=== PATIENT | female | born 1965 | race Two or more races ===

== ENCOUNTER 2020-01-21 16:22 | Inpatient (IN) | payer MEDICAID ==
[~2020-01-21] VITALS: Ht 165.1 cm; Wt 106.6 kg
[2020-01-21 16:30] VITALS: BP 128/79
--- NOTE | 2020-01-21 16:30 | NUR ---
ED Nurse Note: Pt MARIZA COLINDRES from home c/o epigastric pain, nausea and vomiting onset today. Denies diarrhea. Afebrile. Per pt, she has been exposed last week with someone who tested positive today. AAox4, verbally responsive. No SOB, on room air. ERMD at bedside.
[2020-01-21] MEDS ORDERED: DiphenhydrAMINE 50mg/ml Inj IVP ONE (16:45)
[2020-01-21] MEDS ORDERED: Morphine Sulfate 4mg/ml Inj (IV USE ONLY) IVP ONE (16:45)
[2020-01-21] MEDS ORDERED: Metoclopramide 10mg/2ml Inj IVP ONE (16:45)
--- NOTE | 2020-01-21 16:53 | Emergency Room Report ---
History of Present Illness General Chief Complaint: Abdominal Pain Source: Patient Present Illness HPI Patient presents with 1 hour of epigastric pain radiating to her back. She is never had this before. It severe at this time. She denies nausea, vomiting or diarrhea. Patient denies fevers or chills. Patient denies chest pain or dyspnea. The patient rates the pain 10/10 and states it is epigastric. It does not radiate to her back. She is taking no medication. Patient may have had contact with someone with COVID-19 a week ago for 1 hour just tested positive yesterday. No sore throat, palpitations, dysuria, joint pain, rashes, depression, anxiety, visual changes, dizziness, headache. Patient denies major medical problems. Allergies: Coded Allergies: No Known Allergies (Unverified , 01/21/20) COVID-19 Screening Contact w/high risk pt: No Experienced COVID-19 symptoms?: No COVID-19 Testing performed HYPO SPLASHER: No Patient History Social History: Denies: smoking, alcohol use, drug use Social History Narrative From home Reviewed Nursing Documentation: PMH: Agreed; PSxH: Agreed Nursing Documentation-PMH Past Medical History: No Stated History Review of Systems All Other Systems: negative except mentioned in HPI Physical Exam Vital Signs Date Time Temp Pulse Resp B/P (MAP) Pulse Ox O2 Delivery O2 Flow Rate FiO2 01/21/20 16:24 99.0 66 17 128/79 (95) 97 Room Air Sp02 EP Interpretation: reviewed, normal General Appearance: well appearing, no apparent distress, GCS 15 Head: normocephalic Eyes: bilateral eye normal inspection, bilateral eye PERRL, bilateral eye EOMI ENT: moist mucus membranes Neck: supple Respiratory: lungs clear, normal breath sounds Cardiovascular #1: regular rate, rhythm Cardiovascular #2: 2+ radial (R) Gastrointestinal: normal inspection, normal bowel sounds, no mass, non-distende d, no guarding, no rebound, tenderness - Reported epigastric, overweight Genitourinary: no CVA tenderness Musculoskeletal: back normal, normal range of motion, gait/station normal Neurologic: alert, oriented x3, grossly normal Psychiatric: mood/affect normal Skin: no rash, warm/dry Medical Decision Making Diagnostic Impression: Primary Impression: Acute pancreatitis Qualified Codes: K85.10 - Biliary acute pancreatitis without necrosis or infection Additional Impressions: Lab test positive for detection of COVID-19 virus Gall stone Qualified Codes: K80.20 - Calculus of gallbladder without cholecystitis without obstruction ER Course Patient presents with epigastric pain for 1 hour. Differential includes gastritis, peptic ulcer disease, pancreatitis, diverticulitis and UTI amongst others. Evaluated with EKG, ultrasound and labs. Patient treated with IV hydration, Pepcid, Reglan, Benadryl and morphine. EKG normal. Chest x-ray no infiltrates. White count normal however left shift. CMP remarkable for elevated liver function test. Lipase greater than 2000. Ultrasound reveals gallstones with mildly thickened gallbladder wall without any. Cholecystic fluid or Leon's sign. Patient improved with analgesia and hydration. However due to new onset panc reatitis with extremely elevated lipase patient admitted to the hospital. Covid test performed which returns positive. Patient admitted to the hospital for further evaluation and treatment. Laboratory Tests Test 01/21/20 16:55 01/21/20 18:23 White Blood Count 6.3 K/UL (4.8-10.8) Red Blood Count 4.81 M/UL (4.20-5.40) Hemoglobin 14.2 G/DL (12.0-16.0) Hematocrit 41.9 % (37.0-47.0) Mean Corpuscular Volume 87 FL (80-99) Mean Corpuscular Hemoglobin 29.5 PG (27.0-31.0) Mean Corpuscular Hemoglobin Concent 34.0 G/DL (32.0-36.0) Red Cell Distribution Width 13.0 % (11.6-14.8) Platelet Count 193 K/UL (150-450) Mean Platelet Volume 6.5 FL (6.5-10.1) Neutrophils (%) (Auto) % (45.0-75.0) Lymphocytes (%) (Auto) % (20.0-45.0) Monocytes (%) (Auto) % (1.0-10.0) Eosinophils (%) (Auto) % (0.0-3.0) Basophils (%) (Auto) % (0.0-2.0) Differential Total Cells Counted 100 Neutrophils % (Manual) 84 % (45-75) H Lymphocytes % (Manual) 8 % (20-45) L Monocytes % (Manual) 8 % (1-10) Eosinophils % (Manual) 0 % (0-3) Basophils % (Manual) 0 % (0-2) Band Neutrophils 0 % (0-8) Platelet Estimate Adequate Platelet Morphology Normal Red Blood Cell Morphology Normal Prothrombin Time 11.1 SEC (9.30-11.50) Prothrombin Time INR 1.0 (0.9-1.1) Activated Partial Thromboplast Time 29 SEC (23-33) Sodium Level 141 MMOL/L (136-145) Potassium Level 3.6 MMOL/L (3.5-5.1) Chloride Level 106 MMOL/L (98-107) Carbon Dioxide Level 26 MMOL/L (21-32) Anion Gap 9 mmol/L (5-15) Blood Urea Nitrogen 10 mg/dL (7-18) Creatinine 1.0 MG/DL (0.55-1.30) Estimated Glomerular Filtration Rate 58.0 mL/min (>60) Glucose Level 206 MG/DL (74-106) H Calcium Level 8.8 MG/DL (8.5-10.1) Total Bilirubin 1.4 MG/DL (0.2-1.0) H Direct Bilirubin 1.0 MG/DL (0.0-0.3) H Aspartate Amino Transferase (AST) 170 U/L (15-37) H Alanine Aminotransferase (ALT) 213 U/L (12-78) H Alkaline Phosphatase 163 U/L (46-116) H Troponin I 0.000 ng/mL (0.000-0.056) Total Protein 8.8 G/DL (6.4-8.2) H Albumin 3.6 G/DL (3.4-5.0) Globulin 5.2 g/dL Albumin/Globulin Ratio 0.7 (1.0-2.7) L Lipase > 2000 U/L (73-393) H Urine Color Yellow Urine Appearance Clear Urine pH 5 (4.5-8.0) Urine Specific [place] 1.015 (1.005-1.035) Urine Protein 1+ (NEGATIVE) H Urine Glucose (UA) Negative (NEGATIVE) Urine Ketones 1+ (NEGATIVE) H Urine Blood 1+ (NEGATIVE) H Urine Nitrite Negative (NEGATIVE) Urine Bilirubin Negative (NEGATIVE) Urine Urobilinogen Normal MG/DL (0.0-1.0) Urine Leukocyte Esterase 1+ (NEGATIVE) H Urine RBC 2-4 /HPF (0 - 2) H Urine WBC 2-4 /HPF (0 - 2) Urine Squamous Epithelial Cells Few /LPF (NONE/OCC) Urine Bacteria Few /HPF (NONE) Urine Mucus Moderate /LPF (NONE/OCC) H Microbiology Date/Time Source Procedure Growth Status 01/21/20 17:30 Nasopharynx SARS-CoV-2 RdRp Gene Assay - Final Complete EKG Diagnostic Results Rate: normal Rhythm: NSR ST Segments: no acute changes Rhythm Strip Diag. Results Rhythm: NSR, no PVC's, no ectopy Chest X-Ray Diagnostic Results Chest X-Ray Diagnostic Results : Chest X-Ray Ordered: Yes # of Views/Limited/Complete: 1 View Indication: Chest Pain EP Interpretation: Yes Interpretation: no consolidation, no effusion, no pneumothorax Impression: No acute disease Electronically Signed by: Electronically signed by Talon Alexander MD CT/MRI/US Diagnostic Results CT/MRI/US Diagnostic Results : Imaging Test Ordered: US Impression 1. Limited evaluation due to bowel gas. 2. Cholelithiasis. 3. Gallbladder wall measures 0.45 cm and is diffusely thickened. Clinical correlation is necessary. 4. No pericholecystic fluid noted however. Markedly limited evaluation of the common bile duct due to bowel gas. 5. Clinical correlation is necessary. Last Vital Signs Date Time Temp Pulse Resp B/P (MAP) Pulse Ox O2 Delivery O2 Flow Rate FiO2 01/22/20 00:00 99.6 61 18 138/75 (96) 99 01/21/20 21:22 Room Air Status: improved Disposition: ADMITTED INPATIENT Condition: Serious Scripts No Active Prescriptions or Reported Meds Talon Alexander MD Jan 21, 2020 16:53
--- NOTE | 2020-01-21 16:55 | NUR ---
ED Nurse Note: IV line established. Blood sent to lab.
--- NOTE | 2020-01-21 17:34 | NUR ---
ED Nurse Note: US at bedside.
--- NOTE | 2020-01-21 17:37 | Diagnostic Imaging Report ---
EXAM: XR Chest, 1 View CLINICAL HISTORY: ABD PAIN TECHNIQUE: Frontal view of the chest. COMPARISON: No previous studies. FINDINGS: Lungs: Unremarkable. No consolidation. Pleural space: No pleural effusions. No pneumothorax. Heart: Cardiomediastinal silhouette unremarkable. Mediastinum: See above. Bones/joints: Osteopenia. Upper abdomen: Elevation of the right hemidiaphragm. IMPRESSION: No active disease.
[2020-01-21 17:40] LABS: ANION GAP 9 mmol/L (5-15); BLOOD UREA NITROGEN 10 mg/dL (7-18); CALCIUM 8.8 MG/DL (8.5-10.1); CARBON DIOXIDE 26 MMOL/L (21-32); CHLORIDE 106 MMOL/L (98-107); POTASSIUM 3.6 MMOL/L (3.5-5.1); SODIUM 141 MMOL/L (136-145)
[2020-01-21 17:41] LABS: HEMATOCRIT 41.9 % (37.0-47.0); HEMOGLOBIN 14.2 G/DL (12.0-16.0); MEAN CORPUSCULAR VOLUME 87 FL (80-99); RED BLOOD COUNT 4.81 M/UL (4.20-5.40); WHITE BLOOD COUNT 6.3 K/UL (4.8-10.8)
[2020-01-21 17:42] LABS: PLATELET COUNT 193 K/UL (150-450)
[2020-01-21 17:50] LABS: ALANINE AMINOTRANSFERASE 213 U/L (12-78); ALBUMIN 3.6 G/DL (3.4-5.0); ALBUMIN/GLOBULIN RATIO 0.7 (1.0-2.7); ALKALINE PHOSPHATASE 163 U/L (46-116); ASPARTATE AMINO TRANSFERASE 170 U/L (15-37); BILIRUBIN,TOTAL 1.4 MG/DL (0.2-1.0)
--- NOTE | 2020-01-21 18:16 | Diagnostic Imaging Report ---
EXAM: US Abdomen Complete CLINICAL HISTORY: ABD PAIN TECHNIQUE: Real-time ultrasound of the abdomen with image documentation. COMPARISON: No previous studies. FINDINGS: Liver: See below. Gallbladder: There is cholelithiasis. A 2.6 cm gallstone is noted. Gallbladder wall measures 0.45 cm and is thickened. Common bile duct: Suboptimal evaluation of the common bile duct due to bowel gas. No stones. No dilation. Pancreas: Unremarkable as visualized. Kidneys: Right kidney measures 9.8 x 5 x 5 cm. Left kidney measures 9. 3 x 4.9 x 4.7 cm. No hydronephrosis. No stones. Spleen: Spleen measures 9.3 cm and is unremarkable. Aorta: Abdominal aorta is normal in caliber. Liver measures 15.9 cm. Partial evaluation of the abdominal aorta which is grossly unremarkable. No aneurysm. Inferior vena cava: Unremarkable. IMPRESSION: 1. Limited evaluation due to bowel gas. 2. Cholelithiasis. 3. Gallbladder wall measures 0.45 cm and is diffusely thickened. Clinical correlation is necessary. 4. No pericholecystic fluid noted however. Markedly limited evaluation of the common bile duct due to bowel gas. 5. Clinical correlation is necessary.
--- NOTE | 2020-01-21 18:23 | NUR ---
ED Nurse Note: Urine sent to lab.
[2020-01-21 18:49] VITALS: BP 129/68
--- NOTE | 2020-01-21 19:11 | NUR ---
HAND-OFF: Report given to Sherry MATA.
[2020-01-21] MEDS ORDERED: D5 1/2NS w/KCl 20mEq 1,000 ML IV SCH (19:30)
--- NOTE | 2020-01-21 20:00 | NUR ---
Nurse Note: Pt resting in bed, no signs of distress,VSS, atttached to bus driver/monitor. Pt denies pain, n/v. Provided pt with blanket and pillow.
[2020-01-21 20:08] LABS: APPEARANCE,URINE CLEAR; BILIRUBIN, URINE NEGATIVE (NEGATIVE); GLUCOSE, URINE (UA) NEGATIVE (NEGATIVE); KETONES,URINE 1+ (NEGATIVE); LEUKOCYTE ESTERASE ,URINE 1+ (NEGATIVE); NITRITE,URINE NEGATIVE (NEGATIVE); PH,URINE 5 (4.5-8.0); PROTEIN,URINE 1+ (NEGATIVE); UROBILINOGEN,URINE NORMAL MG/DL (0.0-1.0)
[2020-01-21 20:15] LABS: COLOR,URINE YELLOW
[2020-01-21 20:21] VITALS: BP 131/72
--- NOTE | 2020-01-21 21:29 | NUR ---
Nurse Note: Report given to ADOLFO Wood for continutiy of care. Pt stable, VSS, belongings with pt.
--- NOTE | 2020-01-21 21:45 | NUR ---
NURSE NOTES: ADMITTED 54 YEAR OLD FEMALE TO ROOM 414 BED 2 [facility] DIAGNOSIS ACUTE PANCREATITIS/COVID POSITIVE, PATIENT UNDER THE CARE OF DR. RIVERA. PATIENT ALERT/ORIENTED X4, VERBALLY RESPONSIVE. NO SIGNS AND SYMPTOMS OF ACUTE CARDIO RESPIRATORY DISTRESS/SHORTNESS OF BREATH, NOTED WITH EDEMA TO BILATERAL LOWER EXTREMITIES/NON PITTED. IV INTACT TO RIGHT AC/GAUGE 20, NO REDNESS/SWELLING NOTED. ABDOMEN OBESE/SOFT/NON TENDER, DENIES ABDOMINAL PAIN. PATIENT AWARE OF NPO STATUS, IV FLUIDS ONGOING. ORIENTATED PATIENT TO ROOM/ENVIRONMENT. SIDE RAILS UP X2 FOR MOBILITY, BED IN LOWEST POSITION FOR SAFETY, ENCOURAGED PATIENT TO UTILIZE CALL LIGHT FOR ASSISTANCE, VERBALIZED UNDERSTANDING. CONTINUE WITH CURRENT PLAN OF CARE. NAD.
[2020-01-21 22:00] VITALS: BP 131/69
[2020-01-22] VITALS: BP 138/75
--- NOTE | 2020-01-22 01:21 | NUR ---
NURSE NOTES: RESTING WELL ON ROUNDS, NO SIGNS OF DISTRESS.
[2020-01-22 04:00] VITALS: BP 136/75
--- NOTE | 2020-01-22 04:23 | NUR ---
NURSE NOTES: AM LABS DRAWN AND SENT TO LAB-
[2020-01-22 04:39] LABS: BASOPHILS % (AUTO) 0.3 % (0.0-2.0); HEMATOCRIT 40.1 % (37.0-47.0); HEMOGLOBIN 14.1 G/DL (12.0-16.0); LYMPHOCYTES % (AUTO) 22.4 % (20.0-45.0); MEAN CORPUSCULAR VOLUME 85 FL (80-99); MONOCYTES % (AUTO) 6.8 % (1.0-10.0); NEUTROPHILS % (AUTO) 70.4 % (45.0-75.0); PLATELET COUNT 186 K/UL (150-450); RED BLOOD COUNT 4.72 M/UL (4.20-5.40); RED CELL DISTRIBUTION WIDTH 13.8 % (11.6-14.8)
[2020-01-22 05:01] LABS: ALANINE AMINOTRANSFERASE 209 U/L (12-78); ALBUMIN 3.3 G/DL (3.4-5.0); ALBUMIN/GLOBULIN RATIO 0.6 (1.0-2.7); ALKALINE PHOSPHATASE 156 U/L (46-116); ANION GAP 7 mmol/L (5-15); ASPARTATE AMINO TRANSFERASE 139 U/L (15-37); BILIRUBIN,TOTAL 0.9 MG/DL (0.2-1.0); BLOOD UREA NITROGEN 11 mg/dL (7-18); CALCIUM 8.3 MG/DL (8.5-10.1); CARBON DIOXIDE 24 MMOL/L (21-32); CHLORIDE 109 MMOL/L (98-107); CREATININE 0.8 MG/DL (0.55-1.30); POTASSIUM 4.5 MMOL/L (3.5-5.1); SODIUM 140 MMOL/L (136-145)
--- NOTE | 2020-01-22 06:45 | Consultation ---
DATE OF CONSULTATION: 01/22/2020 PULMONARY CONSULTATION HISTORY OF PRESENT ILLNESS: This is a 54-year-old female who came to the hospital with abdominal pain. She states that she has been having severe pain for approximately 1 day. There was no fever, chills, shortness of breath, chest pain, or dyspnea. She apparently has been tested positive for COVID-19 contact as well at [facility]. Her rapid gene essay was positive for COVID. The patient underwent x-ray of the chest, which shows clear lung zuniga bilaterally. She also underwent ultrasound of the abdomen which showed cholelithiasis and thickening of the gallbladder wall suspicious for cholecystitis. The patient was found to be saturating well on room air. PAST MEDICAL HISTORY: Otherwise noncontributory. ALLERGIES: None. HOME MEDICATIONS: None. REVIEW OF SYSTEMS: Denies any headaches, hematemesis, melena, hematochezia. PHYSICAL EXAMINATION: GENERAL: Reveals a 54-year-old female. VITAL SIGNS: Blood pressure is 130/70, heart rate , respiratory rate 18, O2 saturation 99% on room air. HEENT: Unremarkable. CHEST: Clear breath sounds bilaterally. ABDOMEN: Soft. There is mild right upper quadrant discomfort. EXTREMITIES: There is no edema. LABORATORY AND DIAGNOSTIC DATA: Lab testing as discussed above is unremarkable except for markedly elevation of bilirubin 1.4. AST and ALT elevated, alkaline phosphatase elevated to 163. Troponin negative. IMPRESSION: 1. Transaminitis. 2. Pancreatitis. 3. Positive COVID-19. DISCUSSION: Currently, her COVID symptoms are minimal. I suspect she has cholelithiasis/cholecystitis as well as pancreatitis. She may have passed a stone. 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 Recommend consultation by GI and Surgery. We will follow. Bubba Penny M.D. DR: Misti JOB#: [id number] CC:
--- NOTE | 2020-01-22 07:34 | NUR ---
NURSE HAND-OFF: Important Events on Shift:[UNEVENTFUL NIGHT, DENIED ABDOMINAL PAIN, NO N/V] Patient Status: [STABLE] Diet: [NPO] Pending Orders: [AM LABS] Pending Results/Labs:[N/A] Pending MD notification:[] Latest Vital Signs: Temperature 98.3 , Pulse 66 , B/P 136 /75 , Respiratory Rate 18 , O2 SAT 95 , Room Air, O2 Flow Rate . Vital Sign Comment: [STABLE,AFEBRILE] Latest Xiong Fall Score: 35 Fall Risk: Medium Risk Safety Measures: Call light Within Reach, Bed Alarm Zone 1, Side Rails Side Rails x2, Bed position Low and Locked. Fall Precautions: Patient Fall Education Report given to [ADOLFO JENSEN].
--- NOTE | 2020-01-22 07:44 | NUR ---
NURSE NOTES: Report received from CHARMAINE Real. Patient is awake, alert and oriented x 4, no SOB, bed in lowest position with breaks engaged and alarm on, denies any pain or discomfort at this time, IV line present on right wrist, on room air, on contact and droplet precaution for COVID, will continue to monitor and proceed with plan of care, call light within reach.
[2020-01-22 08:00] VITALS: BP 130/69
--- NOTE | 2020-01-22 08:54 | General Progress Note ---
Subjective ROS Limited/Unobtainable: Yes Allergies: Coded Allergies: No Known Allergies (Unverified , 01/21/20) Objective Last 24 Hour Vital Signs Date Time Temp Pulse Resp B/P (MAP) Pulse Ox O2 Delivery O2 Flow Rate FiO2 01/22/20 08:00 98.1 74 18 130/69 (89) 98 01/22/20 04:00 98.3 66 18 136/75 (95) 95 01/22/20 00:00 99.6 61 18 138/75 (96) 99 01/21/20 23:12 Room Air 01/21/20 22:00 99.1 64 18 131/69 (89) 99 01/21/20 21:22 98.8 62 16 131/72 98 Room Air 01/21/20 20:21 98.8 62 16 131/72 98 Room Air 01/21/20 18:49 99.0 90 16 129/68 99 Room Air 01/21/20 17:33 99.0 01/21/20 16:30 66 17 Room Air 01/21/20 16:30 99.0 60 17 128/79 97 Room Air 01/21/20 16:24 99.0 66 17 128/79 (95) 97 Room Air Intake and Output 01/21/20 01/22/20 19:00 07:00 Intake Total 1000 ml 120 ml Balance 1000 ml 120 ml Intake Oral 120 ml IV Total 1000 ml # Voids 2 Laboratory Tests 01/21/20 16:55: White Blood Count 6.3, Red Blood Count 4.81, Hemoglobin 14.2, Hematocrit 41.9, Mean Corpuscular Volume 87, Mean Corpuscular Hemoglobin 29.5, Mean Corpuscular Hemoglobin Concent 34.0, Red Cell Distribution Width 13.0, Platelet Count 193, Mean Platelet Volume 6.5, Neutrophils (%) (Auto) , Lymphocytes (%) (Auto) , Monocytes (%) (Auto) , Eosinophils (%) (Auto) , Basophils (%) (Auto) , Differential Total Cells Counted 100, Neutrophils % (Manual) 84H, Lymphocytes % (Manual) 8L, Monocytes % (Manual) 8, Eosinophils % (Manual) 0, Basophils % (Manual) 0, Band Neutrophils 0, Platelet Estimate Adequate, Platelet Morphology Normal, Red Blood Cell Morphology Normal, Prothrombin Time 11.1, Prothromb Time International Ratio 1.0, Activated Partial Thromboplast Time 29, Sodium Level 141, Potassium Level 3.6, Chloride Level 106, Carbon Dioxide Level 26, Anion Gap 9, Blood Urea Nitrogen 10, Creatinine 1.0, Estimat Glomerular Filtration Rate 58.0, Glucose Level 206H, Calcium Level 8.8, Total Bilirubin 1.4H, Direct Bilirubin 1.0H, Aspartate Amino Transf (AST/SGOT) 170H, Alanine Aminotransferase (ALT/SGPT) 213H, Alkaline Phosphatase 163H, Troponin I 0.000, Total Protein 8.8H , Albumin 3.6, Globulin 5.2, Albumin/Globulin Ratio 0.7L, Lipase > 2000H 01/21/20 18:23: Urine Color Yellow, Urine Appearance Clear, Urine pH 5, Urine Specific [place] 1.015, Urine Protein 1+H, Urine Glucose (UA) Negative, Urine Ketones 1+H, Urine Blood 1+H, Urine Nitrite Negative, Urine Bilirubin Negative, Urine Urobilinogen Normal, Urine Leukocyte Esterase 1+H, Urine RBC 2-4H, Urine WBC 2-4, Urine Squamous Epithelial Cells Few, Urine Bacteria Few, Urine Mucus ModerateH 01/22/20 04:00: White Blood Count 6.0, Red Blood Count 4.72, Hemoglobin 14.1, Hematocrit 40.1, Mean Corpuscular Volume 85, Mean Corpuscular Hemoglobin 29.8, Mean Corpuscular Hemoglobin Concent 35.1, Red Cell Distribution Width 13.8, Platelet Count 186, Mean Platelet Volume 6.7, Neutrophils (%) (Auto) 70.4, Lymphocytes (%) (Auto) 22.4, Monocytes (%) (Auto) 6.8, Eosinophils (%) (Auto) 0.0, Basophils (%) (Auto) 0.3, Sodium Level 140, Potassium Level 4.5, Chloride Level 109H, Carbon Dioxide Level 24, Anion Gap 7, Blood Urea Nitrogen 11, Creatinine 0.8, Estimat Glomerular Filtration Rate > 60, Glucose Level 132H, Calcium Level 8.3L, Total B ilirubin 0.9, Aspartate Amino Transf (AST/SGOT) 139H, Alanine Aminotransferase (ALT/SGPT) 209H, Alkaline Phosphatase 156H, Total Protein 8.4H, Albumin 3.3L, Globulin 5.1, Albumin/Globulin Ratio 0.6L, Lipase > 2000H Height (Feet): 5 Height (Inches): 2.00 Weight (Pounds): 235 General Appearance: alert EENT: normal ENT inspection Neck: supple Cardiovascular: normal rate Respiratory/Chest: lungs clear Abdomen: normal bowel sounds, non tender, soft Extremities: non-tender Assessment/Plan Assessment/Plan: gallstone pancreatitis? Covid positive npo ivf pain control needs MRCP but covid + will fu David Kingsley MD Jan 22, 2020 08:54
[2020-01-22] MEDS ORDERED: Morphine Sulfate 2mg/ml Inj(IV/IM USE ONLY) IVP PRN (09:00)
[2020-01-22] MEDS: D5 1/2NS w/KCL 10meq 1,000 ML IV SCH ×2 (10:15→19:30)
--- NOTE | 2020-01-22 10:26 | NUR ---
CASE MANAGEMENT:REVIEW BIBA FROM HOME CC; ABDOMINAL PAIN. N/V SI: ACUTE PANCREATITIS. COVID INFECTION 99.0 66 17 128/79 97% ON RA LIPASE>2000 IS: IV REGLAN IV PEPCID IV MORPHINE 1L NS BOLUS IV BENADRYL ABD US CXR : TO MED/[facility]URG [facility]
[2020-01-22 12:00] VITALS: BP 132/66
--- NOTE | 2020-01-22 12:13 | Pulmonology Progress Note ---
Subjective ROS Limited/Unobtainable: Yes Interval Events: none new Constitutional: Reports: no symptoms HEENT: Repors: no symptoms Respiratory: Reports: no symptoms Cardiovascular: Reports: no symptoms Gastrointestinal/Abdominal: Reports: no symptoms Genitourinary: Reports: no symptoms Allergies: Coded Allergies: No Known Allergies (Unverified , 01/21/20) Objective Last 24 Hour Vital Signs Date Time Temp Pulse Resp B/P (MAP) Pulse Ox O2 Delivery O2 Flow Rate FiO2 01/22/20 12:00 98.4 77 18 132/66 (88) 98 01/22/20 09:00 Room Air 01/22/20 08:00 98.1 74 18 130/69 (89) 98 01/22/20 04:00 98.3 66 18 136/75 (95) 95 01/22/20 00:00 99.6 61 18 138/75 (96) 99 01/21/20 23:12 Room Air 01/21/20 22:00 99.1 64 18 131/69 (89) 99 01/21/20 21:22 98.8 62 16 131/72 98 Room Air 01/21/20 20:21 98.8 62 16 131/72 98 Room Air 01/21/20 18:49 99.0 90 16 129/68 99 Room Air 01/21/20 17:33 99.0 01/21/20 16:30 66 17 Room Air 01/21/20 16:30 99.0 60 17 128/79 97 Room Air 01/21/20 16:24 99.0 66 17 128/79 (95) 97 Room Air Intake and Output 01/21/20 01/22/20 19:00 07:00 Intake Total 1000 ml 120 ml Balance 1000 ml 120 ml Intake Oral 120 ml IV Total 1000 ml # Voids 2 Objective 01/22/2020 saturating well on room air; NAD General Appearance: WD/WN, no acute distress HEENT: normocephalic Respiratory: lungs clear Cardiovascular: normal rate, regular rhythm, no gallop/murmur Abdomen: soft, non tender Neurologic: alert, oriented x 3, responsive Microbiology Date/Time Source Procedure Growth Status 01/21/20 17:30 Nasopharynx SARS-CoV-2 RdRp Gene Assay - Final Complete Laboratory Tests 01/21/20 16:55: White Blood Count 6.3, Red Blood Count 4.81, Hemoglobin 14.2, Hematocrit 41.9, Mean Corpuscular Volume 87, Mean Corpuscular Hemoglobin 29.5, Mean Corpuscular Hemoglobin Concent 34.0, Red Cell Distribution Width 13.0, Platelet Count 193, Mean Platelet Volume 6.5, Neutrophils (%) (Auto) , Lymphocytes (%) (Auto) , Monocytes (%) (Auto) , Eosinophils (%) (Auto) , Basophils (%) (Auto) , Differential Total Cells Counted 100, Neutrophils % (Manual) 84H, Lymphocytes % (Manual) 8L, Monocytes % (Manual) 8, Eosinophils % (Manual) 0, Basophils % (Manual) 0, Band Neutrophils 0, Platelet Estimate Adequate, Platelet Morphology Normal, Red Blood Cell Morphology Normal, Prothrombin Time 11.1, Prothromb Time International Ratio 1.0, Activated Partial Thromboplast Time 29, Sodium Level 141, Potassium Level 3.6, Chloride Level 106, Carbon Dioxide Level 26, Anion Gap 9, Blood Urea Nitrogen 10, Creatinine 1.0, Estimat Glomerular Filtration Rate 58.0, Glucose Level 206H, Calcium Level 8.8, Total Bilirubin 1.4H, Direct Bilirubin 1.0H, Aspartate Amino Transf (AST/SGOT) 170H, Alanine Aminotransferase (ALT/SGPT) 213H, Alkaline Phosphatase 163H, Troponin I 0.000, Total Protein 8.8H , Albumin 3.6, Globulin 5.2, Albumin/Globulin Ratio 0.7L, Lipase > 2000H 01/21/20 18:23: Urine Color Yellow, Urine Appearance Clear, Urine pH 5, Urine Specific [place] 1.015, Urine Protein 1+H, Urine Glucose (UA) Negative, Urine Ketones 1+H, Urine Blood 1+H, Urine Nitrite Negative, Urine Bilirubin Negative, Urine Urobilinogen Normal, Urine Leukocyte Esterase 1+H, Urine RBC 2-4H, Urine WBC 2-4, Urine Squamous Epithelial Cells Few, Urine Bacteria Few, Urine Mucus ModerateH 01/22/20 04:00: White Blood Count 6.0, Red Blood Count 4.72, Hemoglobin 14.1, Hematocrit 40.1, Mean Corpuscular Volume 85, Mean Corpuscular Hemoglobin 29.8, Mean Corpuscular Hemoglobin Concent 35.1, Red Cell Distribution Width 13.8, Platelet Count 186, Mean Platelet Volume 6.7, Neutrophils (%) (Auto) 70.4, Lymphocytes (%) (Auto) 22.4, Monocytes (%) (Auto) 6.8, Eosinophils (%) (Auto) 0.0, Basophils (%) (Auto) 0.3, Sodium Level 140, Potassium Level 4.5, Chloride Level 109H, Carbon Dioxide Level 24, Anion Gap 7, Blood Urea Nitrogen 11, Creatinine 0.8, Estimat Glomerular Filtration Rate > 60, Glucose Level 132H, Calcium Level 8.3L, Total Bilirubin 0.9, Aspartate Amino Transf (AST/SGOT) 139H, Alanine Aminotransferase (ALT/SGPT) 209H, Alkaline Phosphatase 156H, Total Protein 8.4H, Albumin 3.3L, Globulin 5.1, Albumin/Globulin Ratio 0.6L, Lipase > 2000H Current Medications Medications (Trade) Dose Ordered Sig/Dipti Route PRN Reason Start Time Stop Time Status Last Admin Dose Admin Dextrose/ Electrolytes 1,000 ml @ 100 mls/hr Q10H IV 01/22/20 09:30 02/21/20 09:29 01/22/20 10:15 Morphine Sulfate (Morphine Sulfate) 2 mg Q4H PRN IVP For Pain 01/22/20 09:00 01/29/20 08:59 Ondansetron HCl (Zofran) 4 mg Q6H PRN IVP Nausea & Vomiting 01/22/20 07:30 02/21/20 07:29 Assessment/Plan Assessment/Plan 1. Transaminitis; improving - AST 170 -> 139 - ALT 213 -> 209 2. Pancreatitis. - NPO, IVF - pain control - MRCP pending per COVID-19 positive status - per Dr. Kingsley 3. Positive COVID-19. -Currently no intervention required for Covid19 due to her normoxemic status on RA The care of this patient was discussed with my supervising physician Time spent for this encounter was approximately 31 minutes The patient was seen and examined at bedside and all new and available data was reviewed in the patients chart. I agree with the above findings, impression, and plan. (Patient was seen earlier today. Signature timestamp does not reflect patient encounter time) Steven Redmond MD Jan 22, 2020 12:13 Bubba Penny MD Jan 22, 2020 18:17
[2020-01-22 16:00] VITALS: BP 124/74
--- NOTE | 2020-01-22 17:13 | NUR ---
NURSE NOTES: Pt noted to have temp of 100.9, Dr. Win notified and per MD, call ID doctor Estuardo Blandon, unable to be reached at this time. Relayed to Dr. Win, ordered Ibuprofen 40 mg PO q6 prn for fever.
--- NOTE | 2020-01-22 17:58 | Consultation ---
History of Present Illness General Date patient seen: Jan 22, 2020 Reason for Hospitalization: Abdominal Pain Present Illness HPI This is a very pleasant 54-year-old female who presents with 1 hour of epigastric pain radiating to her back. She is never had this before. It severe at this time. She denies nausea, vomiting or diarrhea. Patient denies fevers or chills. Patient denies chest pain or dyspnea. The patient rates the pain 10/10 and states it is epigastric. It does not radiate to her back. She is taking no medication.Patient may have had contact with someone with COVID-19 a week ago for 1 hour just tested positive yesterday.No sore throat, palpitations, dysuria, joint pain, rashes, depression, anxiety, visual changes, dizziness, headache. Patient denies major medical problems. Surgery called to evaluate assist with care patient seen, patient [place], chart reviewed Allergies: Coded Allergies: No Known Allergies (Unverified , 01/21/20) COVID-19 Screening Contact w/high risk pt: No Experienced COVID-19 symptoms?: No Medication History No Active Prescriptions or Reported Meds Patient History History Provided By: Patient Healthcare decision maker Resuscitation status Advanced Directive on File Past Medical/Surgical History Past Medical/Surgical History: (1) Acute pancreatitis (2) Gall stone (3) Lab test positive for detection of COVID-19 virus Review of Systems Review of Symptoms General ROS: no weight loss or fever Psychological ROS: no depression or mood changes, no memory loss Ophthalmic ROS: no visual changes or eye irritation ENT ROS: no nasal congestion, hearing loss, dizziness Allergy and Immunology ROS: no allergic symptoms or urticaria Hematological and Lymphatic ROS: no swollen glands, unusual bleeding or bruising Endocrine ROS: no polyuria, polydipsia, weight changes, temperature intolerance Respiratory ROS: no cough, shortness of breath, or wheezing Cardiovascular ROS: no chest pain or dyspnea on exertion Gastrointestinal ROS: denies abdominal pain, bright red blood in stool. Musculoskeletal ROS: no myalgias or arthralgias Neurological ROS: no TIA or stroke symptoms Dermatological ROS: no new or changing skin lesions, rashes or pruritis Physical Exam Physical Exam General appearance: alert, cooperative, no distress, appears stated age Head: Normocephalic, without obvious abnormality, atraumatic Eyes: conjunctivae/corneas clear. PERRL, EOM's intact. Fundi benign Throat: Lips, mucosa, and tongue normal. Teeth and gums normal Neck: supple, symmetrical, trachea midline, no adenopathy, thyroid: not enlarged, symmetric, no tenderness/mass/nodules, no carotid bruit and no JVD Lungs: clear to auscultation bilaterally Heart: regular rate and rhythm, S1, S2 normal, no murmur, click, rub or gallop Abdomen: soft, non-tender. Bowel sounds normal. No masses, no organomegaly Extremities: extremities normal, atraumatic, no cyanosis or edema Pulses: 2+ and symmetric Skin: Skin color, texture, turgor normal. No rashes or lesions Neurologic: Grossly normal Last 24 Hour Vital Signs Date Time Temp Pulse Resp B/P (MAP) Pulse Ox O2 Delivery O2 Flow Rate FiO2 01/22/20 16:00 100.9 73 19 124/74 (91) 99 01/22/20 12:00 98.4 77 18 132/66 (88) 98 01/22/20 09:00 Room Air 01/22/20 08:00 98.1 74 18 130/69 (89) 98 01/22/20 04:00 98.3 66 18 136/75 (95) 95 01/22/20 00:00 99.6 61 18 138/75 (96) 99 01/21/20 23:12 Room Air 01/21/20 22:00 99.1 64 18 131/69 (89) 99 01/21/20 21:22 98.8 62 16 131/72 98 Room Air 01/21/20 20:21 98.8 62 16 131/72 98 Room Air 01/21/20 18:49 99.0 90 16 129/68 99 Room Air Intake and Output 01/21/20 01/22/20 19:00 07:00 Intake Total 1000 ml 120 ml Balance 1000 ml 120 ml Intake Oral 120 ml IV Total 1000 ml # Voids 2 Laboratory Tests Test 01/21/20 18:23 01/22/20 04:00 Urine Color Yellow Urine Appearance Clear Urine pH 5 (4.5-8.0) Urine Specific [place] 1.015 (1.005-1.035) Urine Protein 1+ (NEGATIVE) H Urine Glucose (UA) Negative (NEGATIVE) Urine Ketones 1+ (NEGATIVE) H Urine Blood 1+ (NEGATIVE) H Urine Nitrite Negative (NEGATIVE) Urine Bilirubin Negative (NEGATIVE) Urine Urobilinogen Normal MG/DL (0.0-1.0) Urine Leukocyte Esterase 1+ (NEGATIVE) H Urine RBC 2-4 /HPF (0 - 2) H Urine WBC 2-4 /HPF (0 - 2) Urine Squamous Epithelial Cells Few /LPF (NONE/OCC) Urine Bacteria Few /HPF (NONE) Urine Mucus Moderate /LPF (NONE/OCC) H White Blood Count 6.0 K/UL (4.8-10.8) Red Blood Count 4.72 M/UL (4.20-5.40) Hemoglobin 14.1 G/DL (12.0-16.0) Hematocrit 40.1 % (37.0-47.0) Mean Corpuscular Volume 85 FL (80-99) Mean Corpuscular Hemoglobin 29.8 PG (27.0-31.0) Mean Corpuscular Hemoglobin Concent 35.1 G/DL (32.0-36.0) Red Cell Distribution Width 13.8 % (11.6-14.8) Platelet Count 186 K/UL (150-450) Mean Platelet Volume 6.7 FL (6.5-10.1) Neutrophils (%) (Auto) 70.4 % (45.0-75.0) Lymphocytes (%) (Auto) 22.4 % (20.0-45.0) Monocytes (%) (Auto) 6.8 % (1.0-10.0) Eosinophils (%) (Auto) 0.0 % (0.0-3.0) Basophils (%) (Auto) 0.3 % (0.0-2.0) Sodium Level 140 MMOL/L (136-145) Potassium Level 4.5 MMOL/L (3.5-5.1) Chloride Level 109 MMOL/L (98-107) H Carbon Dioxide Level 24 MMOL/L (21-32) Anion Gap 7 mmol/L (5-15) Blood Urea Nitrogen 11 mg/dL (7-18) Creatinine 0.8 MG/DL (0.55-1.30) Estimat Glomerular Filtration Rate > 60 mL/min (>60) Glucose Level 132 MG/DL (74-106) H Calcium Level 8.3 MG/DL (8.5-10.1) L Total Bilirubin 0.9 MG/DL (0.2-1.0) Aspartate Amino Transf (AST/SGOT) 139 U/L (15-37) H Alanine Aminotransferase (ALT/SGPT) 209 U/L (12-78) H Alkaline Phosphatase 156 U/L (46-116) H Total Protein 8.4 G/DL (6.4-8.2) H Albumin 3.3 G/DL (3.4-5.0) L Globulin 5.1 g/dL Albumin/Globulin Ratio 0.6 (1.0-2.7) L Lipase > 2000 U/L (73-393) H Height (Feet): 5 Height (Inches): 2.00 Weight (Pounds): 235 Medications Current Medications Medications (Trade) Dose Ordered Sig/Dipti Route PRN Reason Start Time Stop Time Status Last Admin Dose Admin Dextrose/ Electrolytes 1,000 ml @ 100 mls/hr Q10H IV 01/22/20 09:30 02/21/20 09:29 01/22/20 10:15 Morphine Sulfate (Morphine Sulfate) 2 mg Q4H PRN IVP For Pain 01/22/20 09:00 01/29/20 08:59 Ondansetron HCl (Zofran) 4 mg Q6H PRN IVP Nausea & Vomiting 01/22/20 07:30 02/21/20 07:29 Assessment/Plan Problem List: (1) Acute pancreatitis Assessment & Plan: 51-year-old female acute pancreatitis potentially gallstone related. Afebrile hemodynamic stable labs improved. No nausea vomiting fever chills. Pain is resolved. Tolerating diet. Amatory. No acute surgical intervention planned. Continue with work-up. Trend labs. GI input appreciated. Will follow with recommendations. Thank you ICD Codes: K85.90 - Acute pancreatitis without necrosis or infection, unspecified SNOMED: 161164031 Qualifiers: Qualified Codes: K85.10 - Biliary acute pancreatitis without necrosis or infection (2) Gall stone ICD Codes: K80.20 - Calculus of gallbladder without cholecystitis without obstruction SNOMED: 945230292 Qualifiers: Qualified Codes: K80.20 - Calculus of gallbladder without cholecystitis without obstruction (3) Lab test positive for detection of COVID-19 virus ICD Codes: U07.1 - COVID-19 SNOMED: [id number] Jalil Santiago Jan 22, 2020 17:58
--- NOTE | 2020-01-22 19:18 | NUR ---
NURSE HAND-OFF: Important Events on Shift:[monitoring for pain, VS and labs, IV fluids, new diet order] Patient Status: [needs monitoring] Diet: [mech soft thin liquids] Pending Orders: [] Pending Results/Labs:[] Pending MD notification:[] Latest Vital Signs: Temperature 99.0 , Pulse 73 , B/P 124 /74 , Respiratory Rate 19 , O2 SAT 99 , Room Air, O2 Flow Rate . Vital Sign Comment: [] Latest Xiong Fall Score: 35 Fall Risk: Medium Risk Safety Measures: Call light Within Reach, Bed Alarm Zone 1, Side Rails Side Rails x2, Bed position Low and Locked. Fall Precautions: Patient Fall Education Report given to [ADOLFO Ko].
[2020-01-22 20:00] VITALS: BP 137/83
--- NOTE | 2020-01-22 20:02 | NUR ---
nurse's notes: received patient awake, alert and oriented; on her cellphone; denies any pain, SOBs or chest pain; on room air saturating at 97%; VSS; afebrile; in no apparent distress; plan of care discussed with patient who verbalized understanding; will continue to monitor.
--- NOTE | 2020-01-22 21:00 | Consultation ---
DATE OF CONSULTATION: 01/22/2020 INFECTIOUS DISEASE CONSULT PRIMARY ATTENDING PHYSICIAN: Ronny Win M.D. REASON FOR CONSULT: COVID-19 disease and acute pancreatitis. HISTORY OF PRESENT ILLNESS: The patient is a 54-year-old female admitted yesterday from home complaining of epigastric pain for 1 hour. The pain was radiating to the back. She had a positive test for COVID-19 disease. She had a contact with a positive person about 1 week ago. Currently has no pain and feels better. MEDICATIONS: Getting morphine and Zofran. ALLERGIES: No known drug allergy. REVIEW OF SYSTEMS: Denies any fever, chills, coughing, nausea, vomiting. No pain. No dysuria. No frequency. No chest pain. PHYSICAL EXAMINATION: GENERAL: No acute distress. Seems to be obese. HEAD AND NECK: [place] conjunctivae. HEART: Normal rate. LUNGS: Clear. ABDOMEN: Soft, obese. EXTREMITIES: No edema. NEUROLOGIC: Awake, alert, oriented x3. LABORATORY DATA: Sodium 140, potassium 4.5, chloride 109, bicarbonate 24, BUN 9, creatinine 0.8, total bilirubin 1.4. AST is 139, ALT 209, lipase more than 2000. Albumin 3.3. UA was negative. WBC 6000, hemoglobin 14.1, hematocrit 40.1, and platelets 186. COVID-19 test well positive. Chest x-ray showed no acute disease. Abdominal ultrasound showed diffuse gallbladder wall thickening, cholelithiasis. IMPRESSION: 1. COVID-19 disease, seems to be mild or recent infection. 2. Acute pancreatitis, has elevated transaminase. 3. Cholelithiasis. 4. Morbid obesity. PLAN: Observe off antibiotic. We will follow up the cultures and clinical course. At the end of my exam, I thank Dr. Win for involving me in the care of this patient. Wesley Blandon M.D. DR: RAY JOB#: [id number] CC: MARICRUZ
[2020-01-23] VITALS: BP 131/91
--- NOTE | 2020-01-23 00:15 | History and Physical Report ---
DATE OF ADMISSION: 01/21/2020 HISTORY OF PRESENT ILLNESS: The patient is basically admitted for COVID-positive pneumonia as well as pancreatitis and elevated LFTs. The patient does have some abdominal pain. She does have shortness of breath and cough. The patient has had 1 day of abdominal pain radiating to the back. Denied nausea, vomiting, or diarrhea. Denies chest pain. Denies fever or chills. The patient's pain was epigastric. The patient admitted for COVID-positive pneumonia, pancreatitis, and elevated LFTs. PAST MEDICAL HISTORY: None. FAMILY HISTORY: Noncontributory. SOCIAL HISTORY: Denies history of smoking. Denies history of alcohol or illicit drugs. PAST SURGICAL HISTORY: None. ALLERGIES: No known allergies. MEDICATIONS: None. FAMILY HISTORY: Noncontributory. REVIEW OF SYSTEMS: HEENT: Denies headache. RESPIRATORY: Reports mild shortness of breath and cough. CARDIOVASCULAR: Denies chest pain or orthopnea. GASTROINTESTINAL: Reports abdominal pain x1 day. Denies nausea, vomiting, or diarrhea. Denies constipation. EXTREMITIES: Denies pain in the lower extremities. CENTRAL NERVOUS SYSTEM: Denies change in speech pattern. PHYSICAL EXAMINATION: VITAL SIGNS: Temperature is 98.3, pulse is 66, and blood pressure 136/75. HEENT: PERRLA. NECK: Supple. No lymphadenopathy. CHEST: Clear to auscultation. CARDIOVASCULAR: Regular rate and rhythm. No murmurs or extra sounds. GASTROINTESTINAL: Epigastric tenderness. No rebound. Abdomen is soft. No organomegaly. EXTREMITIES: No edema. Moves all four extremities. NEUROLOGIC: Sensory exam, moves all extremities. She has generalized weakness. Reflexes on both sides. LABORATORY DATA: WBC of 6.3, hemoglobin 14.2, platelet 193,000. Sodium 141, potassium 3.6, glucose of 206, BUN of 10, creatinine 1. AST of 107, ALT of 213, alkaline phosphatase of 163, total bilirubin 1.4, and lipase greater than 2000. ASSESSMENT AND PLAN: Elevated LFTs, acute pancreatitis, COVID-positive pneumonia. I have consulted basically Dr. Kingsley, Dr. Wesley Blandon, Dr. Bubba Penny, and Dr. Jalil Santiago to make sure there is nothing surgical. We will keep the patient NPO and give IV fluids and antibiotics per Dr. Wesley Blandon and also as mantioned above, the patient has elevated LFTs. Ronny Win M.D. DR: Jennie JOB#: [id number] CC:
[2020-01-23 04:00] VITALS: BP 134/89
[2020-01-23] MEDS: D5 1/2NS w/KCL 10meq 1,000 ML IV SCH ×2 (04:11→15:53)
--- NOTE | 2020-01-23 07:04 | NUR ---
NURSE HAND-OFF: Important Events on Shift: no significant changes noted this shift. Patient Status: stable at this time with no complaints of SOBs or any distress Diet: see chart Pending Orders: AM labs Pending Results/Labs:AM labs Pending MD notification:AM labs Latest Vital Signs: Temperature 98.7 , Pulse 75 , B/P 134 /89 , Respiratory Rate 18 , O2 SAT 97 , Room Air, O2 Flow Rate . Vital Sign Comment: VSS; afebrile Latest Xiong Fall Score: 35 Fall Risk: Medium Risk Safety Measures: Call light Within Reach, Bed Alarm Zone 1, Side Rails Side Rails x2, Bed position Low and Locked. Fall Precautions: Patient Fall Education Report will be given to Nadine Smith RN].
[2020-01-23 08:00] VITALS: BP 140/80
--- NOTE | 2020-01-23 08:00 | NUR ---
NURSE NOTES: Received report from ADOLFO Ko. Rounding done. Pt a/o x 4, having breakfast. No SOB noted. Denies any pain at this time. Rt AC IV is in placed. D51/2NS + KCl 10meq running @100ml/wilder. Bed in lowest position, call light within reach. Will continue to monitor.
[2020-01-23 09:52] LABS: BASOPHILS % (AUTO) 0.5 % (0.0-2.0); EOSINOPHILS % (AUTO) 0.1 % (0.0-3.0); HEMATOCRIT 38.2 % (37.0-47.0); HEMOGLOBIN 13.1 G/DL (12.0-16.0); LYMPHOCYTES % (AUTO) 15.5 % (20.0-45.0); MEAN CORPUSCULAR VOLUME 86 FL (80-99); MONOCYTES % (AUTO) 4.3 % (1.0-10.0); NEUTROPHILS % (AUTO) 79.6 % (45.0-75.0); PLATELET COUNT 178 K/UL (150-450); RED BLOOD COUNT 4.47 M/UL (4.20-5.40); RED CELL DISTRIBUTION WIDTH 13.4 % (11.6-14.8); WHITE BLOOD COUNT 6.2 K/UL (4.8-10.8)
[2020-01-23 10:26] LABS: ALANINE AMINOTRANSFERASE 133 U/L (12-78); ALBUMIN 3.2 G/DL (3.4-5.0); ALBUMIN/GLOBULIN RATIO 0.7 (1.0-2.7); ALKALINE PHOSPHATASE 124 U/L (46-116); ANION GAP 8 mmol/L (5-15); ASPARTATE AMINO TRANSFERASE 51 U/L (15-37); BILIRUBIN,TOTAL 0.8 MG/DL (0.2-1.0); BLOOD UREA NITROGEN 10 mg/dL (7-18); CALCIUM 7.9 MG/DL (8.5-10.1); CARBON DIOXIDE 23 MMOL/L (21-32); CHLORIDE 104 MMOL/L (98-107); CHOLESTEROL 153 MG/DL (< 200); CREATININE 0.7 MG/DL (0.55-1.30); HDL CHOLESTEROL 65 MG/DL (40-60); POTASSIUM 3.6 MMOL/L (3.5-5.1); SODIUM 135 MMOL/L (136-145); TRIGLYCERIDES 75 MG/DL (30-150)
[2020-01-23 10:28] LABS: AMYLASE 675 U/L (25-115)
--- NOTE | 2020-01-23 11:00 | General Progress Note ---
Subjective ROS Limited/Unobtainable: Yes Allergies: Coded Allergies: No Known Allergies (Unverified , 01/21/20) Objective Last 24 Hour Vital Signs Date Time Temp Pulse Resp B/P (MAP) Pulse Ox O2 Delivery O2 Flow Rate FiO2 01/23/20 10:00 100.9 01/23/20 10:00 100.9 01/23/20 09:00 Room Air 01/23/20 08:00 100.8 100 20 140/80 (100) 97 01/23/20 04:00 98.7 75 18 134/89 (104) 97 01/23/20 00:00 99.0 71 16 131/91 (104) 98 01/22/20 21:00 Room Air 01/22/20 20:00 97.8 89 17 137/83 (101) 97 01/22/20 18:55 99.0 01/22/20 16:00 100.9 73 19 124/74 (91) 99 01/22/20 12:00 98.4 77 18 132/66 (88) 98 Intake and Output 01/22/20 01/23/20 19:00 07:00 Intake Total 300 ml Balance 300 ml Intake Oral 300 ml # Voids 3 3 Laboratory Tests 01/23/20 09:30: White Blood Count 6.2, Red Blood Count 4.47, Hemoglobin 13.1, Hematocrit 38.2, Mean Corpuscular Volume 86, Mean Corpuscular Hemoglobin 29.3, Mean Corpuscular Hemoglobin Concent 34.2, Red Cell Distribution Width 13.4, Platelet Count 178, Mean Platelet Volume 6.6, Neutrophils (%) (Auto) 79.6H, Lymphocytes (%) (Auto) 15.5L, Monocytes (%) (Auto) 4.3, Eosinophils (%) (Auto) 0.1, Basophils (%) (Auto) 0.5, Sodium Level 135L, Potassium Level 3.6, Chloride Level 104, Carbon Dioxide Level 23, Anion Gap 8, Blood Urea Nitrogen 10, Creatinine 0.7, Estimat Glomerular Filtration Rate > 60, Glucose Level 211H, Calcium Level 7.9L, Total Bilirubin 0.8, Aspartate Amino Transf (AST/SGOT) 51H, Alanine Aminotransferase (ALT/SGPT) 133H, Alkaline Phosphatase 124H, Total Protein 8.1, Albumin 3.2L, Globulin 4.9, Albumin/Globulin Ratio 0.7L, Triglycerides Level 75, Cholesterol Level 153, LDL Cholesterol 79, HDL Cholesterol 65H, Cholesterol/HDL Ratio 2.4L, Amylase Level 675*H, Lipase > 2000H Height (Feet): 5 Height (Inches): 2.00 Weight (Pounds): 235 General Appearance: no apparent distress EENT: normal ENT inspection Neck: supple Cardiovascular: normal rate Respiratory/Chest: lungs clear Abdomen: soft, hypoactive bowel sounds, tender Extremities: non-tender Assessment/Plan Assessment/Plan: gallstone pancreatitis? Covid positive npo ivf pain control needs MRCP but covid + surg in put appreciated improving LFTS>> passed stone will David De Paz MD Jan 23, 2020 11:00
--- NOTE | 2020-01-23 11:37 | Surgery Progress Note ---
Surgery Progress Note Subjective Additional Comments Labs improving. States she feels well. No pain. No nausea vomiting fever chills. Lipase still significantly elevated. LFTs elevated but trending down. T bili resolved. Likely passed stone. Unfortunately given Covid positive unable to obtain imaging MRCP Objective Last 24 Hour Vital Signs Date Time Temp Pulse Resp B/P (MAP) Pulse Ox O2 Delivery O2 Flow Rate FiO2 01/23/20 10:00 100.9 01/23/20 10:00 100.9 01/23/20 09:00 Room Air 01/23/20 08:00 100.8 100 20 140/80 (100) 97 01/23/20 04:00 98.7 75 18 134/89 (104) 97 01/23/20 00:00 99.0 71 16 131/91 (104) 98 01/22/20 21:00 Room Air 01/22/20 20:00 97.8 89 17 137/83 (101) 97 01/22/20 18:55 99.0 01/22/20 16:00 100.9 73 19 124/74 (91) 99 01/22/20 12:00 98.4 77 18 132/66 (88) 98 I&O Intake and Output 01/22/20 01/23/20 19:00 07:00 Intake Total 300 ml Balance 300 ml Intake Oral 300 ml # Voids 3 3 Cardiovascular: RSR Respiratory: clear Abdomen: soft, non-tender, present bowel sounds Extremities: no edema, no tenderness, no cyanosis Laboratory Tests Test 01/23/20 09:30 White Blood Count 6.2 K/UL (4.8-10.8) Red Blood Count 4.47 M/UL (4.20-5.40) Hemoglobin 13.1 G/DL (12.0-16.0) Hematocrit 38.2 % (37.0-47.0) Mean Corpuscular Volume 86 FL (80-99) Mean Corpuscular Hemoglobin 29.3 PG (27.0-31.0) Mean Corpuscular Hemoglobin Concent 34.2 G/DL (32.0-36.0) Red Cell Distribution Width 13.4 % (11.6-14.8) Platelet Count 178 K/UL (150-450) Mean Platelet Volume 6.6 FL (6.5-10.1) Neutrophils (%) (Auto) 79.6 % (45.0-75.0) H Lymphocytes (%) (Auto) 15.5 % (20.0-45.0) L Monocytes (%) (Auto) 4.3 % (1.0-10.0) Eosinophils (%) (Auto) 0.1 % (0.0-3.0) Basophils (%) (Auto) 0.5 % (0.0-2.0) Sodium Level 135 MMOL/L (136-145) L Potassium Level 3.6 MMOL/L (3.5-5.1) Chloride Level 104 MMOL/L (98-107) Carbon Dioxide Level 23 MMOL/L (21-32) Anion Gap 8 mmol/L (5-15) Blood Urea Nitrogen 10 mg/dL (7-18) Creatinine 0.7 MG/DL (0.55-1.30) Estimat Glomerular Filtration Rate > 60 mL/min (>60) Glucose Level 211 MG/DL (74-106) H Calcium Level 7.9 MG/DL (8.5-10.1) L Total Bilirubin 0.8 MG/DL (0.2-1.0) Aspartate Amino Transf (AST/SGOT) 51 U/L (15-37) H Alanine Aminotransferase (ALT/SGPT) 133 U/L (12-78) H Alkaline Phosphatase 124 U/L (46-116) H Total Protein 8.1 G/DL (6.4-8.2) Albumin 3.2 G/DL (3.4-5.0) L Globulin 4.9 g/dL Albumin/Globulin Ratio 0.7 (1.0-2.7) L Triglycerides Level 75 MG/DL (30-150) Cholesterol Level 153 MG/DL (< 200) LDL Cholesterol 79 mg/dL (<100) HDL Cholesterol 65 MG/DL (40-60) H Cholesterol/HDL Ratio 2.4 (3.3-4.4) L Amylase Level 675 U/L (25-115) *H Lipase > 2000 U/L (73-393) H Plan Problems: (1) Acute pancreatitis Assessment & Plan: 51-year-old female acute pancreatitis potentially gallstone related. Afebrile hemodynamic stable labs improved. No nausea vomiting fever chills. Pain is resolved. No acute surgical intervention planned. Continue with work-up. Trend labs. GI input appreciated. Will follow with recommendations. Thank you npo iv fluids iv abx trend labs bowel rest will follow with recs thank you Liver: See below. Gallbladder: There is cholelithiasis. A 2.6 cm gallstone is noted. Gallbladder wall measures 0.45 cm and is thickened. Common bile duct: Suboptimal evaluation of the common bile duct due to bowel gas. No stones. No dilation. Pancreas: Unremarkable as visualized. Kidneys: Right kidney measures 9.8 x 5 x 5 cm. Left kidney measures 9. 3 x 4.9 x 4.7 cm. No hydronephrosis. No stones. Spleen: Spleen measures 9.3 cm and is unremarkable. Aorta: Abdominal aorta is normal in caliber. Liver measures 15.9 cm. Partial evaluation of the abdominal aorta which is grossly unremarkable. No aneurysm. Inferior vena cava: Unremarkable. IMPRESSION: 1. Limited evaluation due to bowel gas. 2. Cholelithiasis. 3. Gallbladder wall measures 0.45 cm and is diffusely thickened. Clinical correlation is necessary. 4. No pericholecystic fluid noted however. Markedly limited evaluation of the common bile duct due to bowel gas. 5. Clinical correlation is necessary. (2) Gall stone (3) Lab test positive for detection of COVID-19 virus Jalil Santiago Jan 23, 2020 11:37
[2020-01-23 12:00] VITALS: BP 128/77
--- NOTE | 2020-01-23 12:42 | Pulmonology Progress Note ---
Subjective ROS Limited/Unobtainable: Yes Interval Events: fever overnight; resolved with tylenol Constitutional: Reports: no symptoms HEENT: Repors: no symptoms Respiratory: Reports: no symptoms Cardiovascular: Reports: no symptoms Gastrointestinal/Abdominal: Reports: no symptoms Genitourinary: Reports: no symptoms Allergies: Coded Allergies: No Known Allergies (Unverified , 01/21/20) Objective Last 24 Hour Vital Signs Date Time Temp Pulse Resp B/P (MAP) Pulse Ox O2 Delivery O2 Flow Rate FiO2 01/23/20 12:00 99.0 88 19 128/77 (94) 98 01/23/20 10:00 100.9 01/23/20 10:00 100.9 01/23/20 09:00 Room Air 01/23/20 08:00 100.8 100 20 140/80 (100) 97 01/23/20 04:00 98.7 75 18 134/89 (104) 97 01/23/20 00:00 99.0 71 16 131/91 (104) 98 01/22/20 21:00 Room Air 01/22/20 20:00 97.8 89 17 137/83 (101) 97 01/22/20 18:55 99.0 01/22/20 16:00 100.9 73 19 124/74 (91) 99 Intake and Output 01/22/20 01/23/20 19:00 07:00 Intake Total 300 ml Balance 300 ml Intake Oral 300 ml # Voids 3 3 Objective 01/23/2020 NAD; on room air 01/22/2020 saturating well on room air; NAD General Appearance: WD/WN, no acute distress HEENT: normocephalic Respiratory: lungs clear Cardiovascular: normal rate, regular rhythm, no gallop/murmur Abdomen: soft, non tender Neurologic: alert, oriented x 3, responsive Microbiology Date/Time Source Procedure Growth Status 01/21/20 17:30 Nasopharynx SARS-CoV-2 RdRp Gene Assay - Final Complete Laboratory Tests 01/23/20 09:30: White Blood Count 6.2, Red Blood Count 4.47, Hemoglobin 13.1, Hematocrit 38.2, Mean Corpuscular Volume 86, Mean Corpuscular Hemoglobin 29.3, Mean Corpuscular Hemoglobin Concent 34.2, Red Cell Distribution Width 13.4, Platelet Count 178, Mean Platelet Volume 6.6, Neutrophils (%) (Auto) 79.6H, Lymphocytes (%) (Auto) 15.5L, Monocytes (%) (Auto) 4.3, Eosinophils (%) (Auto) 0.1, Basophils (%) (Auto) 0.5, Sodium Level 135L, Potassium Level 3.6, Chloride Level 104, Carbon Dioxide Level 23, Anion Gap 8, Blood Urea Nitrogen 10, Creatinine 0.7, Estimat Glomerular Filtration Rate > 60, Glucose Level 211H, Calcium Level 7.9L, Total Bilirubin 0.8, Aspartate Amino Transf (AST/SGOT) 51H, Alanine Aminotransferase (ALT/SGPT) 133H, Alkaline Phosphatase 124H, Total Protein 8.1, Albumin 3.2L, Globulin 4.9, Albumin/Globulin Ratio 0.7L, Triglycerides Level 75, Cholesterol Level 153, LDL Cholesterol 79, HDL Cholesterol 65H, Cholesterol/HDL Ratio 2.4L, Amylase Level 675*H, Lipase > 2000H Current Medications Medications (Trade) Dose Ordered Sig/Dipti Route PRN Reason Start Time Stop Time Status Last Admin Dose Admin Dextrose/ Electrolytes 1,000 ml @ 100 mls/hr Q10H IV 01/22/20 09:30 02/21/20 09:29 01/23/20 04:11 Ibuprofen (Advil) 400 mg Q6H PRN ORAL Temp >100.5 01/22/20 18:00 02/21/20 17:59 01/23/20 08:59 Morphine Sulfate (Morphine Sulfate) 2 mg Q4H PRN IVP For Pain 01/22/20 09:00 01/29/20 08:59 Ondansetron HCl (Zofran) 4 mg Q6H PRN IVP Nausea & Vomiting 01/22/20 07:30 02/21/20 07:29 Piperacillin Sod/ Tazobactam Sod 3.375 gm/Sodium Chloride 110 ml @ 27.5 mls/hr EVERY 8 HOURS IVPB 01/23/20 14:00 01/28/20 13:59 Assessment/Plan Assessment/Plan 1. Transaminitis; improving 2. Pancreatitis. - NPO, IVF - pain control - MRCP pending per COVID-19 positive status - per Dr. Kingsley 3. Positive COVID-19. -Currently no intervention required for Covid19 due to her normoxemic status on RA The care of this patient was discussed with my supervising physician Time spent for this encounter was approximately 31 minutes The patient was seen and examined at bedside and all new and available data was reviewed in the patients chart. I agree with the above findings, impression, and plan. (Patient was seen earlier today. Signature timestamp does not reflect patient encounter time) Steven Redmond MD Jan 23, 2020 12:42 Bubba Penny MD Jan 23, 2020 17:00
[2020-01-23] MEDS: Piperacillin/Tazobactam 3.375 GM in NS 110 ML IVPB SCH ×2 (13:31→23:28)
--- NOTE | 2020-01-23 13:47 | NUR ---
CASE MANAGEMENT:REVIEW 01/23/20 SI: PANCREATITIS. COVID POSITIVE 100.8 100 20 140/80 97% ON RA AMYLASE+675 LIPASE > 1999 IS: IV ZOSYN Q8HRS IVF@100/HR : MED/SURG STATUS 4 EAST PLAN: NPO PAIN MGMT
--- NOTE | 2020-01-23 13:51 | NUR ---
NURSE NOTES: amylase [address] Kingsley and waiting for call back[address]
[2020-01-23 16:00] VITALS: BP 154/80
--- NOTE | 2020-01-23 16:10 | NUR ---
NURSE NOTES: amylase [address] Kingsley and waiting for call back[address] Addendum: 01/23/20 at 1936 by Nadine Anderson RN ADDENDUM Called and left the message regarding that amylase 675.
--- NOTE | 2020-01-23 19:32 | NUR ---
NURSE HAND-OFF: Important Events on Shift: Fever 100.8 Patient Status: stable Diet: Regular mechanical soft Pending Orders: n/a Pending Results/Labs:n/a Pending MD notification:amylase 675 Latest Vital Signs: Temperature 100.0 , Pulse 84 , B/P 154 /80 , Respiratory Rate 19 , O2 SAT 97 , Room Air, O2 Flow Rate . Vital Sign Comment: stable Latest Xiong Fall Score: 35 Fall Risk: Medium Risk Safety Measures: Call light Within Reach, Bed Alarm Zone 1, Side Rails Side Rails x2, Bed position Low and Locked. Fall Precautions: Patient Fall Education Report given to ADOLFO Del Real.
[2020-01-23 20:00] VITALS: BP 152/82
--- NOTE | 2020-01-23 22:28 | General Progress Note ---
Subjective ROS Limited/Unobtainable: Yes Allergies: Coded Allergies: No Known Allergies (Unverified , 01/21/20) Objective Last 24 Hour Vital Signs Date Time Temp Pulse Resp B/P (MAP) Pulse Ox O2 Delivery O2 Flow Rate FiO2 01/23/20 16:00 100.0 84 19 154/80 (104) 97 01/23/20 12:00 99.0 88 19 128/77 (94) 98 01/23/20 10:00 100.9 01/23/20 10:00 100.9 01/23/20 09:00 Room Air 01/23/20 08:00 100.8 100 20 140/80 (100) 97 01/23/20 04:00 98.7 75 18 134/89 (104) 97 01/23/20 00:00 99.0 71 16 131/91 (104) 98 Intake and Output 01/22/20 01/23/20 19:00 07:00 Intake Total 300 ml Balance 300 ml Intake Oral 300 ml # Voids 3 3 Laboratory Tests 01/23/20 09:30: White Blood Count 6.2, Red Blood Count 4.47, Hemoglobin 13.1, Hematocrit 38.2, Mean Corpuscular Volume 86, Mean Corpuscular Hemoglobin 29.3, Mean Corpuscular Hemoglobin Concent 34.2, Red Cell Distribution Width 13.4, Platelet Count 178, Mean Platelet Volume 6.6, Neutrophils (%) (Auto) 79.6H, Lymphocytes (%) (Auto) 15.5L, Monocytes (%) (Auto) 4.3, Eosinophils (%) (Auto) 0.1, Basophils (%) (Auto) 0.5, Sodium Level 135L, Potassium Level 3.6, Chloride Level 104, Carbon Dioxide Level 23, Anion Gap 8, Blood Urea Nitrogen 10, Creatinine 0.7, Estimat Glomerular Filtration Rate > 60, Glucose Level 211H, Calcium Level 7.9L, Total Bilirubin 0.8, Aspartate Amino Transf (AST/SGOT) 51H, Alanine Aminotransferase (ALT/SGPT) 133H, Alkaline Phosphatase 124H, Total Protein 8.1, Albumin 3.2L, Globulin 4.9, Albumin/Globulin Ratio 0.7L, Triglycerides Level 75, Cholesterol Level 153, LDL Cholesterol 79, HDL Cholesterol 65H, Cholesterol/HDL Ratio 2.4L, Amylase Level 675*H, Lipase > 2000H Height (Feet): 5 Height (Inches): 2.00 Weight (Pounds): 235 Assessment/Plan Problem List: (1) Acute pancreatitis ICD Codes: K85.90 - Acute pancreatitis without necrosis or infection, unspecified SNOMED: 167728228 Qualifiers: Qualified Codes: K85.10 - Biliary acute pancreatitis without necrosis or infection (2) Gall stone ICD Codes: K80.20 - Calculus of gallbladder without cholecystitis without obstruction SNOMED: 340967125 Qualifiers: Qualified Codes: K80.20 - Calculus of gallbladder without cholecystitis without obstruction (3) Lab test positive for detection of COVID-19 virus ICD Codes: U07.1 - COVID-19 SNOMED: [id number] Status: progressing Assessment/Plan: afebrile nac pancreatitis continue fluids covid positive pna resp insuff Ronny Win MD Jan 23, 2020 22:28
[2020-01-24] VITALS: BP 121/64
--- NOTE | 2020-01-24 00:24 | NUR ---
NURSE NOTES: Received patient awake in bed. Pt a/o x 4, on her phone. No SOB noted. Denies any pain at this time. Rt AC IV is in placed. D51/2NS + KCl 10meq running @100ml/hr. Bed in lowest position, call light within reach. Will continue to monitor.
--- NOTE | 2020-01-24 00:25 | NUR ---
NURSE HAND-OFF: Important Events on Shift: Patient Status: No acute distress Diet: Regular with the modification of mechanical finely chopped. Pending Orders: Pending Results/Labs: Pending MD notification: Latest Vital Signs: Temperature 102.4 , Pulse 97 , B/P 152 /82 , Respiratory Rate 18 , O2 SAT 97 , Room Air, O2 Flow Rate . Vital Sign Comment: Latest Xiong Fall Score: 35 Fall Risk: Medium Risk Safety Measures: Call light Within Reach, Bed Alarm Zone 1, Side Rails Side Rails x2, Bed position Low and Locked. Fall Precautions: Patient Fall Education Report given to Ambreen MATA .
--- NOTE | 2020-01-24 01:00 | NUR ---
NURSE NOTES: Patient awake, ANOx4. On room air, no SOB or distress. Denies any pain at this time. IV intact and patent. Bed in lowest position, call light within reach. Will continue to monitor.
[2020-01-24] MEDS: D5 1/2NS w/KCL 10meq 1,000 ML IV SCH ×3 (01:01→21:07)
[2020-01-24 03:58] VITALS: BP 126/75
[2020-01-24] MEDS: Piperacillin/Tazobactam 3.375 GM in NS 110 ML IVPB SCH ×3 (05:09→21:07)
[2020-01-24 07:01] LABS: BASOPHILS % (AUTO) 0.3 % (0.0-2.0); EOSINOPHILS % (AUTO) 0.3 % (0.0-3.0); HEMOGLOBIN 12.8 G/DL (12.0-16.0); LYMPHOCYTES % (AUTO) 20.1 % (20.0-45.0); MEAN CORPUSCULAR VOLUME 87 FL (80-99); MONOCYTES % (AUTO) 6.7 % (1.0-10.0); NEUTROPHILS % (AUTO) 72.6 % (45.0-75.0); PLATELET COUNT 151 K/UL (150-450); RED BLOOD COUNT 4.28 M/UL (4.20-5.40); RED CELL DISTRIBUTION WIDTH 12.9 % (11.6-14.8)
--- NOTE | 2020-01-24 07:10 | NUR ---
NURSE NOTES: Received patient resting comfortably in bed, patient awake alert, oriented x4, no sign of distress, denies SOB any pain at this time. on going IVF patent and infusing well, on fall and covid precaution maintained. both siderails up for safety, Bed in lowest position, call light within reach. Will continue to monitor to monitor patient condition ADOLFO cox
--- NOTE | 2020-01-24 07:52 | NUR ---
HAND-OFF: Report given to ADOLFO Pendleton.
[2020-01-24 08:23] VITALS: BP 130/87
[2020-01-24 08:23] LABS: ALANINE AMINOTRANSFERASE 107 U/L (12-78); ALBUMIN/GLOBULIN RATIO 0.6 (1.0-2.7); ALKALINE PHOSPHATASE 103 U/L (46-116); AMYLASE 301 U/L (25-115); ANION GAP 9 mmol/L (5-15); ASPARTATE AMINO TRANSFERASE 42 U/L (15-37); BLOOD UREA NITROGEN 8 mg/dL (7-18); CALCIUM 8.3 MG/DL (8.5-10.1); CARBON DIOXIDE 25 MMOL/L (21-32); CHLORIDE 105 MMOL/L (98-107); CREATININE 0.8 MG/DL (0.55-1.30); POTASSIUM 3.5 MMOL/L (3.5-5.1); SODIUM 139 MMOL/L (136-145)
--- NOTE | 2020-01-24 09:12 | Pulmonology Progress Note ---
Subjective ROS Limited/Unobtainable: Yes Interval Events: fever again overnight; resolved with tylenol Constitutional: Reports: no symptoms HEENT: Repors: no symptoms Respiratory: Reports: no symptoms Cardiovascular: Reports: no symptoms Gastrointestinal/Abdominal: Reports: no symptoms Genitourinary: Reports: no symptoms Allergies: Coded Allergies: No Known Allergies (Unverified , 01/21/20) Objective Last 24 Hour Vital Signs Date Time Temp Pulse Resp B/P (MAP) Pulse Ox O2 Delivery O2 Flow Rate FiO2 01/24/20 08:23 99.4 89 18 130/87 (101) 98 01/24/20 03:58 98.4 79 18 126/75 (92) 99 01/24/20 00:00 98.0 87 21 121/64 (83) 97 01/23/20 21:00 Room Air 01/23/20 20:44 102.4 01/23/20 20:00 100.9 97 18 152/82 (105) 97 01/23/20 16:00 100.0 84 19 154/80 (104) 97 01/23/20 12:00 99.0 88 19 128/77 (94) 98 01/23/20 10:00 100.9 01/23/20 10:00 100.9 Intake and Output 01/23/20 01/24/20 19:02 07:02 Intake Total 927.5 ml 360 ml Balance 927.5 ml 360 ml Intake Oral 600 ml IV Total 327.5 ml Other 360 ml # Voids 4 2 Objective 01/24/2020 pt eating in bed; saturating well on room air 01/23/2020 NAD; on room air 01/22/2020 saturating well on room air; NAD General Appearance: WD/WN, no acute distress HEENT: normocephalic Respiratory: lungs clear Cardiovascular: normal rate, regular rhythm, no gallop/murmur Abdomen: soft, non tender Neurologic: alert, oriented x 3, responsive Microbiology Date/Time Source Procedure Growth Status 01/21/20 17:30 Nasopharynx SARS-CoV-2 RdRp Gene Assay - Final Complete Laboratory Tests 01/23/20 09:30: White Blood Count 6.2, Red Blood Count 4.47, Hemoglobin 13.1, Hematocrit 38.2, Mean Corpuscular Volume 86, Mean Corpuscular Hemoglobin 29.3, Mean Corpuscular Hemoglobin Concent 34.2, Red Cell Distribution Width 13.4, Platelet Count 178, Mean Platelet Volume 6.6, Neutrophils (%) (Auto) 79.6H, Lymphocytes (%) (Auto) 15.5L, Monocytes (%) (Auto) 4.3, Eosinophils (%) (Auto) 0.1, Basophils (%) (Auto) 0.5, Sodium Level 135L, Potassium Level 3.6, Chloride Level 104, Carbon Dioxide Level 23, Anion Gap 8, Blood Urea Nitrogen 10, Creatinine 0.7, Estimat Glomerular Filtration Rate > 60, Glucose Level 211H, Calcium Level 7.9L, Total Bilirubin 0.8, Aspartate Amino Transf (AST/SGOT) 51H, Alanine Aminotransferase (ALT/SGPT) 133H, Alkaline Phosphatase 124H, Total Protein 8.1, Albumin 3.2L, Globulin 4.9, Albumin/Globulin Ratio 0.7L, Triglycerides Level 75, Cholesterol Level 153, LDL Cholesterol 79, HDL Cholesterol 65H, Cholesterol/HDL Ratio 2.4L, Amylase Level 675*H, Lipase > 2000H 01/24/20 05:40: White Blood Count 6.0, Red Blood Count 4.28, Hemoglobin 12.8, Hematocrit 37.0, Mean Corpuscular Volume 87, Mean Corpuscular Hemoglobin 29.9, Mean Corpuscular Hemoglobin Concent 34.5, Red Cell Distribution Width 12.9, Platelet Count 151, Mean Platelet Volume 6.8, Neutrophils (%) (Auto) 72.6, Lymphocytes (%) (Auto) 20.1, Monocytes (%) (Auto) 6.7, Eosinophils (%) (Auto) 0.3, Basophils (%) (Auto) 0.3, Sodium Level 139, Potassium Level 3.5, Chloride Level 105, Carbon Dioxide Level 25, Anion Gap 9, Blood Urea Nitrogen 8, Creatinine 0.8, Estimat Glomerular Filtration Rate > 60, Glucose Level 100#, Calcium Level 8.3L, Total Bilirubin 1.0, Aspartate Amino Transf (AST/SGOT) 42H, Alanine Aminotransferase (ALT/SGPT) 107H, Alkaline Phosphatase 103, Total Protein 7.9, Albumin 3.0L, Globulin 4.9, Albumin/Globulin Ratio 0.6L, Amylase Level 301H, Lipase 1825H Current Medications Medications (Trade) Dose Ordered Sig/Dipti Route PRN Reason Start Time Stop Time Status Last Admin Dose Admin Dextrose/ Electrolytes 1,000 ml @ 100 mls/hr Q10H IV 01/22/20 09:30 02/21/20 09:29 01/23/20 15:53 Ibuprofen (Advil) 400 mg Q6H PRN ORAL Temp >100.5 01/22/20 18:00 02/21/20 17:59 01/23/20 20:14 Morphine Sulfate (Morphine Sulfate) 2 mg Q4H PRN IVP For Pain 01/22/20 09:00 01/29/20 08:59 Ondansetron HCl (Zofran) 4 mg Q6H PRN IVP Nausea & Vomiting 01/22/20 07:30 02/21/20 07:29 Piperacillin Sod/ Tazobactam Sod 3.375 gm/Sodium Chloride 110 ml @ 27.5 mls/hr EVERY 8 HOURS IVPB 01/23/20 14:00 01/28/20 13:59 01/24/20 05:09 Assessment/Plan Assessment/Plan 1. Transaminitis; improving 2. Pancreatitis. - elevated amylase; improving - IVF - pain control - MRCP pending per COVID-19 positive status - per Dr. Kingsley 3. Positive COVID-19. -Currently no intervention required for Covid19 due to her normoxemic status on RA The care of this patient was discussed with my supervising physician Time spent for this encounter was approximately 31 minutes The patient was seen and examined at bedside and all new and available data was reviewed in the patients chart. I agree with the above findings, impression, and plan. (Patient was seen earlier today. Signature timestamp does not reflect patient encounter time) Steven Redmond MD Jan 24, 2020 09:12 Bubba Penny MD Jan 24, 2020 17:08
--- NOTE | 2020-01-24 09:17 | General Progress Note ---
Subjective ROS Limited/Unobtainable: No Allergies: Coded Allergies: No Known Allergies (Unverified , 01/21/20) Objective Last 24 Hour Vital Signs Date Time Temp Pulse Resp B/P (MAP) Pulse Ox O2 Delivery O2 Flow Rate FiO2 01/24/20 08:23 99.4 89 18 130/87 (101) 98 01/24/20 03:58 98.4 79 18 126/75 (92) 99 01/24/20 00:00 98.0 87 21 121/64 (83) 97 01/23/20 21:00 Room Air 01/23/20 20:44 102.4 01/23/20 20:00 100.9 97 18 152/82 (105) 97 01/23/20 16:00 100.0 84 19 154/80 (104) 97 01/23/20 12:00 99.0 88 19 128/77 (94) 98 01/23/20 10:00 100.9 01/23/20 10:00 100.9 Intake and Output 01/23/20 01/24/20 19:02 07:02 Intake Total 927.5 ml 360 ml Balance 927.5 ml 360 ml Intake Oral 600 ml IV Total 327.5 ml Other 360 ml # Voids 4 2 Laboratory Tests 01/23/20 09:30: White Blood Count 6.2, Red Blood Count 4.47, Hemoglobin 13.1, Hematocrit 38.2, Mean Corpuscular Volume 86, Mean Corpuscular Hemoglobin 29.3, Mean Corpuscular Hemoglobin Concent 34.2, Red Cell Distribution Width 13.4, Platelet Count 178, Mean Platelet Volume 6.6, Neutrophils (%) (Auto) 79.6H, Lymphocytes (%) (Auto) 15.5L, Monocytes (%) (Auto) 4.3, Eosinophils (%) (Auto) 0.1, Basophils (%) (Auto) 0.5, Sodium Level 135L, Potassium Level 3.6, Chloride Level 104, Carbon Dioxide Level 23, Anion Gap 8, Blood Urea Nitrogen 10, Creatinine 0.7, Estimat Glomerular Filtration Rate > 60, Glucose Level 211H, Calcium Level 7.9L, Total Bilirubin 0.8, Aspartate Amino Transf (AST/SGOT) 51H, Alanine Aminotransferase (ALT/SGPT) 133H, Alkaline Phosphatase 124H, Total Protein 8.1, Albumin 3.2L, Globulin 4.9, Albumin/Globulin Ratio 0.7L, Triglycerides Level 75, Cholesterol Level 153, LDL Cholesterol 79, HDL Cholesterol 65H, Cholesterol/HDL Ratio 2.4L, Amylase Level 675*H, Lipase > 2000H 01/24/20 05:40: White Blood Count 6.0, Red Blood Count 4.28, Hemoglobin 12.8, Hematocrit 37.0, Mean Corpuscular Volume 87, Mean Corpuscular Hemoglobin 29.9, Mean Corpuscular Hemoglobin Concent 34.5, Red Cell Distribution Width 12.9, Platelet Count 151, Mean Platelet Volume 6.8, Neutrophils (%) (Auto) 72.6, Lymphocytes (%) (Auto) 20.1, Monocytes (%) (Auto) 6.7, Eosinophils (%) (Auto) 0.3, Basophils (%) (Auto) 0.3, Sodium Level 139, Potassium Level 3.5, Chloride Level 105, Carbon Dioxide Level 25, Anion Gap 9, Blood Urea Nitrogen 8, Creatinine 0.8, Estimat Glomerular Filtration Rate > 60, Glucose Level 100#, Calcium Level 8.3L, Total Bilirubin 1.0, Aspartate Amino Transf (AST/SGOT) 42H, Alanine Aminotransferase (ALT/SGPT) 107H, Alkaline Phosphatase 103, Total Protein 7.9, Albumin 3.0L, Globulin 4.9, Albumin/Globulin Ratio 0.6L, Amylase Level 301H, Lipase 1825H Height (Feet): 5 Height (Inches): 2.00 Weight (Pounds): 235 General Appearance: alert EENT: normal ENT inspection Neck: normal alignment Cardiovascular: normal rate Respiratory/Chest: lungs clear Abdomen: normal bowel sounds, non tender, soft Extremities: non-tender Assessment/Plan Status: progressing Assessment/Plan: gallstone pancreatitis? Covid positive pain control needs MRCP but covid + surg in put appreciated improving LFTS>> passed stone on reg diet will David De Paz MD Jan 24, 2020 09:17
--- NOTE | 2020-01-24 11:18 | Infectious Diseases Prog Note ---
Assessment/Plan Assessment/Plan IMPRESSION: 1. COVID-19 disease, seems to be mild or recent infection. 2. Acute pancreatitis, has elevated transaminase. 3. Cholelithiasis.? Passing stone 4. Morbid obesity. PLAN: Continue Zosyn According to GI specialist needs MRCP Subjective ROS Limited/Unobtainable: No Constitutional: Reports: fever, other - last night Respiratory: Reports: no symptoms Gastrointestinal/Abdominal: Reports: no symptoms Genitourinary: Reports: no symptoms Allergies: Coded Allergies: No Known Allergies (Unverified , 01/21/20) Objective Last 24 Hour Vital Signs Date Time Temp Pulse Resp B/P (MAP) Pulse Ox O2 Delivery O2 Flow Rate FiO2 01/24/20 08:23 99.4 89 18 130/87 (101) 98 01/24/20 08:00 Room Air 01/24/20 03:58 98.4 79 18 126/75 (92) 99 01/24/20 00:00 98.0 87 21 121/64 (83) 97 01/23/20 21:00 Room Air 01/23/20 20:44 102.4 01/23/20 20:00 100.9 97 18 152/82 (105) 97 01/23/20 16:00 100.0 84 19 154/80 (104) 97 01/23/20 12:00 99.0 88 19 128/77 (94) 98 Height (Feet): 5 Height (Inches): 2.00 Weight (Pounds): 235 General Appearance: no acute distress HEENT: mucous membranes moist Respiratory/Chest: lungs clear, other - oxygen by nasal cannula Cardiovascular: normal rate Abdomen: soft, non tender Extremities: no edema Neurologic/Psychiatric: alert, oriented x 3, responsive Microbiology Date/Time Source Procedure Growth Status 01/21/20 17:30 Nasopharynx SARS-CoV-2 RdRp Gene Assay - Final Complete Laboratory Tests Test 01/24/20 05:40 White Blood Count 6.0 K/UL (4.8-10.8) Red Blood Count 4.28 M/UL (4.20-5.40) Hemoglobin 12.8 G/DL (12.0-16.0) Hematocrit 37.0 % (37.0-47.0) Mean Corpuscular Volume 87 FL (80-99) Mean Corpuscular Hemoglobin 29.9 PG (27.0-31.0) Mean Corpuscular Hemoglobin Concent 34.5 G/DL (32.0-36.0) Red Cell Distribution Width 12.9 % (11.6-14.8) Platelet Count 151 K/UL (150-450) Mean Platelet Volume 6.8 FL (6.5-10.1) Neutrophils (%) (Auto) 72.6 % (45.0-75.0) Lymphocytes (%) (Auto) 20.1 % (20.0-45.0) Monocytes (%) (Auto) 6.7 % (1.0-10.0) Eosinophils (%) (Auto) 0.3 % (0.0-3.0) Basophils (%) (Auto) 0.3 % (0.0-2.0) Sodium Level 139 MMOL/L (136-145) Potassium Level 3.5 MMOL/L (3.5-5.1) Chloride Level 105 MMOL/L (98-107) Carbon Dioxide Level 25 MMOL/L (21-32) Anion Gap 9 mmol/L (5-15) Blood Urea Nitrogen 8 mg/dL (7-18) Creatinine 0.8 MG/DL (0.55-1.30) Estimat Glomerular Filtration Rate > 60 mL/min (>60) Glucose Level 100 MG/DL (74-106) # Calcium Level 8.3 MG/DL (8.5-10.1) L Total Bilirubin 1.0 MG/DL (0.2-1.0) Aspartate Amino Transf (AST/SGOT) 42 U/L (15-37) H Alanine Aminotransferase (ALT/SGPT) 107 U/L (12-78) H Alkaline Phosphatase 103 U/L (46-116) Total Protein 7.9 G/DL (6.4-8.2) Albumin 3.0 G/DL (3.4-5.0) L Globulin 4.9 g/dL Albumin/Globulin Ratio 0.6 (1.0-2.7) L Amylase Level 301 U/L (25-115) H Lipase 1825 U/L (73-393) H Current Medications Medications (Trade) Dose Ordered Sig/Dipti Route PRN Reason Start Time Stop Time Status Last Admin Dose Admin Dextrose/ Electrolytes 1,000 ml @ 100 mls/hr Q10H IV 01/22/20 09:30 02/21/20 09:29 01/23/20 15:53 Ibuprofen (Advil) 400 mg Q6H PRN ORAL Temp >100.5 01/22/20 18:00 02/21/20 17:59 01/23/20 20:14 Morphine Sulfate (Morphine Sulfate) 2 mg Q4H PRN IVP For Pain 01/22/20 09:00 01/29/20 08:59 Ondansetron HCl (Zofran) 4 mg Q6H PRN IVP Nausea & Vomiting 01/22/20 07:30 02/21/20 07:29 Piperacillin Sod/ Tazobactam Sod 3.375 gm/Sodium Chloride 110 ml @ 27.5 mls/hr EVERY 8 HOURS IVPB 01/23/20 14:00 01/28/20 13:59 01/24/20 05:09 Wesley Blandon MD Jan 24, 2020 11:18
[2020-01-24 11:30] VITALS: BP 138/72
[2020-01-24 16:00] VITALS: BP 129/69
--- NOTE | 2020-01-24 16:20 | Surgery Progress Note ---
Surgery Progress Note Subjective Additional Comments still no pain amylase/lip improving no n/v tolerating +BM Objective Last 24 Hour Vital Signs Date Time Temp Pulse Resp B/P (MAP) Pulse Ox O2 Delivery O2 Flow Rate FiO2 01/24/20 12:19 98.4 01/24/20 12:00 98.7 01/24/20 11:30 101.0 97 18 138/72 (94) 98 01/24/20 08:23 99.4 89 18 130/87 (101) 98 01/24/20 08:00 Room Air 01/24/20 03:58 98.4 79 18 126/75 (92) 99 01/24/20 00:00 98.0 87 21 121/64 (83) 97 01/23/20 21:00 Room Air 01/23/20 20:44 102.4 01/23/20 20:00 100.9 97 18 152/82 (105) 97 I&O Intake and Output 01/23/20 01/24/20 19:00 07:00 Intake Total 927.5 ml 387.5 ml Balance 927.5 ml 387.5 ml Intake Oral 600 ml IV Total 327.5 ml 27.5 ml Other 360 ml # Voids 4 2 Cardiovascular: RSR Respiratory: decreased breath sounds Abdomen: soft, non-tender, present bowel sounds Extremities: no tenderness, no cyanosis Laboratory Tests Test 01/24/20 05:40 White Blood Count 6.0 K/UL (4.8-10.8) Red Blood Count 4.28 M/UL (4.20-5.40) Hemoglobin 12.8 G/DL (12.0-16.0) Hematocrit 37.0 % (37.0-47.0) Mean Corpuscular Volume 87 FL (80-99) Mean Corpuscular Hemoglobin 29.9 PG (27.0-31.0) Mean Corpuscular Hemoglobin Concent 34.5 G/DL (32.0-36.0) Red Cell Distribution Width 12.9 % (11.6-14.8) Platelet Count 151 K/UL (150-450) Mean Platelet Volume 6.8 FL (6.5-10.1) Neutrophils (%) (Auto) 72.6 % (45.0-75.0) Lymphocytes (%) (Auto) 20.1 % (20.0-45.0) Monocytes (%) (Auto) 6.7 % (1.0-10.0) Eosinophils (%) (Auto) 0.3 % (0.0-3.0) Basophils (%) (Auto) 0.3 % (0.0-2.0) Sodium Level 139 MMOL/L (136-145) Potassium Level 3.5 MMOL/L (3.5-5.1) Chloride Level 105 MMOL/L (98-107) Carbon Dioxide Level 25 MMOL/L (21-32) Anion Gap 9 mmol/L (5-15) Blood Urea Nitrogen 8 mg/dL (7-18) Creatinine 0.8 MG/DL (0.55-1.30) Estimat Glomerular Filtration Rate > 60 mL/min (>60) Glucose Level 100 MG/DL (74-106) # Calcium Level 8.3 MG/DL (8.5-10.1) L Total Bilirubin 1.0 MG/DL (0.2-1.0) Aspartate Amino Transf (AST/SGOT) 42 U/L (15-37) H Alanine Aminotransferase (ALT/SGPT) 107 U/L (12-78) H Alkaline Phosphatase 103 U/L (46-116) Total Protein 7.9 G/DL (6.4-8.2) Albumin 3.0 G/DL (3.4-5.0) L Globulin 4.9 g/dL Albumin/Globulin Ratio 0.6 (1.0-2.7) L Amylase Level 301 U/L (25-115) H Lipase 1825 U/L (73-393) H Plan Problems: (1) Acute pancreatitis Assessment & Plan: 51-year-old female acute pancreatitis potentially gallstone related. Afebrile hemodynamic stable labs improved. No nausea vomiting fever chills. Pain is resolved. No acute surgical intervention planned. Continue with work-up. Trend labs. GI input appreciated. Will follow with recommendations. Thank you npo iv fluids iv abx trend labs bowel rest will follow with recs thank you Liver: See below. Gallbladder: There is cholelithiasis. A 2.6 cm gallstone is noted. Gallbladder wall measures 0.45 cm and is thickened. Common bile duct: Suboptimal evaluation of the common bile duct due to bowel gas. No stones. No dilation. Pancreas: Unremarkable as visualized. Kidneys: Right kidney measures 9.8 x 5 x 5 cm. Left kidney measures 9. 3 x 4.9 x 4.7 cm. No hydronephrosis. No stones. Spleen: Spleen measures 9.3 cm and is unremarkable. Aorta: Abdominal aorta is normal in caliber. Liver measures 15.9 cm. Partial evaluation of the abdominal aorta which is grossly unremarkable. No aneurysm. Inferior vena cava: Unremarkable. IMPRESSION: 1. Limited evaluation due to bowel gas. 2. Cholelithiasis. 3. Gallbladder wall measures 0.45 cm and is diffusely thickened. Clinical correlation is necessary. 4. No pericholecystic fluid noted however. Markedly limited evaluation of the common bile duct due to bowel gas. 5. Clinical correlation is necessary. (2) Gall stone (3) Lab test positive for detection of COVID-19 virus Jalil Santiago Jan 24, 2020 16:20
--- NOTE | 2020-01-24 16:32 | NUR ---
CASE MANAGEMENT:REVIEW SI;COVID PNA. PANCREATITIS. 101.0 97 18 138/72 98% ON RA AST 42 ALT 1074 AMYLASE 301 LIPASE 1825 IS;ZOSYN IV Q8 ADVIL PO Q6 ORN IVF D5W @ 100 ML/HR MED SURG STATUS DCP;FROM HOME
--- NOTE | 2020-01-24 19:27 | NUR ---
NURSE HAND-OFF: Important Events on Shift:[fever at noon, cooling measures and motrin given latest T 98.2] Patient Status: [STABLE] Diet: [REGULAR MECHANICAL SOFT] Pending Orders: [LABS IN AM ] Pending Results/NONE Pending MD NONE Latest Vital Signs: Temperature 98.2 , Pulse 87 , B/P 129 /69 , Respiratory Rate 18 , O2 SAT 98 , Room Air, O2 Flow Rate . Vital Sign Comment: [STABLE] Latest Xiong Fall Score: 35 Fall Risk: Medium Risk Safety Measures: Call light Within Reach, Bed Alarm Zone 1, Side Rails Side Rails x2, Bed position Low and Locked. Fall Precautions: Patient Fall Education Report given to [ABILIO MATA ACCORDINGLY ]. ADOLFO RIOS
[2020-01-24 20:00] VITALS: BP 152/84
--- NOTE | 2020-01-24 20:00 | NUR ---
NURSE NOTES: Received patient awake,alert, verbal, ambulatory, no SOB noted, with essentially normal vital signs.
--- NOTE | 2020-01-24 21:04 | General Progress Note ---
Subjective Allergies: Coded Allergies: No Known Allergies (Unverified , 01/21/20) Objective Last 24 Hour Vital Signs Date Time Temp Pulse Resp B/P (MAP) Pulse Ox O2 Delivery O2 Flow Rate FiO2 01/24/20 20:23 Room Air 01/24/20 16:00 98.2 87 18 129/69 (89) 98 01/24/20 12:19 98.4 01/24/20 12:00 98.7 01/24/20 11:30 101.0 97 18 138/72 (94) 98 01/24/20 08:23 99.4 89 18 130/87 (101) 98 01/24/20 08:00 Room Air 01/24/20 03:58 98.4 79 18 126/75 (92) 99 01/24/20 00:00 98.0 87 21 121/64 (83) 97 Intake and Output 01/23/20 01/24/20 19:00 07:00 Intake Total 927.5 ml 387.5 ml Balance 927.5 ml 387.5 ml Intake Oral 600 ml IV Total 327.5 ml 27.5 ml Other 360 ml # Voids 4 2 Laboratory Tests 01/24/20 05:40: White Blood Count 6.0, Red Blood Count 4.28, Hemoglobin 12.8, Hematocrit 37.0, Mean Corpuscular Volume 87, Mean Corpuscular Hemoglobin 29.9, Mean Corpuscular Hemoglobin Concent 34.5, Red Cell Distribution Width 12.9, Platelet Count 151, Mean Platelet Volume 6.8, Neutrophils (%) (Auto) 72.6, Lymphocytes (%) (Auto) 20.1, Monocytes (%) (Auto) 6.7, Eosinophils (%) (Auto) 0.3, Basophils (%) (Auto) 0.3, Sodium Level 139, Potassium Level 3.5, Chloride Level 105, Carbon Dioxide Level 25, Anion Gap 9, Blood Urea Nitrogen 8, Creatinine 0.8, Estimat Glomerular Filtration Rate > 60, Glucose Level 100#, Calcium Level 8.3L, Total Bilirubin 1.0, Aspartate Amino Transf (AST/SGOT) 42H, Alanine Aminotransferase (ALT/SGPT) 107H, Alkaline Phosphatase 103, Total Protein 7.9, Albumin 3.0L, Globulin 4.9, Albumin/Globulin Ratio 0.6L, Amylase Level 301H, Lipase 1825H Height (Feet): 5 Height (Inches): 2.00 Weight (Pounds): 235 Assessment/Plan Problem List: (1) Acute pancreatitis ICD Codes: K85.90 - Acute pancreatitis without necrosis or infection, unspecified SNOMED: 110834104 Qualifiers: Qualified Codes: K85.10 - Biliary acute pancreatitis without necrosis or infection (2) Gall stone ICD Codes: K80.20 - Calculus of gallbladder without cholecystitis without obstruction SNOMED: 123163878 Qualifiers: Qualified Codes: K80.20 - Calculus of gallbladder without cholecystitis without obstruction (3) Lab test positive for detection of COVID-19 virus ICD Codes: U07.1 - COVID-19 SNOMED: 1186575744580669 Status: progressing Assessment/Plan: pancreatitis is improving supportive care no sob covid positive pna resp insuff SAME Ronny Win MD Jan 24, 2020 21:04
[2020-01-25] VITALS (7 sets, daily range): BP systolic 129–142; BP diastolic 56–83
[2020-01-25] MEDS: Piperacillin/Tazobactam 3.375 GM in NS 110 ML IVPB SCH ×3 (04:57→20:06)
--- NOTE | 2020-01-25 07:00 | NUR ---
NURSE NOTES: Received patient in bed patient awake alert, oriented x4, no sign of distress, denies SOB any pain at this time. on going IVF patent and infusing well, on fall and covid precaution maintained. both side rails up for safety, Bed in lowest position, call light within reach. Will continue to monitor to monitor patient condition ADOLFO cox
--- NOTE | 2020-01-25 07:20 | NUR ---
HAND-OFF: Report given to Keerthi Raza RN.
[2020-01-25] MEDS: D5 1/2NS w/KCL 10meq 1,000 ML IV SCH ×3 (08:00→20:07)
--- NOTE | 2020-01-25 08:23 | General Progress Note ---
Subjective ROS Limited/Unobtainable: Yes Allergies: Coded Allergies: No Known Allergies (Unverified , 01/21/20) Objective Last 24 Hour Vital Signs Date Time Temp Pulse Resp B/P (MAP) Pulse Ox O2 Delivery O2 Flow Rate FiO2 01/25/20 07:53 101.4 83 18 142/78 (99) 97 01/25/20 04:00 98.6 92 16 139/75 (96) 97 01/24/20 20:23 Room Air 01/24/20 20:00 98.1 90 16 152/84 (106) 100 01/24/20 16:00 98.2 87 18 129/69 (89) 98 01/24/20 12:19 98.4 01/24/20 12:00 98.7 01/24/20 11:30 101.0 97 18 138/72 (94) 98 Intake and Output 01/24/20 01/25/20 19:00 07:00 Intake Total 1492.5 ml 1185.0 ml Balance 1492.5 ml 1185.0 ml Intake Oral 700 ml 420 ml IV Total 792.5 ml 765.0 ml # Voids 3 3 Height (Feet): 5 Height (Inches): 2.00 Weight (Pounds): 235 General Appearance: alert EENT: normal ENT inspection Neck: supple Cardiovascular: normal rate Respiratory/Chest: lungs clear Abdomen: normal bowel sounds, non tender, soft Extremities: non-tender Assessment/Plan Status: progressing Assessment/Plan: gallstone pancreatitis? Covid positive pain control needs MRCP but covid + surg in put appreciated improving LFTS>> ?passed stone on reg diet will David De Paz MD Jan 25, 2020 08:23
--- NOTE | 2020-01-25 08:57 | Pulmonology Progress Note ---
Subjective ROS Limited/Unobtainable: Yes Interval Events: fever again overnight; resolved with tylenol Constitutional: Reports: no symptoms HEENT: Repors: no symptoms Respiratory: Reports: no symptoms Cardiovascular: Reports: no symptoms Gastrointestinal/Abdominal: Reports: no symptoms Genitourinary: Reports: no symptoms Allergies: Coded Allergies: No Known Allergies (Unverified , 01/21/20) Objective Last 24 Hour Vital Signs Date Time Temp Pulse Resp B/P (MAP) Pulse Ox O2 Delivery O2 Flow Rate FiO2 01/25/20 07:53 101.4 83 18 142/78 (99) 97 01/25/20 04:00 98.6 92 16 139/75 (96) 97 01/24/20 20:23 Room Air 01/24/20 20:00 98.1 90 16 152/84 (106) 100 01/24/20 16:00 98.2 87 18 129/69 (89) 98 01/24/20 12:19 98.4 01/24/20 12:00 98.7 01/24/20 11:30 101.0 97 18 138/72 (94) 98 Intake and Output 01/24/20 01/25/20 19:00 07:00 Intake Total 1492.5 ml 1185.0 ml Balance 1492.5 ml 1185.0 ml Intake Oral 700 ml 420 ml IV Total 792.5 ml 765.0 ml # Voids 3 3 Objective 01/25/2020 saturating well on room air 01/24/2020 pt eating in bed; saturating well on room air 01/23/2020 NAD; on room air 01/22/2020 saturating well on room air; NAD General Appearance: WD/WN, no acute distress HEENT: normocephalic Respiratory: lungs clear Cardiovascular: normal rate, regular rhythm, no gallop/murmur Abdomen: soft, non tender Neurologic: alert, oriented x 3, responsive Current Medications Medications (Trade) Dose Ordered Sig/Dipti Route PRN Reason Start Time Stop Time Status Last Admin Dose Admin Dextrose/ Electrolytes 1,000 ml @ 100 mls/hr Q10H IV 01/22/20 09:30 02/21/20 09:29 01/25/20 08:00 Ibuprofen (Advil) 400 mg Q6H PRN ORAL Temp >100.5 01/22/20 18:00 02/21/20 17:59 01/25/20 08:01 Morphine Sulfate (Morphine Sulfate) 2 mg Q4H PRN IVP For Pain 01/22/20 09:00 01/29/20 08:59 Ondansetron HCl (Zofran) 4 mg Q6H PRN IVP Nausea & Vomiting 01/22/20 07:30 02/21/20 07:29 Piperacillin Sod/ Tazobactam Sod 3.375 gm/Sodium Chloride 110 ml @ 27.5 mls/hr EVERY 8 HOURS IVPB 01/23/20 14:00 01/28/20 13:59 01/25/20 04:57 Assessment/Plan Assessment/Plan 1. Transaminitis; improving 2. Pancreatitis. - elevated amylase; improving - IVF - pain control - MRCP pending per COVID-19 positive status - per Dr. Kingsley 3. Positive COVID-19. -Currently no intervention required for Covid19 due to her normoxemic status on RA 4. Hypertension The care of this patient was discussed with my supervising physician Time spent for this encounter was approximately 31 minutes The patient was seen and examined at bedside and all new and available data was reviewed in the patients chart. I agree with the above findings, impression, and plan. (Patient was seen earlier today. Signature timestamp does not reflect patient encounter time) Steven Redmond MD Jan 25, 2020 08:57 Bubba Penny MD Jan 25, 2020 18:17
--- NOTE | 2020-01-25 09:45 | NUR ---
nurse notes endorsed to YESENIA for continuity of care martin cox
--- NOTE | 2020-01-25 09:55 | NUR ---
NURSE NOTES: Received patient in bed,awake, alert and oriented x4, denies pain or discomfort, patient had episode of fever earlier but patient is afebrile @ this time. Not in respiratory distress. Bed is in lowest position and locked. Call light within reach. Will continue plan of care.
[2020-01-25 10:18] LABS: BASOPHILS % (AUTO) 0.5 % (0.0-2.0); EOSINOPHILS % (AUTO) 0.3 % (0.0-3.0); HEMATOCRIT 34.7 % (37.0-47.0); HEMOGLOBIN 12.4 G/DL (12.0-16.0); LYMPHOCYTES % (AUTO) 26.7 % (20.0-45.0); MEAN CORPUSCULAR VOLUME 82 FL (80-99); MONOCYTES % (AUTO) 6.8 % (1.0-10.0); NEUTROPHILS % (AUTO) 65.7 % (45.0-75.0); PLATELET COUNT 166 K/UL (150-450); RED BLOOD COUNT 4.22 M/UL (4.20-5.40); RED CELL DISTRIBUTION WIDTH 13.8 % (11.6-14.8); WHITE BLOOD COUNT 4.7 K/UL (4.8-10.8)
[2020-01-25 10:34] LABS: ALANINE AMINOTRANSFERASE 89 U/L (12-78); ALBUMIN/GLOBULIN RATIO 0.6 (1.0-2.7); ALKALINE PHOSPHATASE 93 U/L (46-116); AMYLASE 145 U/L (25-115); ANION GAP 11 mmol/L (5-15); ASPARTATE AMINO TRANSFERASE 43 U/L (15-37); BILIRUBIN,TOTAL 0.8 MG/DL (0.2-1.0); BLOOD UREA NITROGEN 6 mg/dL (7-18); CALCIUM 8.2 MG/DL (8.5-10.1); CARBON DIOXIDE 23 MMOL/L (21-32); CHLORIDE 103 MMOL/L (98-107); CREATININE 0.8 MG/DL (0.55-1.30); POTASSIUM 3.5 MMOL/L (3.5-5.1); SODIUM 137 MMOL/L (136-145)
--- NOTE | 2020-01-25 11:15 | NUR ---
NURSE NOTES: Pt received from Patti Moy RN. Bed low and locked, call light within reach. No complaint of pain or distress. Isolation precautions in place for Covid 19.
--- NOTE | 2020-01-25 11:51 | NUR ---
NURSE HAND-OFF: Important Events on Shift: elevated temp 101.4 motrin given, latest temp 99.0 Patient Status: stable Diet: regular mech soft Pending Orders: Pending Results/Labs: Pending MD notification: Latest Vital Signs: Temperature 99.0 , Pulse 83 , B/P 142 /78 , Respiratory Rate 18 , O2 SAT 97 , Room Air, O2 Flow Rate . Vital Sign Comment: Latest Xiong Fall Score: 35 Fall Risk: Medium Risk Safety Measures: Call light Within Reach, Bed Alarm Zone 1, Side Rails Side Rails x2, Bed position Low and Locked. Fall Precautions: Patient Fall Education Report given to Ani and endorsed plan of care.
--- NOTE | 2020-01-25 12:31 | Infectious Diseases Prog Note ---
Assessment/Plan Assessment/Plan IMPRESSION: 1. COVID-19 disease, seems to be mild or recent infection. 2. Acute pancreatitis, has elevated transaminase. 3. Cholelithiasis.? Passing stone 4. Morbid obesity. PLAN: Continue Zosyn According to GI specialist needs MRCP Subjective ROS Limited/Unobtainable: No Constitutional: Reports: no symptoms Respiratory: Reports: no symptoms Cardiovascular: Reports: no symptoms Gastrointestinal/Abdominal: Reports: no symptoms Genitourinary: Reports: no symptoms Allergies: Coded Allergies: No Known Allergies (Unverified , 01/21/20) Objective Last 24 Hour Vital Signs Date Time Temp Pulse Resp B/P (MAP) Pulse Ox O2 Delivery O2 Flow Rate FiO2 01/25/20 12:00 98.7 78 18 129/75 (93) 97 01/25/20 08:31 99.0 01/25/20 08:00 Room Air 01/25/20 07:53 101.4 83 18 142/78 (99) 97 01/25/20 04:00 98.6 92 16 139/75 (96) 97 01/24/20 20:23 Room Air 01/24/20 20:00 98.1 90 16 152/84 (106) 100 01/24/20 16:00 98.2 87 18 129/69 (89) 98 Height (Feet): 5 Height (Inches): 2.00 Weight (Pounds): 235 HEENT: mucous membranes moist Respiratory/Chest: lungs clear Cardiovascular: normal rate Abdomen: soft, non tender Extremities: no edema Laboratory Tests Test 01/25/20 08:15 White Blood Count 4.7 K/UL (4.8-10.8) L Red Blood Count 4.22 M/UL (4.20-5.40) Hemoglobin 12.4 G/DL (12.0-16.0) Hematocrit 34.7 % (37.0-47.0) L Mean Corpuscular Volume 82 FL (80-99) Mean Corpuscular Hemoglobin 29.4 PG (27.0-31.0) Mean Corpuscular Hemoglobin Concent 35.8 G/DL (32.0-36.0) Red Cell Distribution Width 13.8 % (11.6-14.8) Platelet Count 166 K/UL (150-450) Mean Platelet Volume 6.7 FL (6.5-10.1) Neutrophils (%) (Auto) 65.7 % (45.0-75.0) Lymphocytes (%) (Auto) 26.7 % (20.0-45.0) Monocytes (%) (Auto) 6.8 % (1.0-10.0) Eosinophils (%) (Auto) 0.3 % (0.0-3.0) Basophils (%) (Auto) 0.5 % (0.0-2.0) Sodium Level 137 MMOL/L (136-145) Potassium Level 3.5 MMOL/L (3.5-5.1) Chloride Level 103 MMOL/L (98-107) Carbon Dioxide Level 23 MMOL/L (21-32) Anion Gap 11 mmol/L (5-15) Blood Urea Nitrogen 6 mg/dL (7-18) L Creatinine 0.8 MG/DL (0.55-1.30) Estimat Glomerular Filtration Rate > 60 mL/min (>60) Glucose Level 166 MG/DL (74-106) H Calcium Level 8.2 MG/DL (8.5-10.1) L Total Bilirubin 0.8 MG/DL (0.2-1.0) Aspartate Amino Transf (AST/SGOT) 43 U/L (15-37) H Alanine Aminotransferase (ALT/SGPT) 89 U/L (12-78) H Alkaline Phosphatase 93 U/L (46-116) Total Protein 8.0 G/DL (6.4-8.2) Albumin 3.0 G/DL (3.4-5.0) L Globulin 5.0 g/dL Albumin/Globulin Ratio 0.6 (1.0-2.7) L Amylase Level 145 U/L (25-115) H Lipase 1071 U/L (73-393) H Current Medications Medications (Trade) Dose Ordered Sig/Dipti Route PRN Reason Start Time Stop Time Status Last Admin Dose Admin Dextrose/ Electrolytes 1,000 ml @ 100 mls/hr Q10H IV 01/22/20 09:30 02/21/20 09:29 01/25/20 08:00 Ibuprofen (Advil) 400 mg Q6H PRN ORAL Temp >100.5 01/22/20 18:00 02/21/20 17:59 01/25/20 08:01 Morphine Sulfate (Morphine Sulfate) 2 mg Q4H PRN IVP For Pain 01/22/20 09:00 01/29/20 08:59 Ondansetron HCl (Zofran) 4 mg Q6H PRN IVP Nausea & Vomiting 01/22/20 07:30 02/21/20 07:29 Piperacillin Sod/ Tazobactam Sod 3.375 gm/Sodium Chloride 110 ml @ 27.5 mls/hr EVERY 8 HOURS IVPB 01/23/20 14:00 01/28/20 13:59 01/25/20 04:57 Wesley Blandon MD Jan 25, 2020 12:31
--- NOTE | 2020-01-25 13:47 | Surgery Progress Note ---
Surgery Progress Note Subjective Additional Comments febrile labs improving no pain no n/v/ tolerating diet trend labs cont abx Objective Last 24 Hour Vital Signs Date Time Temp Pulse Resp B/P (MAP) Pulse Ox O2 Delivery O2 Flow Rate FiO2 01/25/20 12:00 98.7 78 18 129/75 (93) 97 01/25/20 08:31 99.0 01/25/20 08:00 Room Air 01/25/20 07:53 101.4 83 18 142/78 (99) 97 01/25/20 04:00 98.6 92 16 139/75 (96) 97 01/24/20 20:23 Room Air 01/24/20 20:00 98.1 90 16 152/84 (106) 100 01/24/20 16:00 98.2 87 18 129/69 (89) 98 I&O Intake and Output 01/24/20 01/25/20 19:00 07:00 Intake Total 1492.5 ml 1185.0 ml Balance 1492.5 ml 1185.0 ml Intake Oral 700 ml 420 ml IV Total 792.5 ml 765.0 ml # Voids 3 3 Cardiovascular: RSR Respiratory: clear Abdomen: soft, non-tender, present bowel sounds Extremities: no edema, no tenderness, no cyanosis Laboratory Tests Test 01/25/20 08:15 White Blood Count 4.7 K/UL (4.8-10.8) L Red Blood Count 4.22 M/UL (4.20-5.40) Hemoglobin 12.4 G/DL (12.0-16.0) Hematocrit 34.7 % (37.0-47.0) L Mean Corpuscular Volume 82 FL (80-99) Mean Corpuscular Hemoglobin 29.4 PG (27.0-31.0) Mean Corpuscular Hemoglobin Concent 35.8 G/DL (32.0-36.0) Red Cell Distribution Width 13.8 % (11.6-14.8) Platelet Count 166 K/UL (150-450) Mean Platelet Volume 6.7 FL (6.5-10.1) Neutrophils (%) (Auto) 65.7 % (45.0-75.0) Lymphocytes (%) (Auto) 26.7 % (20.0-45.0) Monocytes (%) (Auto) 6.8 % (1.0-10.0) Eosinophils (%) (Auto) 0.3 % (0.0-3.0) Basophils (%) (Auto) 0.5 % (0.0-2.0) Sodium Level 137 MMOL/L (136-145) Potassium Level 3.5 MMOL/L (3.5-5.1) Chloride Level 103 MMOL/L (98-107) Carbon Dioxide Level 23 MMOL/L (21-32) Anion Gap 11 mmol/L (5-15) Blood Urea Nitrogen 6 mg/dL (7-18) L Creatinine 0.8 MG/DL (0.55-1.30) Estimat Glomerular Filtration Rate > 60 mL/min (>60) Glucose Level 166 MG/DL (74-106) H Calcium Level 8.2 MG/DL (8.5-10.1) L Total Bilirubin 0.8 MG/DL (0.2-1.0) Aspartate Amino Transf (AST/SGOT) 43 U/L (15-37) H Alanine Aminotransferase (ALT/SGPT) 89 U/L (12-78) H Alkaline Phosphatase 93 U/L (46-116) Total Protein 8.0 G/DL (6.4-8.2) Albumin 3.0 G/DL (3.4-5.0) L Globulin 5.0 g/dL Albumin/Globulin Ratio 0.6 (1.0-2.7) L Amylase Level 145 U/L (25-115) H Lipase 1071 U/L (73-393) H Plan Problems: (1) Acute pancreatitis Assessment & Plan: 51-year-old female acute pancreatitis potentially gallstone related. Afebrile hemodynamic stable labs improved. No nausea vomiting fever chills. Pain is resolved. No acute surgical intervention planned. Continue with work-up. Trend labs. GI input appreciated. Will follow with recommendations. Thank you npo iv fluids iv abx trend labs bowel rest will follow with recs thank you febrile tolerating diet labs improving trend labs cont diet cont abx Liver: See below. Gallbladder: There is cholelithiasis. A 2.6 cm gallstone is noted. Gallbladder wall measures 0.45 cm and is thickened. Common bile duct: Suboptimal evaluation of the common bile duct due to bowel gas. No stones. No dilation. Pancreas: Unremarkable as visualized. Kidneys: Right kidney measures 9.8 x 5 x 5 cm. Left kidney measures 9. 3 x 4.9 x 4.7 cm. No hydronephrosis. No stones. Spleen: Spleen measures 9.3 cm and is unremarkable. Aorta: Abdominal aorta is normal in caliber. Liver measures 15.9 cm. Partial evaluation of the abdominal aorta which is grossly unremarkable. No aneurysm. Inferior vena cava: Unremarkable. IMPRESSION: 1. Limited evaluation due to bowel gas. 2. Cholelithiasis. 3. Gallbladder wall measures 0.45 cm and is diffusely thickened. Clinical correlation is necessary. 4. No pericholecystic fluid noted however. Markedly limited evaluation of the common bile duct due to bowel gas. 5. Clinical correlation is necessary. (2) Gall stone (3) Lab test positive for detection of COVID-19 virus Jalil Santiago Jan 25, 2020 13:47
--- NOTE | 2020-01-25 15:55 | NUR ---
CASE MANAGEMENT:REVIEW SI;COVID PNA. PANCREATITIS. 101.4 92 18 142/78 97% ON RA BG 166 AST 43 ALT 89 ALB 3.0 AMYLASE 145 LIPASE 1071 IS;ZOSYN IV Q8 ADVIL PO Q6 PRN IVF D5W @ 100 ML/HR MED SURG STATUS DCP;FROM HOME
--- NOTE | 2020-01-25 18:31 | NUR ---
NURSE HAND-OFF: Important Events on Shift:[No remarkable events] Patient Status: [in bed resting stable] Diet: [Regular mechanical soft] Pending Orders: [] Pending Results/Labs:[] Pending MD notification:[] Latest Vital Signs: Temperature 98.8 , Pulse 79 , B/P 136 /79 , Respiratory Rate 18 , O2 SAT 100 , Room Air, O2 Flow Rate . Vital Sign Comment: [] Latest Xiong Fall Score: 35 Fall Risk: Medium Risk Safety Measures: Call light Within Reach, Bed Alarm Zone 1, Side Rails Side Rails x2, Bed position Low and Locked. Fall Precautions: Patient Fall Education Report given to [Pending Rn assignment]. Addendum: 01/25/20 at 1933 by Kanchan Ron RN Report given to Anam MATA
--- NOTE | 2020-01-25 20:00 | NUR ---
NURSE NOTES: Received patient awake, alert, verbal, No SOB noted, no complaints.
--- NOTE | 2020-01-25 21:12 | General Progress Note ---
Subjective ROS Limited/Unobtainable: Yes Allergies: Coded Allergies: No Known Allergies (Unverified , 01/21/20) Objective Last 24 Hour Vital Signs Date Time Temp Pulse Resp B/P (MAP) Pulse Ox O2 Delivery O2 Flow Rate FiO2 01/25/20 16:00 98.8 79 18 136/79 (98) 100 01/25/20 12:00 98.7 78 18 129/75 (93) 97 01/25/20 08:31 99.0 01/25/20 08:00 Room Air 01/25/20 07:53 101.4 83 18 142/78 (99) 97 01/25/20 04:00 98.6 92 16 139/75 (96) 97 Intake and Output 01/24/20 01/25/20 19:00 07:00 Intake Total 1492.5 ml 1185.0 ml Balance 1492.5 ml 1185.0 ml Intake Oral 700 ml 420 ml IV Total 792.5 ml 765.0 ml # Voids 3 3 Laboratory Tests 01/25/20 08:15: White Blood Count 4.7L, Red Blood Count 4.22, Hemoglobin 12.4, Hematocrit 34.7L, Mean Corpuscular Volume 82, Mean Corpuscular Hemoglobin 29.4, Mean Corpuscular Hemoglobin Concent 35.8, Red Cell Distribution Width 13.8, Platelet Count 166, Mean Platelet Volume 6.7, Neutrophils (%) (Auto) 65.7, Lymphocytes (%) (Auto) 26.7, Monocytes (%) (Auto) 6.8, Eosinophils (%) (Auto) 0.3, Basophils (%) (Auto) 0.5, Sodium Level 137, Potassium Level 3.5, Chloride Level 103, Carbon Dioxide Level 23, Anion Gap 11, Blood Urea Nitrogen 6L, Creatinine 0.8, Estimat Glomerular Filtration Rate > 60, Glucose Level 166H, Calcium Level 8.2L, Total Bilirubin 0.8, Aspartate Amino Transf (AST/SGOT) 43H, Alanine Aminotransferase (ALT/SGPT) 89H, Alkaline Phosphatase 93, Total Protein 8.0, Albumin 3.0L, Globulin 5.0, Albumin/Globulin Ratio 0.6L, Amylase Level 145H, Lipase 1071H Height (Feet): 5 Height (Inches): 2.00 Weight (Pounds): 235 Assessment/Plan Problem List: (1) Acute pancreatitis ICD Codes: K85.90 - Acute pancreatitis without necrosis or infection, unspecified SNOMED: 799070766 Qualifiers: Qualified Codes: K85.10 - Biliary acute pancreatitis without necrosis or infection (2) Gall stone ICD Codes: K80.20 - Calculus of gallbladder without cholecystitis without obstruction SNOMED: 139505925 Qualifiers: Qualified Codes: K80.20 - Calculus of gallbladder without cholecystitis without obstruction (3) Lab test positive for detection of COVID-19 virus ICD Codes: U07.1 - COVID-19 SNOMED: 2219685998325195 Status: progressing Assessment/Plan: covid positive pna pancreatitis is improving not hypoxic malnutrtion fluid encouragement Ronny iWn MD Jan 25, 2020 21:12
[2020-01-26 04:01] VITALS: BP 136/75
[2020-01-26] MEDS: Piperacillin/Tazobactam 3.375 GM in NS 110 ML IVPB SCH ×3 (05:01→21:59)
--- NOTE | 2020-01-26 07:11 | NUR ---
HAND-OFF: Report given to Yifan Karimi RN.
--- NOTE | 2020-01-26 07:12 | NUR ---
NURSE NOTES: Handoff received from Candy MATA. Patient is asleep, no signs of acute distress noted. Breathing is even and unlabored on room air. Right AC IV is intact and running antibiotics as ordered. Bed is low and locked, side rails up x2, call light is within reach.
[2020-01-26 07:28] LABS: BASOPHILS % (AUTO) 0.4 % (0.0-2.0); EOSINOPHILS % (AUTO) 0.1 % (0.0-3.0); HEMATOCRIT 37.3 % (37.0-47.0); HEMOGLOBIN 12.8 G/DL (12.0-16.0); LYMPHOCYTES % (AUTO) 24.6 % (20.0-45.0); MEAN CORPUSCULAR VOLUME 86 FL (80-99); MONOCYTES % (AUTO) 6.2 % (1.0-10.0); NEUTROPHILS % (AUTO) 68.6 % (45.0-75.0); PLATELET COUNT 158 K/UL (150-450); RED BLOOD COUNT 4.34 M/UL (4.20-5.40); RED CELL DISTRIBUTION WIDTH 12.6 % (11.6-14.8); WHITE BLOOD COUNT 4.6 K/UL (4.8-10.8)
[2020-01-26 08:00] VITALS: BP 146/74
[2020-01-26 08:03] LABS: ALANINE AMINOTRANSFERASE 107 U/L (12-78); ALBUMIN 2.7 G/DL (3.4-5.0); ALBUMIN/GLOBULIN RATIO 0.6 (1.0-2.7); ALKALINE PHOSPHATASE 131 U/L (46-116); AMYLASE 434 U/L (25-115); ANION GAP 8 mmol/L (5-15); ASPARTATE AMINO TRANSFERASE 82 U/L (15-37); BILIRUBIN,TOTAL 0.8 MG/DL (0.2-1.0); BLOOD UREA NITROGEN 6 mg/dL (7-18); CALCIUM 7.9 MG/DL (8.5-10.1); CARBON DIOXIDE 25 MMOL/L (21-32); CHLORIDE 105 MMOL/L (98-107); CREATININE 0.8 MG/DL (0.55-1.30); POTASSIUM 3.5 MMOL/L (3.5-5.1); SODIUM 138 MMOL/L (136-145)
--- NOTE | 2020-01-26 10:37 | General Progress Note ---
Subjective ROS Limited/Unobtainable: Yes Allergies: Coded Allergies: No Known Allergies (Unverified , 01/21/20) Objective Last 24 Hour Vital Signs Date Time Temp Pulse Resp B/P (MAP) Pulse Ox O2 Delivery O2 Flow Rate FiO2 01/26/20 09:00 Room Air 01/26/20 08:00 98.9 86 20 146/74 (98) 99 01/26/20 04:01 97.1 94 20 136/75 (95) 98 01/25/20 23:49 97.8 88 20 139/70 (93) 96 01/25/20 21:31 Room Air 01/25/20 20:30 96.2 77 20 138/83 (101) 98 01/25/20 16:00 98.8 79 18 136/79 (98) 100 01/25/20 12:00 98.7 78 18 129/75 (93) 97 Intake and Output 01/25/20 01/26/20 18:59 06:59 Intake Total 732.5 ml 1537.5 ml Balance 732.5 ml 1537.5 ml Intake Oral 650 ml 700 ml IV Total 82.5 ml 837.5 ml # Voids 3 4 Laboratory Tests 01/26/20 06:50: White Blood Count 4.6L, Red Blood Count 4.34, Hemoglobin 12.8, Hematocrit 37.3, Mean Corpuscular Volume 86, Mean Corpuscular Hemoglobin 29.5, Mean Corpuscular Hemoglobin Concent 34.3, Red Cell Distribution Width 12.6, Platelet Count 158, Mean Platelet Volume 6.5, Neutrophils (%) (Auto) 68.6, Lymphocytes (%) (Auto) 24 .6, Monocytes (%) (Auto) 6.2, Eosinophils (%) (Auto) 0.1, Basophils (%) (Auto) 0.4, Sodium Level 138, Potassium Level 3.5, Chloride Level 105, Carbon Dioxide Level 25, Anion Gap 8, Blood Urea Nitrogen 6L, Creatinine 0.8, Estimat Glomer ular Filtration Rate > 60, Glucose Level 103, Calcium Level 7.9L, Total Bilirubin 0.8, Aspartate Amino Transf (AST/SGOT) 82H, Alanine Aminotransferase (ALT/SGPT) 107H, Alkaline Phosphatase 131H, Total Protein 7.5, Albumin 2.7L, Globulin 4.8, Albumin/Globulin Ratio 0.6L, Amylase Level 434H, Lipase > 2000H Height (Feet): 5 Height (Inches): 2.00 Weight (Pounds): 235 General Appearance: alert EENT: normal ENT inspection Neck: supple Cardiovascular: normal rate Respiratory/Chest: decreased breath sounds Abdomen: normal bowel sounds, non tender, soft Extremities: non-tender Assessment/Plan Status: progressing Assessment/Plan: gallstone pancreatitis? Covid positive pain control needs MRCP but covid + surg in put appreciated repeat labs for tomorrow on reg diet will David De Paz MD Jan 26, 2020 10:37
[2020-01-26 12:00] VITALS: BP 139/57
--- NOTE | 2020-01-26 12:21 | Infectious Diseases Prog Note ---
Assessment/Plan Assessment/Plan IMPRESSION: 1. COVID-19 disease, seems to be mild or recent infection. 2. Acute pancreatitis, has elevated transaminase. 3. Cholelithiasis.? Passing stone 4. Morbid obesity. PLAN: Continue Zosyn According to GI specialist needs MRCP Subjective ROS Limited/Unobtainable: No Constitutional: Reports: no symptoms Respiratory: Reports: no symptoms Cardiovascular: Reports: no symptoms Gastrointestinal/Abdominal: Reports: no symptoms Genitourinary: Reports: no symptoms Allergies: Coded Allergies: No Known Allergies (Unverified , 01/21/20) Objective Last 24 Hour Vital Signs Date Time Temp Pulse Resp B/P (MAP) Pulse Ox O2 Delivery O2 Flow Rate FiO2 01/26/20 09:00 Room Air 01/26/20 08:00 98.9 86 20 146/74 (98) 99 01/26/20 04:01 97.1 94 20 136/75 (95) 98 01/25/20 23:49 97.8 88 20 139/70 (93) 96 01/25/20 21:31 Room Air 01/25/20 20:30 96.2 77 20 138/83 (101) 98 01/25/20 16:00 98.8 79 18 136/79 (98) 100 Height (Feet): 5 Height (Inches): 2.00 Weight (Pounds): 235 General Appearance: no acute distress, other - obese Respiratory/Chest: lungs clear Cardiovascular: normal rate Abdomen: soft, non tender Extremities: no edema Neurologic/Psychiatric: alert, oriented x 3, responsive Laboratory Tests Test 01/26/20 06:50 White Blood Count 4.6 K/UL (4.8-10.8) L Red Blood Count 4.34 M/UL (4.20-5.40) Hemoglobin 12.8 G/DL (12.0-16.0) Hematocrit 37.3 % (37.0-47.0) Mean Corpuscular Volume 86 FL (80-99) Mean Corpuscular Hemoglobin 29.5 PG (27.0-31.0) Mean Corpuscular Hemoglobin Concent 34.3 G/DL (32.0-36.0) Red Cell Distribution Width 12.6 % (11.6-14.8) Platelet Count 158 K/UL (150-450) Mean Platelet Volume 6.5 FL (6.5-10.1) Neutrophils (%) (Auto) 68.6 % (45.0-75.0) Lymphocytes (%) (Auto) 24.6 % (20.0-45.0) Monocytes (%) (Auto) 6.2 % (1.0-10.0) Eosinophils (%) (Auto) 0.1 % (0.0-3.0) Basophils (%) (Auto) 0.4 % (0.0-2.0) Sodium Level 138 MMOL/L (136-145) Potassium Level 3.5 MMOL/L (3.5-5.1) Chloride Level 105 MMOL/L (98-107) Carbon Dioxide Level 25 MMOL/L (21-32) Anion Gap 8 mmol/L (5-15) Blood Urea Nitrogen 6 mg/dL (7-18) L Creatinine 0.8 MG/DL (0.55-1.30) Estimat Glomerular Filtration Rate > 60 mL/min (>60) Glucose Level 103 MG/DL (74-106) Calcium Level 7.9 MG/DL (8.5-10.1) L Total Bilirubin 0.8 MG/DL (0.2-1.0) Aspartate Amino Transf (AST/SGOT) 82 U/L (15-37) H Alanine Aminotransferase (ALT/SGPT) 107 U/L (12-78) H Alkaline Phosphatase 131 U/L (46-116) H Total Protein 7.5 G/DL (6.4-8.2) Albumin 2.7 G/DL (3.4-5.0) L Globulin 4.8 g/dL Albumin/Globulin Ratio 0.6 (1.0-2.7) L Amylase Level 434 U/L (25-115) H Lipase > 2000 U/L (73-393) H Current Medications Medications (Trade) Dose Ordered Sig/Dipti Route PRN Reason Start Time Stop Time Status Last Admin Dose Admin Dextrose/ Electrolytes 1,000 ml @ 100 mls/hr Q10H IV 01/22/20 09:30 02/21/20 09:29 01/25/20 20:07 Ibuprofen (Advil) 400 mg Q6H PRN ORAL Temp >100.5 01/22/20 18:00 02/21/20 17:59 01/26/20 11:36 Morphine Sulfate (Morphine Sulfate) 2 mg Q4H PRN IVP For Pain 01/22/20 09:00 01/29/20 08:59 Ondansetron HCl (Zofran) 4 mg Q6H PRN IVP Nausea & Vomiting 01/22/20 07:30 02/21/20 07:29 Piperacillin Sod/ Tazobactam Sod 3.375 gm/Sodium Chloride 110 ml @ 27.5 mls/hr EVERY 8 HOURS IVPB 01/23/20 14:00 01/28/20 13:59 01/26/20 05:01 Wesley Blandon MD Jan 26, 2020 12:21
--- NOTE | 2020-01-26 12:25 | Pulmonology Progress Note ---
Subjective ROS Limited/Unobtainable: No Interval Events: none new reported Constitutional: Reports: no symptoms; Denies: fever HEENT: Repors: no symptoms Respiratory: Reports: no symptoms; Denies: shortness of breath Cardiovascular: Reports: no symptoms; Denies: chest pain Gastrointestinal/Abdominal: Reports: no symptoms; Denies: nausea, vomiting, diarrhea, constipation, bloating Genitourinary: Reports: no symptoms Allergies: Coded Allergies: No Known Allergies (Unverified , 01/21/20) Objective Last 24 Hour Vital Signs Date Time Temp Pulse Resp B/P (MAP) Pulse Ox O2 Delivery O2 Flow Rate FiO2 01/26/20 09:00 Room Air 01/26/20 08:00 98.9 86 20 146/74 (98) 99 01/26/20 04:01 97.1 94 20 136/75 (95) 98 01/25/20 23:49 97.8 88 20 139/70 (93) 96 01/25/20 21:31 Room Air 01/25/20 20:30 96.2 77 20 138/83 (101) 98 01/25/20 16:00 98.8 79 18 136/79 (98) 100 Intake and Output 01/25/20 01/26/20 19:00 07:00 Intake Total 805.0 ml 1465.0 ml Balance 805.0 ml 1465.0 ml Intake Oral 650 ml 700 ml IV Total 155.0 ml 765.0 ml # Voids 3 4 Objective 01/26/2020 saturating well on room air; NAD; sitting on her bed 01/25/2020 saturating well on room air 01/24/2020 pt eating in bed; saturating well on room air 01/23/2020 NAD; on room air 01/22/2020 saturating well on room air; NAD General Appearance: WD/WN, no acute distress HEENT: normocephalic Respiratory: lungs clear Cardiovascular: normal rate, regular rhythm, no gallop/murmur Abdomen: soft, non tender Neurologic: alert, oriented x 3, responsive Laboratory Tests 01/26/20 06:50: White Blood Count 4.6L, Red Blood Count 4.34, Hemoglobin 12.8, Hematocrit 37.3, Mean Corpuscular Volume 86, Mean Corpuscular Hemoglobin 29.5, Mean Corpuscular Hemoglobin Concent 34.3, Red Cell Distribution Width 12.6, Platelet Count 158, Mean Platelet Volume 6.5, Neutrophils (%) (Auto) 68.6, Lymphocytes (%) (Auto) 24.6, Monocytes (%) (Auto) 6.2, Eosinophils (%) (Auto) 0.1, Basophils (%) (Auto) 0.4, Sodium Level 138, Potassium Level 3.5, Chloride Level 105, Carbon Dioxide Level 25, Anion Gap 8, Blood Urea Nitrogen 6L, Creatinine 0.8, Estimat Glomerular Filtration Rate > 60, Glucose Level 103, Calcium Level 7.9L, Total Bilirubin 0.8, Aspartate Amino Transf (AST/SGOT) 82H, Alanine Aminotransferase (ALT/SGPT) 107H, Alkaline Phosphatase 131H, Total Protein 7.5, Albumin 2.7L, Globulin 4.8, Albumin/Globulin Ratio 0.6L, Amylase Level 434H, Lipase > 2000H Current Medications Medications (Trade) Dose Ordered Sig/Dipti Route PRN Reason Start Time Stop Time Status Last Admin Dose Admin Dextrose/ Electrolytes 1,000 ml @ 100 mls/hr Q10H IV 01/22/20 09:30 02/21/20 09:29 01/25/20 20:07 Ibuprofen (Advil) 400 mg Q6H PRN ORAL Temp >100.5 01/22/20 18:00 02/21/20 17:59 01/26/20 11:36 Morphine Sulfate (Morphine Sulfate) 2 mg Q4H PRN IVP For Pain 01/22/20 09:00 01/29/20 08:59 Ondansetron HCl (Zofran) 4 mg Q6H PRN IVP Nausea & Vomiting 01/22/20 07:30 02/21/20 07:29 Piperacillin Sod/ Tazobactam Sod 3.375 gm/Sodium Chloride 110 ml @ 27.5 mls/hr EVERY 8 HOURS IVPB 01/23/20 14:00 01/28/20 13:59 01/26/20 05:01 Assessment/Plan Assessment/Plan 1. Transaminitis 2. Pancreatitis. - elevated amylase, lipase - IVF - pain control - MRCP pending per COVID-19 positive status - per Dr. Kingsley, Dr. Santiago 3. Positive COVID-19. -Currently no intervention required for Covid19 due to her normoxemic status on RA 4. Hypertension The care of this patient was discussed with my supervising physician Time spent for this encounter was approximately 31 minutes The patient was seen and examined at bedside and all new and available data was reviewed in the patients chart. I agree with the above findings, impression, and plan. (Patient was seen earlier today. Signature timestamp does not reflect patient encounter time) Steven Redmond MD Jan 26, 2020 12:25 Bubba Penny MD Jan 26, 2020 17:38
[2020-01-26] MEDS: D5 1/2NS w/KCL 10meq 1,000 ML IV SCH ×2 (13:24→22:35)
--- NOTE | 2020-01-26 15:27 | Surgery Progress Note ---
Surgery Progress Note Subjective Symptoms: improved, pain absent, tolerating diet, voiding well, passing flatus, BM Additional Comments tico and lip going up again clinically stable no pain no n/v needs mri but covid + Objective Last 24 Hour Vital Signs Date Time Temp Pulse Resp B/P (MAP) Pulse Ox O2 Delivery O2 Flow Rate FiO2 01/26/20 12:06 100.3 01/26/20 12:00 100.5 64 20 139/57 (84) 97 01/26/20 09:00 Room Air 01/26/20 08:00 98.9 86 20 146/74 (98) 99 01/26/20 04:01 97.1 94 20 136/75 (95) 98 01/25/20 23:49 97.8 88 20 139/70 (93) 96 01/25/20 21:31 Room Air 01/25/20 20:30 96.2 77 20 138/83 (101) 98 01/25/20 16:00 98.8 79 18 136/79 (98) 100 I&O Intake and Output 01/25/20 01/26/20 19:00 07:00 Intake Total 805.0 ml 1465.0 ml Balance 805.0 ml 1465.0 ml Intake Oral 650 ml 700 ml IV Total 155.0 ml 765.0 ml # Voids 3 4 Dressing: saturated Cardiovascular: RSR Respiratory: decreased breath sounds Abdomen: soft, flat, non-tender, present bowel sounds, non-distended Extremities: no edema, no tenderness, no cyanosis Laboratory Tests Test 01/26/20 06:50 White Blood Count 4.6 K/UL (4.8-10.8) L Red Blood Count 4.34 M/UL (4.20-5.40) Hemoglobin 12.8 G/DL (12.0-16.0) Hematocrit 37.3 % (37.0-47.0) Mean Corpuscular Volume 86 FL (80-99) Mean Corpuscular Hemoglobin 29.5 PG (27.0-31.0) Mean Corpuscular Hemoglobin Concent 34.3 G/DL (32.0-36.0) Red Cell Distribution Width 12.6 % (11.6-14.8) Platelet Count 158 K/UL (150-450) Mean Platelet Volume 6.5 FL (6.5-10.1) Neutrophils (%) (Auto) 68.6 % (45.0-75.0) Lymphocytes (%) (Auto) 24.6 % (20.0-45.0) Monocytes (%) (Auto) 6.2 % (1.0-10.0) Eosinophils (%) (Auto) 0.1 % (0.0-3.0) Basophils (%) (Auto) 0.4 % (0.0-2.0) Sodium Level 138 MMOL/L (136-145) Potassium Level 3.5 MMOL/L (3.5-5.1) Chloride Level 105 MMOL/L (98-107) Carbon Dioxide Level 25 MMOL/L (21-32) Anion Gap 8 mmol/L (5-15) Blood Urea Nitrogen 6 mg/dL (7-18) L Creatinine 0.8 MG/DL (0.55-1.30) Estimat Glomerular Filtration Rate > 60 mL/min (>60) Glucose Level 103 MG/DL (74-106) Calcium Level 7.9 MG/DL (8.5-10.1) L Total Bilirubin 0.8 MG/DL (0.2-1.0) Aspartate Amino Transf (AST/SGOT) 82 U/L (15-37) H Alanine Aminotransferase (ALT/SGPT) 107 U/L (12-78) H Alkaline Phosphatase 131 U/L (46-116) H Total Protein 7.5 G/DL (6.4-8.2) Albumin 2.7 G/DL (3.4-5.0) L Globulin 4.8 g/dL Albumin/Globulin Ratio 0.6 (1.0-2.7) L Amylase Level 434 U/L (25-115) H Lipase > 2000 U/L (73-393) H Plan Problems: (1) Acute pancreatitis Assessment & Plan: 51-year-old female acute pancreatitis potentially gallstone related. Afebrile hemodynamic stable labs improved. No nausea vomiting fever chills. Pain is resolved. No acute surgical intervention planned. Continue with work-up. Trend labs. GI input appreciated. Will follow with recommendations. Thank you npo iv fluids iv abx trend labs bowel rest will follow with recs thank you febrile tolerating diet labs improving trend labs cont diet cont abx needs mrcp but covid + Liver: See below. Gallbladder: There is cholelithiasis. A 2.6 cm gallstone is noted. Gallbladder wall measures 0.45 cm and is thickened. Common bile duct: Suboptimal evaluation of the common bile duct due to bowel gas. No stones. No dilation. Pancreas: Unremarkable as visualized. Kidneys: Right kidney measures 9.8 x 5 x 5 cm. Left kidney measures 9. 3 x 4.9 x 4.7 cm. No hydronephrosis. No stones. Spleen: Spleen measures 9.3 cm and is unremarkable. Aorta: Abdominal aorta is normal in caliber. Liver measures 15.9 cm. Partial evaluation of the abdominal aorta which is grossly unremarkable. No aneurysm. Inferior vena cava: Unremarkable. IMPRESSION: 1. Limited evaluation due to bowel gas. 2. Cholelithiasis. 3. Gallbladder wall measures 0.45 cm and is diffusely thickened. Clinical correlation is necessary. 4. No pericholecystic fluid noted however. Markedly limited evaluation of the common bile duct due to bowel gas. 5. Clinical correlation is necessary. (2) Gall stone (3) Lab test positive for detection of COVID-19 virus Jalil Santiago Jan 26, 2020 15:27
[2020-01-26 16:00] VITALS: BP 113/69
--- NOTE | 2020-01-26 16:52 | NUR ---
CASE MANAGEMENT:REVIEW SI;COVID PNA. PANCREATITIS. 100.5 51 20 146/74 98% ON RA CA 7.9 AST 82 ALT 107 ALP 131 ALB 2.7 IS;ZOSYN IV Q8 IVF D5W @ 100 ML/HR MED SURG STATUS DCP;FROM HOME
--- NOTE | 2020-01-26 19:20 | NUR ---
NURSE HAND-OFF: Important Events on Shift:[none] Patient Status: stable Diet: reg soft chopped Pending Orders: Pending Results/Labs:CBC CMP Pending MD notification: Latest Vital Signs: Temperature 98.2 , Pulse 51 , B/P 113 /69 , Respiratory Rate 19 , O2 SAT 99 , Room Air, O2 Flow Rate . Vital Sign Comment: stable Latest Xiong Fall Score: 35 Fall Risk: Medium Risk Safety Measures: Call light Within Reach, Bed Alarm Zone 1, Side Rails Side Rails x2, Bed position Low and Locked. Fall Precautions: Patient Fall Education Report given to Claus and Wallace RNs.
--- NOTE | 2020-01-26 19:45 | NUR ---
NURSE NOTES: Received report from Yifan MATA. Patient is awake, alert, and oriented x4. On room air, breathing is even and unlabored. No C/O pain or SOB. IV right AC intact and patent with no bleeding noted. IVF running as ordered. Bed low and locked. Call light within reach.
[2020-01-26 20:00] VITALS: BP 141/82
--- NOTE | 2020-01-26 21:29 | General Progress Note ---
Subjective ROS Limited/Unobtainable: Yes Allergies: Coded Allergies: No Known Allergies (Unverified , 01/21/20) Objective Last 24 Hour Vital Signs Date Time Temp Pulse Resp B/P (MAP) Pulse Ox O2 Delivery O2 Flow Rate FiO2 01/26/20 16:00 98.2 51 19 113/69 (84) 99 01/26/20 12:06 100.3 01/26/20 12:00 100.5 64 20 139/57 (84) 97 01/26/20 09:00 Room Air 01/26/20 08:00 98.9 86 20 146/74 (98) 99 01/26/20 04:01 97.1 94 20 136/75 (95) 98 01/25/20 23:49 97.8 88 20 139/70 (93) 96 01/25/20 21:31 Room Air Intake and Output 01/25/20 01/26/20 19:00 07:00 Intake Total 805.0 ml 1465.0 ml Balance 805.0 ml 1465.0 ml Intake Oral 650 ml 700 ml IV Total 155.0 ml 765.0 ml # Voids 3 4 Laboratory Tests 01/26/20 06:50: White Blood Count 4.6L, Red Blood Count 4.34, Hemoglobin 12.8, Hematocrit 37.3, Mean Corpuscular Volume 86, Mean Corpuscular Hemoglobin 29.5, Mean Corpuscular Hemoglobin Concent 34.3, Red Cell Distribution Width 12.6, Platelet Count 158, Mean Platelet Volume 6.5, Neutrophils (%) (Auto) 68.6, Lymphocytes (%) (Auto) 24.6, Monocytes (%) (Auto) 6.2, Eosinophils (%) (Auto) 0.1, Basophils (%) (Auto) 0.4, Sodium Level 138, Potassium Level 3.5, Chloride Level 105, Carbon Dioxide Level 25, Anion Gap 8, Blood Urea Nitrogen 6L, Creatinine 0.8, Estimat Glomerular Filtration Rate > 60, Glucose Level 103, Calcium Level 7.9L, Total Bilirubin 0.8, Aspartate Amino Transf (AST/SGOT) 82H, Alanine Aminotransferase (ALT/SGPT) 107H, Alkaline Phosphatase 131H, Total Protein 7.5, Albumin 2.7L, Globulin 4.8, Albumin/Globulin Ratio 0.6L, Amylase Level 434H, Lipase > 2000H Height (Feet): 5 Height (Inches): 2.00 Weight (Pounds): 235 Assessment/Plan Problem List: (1) Acute pancreatitis ICD Codes: K85.90 - Acute pancreatitis without necrosis or infection, unspecified SNOMED: 989014036 Qualifiers: Qualified Codes: K85.10 - Biliary acute pancreatitis without necrosis or infection (2) Gall stone ICD Codes: K80.20 - Calculus of gallbladder without cholecystitis without obstruction SNOMED: 482520949 Qualifiers: Qualified Codes: K80.20 - Calculus of gallbladder without cholecystitis without obstruction (3) Lab test positive for detection of COVID-19 virus ICD Codes: U07.1 - COVID-19 SNOMED: [id number] Status: progressing Assessment/Plan: covid positive pna pancreatitis is improving diet per gi afebrile prn supportive care Ronny Win MD Jan 26, 2020 21:29
[2020-01-27] VITALS (7 sets, daily range): BP systolic 116–143; BP diastolic 63–83
[2020-01-27] MEDS: Piperacillin/Tazobactam 3.375 GM in NS 110 ML IVPB SCH ×3 (05:46→22:03)
--- NOTE | 2020-01-27 07:12 | NUR ---
NURSE HAND-OFF: Important Events on Shift: Temp management, IVF, ABX Patient Status: Stable Diet: Regular (soft chopped) Pending Orders: N/A Pending Results/Labs:N/A Pending MD notification:N/A Latest Vital Signs: Temperature 98.0 , Pulse 70 , B/P 116 /72 , Respiratory Rate 20 , O2 SAT 96 , Room Air, O2 Flow Rate . Vital Sign Comment: VS stable Latest Xiong Fall Score: 35 Fall Risk: Medium Risk Safety Measures: Call light Within Reach, Bed Alarm Zone 1, Side Rails Side Rails x2, Bed position Low and Locked. Fall Precautions: Patient Fall Education Report will be given to Vi MATA.
--- NOTE | 2020-01-27 07:30 | NUR ---
NURSE NOTES: Report received from Claus MATA, rounds made. Patient up to bathroom, steady. AOx4, calm, English/Azeri speaking. Respirations even/unlabored on RA. Denies SOB, pain,NV. IVF infusing to RAC, site asymptomatic. Call light in reach, bed in lowest position,will continue to monitor.
[2020-01-27 07:35] LABS: BASOPHILS % (AUTO) 0.4 % (0.0-2.0); EOSINOPHILS % (AUTO) 0.5 % (0.0-3.0); HEMOGLOBIN 11.6 G/DL (12.0-16.0); LYMPHOCYTES % (AUTO) 23.5 % (20.0-45.0); MEAN CORPUSCULAR VOLUME 85 FL (80-99); MONOCYTES % (AUTO) 6.8 % (1.0-10.0); NEUTROPHILS % (AUTO) 68.9 % (45.0-75.0); PLATELET COUNT 161 K/UL (150-450); RED BLOOD COUNT 3.89 M/UL (4.20-5.40); WHITE BLOOD COUNT 4.4 K/UL (4.8-10.8)
[2020-01-27 08:16] LABS: ALANINE AMINOTRANSFERASE 118 U/L (12-78); ALBUMIN 2.7 G/DL (3.4-5.0); ALBUMIN/GLOBULIN RATIO 0.6 (1.0-2.7); ALKALINE PHOSPHATASE 126 U/L (46-116); AMYLASE 194 U/L (25-115); ANION GAP 7 mmol/L (5-15); ASPARTATE AMINO TRANSFERASE 82 U/L (15-37); BILIRUBIN,TOTAL 0.8 MG/DL (0.2-1.0); BLOOD UREA NITROGEN 4 mg/dL (7-18); CALCIUM 7.8 MG/DL (8.5-10.1); CARBON DIOXIDE 26 MMOL/L (21-32); CHLORIDE 105 MMOL/L (98-107); CREATININE 0.8 MG/DL (0.55-1.30); POTASSIUM 3.2 MMOL/L (3.5-5.1); SODIUM 138 MMOL/L (136-145)
[2020-01-27] MEDS: D5 1/2NS w/KCL 10meq 1,000 ML IV SCH (09:40)
--- NOTE | 2020-01-27 10:56 | Pulmonology Progress Note ---
Subjective ROS Limited/Unobtainable: Yes Interval Events: none new reported Constitutional: Reports: no symptoms; Denies: fever HEENT: Repors: no symptoms Respiratory: Reports: no symptoms; Denies: shortness of breath Cardiovascular: Reports: no symptoms; Denies: chest pain Gastrointestinal/Abdominal: Reports: no symptoms; Denies: nausea, vomiting, diarrhea, constipation, bloating Genitourinary: Reports: no symptoms Allergies: Coded Allergies: No Known Allergies (Unverified , 01/21/20) Objective Last 24 Hour Vital Signs Date Time Temp Pulse Resp B/P (MAP) Pulse Ox O2 Delivery O2 Flow Rate FiO2 01/27/20 08:00 98.7 81 17 129/75 (93) 96 01/27/20 04:00 98.0 70 20 116/72 (87) 96 01/27/20 02:49 98.0 01/27/20 00:00 97.7 77 20 137/80 (99) 95 01/26/20 21:00 Room Air 01/26/20 20:00 97.7 76 20 141/82 (101) 94 01/26/20 16:00 98.2 51 19 113/69 (84) 99 01/26/20 12:06 100.3 01/26/20 12:00 100.5 64 20 139/57 (84) 97 Intake and Output 01/26/20 01/27/20 19:00 07:00 Intake Total 1120 ml 1010 ml Balance 1120 ml 1010 ml Intake Oral 1120 ml 400 ml IV Total 610 ml # Voids 5 6 # Bowel Movements 2 Objective 01/27/2020 continues to saturate well on RA; NAD 01/26/2020 saturating well on room air; NAD; sitting on her bed 01/25/2020 saturating well on room air 01/24/2020 pt eating in bed; saturating well on room air 01/23/2020 NAD; on room air 01/22/2020 saturating well on room air; NAD General Appearance: WD/WN, no acute distress HEENT: normocephalic Respiratory: lungs clear Cardiovascular: normal rate, regular rhythm, no gallop/murmur Abdomen: soft, non tender Neurologic: alert, oriented x 3, responsive Laboratory Tests 01/27/20 04:20: White Blood Count 4.4L, Red Blood Count 3.89L, Hemoglobin 11.6L, Hematocrit 33.0L, Mean Corpuscular Volume 85, Mean Corpuscular Hemoglobin 29.7, Mean Corpuscular Hemoglobin Concent 35.0, Red Cell Distribution Width 13.0, Platelet Count 161, Mean Platelet Volume 6.2L, Neutrophils (%) (Auto) 68.9, Lymphocytes (%) (Auto) 23.5, Monocytes (%) (Auto) 6.8, Eosinophils (%) (Auto) 0.5, Basophils (%) (Auto) 0.4, Sodium Level 138, Potassium Level 3.2L, Chloride Level 105, Carbon Dioxide Level 26, Anion Gap 7, Blood Urea Nitrogen 4L, Creatinine 0.8, Estimat Glomerular Filtration Rate > 60, Glucose Level 122H, Calcium Level 7.8L, Total Bilirubin 0.8, Aspartate Amino Transf (AST/SGOT) 82H, Alanine Aminotransferase (ALT/SGPT) 118H, Alkaline Phosphatase 126H, Total Protein 7.4, Albumin 2.7L, Globulin 4.7, Albumin/Globulin Ratio 0.6L, Amylase Level 194H, Lipase 1027H Current Medications Medications (Trade) Dose Ordered Sig/Dipti Route PRN Reason Start Time Stop Time Status Last Admin Dose Admin Dextrose/ Electrolytes 1,000 ml @ 100 mls/hr Q10H IV 01/22/20 09:30 02/21/20 09:29 01/27/20 09:40 Ibuprofen (Advil) 400 mg Q6H PRN ORAL Temp >100.5 01/22/20 18:00 02/21/20 17:59 01/27/20 02:19 Morphine Sulfate (Morphine Sulfate) 2 mg Q4H PRN IVP For Pain 01/22/20 09:00 01/29/20 08:59 Ondansetron HCl (Zofran) 4 mg Q6H PRN IVP Nausea & Vomiting 01/22/20 07:30 02/21/20 07:29 Piperacillin Sod/ Tazobactam Sod 3.375 gm/Sodium Chloride 110 ml @ 27.5 mls/hr EVERY 8 HOURS IVPB 01/23/20 14:00 02/01/20 13:59 01/27/20 05:46 Assessment/Plan Assessment/Plan 1. Transaminitis 2. Pancreatitis. - elevated amylase, lipase; improving - IVF - pain control - MRCP pending per COVID-19 positive status - per Dr. Kingsley, Dr. Santiago 3. Positive COVID-19. -Currently no intervention required for Covid19 due to her normoxemic status on RA 4. Hypertension The care of this patient was discussed with my supervising physician Time spent for this encounter was approximately 31 minutes Steven Bergman Jan 27, 2020 10:56 Bubba Penny MD Jan 27, 2020 17:33
--- NOTE | 2020-01-27 11:00 | NUR ---
NURSE NOTES: and Dr. Win notified of K3.2. See orders.
--- NOTE | 2020-01-27 11:53 | Consultation ---
Consult Note Consult Note I am asked to evaluate the patient at the request of for fluid and electrolyte management Full note to follow Day 6 of hospitalization here at [facility] Emergency room note: Patient presents with 1 hour of epigastric pain radiating to her back. She is never had this before. It severe at this time. She denies nausea, vomiting or diarrhea. Patient denies fevers or chills. Patient denies chest pain or dyspnea. The patient rates the pain 10/10 and states it is epigastric. It does not radiate to her back. She is taking no medication. Patient may have had contact with someone with COVID-19 a week ago for 1 hour just tested positive yesterday. No sore throat, palpitations, dysuria, joint pain, rashes, depression, anxiety, visual changes, dizziness, headache. Patient denies major medical problems. Allergies: No Known Allergies (Unverified , 01/21/20) COVID-19 Screening Contact w/high risk pt: No Experienced COVID-19 symptoms?: No COVID-19 Testing performed GUN FITTER: No Social History: Denies: smoking, alcohol use, drug use Social History Narrative From home Reviewed Nursing Documentation: PMH: Agreed; PSxH: Agreed PHYSICAL EXAMINATION: GENERAL: No acute distress. Seems to be obese. HEAD AND NECK: [place] conjunctivae. HEART: Normal rate. LUNGS: Clear. ABDOMEN: Soft, obese. EXTREMITIES: No edema. NEUROLOGIC: Awake, alert, oriented x3. LABORATORY DATA: Sodium 140, potassium 3.2, chloride 109, bicarbonate 24, BUN 9, creatinine 0.8, total bilirubin 1.4. AST is 139, ALT 209, lipase more than 2000. Albumin 3.3. UA was negative. WBC 6000, hemoglobin 14.1, hematocrit 40.1, and platelets 186. COVID-19 test well positive. Chest x-ray showed no acute disease. Abdominal ultrasound showed diffuse gallbladder wall thickening, cholelithiasis. . Assessment/Plan Hypokalemia COVID-19 disease Acute pancreatitis with elevated LFTs Gallstone pancreatitis Obesity Hypertension Proteinuria Oral potassium ordered IV fluid adjusted Continue to monitor renal parameters and electrolytes Continue per consultants Rakesh Hammer MD Jan 27, 2020 11:53
--- NOTE | 2020-01-27 12:13 | Infectious Diseases Prog Note ---
Assessment/Plan Assessment/Plan IMPRESSION: 1. COVID-19 disease, seems to be mild or recent infection. 2. Acute pancreatitis, has elevated transaminase. 3. Cholelithiasis.? Passing stone 4. Morbid obesity. PLAN: Continue Zosyn According to GI specialist needs MRCP Subjective ROS Limited/Unobtainable: No Respiratory: Reports: no symptoms Cardiovascular: Reports: no symptoms Gastrointestinal/Abdominal: Reports: no symptoms Genitourinary: Reports: no symptoms Allergies: Coded Allergies: No Known Allergies (Unverified , 01/21/20) Objective Last 24 Hour Vital Signs Date Time Temp Pulse Resp B/P (MAP) Pulse Ox O2 Delivery O2 Flow Rate FiO2 01/27/20 08:00 98.7 81 17 129/75 (93) 96 01/27/20 04:00 98.0 70 20 116/72 (87) 96 01/27/20 02:49 98.0 01/27/20 00:00 97.7 77 20 137/80 (99) 95 01/26/20 21:00 Room Air 01/26/20 20:00 97.7 76 20 141/82 (101) 94 01/26/20 16:00 98.2 51 19 113/69 (84) 99 Height (Feet): 5 Height (Inches): 2.00 Weight (Pounds): 235 General Appearance: no acute distress HEENT: mucous membranes moist Respiratory/Chest: lungs clear Cardiovascular: normal rate Abdomen: soft, non tender Extremities: no edema Neurologic/Psychiatric: alert, oriented x 3, responsive Laboratory Tests Test 01/27/20 04:20 White Blood Count 4.4 K/UL (4.8-10.8) L Red Blood Count 3.89 M/UL (4.20-5.40) L Hemoglobin 11.6 G/DL (12.0-16.0) L Hematocrit 33.0 % (37.0-47.0) L Mean Corpuscular Volume 85 FL (80-99) Mean Corpuscular Hemoglobin 29.7 PG (27.0-31.0) Mean Corpuscular Hemoglobin Concent 35.0 G/DL (32.0-36.0) Red Cell Distribution Width 13.0 % (11.6-14.8) Platelet Count 161 K/UL (150-450) Mean Platelet Volume 6.2 FL (6.5-10.1) L Neutrophils (%) (Auto) 68.9 % (45.0-75.0) Lymphocytes (%) (Auto) 23.5 % (20.0-45.0) Monocytes (%) (Auto) 6.8 % (1.0-10.0) Eosinophils (%) (Auto) 0.5 % (0.0-3.0) Basophils (%) (Auto) 0.4 % (0.0-2.0) Sodium Level 138 MMOL/L (136-145) Potassium Level 3.2 MMOL/L (3.5-5.1) L Chloride Level 105 MMOL/L (98-107) Carbon Dioxide Level 26 MMOL/L (21-32) Anion Gap 7 mmol/L (5-15) Blood Urea Nitrogen 4 mg/dL (7-18) L Creatinine 0.8 MG/DL (0.55-1.30) Estimat Glomerular Filtration Rate > 60 mL/min (>60) Glucose Level 122 MG/DL (74-106) H Calcium Level 7.8 MG/DL (8.5-10.1) L Total Bilirubin 0.8 MG/DL (0.2-1.0) Aspartate Amino Transf (AST/SGOT) 82 U/L (15-37) H Alanine Aminotransferase (ALT/SGPT) 118 U/L (12-78) H Alkaline Phosphatase 126 U/L (46-116) H Total Protein 7.4 G/DL (6.4-8.2) Albumin 2.7 G/DL (3.4-5.0) L Globulin 4.7 g/dL Albumin/Globulin Ratio 0.6 (1.0-2.7) L Amylase Level 194 U/L (25-115) H Lipase 1027 U/L (73-393) H Current Medications Medications (Trade) Dose Ordered Sig/Dipti Route PRN Reason Start Time Stop Time Status Last Admin Dose Admin Dextrose/Sodium Chloride 1,000 ml @ 50 mls/hr Q20H IV 01/27/20 12:00 02/26/20 11:59 Ibuprofen (Advil) 400 mg Q6H PRN ORAL Temp >100.5 01/22/20 18:00 02/21/20 17:59 01/27/20 02:19 Morphine Sulfate (Morphine Sulfate) 2 mg Q4H PRN IVP For Pain 01/22/20 09:00 01/29/20 08:59 Ondansetron HCl (Zofran) 4 mg Q6H PRN IVP Nausea & Vomiting 01/22/20 07:30 02/21/20 07:29 Piperacillin Sod/ Tazobactam Sod 3.375 gm/Sodium Chloride 110 ml @ 27.5 mls/hr EVERY 8 HOURS IVPB 01/23/20 14:00 02/01/20 13:59 01/27/20 05:46 Potassium Chloride (K-Dur) 40 meq ONCE ORAL 01/27/20 12:00 01/27/20 14:00 Potassium Chloride (K-Dur) 40 meq TWICE A DAY ORAL 01/27/20 18:00 04/26/20 17:59 Wesley Blandon MD Jan 27, 2020 12:13
[2020-01-27] MEDS: D5NS 1,000 ML IV SCH (12:23)
--- NOTE | 2020-01-27 12:46 | General Progress Note ---
Subjective ROS Limited/Unobtainable: No Allergies: Coded Allergies: No Known Allergies (Unverified , 01/21/20) Objective Last 24 Hour Vital Signs Date Time Temp Pulse Resp B/P (MAP) Pulse Ox O2 Delivery O2 Flow Rate FiO2 01/27/20 08:00 98.7 81 17 129/75 (93) 96 01/27/20 04:00 98.0 70 20 116/72 (87) 96 01/27/20 02:49 98.0 01/27/20 00:00 97.7 77 20 137/80 (99) 95 01/26/20 21:00 Room Air 01/26/20 20:00 97.7 76 20 141/82 (101) 94 01/26/20 16:00 98.2 51 19 113/69 (84) 99 Intake and Output 01/26/20 01/27/20 19:00 07:00 Intake Total 1120 ml 1010 ml Balance 1120 ml 1010 ml Intake Oral 1120 ml 400 ml IV Total 610 ml # Voids 5 6 # Bowel Movements 2 Laboratory Tests 01/27/20 04:20: White Blood Count 4.4L, Red Blood Count 3.89L, Hemoglobin 11.6L, Hematocrit 33.0L, Mean Corpuscular Volume 85, Mean Corpuscular Hemoglobin 29.7, Mean Corpuscular Hemoglobin Concent 35.0, Red Cell Distribution Width 13.0, Platelet Count 161, Mean Platelet Volume 6.2L, Neutrophils (%) (Auto) 68.9, Lymphocytes (%) (Auto) 23.5, Monocytes (%) (Auto) 6.8, Eosinophils (%) (Auto) 0.5, Basophils (%) (Auto) 0.4, Sodium Level 138, Potassium Level 3.2L, Chloride Level 105, Carbon Dioxide Level 26, Anion Gap 7, Blood Urea Nitrogen 4L, Creatinine 0.8, Estimat Glomerular Filtration Rate > 60, Glucose Level 122H, Calcium Level 7.8L, Total Bilirubin 0.8, Aspartate Amino Transf (AST/SGOT) 82H, Alanine Aminotransferase (ALT/SGPT) 118H, Alkaline Phosphatase 126H, Total Protein 7.4, Albumin 2.7L, Globulin 4.7, Albumin/Globulin Ratio 0.6L, Amylase Level 194H, Lipase 1027H Height (Feet): 5 Height (Inches): 2.00 Weight (Pounds): 235 General Appearance: alert EENT: normal ENT inspection Neck: non-tender Cardiovascular: normal rate Respiratory/Chest: decreased breath sounds Abdomen: normal bowel sounds, non tender, soft Extremities: non-tender Assessment/Plan Status: progressing Assessment/Plan: gallstone pancreatitis? Covid positive pain control needs MRCP but covid + surg in put appreciated repeat labs for tomorrow on reg diet will fu David Kingsley MD Jan 27, 2020 12:46
--- NOTE | 2020-01-27 15:07 | NUR ---
CASE MANAGEMENT:REVIEW SI;COVID PNA. PANCREATITIS. 102.6 81 20 137/76 94% ON RA K+ 3.2 BG 122 CA 7.8 AST 82 ALT 118 ALP 126 ALB 2.7 AMYLASE 194 LIPASE 1027 IS;K-DUR PO BID IVF D5NS @ 50 ML.HR ZOSYN IV Q8 MED SURG STATUS DCP;FROM HOME
--- NOTE | 2020-01-27 15:53 | Surgery Progress Note ---
Surgery Progress Note Subjective Symptoms: improved, pain absent, tolerating diet, voiding well, passing flatus, BM Objective Last 24 Hour Vital Signs Date Time Temp Pulse Resp B/P (MAP) Pulse Ox O2 Delivery O2 Flow Rate FiO2 01/27/20 14:50 102.6 01/27/20 12:00 98.2 77 19 137/76 (96) 97 01/27/20 08:00 98.7 81 17 129/75 (93) 96 01/27/20 04:00 98.0 70 20 116/72 (87) 96 01/27/20 02:49 98.0 01/27/20 00:00 97.7 77 20 137/80 (99) 95 01/26/20 21:00 Room Air 01/26/20 20:00 97.7 76 20 141/82 (101) 94 01/26/20 16:00 98.2 51 19 113/69 (84) 99 I&O Intake and Output 01/26/20 01/27/20 19:00 07:00 Intake Total 1120 ml 1010 ml Balance 1120 ml 1010 ml Intake Oral 1120 ml 400 ml IV Total 610 ml # Voids 5 6 # Bowel Movements 2 Cardiovascular: RSR Respiratory: clear Abdomen: soft, non-tender, present bowel sounds Extremities: no edema, no tenderness, no cyanosis Laboratory Tests Test 01/27/20 04:20 White Blood Count 4.4 K/UL (4.8-10.8) L Red Blood Count 3.89 M/UL (4.20-5.40) L Hemoglobin 11.6 G/DL (12.0-16.0) L Hematocrit 33.0 % (37.0-47.0) L Mean Corpuscular Volume 85 FL (80-99) Mean Corpuscular Hemoglobin 29.7 PG (27.0-31.0) Mean Corpuscular Hemoglobin Concent 35.0 G/DL (32.0-36.0) Red Cell Distribution Width 13.0 % (11.6-14.8) Platelet Count 161 K/UL (150-450) Mean Platelet Volume 6.2 FL (6.5-10.1) L Neutrophils (%) (Auto) 68.9 % (45.0-75.0) Lymphocytes (%) (Auto) 23.5 % (20.0-45.0) Monocytes (%) (Auto) 6.8 % (1.0-10.0) Eosinophils (%) (Auto) 0.5 % (0.0-3.0) Basophils (%) (Auto) 0.4 % (0.0-2.0) Sodium Level 138 MMOL/L (136-145) Potassium Level 3.2 MMOL/L (3.5-5.1) L Chloride Level 105 MMOL/L (98-107) Carbon Dioxide Level 26 MMOL/L (21-32) Anion Gap 7 mmol/L (5-15) Blood Urea Nitrogen 4 mg/dL (7-18) L Creatinine 0.8 MG/DL (0.55-1.30) Estimat Glomerular Filtration Rate > 60 mL/min (>60) Glucose Level 122 MG/DL (74-106) H Calcium Level 7.8 MG/DL (8.5-10.1) L Total Bilirubin 0.8 MG/DL (0.2-1.0) Aspartate Amino Transf (AST/SGOT) 82 U/L (15-37) H Alanine Aminotransferase (ALT/SGPT) 118 U/L (12-78) H Alkaline Phosphatase 126 U/L (46-116) H Total Protein 7.4 G/DL (6.4-8.2) Albumin 2.7 G/DL (3.4-5.0) L Globulin 4.7 g/dL Albumin/Globulin Ratio 0.6 (1.0-2.7) L Amylase Level 194 U/L (25-115) H Lipase 1027 U/L (73-393) H Plan Problems: (1) Acute pancreatitis Assessment & Plan: 51-year-old female acute pancreatitis potentially gallstone related. Afebrile hemodynamic stable labs improved. No nausea vomiting fever chills. Pain is resolved. No acute surgical intervention planned. Continue with work-up. Trend labs. GI input appreciated. Will follow with recommendations. Thank you npo iv fluids iv abx trend labs bowel rest will follow with recs thank you febrile tolerating diet labs improving trend labs cont diet cont abx needs mrcp but covid + Liver: See below. Gallbladder: There is cholelithiasis. A 2.6 cm gallstone is noted. Gallbladder wall measures 0.45 cm and is thickened. Common bile duct: Suboptimal evaluation of the common bile duct due to bowel gas. No stones. No dilation. Pancreas: Unremarkable as visualized. Kidneys: Right kidney measures 9.8 x 5 x 5 cm. Left kidney measures 9. 3 x 4.9 x 4.7 cm. No hydronephrosis. No stones. Spleen: Spleen measures 9.3 cm and is unremarkable. Aorta: Abdominal aorta is normal in caliber. Liver measures 15.9 cm. Partial evaluation of the abdominal aorta which is grossly unremarkable. No aneurysm. Inferior vena cava: Unremarkable. IMPRESSION: 1. Limited evaluation due to bowel gas. 2. Cholelithiasis. 3. Gallbladder wall measures 0.45 cm and is diffusely thickened. Clinical correlation is necessary. 4. No pericholecystic fluid noted however. Markedly limited evaluation of the common bile duct due to bowel gas. 5. Clinical correlation is necessary. (2) Gall stone (3) Lab test positive for detection of COVID-19 virus Jalil Santiago Jan 27, 2020 15:53
--- NOTE | 2020-01-27 19:35 | NUR ---
NURSE HAND-OFF: Important Events on Shift:IVF changed to D5NS at 50 ml/hr, K3.2 (started KDUR 40 meq BID), Temperature 102.6 (Advil given, lowest temperature 100.2) Patient Status: stable Diet: Regular soft chopped Pending Orders: Labs in AM Pending Results/Labs:see orders for list of AM labs (ordered by Dr. Kingsley and Dr. Hammer) Pending MD notification:none Latest Vital Signs: Temperature 100.2 , Pulse 101 , B/P 143 /83 , Respiratory Rate 19 , O2 SAT 96 , Room Air, O2 Flow Rate . Vital Sign Comment: Monitor temperature Latest Xiong Fall Score: 20 Fall Risk: Low Risk Safety Measures: Call light Within Reach, Bed Alarm Zone 1, Side Rails Side Rails x2, Bed position Low and Locked. Fall Precautions: Patient Fall Education Report given to Claus MATA.
--- NOTE | 2020-01-27 19:45 | NUR ---
NURSE NOTES: Received report from Vi MATA. Patient is awake, alert, and oriented x4. On room air, breathing is even and unlabored. No C/O pain or distress noted. Skin is intact. IV right AC with no bleeding noted. IVF running as ordered. Temp 98.4. Bed low and locked. Call light within reach.
--- NOTE | 2020-01-27 21:22 | General Progress Note ---
Subjective ROS Limited/Unobtainable: Yes Allergies: Coded Allergies: No Known Allergies (Unverified , 01/21/20) Objective Last 24 Hour Vital Signs Date Time Temp Pulse Resp B/P (MAP) Pulse Ox O2 Delivery O2 Flow Rate FiO2 01/27/20 20:00 98.4 87 20 137/83 (101) 96 01/27/20 17:10 100.2 01/27/20 16:00 101.6 101 19 143/83 (103) 96 01/27/20 15:22 101.6 01/27/20 14:50 102.6 01/27/20 12:00 98.2 77 19 137/76 (96) 97 01/27/20 09:00 Room Air 01/27/20 08:00 98.7 81 17 129/75 (93) 96 01/27/20 04:00 98.0 70 20 116/72 (87) 96 01/27/20 02:49 98.0 01/27/20 00:00 97.7 77 20 137/80 (99) 95 Intake and Output 01/26/20 01/27/20 19:00 07:00 Intake Total 1120 ml 1010 ml Balance 1120 ml 1010 ml Intake Oral 1120 ml 400 ml IV Total 610 ml # Voids 5 6 # Bowel Movements 2 Laboratory Tests 01/27/20 04:20: White Blood Count 4.4L, Red Blood Count 3.89L, Hemoglobin 11.6L, Hematocrit 33.0L, Mean Corpuscular Volume 85, Mean Corpuscular Hemoglobin 29.7, Mean Corpuscular Hemoglobin Concent 35.0, Red Cell Distribution Width 13.0, Platelet Count 161, Mean Platelet Volume 6.2L, Neutrophils (%) (Auto) 68.9, Lymphocytes (%) (Auto) 23.5, Monocytes (%) (Auto) 6.8, Eosinophils (%) (Auto) 0.5, Basophils (%) (Auto) 0.4, Sodium Level 138, Potassium Level 3.2L, Chloride Level 105, Carbon Dioxide Level 26, Anion Gap 7, Blood Urea Nitrogen 4L, Creatinine 0.8, Estimat Glomerular Filtration Rate > 60, Glucose Level 122H, Calcium Level 7.8L, Total Bilirubin 0.8, Aspartate Amino Transf (AST/SGOT) 82H, Alanine Aminotransferase (ALT/SGPT) 118H, Alkaline Phosphatase 126H, Total Protein 7.4, Albumin 2.7L, Globulin 4.7, Albumin/Globulin Ratio 0.6L, Amylase Level 194H, Lipase 1027H Height (Feet): 5 Height (Inches): 2.00 Weight (Pounds): 235 Assessment/Plan Problem List: (1) Acute pancreatitis ICD Codes: K85.90 - Acute pancreatitis without necrosis or infection, unspecified SNOMED: 524128274 Qualifiers: Qualified Codes: K85.10 - Biliary acute pancreatitis without necrosis or in fection (2) Gall stone ICD Codes: K80.20 - Calculus of gallbladder without cholecystitis without obstruction SNOMED: 157369783 Qualifiers: Qualified Codes: K80.20 - Calculus of gallbladder without cholecystitis without obstruction (3) Lab test positive for detection of COVID-19 virus ICD Codes: U07.1 - COVID-19 SNOMED: [id number] Status: progressing Assessment/Plan: covid positive pna pancreatitis oxygen reviewed chart no fever Ronny Win MD Jan 27, 2020 21:22
[2020-01-28 04:00] VITALS: BP 127/75
[2020-01-28] MEDS: Piperacillin/Tazobactam 3.375 GM in NS 110 ML IVPB SCH ×3 (06:10→22:12)
[2020-01-28 06:42] LABS: BASOPHILS % (AUTO) 0.4 % (0.0-2.0); EOSINOPHILS % (AUTO) 0.4 % (0.0-3.0); HEMOGLOBIN 11.5 G/DL (12.0-16.0); LYMPHOCYTES % (AUTO) 24.4 % (20.0-45.0); MEAN CORPUSCULAR VOLUME 85 FL (80-99); NEUTROPHILS % (AUTO) 67.6 % (45.0-75.0); PLATELET COUNT 159 K/UL (150-450); RED CELL DISTRIBUTION WIDTH 12.5 % (11.6-14.8); WHITE BLOOD COUNT 4.1 K/UL (4.8-10.8)
[2020-01-28 06:54] LABS: CREATINE KINASE 52 U/L (26-308); GAMMA GLUTAMYL TRANSPEPTIDASE 295 U/L (5-85); PHOSPHORUS 3.6 MG/DL (2.5-4.9)
--- NOTE | 2020-01-28 06:58 | NUR ---
NURSE HAND-OFF: Important Events on Shift:Temp management 102.2 to 98.8 after advil given Patient Status: Stable Diet: Regular (soft chopped) Pending Orders: N/A Pending Results/Labs:N/A Pending MD notification:N/A Latest Vital Signs: Temperature 98.8 , Pulse 83 , B/P 127 /75 , Respiratory Rate 18 , O2 SAT 96 , Room Air, O2 Flow Rate . Vital Sign Comment: VS stable Latest Xiong Fall Score: 20 Fall Risk: Low Risk Safety Measures: Call light Within Reach, Bed Alarm Zone 1, Side Rails Side Rails x2, Bed position Low and Locked. Fall Precautions: Patient Fall Education Report will be given to Vi MATA.
[2020-01-28 07:09] LABS: ALANINE AMINOTRANSFERASE 81 U/L (12-78); ALBUMIN 2.5 G/DL (3.4-5.0); ALBUMIN/GLOBULIN RATIO 0.5 (1.0-2.7); ALKALINE PHOSPHATASE 102 U/L (46-116); AMYLASE 120 U/L (25-115); ANION GAP 8 mmol/L (5-15); ASPARTATE AMINO TRANSFERASE 47 U/L (15-37); BILIRUBIN,TOTAL 0.7 MG/DL (0.2-1.0); BLOOD UREA NITROGEN 7 mg/dL (7-18); CALCIUM 8.1 MG/DL (8.5-10.1); CARBON DIOXIDE 25 MMOL/L (21-32); CHLORIDE 107 MMOL/L (98-107); CHOLESTEROL 119 MG/DL (< 200); CREATININE 0.7 MG/DL (0.55-1.30); HDL CHOLESTEROL 34 MG/DL (40-60); POTASSIUM 3.6 MMOL/L (3.5-5.1); SODIUM 140 MMOL/L (136-145); TRIGLYCERIDES 66 MG/DL (30-150)
--- NOTE | 2020-01-28 07:29 | NUR ---
NURSE NOTES: Report received from Wallace RN/ Claus RN, rounds made. Patient AOx4, calm. [place]ican/[place]an speaking. Respirations even/unlabored on RA. Denies SOB, pain , NV. IVF infusing to RAC, site asymptomatic. Call light in reach, bed in lowest position, will continue to monitor.
[2020-01-28 08:00] VITALS: BP 132/85
[2020-01-28] MEDS: D5NS 1,000 ML IV SCH (08:48)
[2020-01-28 12:00] VITALS: BP 131/80
--- NOTE | 2020-01-28 12:21 | General Progress Note ---
Subjective ROS Limited/Unobtainable: No Allergies: Coded Allergies: No Known Allergies (Unverified , 01/21/20) Objective Last 24 Hour Vital Signs Date Time Temp Pulse Resp B/P (MAP) Pulse Ox O2 Delivery O2 Flow Rate FiO2 01/28/20 09:00 Room Air 01/28/20 08:00 100.2 83 18 132/85 (101) 96 01/28/20 04:00 98.8 83 18 127/75 (92) 96 01/28/20 01:50 98.8 01/27/20 23:31 100.0 92 20 131/63 (85) 99 01/27/20 21:00 Room Air 01/27/20 20:00 98.4 87 20 137/83 (101) 96 01/27/20 17:10 100.2 01/27/20 16:00 101.6 101 19 143/83 (103) 96 01/27/20 15:22 101.6 01/27/20 14:50 102.6 Intake and Output 01/27/20 01/28/20 19:00 07:00 Intake Total 1200 ml 2260 ml Balance 1200 ml 2260 ml Intake Oral 1600 ml IV Total 660 ml Other 1200 ml # Voids 10 # Bowel Movements 2 Laboratory Tests 01/28/20 05:30: White Blood Count 4.1L, Red Blood Count 3.90L, Hemoglobin 11.5L, Hematocrit 33.0L, Mean Corpuscular Volume 85, Mean Corpuscular Hemoglobin 29.5, Mean Corpuscular Hemoglobin Concent 34.9, Red Cell Distribution Width 12.5, Platelet Count 159, Mean Platelet Volume 6.5, Neutrophils (%) (Auto) 67.6, Lymphocytes (%) (Auto) 24.4, Monocytes (%) (Auto) 7.0, Eosinophils (%) (Auto) 0.4, Basophils (%) (Auto) 0.4, Sodium Level 140, Potassium Level 3.6, Chloride Level 107, Carbon Dioxide Level 25, Anion Gap 8, Blood Urea Nitrogen 7, Creatinine 0.7, E stimat Glomerular Filtration Rate > 60, Glucose Level 104, Hemoglobin A1c 5.9, Uric Acid 0.9L, Calcium Level 8.1L, Phosphorus Level 3.6, Magnesium Level 1.9, Total Bilirubin 0.7, Gamma Glutamyl Transpeptidase 295H, Aspartate Amino Transf (AST/SGOT) 47H, Alanine Aminotransferase (ALT/SGPT) 81H, Alkaline Phosphatase 102, Total Creatine Kinase 52, C-Reactive Protein, Quantitative 10.7H, Pro-B-Type Natriuretic Peptide [Pending], Total Protein 7.2, Albumin 2.5L, Globulin 4.7, Albumin/Globulin Ratio 0.5L, Triglycerides Level 66, Cholesterol Level 119, LDL Cholesterol 68, HDL Cholesterol 34L, Cholesterol/HDL Ratio 3.5, Amylase Level 120H, Lipase 793H, Thyroid Stimulating Hormone (TSH) 2.037 Height (Feet): 5 Height (Inches): 2.00 Weight (Pounds): 235 General Appearance: no apparent distress EENT: normal ENT inspection Neck: supple Cardiovascular: normal rate Respiratory/Chest: decreased breath sounds Abdomen: normal bowel sounds, non tender, soft Extremities: non-tender Assessment/Plan Status: progressing Assessment/Plan: gallstone pancreatitis? Covid positive pain control needs MRCP but covid + surg in put appreciated repeat labs for tomorrow on reg diet will David De Paz MD Jan 28, 2020 12:21
--- NOTE | 2020-01-28 12:50 | NUR ---
NURSE NOTES: Discussed patient current status and recurrent/spiking temperature with Dr. Jasiel Blandon, vitals/eMAR reviewed. No further orders.
--- NOTE | 2020-01-28 12:54 | Infectious Diseases Prog Note ---
Assessment/Plan Assessment/Plan IMPRESSION: 1. COVID-19 disease, seems to be mild or recent infection. 2. Acute pancreatitis, has elevated transaminase. 3. Cholelithiasis.? Passing stone 4. Morbid obesity. 5. Fever PLAN: Continue Zosyn According to GI specialist needs MRCP Blood culture X 2 Subjective ROS Limited/Unobtainable: Yes Constitutional: Reports: fever, other - since yesterday Respiratory: Reports: no symptoms Gastrointestinal/Abdominal: Reports: no symptoms Genitourinary: Reports: no symptoms Allergies: Coded Allergies: No Known Allergies (Unverified , 01/21/20) Objective Last 24 Hour Vital Signs Date Time Temp Pulse Resp B/P (MAP) Pulse Ox O2 Delivery O2 Flow Rate FiO2 01/28/20 09:00 Room Air 01/28/20 08:00 100.2 83 18 132/85 (101) 96 01/28/20 04:00 98.8 83 18 127/75 (92) 96 01/28/20 01:50 98.8 01/27/20 23:31 100.0 92 20 131/63 (85) 99 01/27/20 21:00 Room Air 01/27/20 20:00 98.4 87 20 137/83 (101) 96 01/27/20 17:10 100.2 01/27/20 16:00 101.6 101 19 143/83 (103) 96 01/27/20 15:22 101.6 01/27/20 14:50 102.6 Height (Feet): 5 Height (Inches): 2.00 Weight (Pounds): 235 HEENT: mucous membranes moist Respiratory/Chest: lungs clear Cardiovascular: normal rate Abdomen: soft, non tender Extremities: no edema Neurologic/Psychiatric: alert, oriented x 3, responsive, normal mood/affect Laboratory Tests Test 01/28/20 05:30 White Blood Count 4.1 K/UL (4.8-10.8) L Red Blood Count 3.90 M/UL (4.20-5.40) L Hemoglobin 11.5 G/DL (12.0-16.0) L Hematocrit 33.0 % (37.0-47.0) L Mean Corpuscular Volume 85 FL (80-99) Mean Corpuscular Hemoglobin 29.5 PG (27.0-31.0) Mean Corpuscular Hemoglobin Concent 34.9 G/DL (32.0-36.0) Red Cell Distribution Width 12.5 % (11.6-14.8) Platelet Count 159 K/UL (150-450) Mean Platelet Volume 6.5 FL (6.5-10.1) Neutrophils (%) (Auto) 67.6 % (45.0-75.0) Lymphocytes (%) (Auto) 24.4 % (20.0-45.0) Monocytes (%) (Auto) 7.0 % (1.0-10.0) Eosinophils (%) (Auto) 0.4 % (0.0-3.0) Basophils (%) (Auto) 0.4 % (0.0-2.0) Sodium Level 140 MMOL/L (136-145) Potassium Level 3.6 MMOL/L (3.5-5.1) Chloride Level 107 MMOL/L (98-107) Carbon Dioxide Level 25 MMOL/L (21-32) Anion Gap 8 mmol/L (5-15) Blood Urea Nitrogen 7 mg/dL (7-18) Creatinine 0.7 MG/DL (0.55-1.30) Estimat Glomerular Filtration Rate > 60 mL/min (>60) Glucose Level 104 MG/DL (74-106) Hemoglobin A1c 5.9 % (4.3-6.0) Uric Acid 0.9 MG/DL (2.6-7.2) L Calcium Level 8.1 MG/DL (8.5-10.1) L Phosphorus Level 3.6 MG/DL (2.5-4.9) Magnesium Level 1.9 MG/DL (1.8-2.4) Total Bilirubin 0.7 MG/DL (0.2-1.0) Gamma Glutamyl Transpeptidase 295 U/L (5-85) H Aspartate Amino Transf (AST/SGOT) 47 U/L (15-37) H Alanine Aminotransferase (ALT/SGPT) 81 U/L (12-78) H Alkaline Phosphatase 102 U/L (46-116) Total Creatine Kinase 52 U/L (26-308) C-Reactive Protein, Quantitative 10.7 mg/dL (0.00-0.90) H Pro-B-Type Natriuretic Peptide Pending Total Protein 7.2 G/DL (6.4-8.2) Albumin 2.5 G/DL (3.4-5.0) L Globulin 4.7 g/dL Albumin/Globulin Ratio 0.5 (1.0-2.7) L Triglycerides Level 66 MG/DL (30-150) Cholesterol Level 119 MG/DL (< 200) LDL Cholesterol 68 mg/dL (<100) HDL Cholesterol 34 MG/DL (40-60) L Cholesterol/HDL Ratio 3.5 (3.3-4.4) Amylase Level 120 U/L (25-115) H Lipase 793 U/L (73-393) H Thyroid Stimulating Hormone (TSH) 2.037 uiU/mL (0.358-3.740) Current Medications Medications (Trade) Dose Ordered Sig/Dipti Route PRN Reason Start Time Stop Time Status Last Admin Dose Admin Dextrose/Sodium Chloride 1,000 ml @ 50 mls/hr Q20H IV 01/27/20 12:00 02/26/20 11:59 01/28/20 08:48 Ibuprofen (Advil) 400 mg Q6H PRN ORAL Temp >100.5 01/22/20 18:00 02/21/20 17:59 01/28/20 09:10 Morphine Sulfate (Morphine Sulfate) 2 mg Q4H PRN IVP For Pain 01/22/20 09:00 01/29/20 08:59 Ondansetron HCl (Zofran) 4 mg Q6H PRN IVP Nausea & Vomiting 01/22/20 07:30 02/21/20 07:29 Piperacillin Sod/ Tazobactam Sod 3.375 gm/Sodium Chloride 110 ml @ 27.5 mls/hr EVERY 8 HOURS IVPB 01/23/20 14:00 02/01/20 13:59 01/28/20 06:10 Potassium Chloride (K-Dur) 40 meq TWICE A DAY ORAL 01/27/20 18:00 04/26/20 17:59 01/28/20 08:49 Wesley Blandon MD Jan 28, 2020 12:54
--- NOTE | 2020-01-28 12:55 | Surgery Progress Note ---
Surgery Progress Note Subjective Symptoms: improved, pain absent, tolerating diet, voiding well, passing flatus, BM Objective Last 24 Hour Vital Signs Date Time Temp Pulse Resp B/P (MAP) Pulse Ox O2 Delivery O2 Flow Rate FiO2 01/28/20 09:00 Room Air 01/28/20 08:00 100.2 83 18 132/85 (101) 96 01/28/20 04:00 98.8 83 18 127/75 (92) 96 01/28/20 01:50 98.8 01/27/20 23:31 100.0 92 20 131/63 (85) 99 01/27/20 21:00 Room Air 01/27/20 20:00 98.4 87 20 137/83 (101) 96 01/27/20 17:10 100.2 01/27/20 16:00 101.6 101 19 143/83 (103) 96 01/27/20 15:22 101.6 01/27/20 14:50 102.6 I&O Intake and Output 01/27/20 01/28/20 19:00 07:00 Intake Total 1200 ml 2260 ml Balance 1200 ml 2260 ml Intake Oral 1600 ml IV Total 660 ml Other 1200 ml # Voids 10 # Bowel Movements 2 Cardiovascular: RSR Respiratory: decreased breath sounds Abdomen: soft, flat, non-tender, present bowel sounds, non-distended Extremities: no edema, no tenderness, no cyanosis Laboratory Tests Test 01/28/20 05:30 White Blood Count 4.1 K/UL (4.8-10.8) L Red Blood Count 3.90 M/UL (4.20-5.40) L Hemoglobin 11.5 G/DL (12.0-16.0) L Hematocrit 33.0 % (37.0-47.0) L Mean Corpuscular Volume 85 FL (80-99) Mean Corpuscular Hemoglobin 29.5 PG (27.0-31.0) Mean Corpuscular Hemoglobin Concent 34.9 G/DL (32.0-36.0) Red Cell Distribution Width 12.5 % (11.6-14.8) Platelet Count 159 K/UL (150-450) Mean Platelet Volume 6.5 FL (6.5-10.1) Neutrophils (%) (Auto) 67.6 % (45.0-75.0) Lymphocytes (%) (Auto) 24.4 % (20.0-45.0) Monocytes (%) (Auto) 7.0 % (1.0-10.0) Eosinophils (%) (Auto) 0.4 % (0.0-3.0) Basophils (%) (Auto) 0.4 % (0.0-2.0) Sodium Level 140 MMOL/L (136-145) Potassium Level 3.6 MMOL/L (3.5-5.1) Chloride Level 107 MMOL/L (98-107) Carbon Dioxide Level 25 MMOL/L (21-32) Anion Gap 8 mmol/L (5-15) Blood Urea Nitrogen 7 mg/dL (7-18) Creatinine 0.7 MG/DL (0.55-1.30) Estimat Glomerular Filtration Rate > 60 mL/min (>60) Glucose Level 104 MG/DL (74-106) Hemoglobin A1c 5.9 % (4.3-6.0) Uric Acid 0.9 MG/DL (2.6-7.2) L Calcium Level 8.1 MG/DL (8.5-10.1) L Phosphorus Level 3.6 MG/DL (2.5-4.9) Magnesium Level 1.9 MG/DL (1.8-2.4) Total Bilirubin 0.7 MG/DL (0.2-1.0) Gamma Glutamyl Transpeptidase 295 U/L (5-85) H Aspartate Amino Transf (AST/SGOT) 47 U/L (15-37) H Alanine Aminotransferase (ALT/SGPT) 81 U/L (12-78) H Alkaline Phosphatase 102 U/L (46-116) Total Creatine Kinase 52 U/L (26-308) C-Reactive Protein, Quantitative 10.7 mg/dL (0.00-0.90) H Pro-B-Type Natriuretic Peptide Pending Total Protein 7.2 G/DL (6.4-8.2) Albumin 2.5 G/DL (3.4-5.0) L Globulin 4.7 g/dL Albumin/Globulin Ratio 0.5 (1.0-2.7) L Triglycerides Level 66 MG/DL (30-150) Cholesterol Level 119 MG/DL (< 200) LDL Cholesterol 68 mg/dL (<100) HDL Cholesterol 34 MG/DL (40-60) L Cholesterol/HDL Ratio 3.5 (3.3-4.4) Amylase Level 120 U/L (25-115) H Lipase 793 U/L (73-393) H Thyroid Stimulating Hormone (TSH) 2.037 uiU/mL (0.358-3.740) Plan Problems: (1) Acute pancreatitis Assessment & Plan: 51-year-old female acute pancreatitis potentially gallstone related. Afebrile hemodynamic stable labs improved. No nausea vomiting fever chills. Pain is resolved. No acute surgical intervention planned. Continue with work-up. Trend labs. GI input appreciated. Will follow with recommendations. Thank you npo iv fluids iv abx trend labs bowel rest will follow with recs thank you febrile tolerating diet labs improving trend labs cont diet cont abx needs mrcp but covid + Liver: See below. Gallbladder: There is cholelithiasis. A 2.6 cm gallstone is noted. Gallbladder wall measures 0.45 cm and is thickened. Common bile duct: Suboptimal evaluation of the common bile duct due to bowel gas. No stones. No dilation. Pancreas: Unremarkable as visualized. Kidneys: Right kidney measures 9.8 x 5 x 5 cm. Left kidney measures 9. 3 x 4.9 x 4.7 cm. No hydronephrosis. No stones. Spleen: Spleen measures 9.3 cm and is unremarkable. Aorta: Abdominal aorta is normal in caliber. Liver measures 15.9 cm. Partial evaluation of the abdominal aorta which is grossly unremarkable. No aneurysm. Inferior vena cava: Unremarkable. IMPRESSION: 1. Limited evaluation due to bowel gas. 2. Cholelithiasis. 3. Gallbladder wall measures 0.45 cm and is diffusely thickened. Clinical correlation is necessary. 4. No pericholecystic fluid noted however. Markedly limited evaluation of the common bile duct due to bowel gas. 5. Clinical correlation is necessary. (2) Gall stone (3) Lab test positive for detection of COVID-19 virus Jalil Santiago Jan 28, 2020 12:55
--- NOTE | 2020-01-28 13:02 | Pulmonology Progress Note ---
Subjective ROS Limited/Unobtainable: Yes Interval Events: none new reported Constitutional: Reports: fever - on and off; controlled with tylenol HEENT: Repors: no symptoms Respiratory: Reports: no symptoms; Denies: shortness of breath Cardiovascular: Reports: no symptoms; Denies: chest pain Gastrointestinal/Abdominal: Reports: no symptoms Genitourinary: Reports: no symptoms Allergies: Coded Allergies: No Known Allergies (Unverified , 01/21/20) Objective Last 24 Hour Vital Signs Date Time Temp Pulse Resp B/P (MAP) Pulse Ox O2 Delivery O2 Flow Rate FiO2 01/28/20 09:00 Room Air 01/28/20 08:00 100.2 83 18 132/85 (101) 96 01/28/20 04:00 98.8 83 18 127/75 (92) 96 01/28/20 01:50 98.8 01/27/20 23:31 100.0 92 20 131/63 (85) 99 01/27/20 21:00 Room Air 01/27/20 20:00 98.4 87 20 137/83 (101) 96 01/27/20 17:10 100.2 01/27/20 16:00 101.6 101 19 143/83 (103) 96 01/27/20 15:22 101.6 01/27/20 14:50 102.6 Intake and Output 01/27/20 01/28/20 19:00 07:00 Intake Total 1200 ml 2260 ml Balance 1200 ml 2260 ml Intake Oral 1600 ml IV Total 660 ml Other 1200 ml # Voids 10 # Bowel Movements 2 Objective 01/27 saturating well on RA; NAD 01/27/2020 continues to saturate well on RA; NAD 01/26/2020 saturating well on room air; NAD; sitting on her bed 01/25/2020 saturating well on room air 01/24/2020 pt eating in bed; saturating well on room air 01/23/2020 NAD; on room air 01/22/2020 saturating well on room air; NAD General Appearance: WD/WN, no acute distress HEENT: normocephalic Respiratory: lungs clear Cardiovascular: normal rate, regular rhythm, no gallop/murmur Abdomen: soft, non tender Neurologic: alert, oriented x 3, responsive Laboratory Tests 01/28/20 05:30: White Blood Count 4.1L, Red Blood Count 3.90L, Hemoglobin 11.5L, Hematocrit 33.0L, Mean Corpuscular Volume 85, Mean Corpuscular Hemoglobin 29.5, Mean Corpuscular Hemoglobin Concent 34.9, Red Cell Distribution Width 12.5, Platelet Count 159, Mean Platelet Volume 6.5, Neutrophils (%) (Auto) 67.6, Lymphocytes (%) (Auto) 24.4, Monocytes (%) (Auto) 7.0, Eosinophils (%) (Auto) 0.4, Basophils (%) (Auto) 0.4, Sodium Level 140, Potassium Level 3.6, Chloride Level 107, Carbon Dioxide Level 25, Anion Gap 8, Blood Urea Nitrogen 7, Creatinine 0.7, Estimat Glomerular Filtration Rate > 60, Glucose Level 104, Hemoglobin A1c 5.9, Uric Acid 0.9L, Calcium Level 8.1L, Phosphorus Level 3.6, Magnesium Level 1.9, Total Bilirubin 0.7, Gamma Glutamyl Transpeptidase 295H, Aspartate Amino Transf (AST/SGOT) 47H, Alanine Aminotransferase (ALT/SGPT) 81H, Alkaline Phosphatase 102, Total Creatine Kinase 52, C-Reactive Protein, Quantitative 10.7H, Pro-B-Type Natriuretic Peptide [Pending], Total Protein 7.2, Albumin 2.5L, Globulin 4.7, Albumin/Globulin Ratio 0.5L, Triglycerides Level 66, Cholesterol Level 119, LDL Cholesterol 68, HDL Cholesterol 34L, Cholesterol/HDL Ratio 3.5, Amylase Level 120H, Lipase 793H, Thyroid Stimulating Hormone (TSH) 2.037 Current Medications Medications (Trade) Dose Ordered Sig/Dipti Route PRN Reason Start Time Stop Time Status Last Admin Dose Admin Dextrose/Sodium Chloride 1,000 ml @ 50 mls/hr Q20H IV 01/27/20 12:00 02/26/20 11:59 01/28/20 08:48 Ibuprofen (Advil) 400 mg Q6H PRN ORAL Temp >100.5 01/22/20 18:00 02/21/20 17:59 01/28/20 09:10 Morphine Sulfate (Morphine Sulfate) 2 mg Q4H PRN IVP For Pain 01/22/20 09:00 01/29/20 08:59 Ondansetron HCl (Zofran) 4 mg Q6H PRN IVP Nausea & Vomiting 01/22/20 07:30 1/11/21 07:29 Piperacillin Sod/ Tazobactam Sod 3.375 gm/Sodium Chloride 110 ml @ 27.5 mls/hr EVERY 8 HOURS IVPB 01/23/20 14:00 02/01/20 13:59 01/28/20 06:10 Potassium Chloride (K-Dur) 40 meq TWICE A DAY ORAL 01/27/20 18:00 04/26/20 17:59 01/28/20 08:49 Assessment/Plan Assessment/Plan Assessment/Plan 1. Transaminitis 2. Pancreatitis. - elevated amylase, lipase; improving - IVF - pain control - on zosyn per Dr. Santiago - MRCP pending per COVID-19 positive status - per Dr. Kingsley, Dr. Santiago 3. Positive COVID-19. -Currently no intervention required for Covid19 due to her normoxemic status on RA 4. Hypertension The care of this patient was discussed with my supervising physician Time spent for this encounter was approximately 31 minutes The patient was seen and examined at bedside and all new and available data was reviewed in the patients chart. I agree with the above findings, impression, and plan. (Patient was seen earlier today. Signature timestamp does not reflect patient encounter time) Steven Redmond MD Jan 28, 2020 13:02 Bubba Penny MD Jan 28, 2020 15:48
--- NOTE | 2020-01-28 15:02 | Nephrology Progress Note ---
Assessment/Plan Problem List: (1) Electrolyte imbalance (2) Acute pancreatitis (3) Gall stone (4) 2019 novel coronavirus disease (COVID-19) (5) Proteinuria Assessment Hypokalemia COVID-19 disease Acute pancreatitis with elevated LFTs Gallstone pancreatitis Obesity Hypertension Proteinuria Plan Low-grade fever persists oral potassium ordered IV fluid adjusted and discontinued Oral Protonix added Continue to monitor renal parameters and electrolytes Continue per consultants Subjective ROS Limited/Unobtainable: No Constitutional: Reports: malaise, weakness Objective Objective Last 24 Hour Vital Signs Date Time Temp Pulse Resp B/P (MAP) Pulse Ox O2 Delivery O2 Flow Rate FiO2 01/28/20 12:00 100.6 90 16 131/80 (97) 99 01/28/20 09:40 99.6 01/28/20 09:40 99.6 01/28/20 09:00 Room Air 01/28/20 08:00 100.2 83 18 132/85 (101) 96 01/28/20 04:00 98.8 83 18 127/75 (92) 96 01/28/20 01:50 98.8 01/27/20 23:31 100.0 92 20 131/63 (85) 99 01/27/20 21:00 Room Air 01/27/20 20:00 98.4 87 20 137/83 (101) 96 01/27/20 17:10 100.2 01/27/20 16:00 101.6 101 19 143/83 (103) 96 01/27/20 15:22 101.6 Intake and Output 01/27/20 01/28/20 19:00 07:00 Intake Total 1200 ml 2260 ml Balance 1200 ml 2260 ml Intake Oral 1600 ml IV Total 660 ml Other 1200 ml # Voids 10 # Bowel Movements 2 Current Medications Medications (Trade) Dose Ordered Sig/Dipti Route PRN Reason Start Time Stop Time Status Last Admin Dose Admin Ibuprofen (Advil) 400 mg Q6H PRN ORAL Temp >100.5 01/22/20 18:00 02/21/20 17:59 01/28/20 09:10 Morphine Sulfate (Morphine Sulfate) 2 mg Q4H PRN IVP For Pain 01/22/20 09:00 01/29/20 08:59 Ondansetron HCl (Zofran) 4 mg Q6H PRN IVP Nausea & Vomiting 01/22/20 07:30 02/21/20 07:29 Piperacillin Sod/ Tazobactam Sod 3.375 gm/Sodium Chloride 110 ml @ 27.5 mls/hr EVERY 8 HOURS IVPB 01/23/20 14:00 02/01/20 13:59 01/28/20 13:19 Potassium Chloride (K-Dur) 40 meq TWICE A DAY ORAL 01/27/20 18:00 04/26/20 17:59 01/28/20 08:49 Laboratory Tests 01/28/20 05:30: White Blood Count 4.1L, Red Blood Count 3.90L, Hemoglobin 11.5L, Hematocrit 33.0L, Mean Corpuscular Volume 85, Mean Corpuscular Hemoglobin 29.5, Mean Corpuscular Hemoglobin Concent 34.9, Red Cell Distribution Width 12.5, Platelet Count 159, Mean Platelet Volume 6.5, Neutrophils (%) (Auto) 67.6, Lymphocytes (%) (Auto) 24.4, Monocytes (%) (Auto) 7.0, Eosinophils (%) (Auto) 0.4, Basophils (%) (Auto) 0.4, Sodium Level 140, Potassium Level 3.6, Chloride Level 107, Carbon Dioxide Level 25, Anion Gap 8, Blood Urea Nitrogen 7, Creatinine 0.7, Estimat Glomerular Filtration Rate > 60, Glucose Level 104, Hemoglobin A1c 5.9, Uric Acid 0.9L, Calcium Level 8.1L, Phosphorus Level 3.6, Magnesium Level 1.9, Total Bilirubin 0.7, Gamma Glutamyl Transpeptidase 295H, Aspartate Amino Transf (AST/SGOT) 47H, Alanine Aminotransferase (ALT/SGPT) 81H, Alkaline Phosphatase 102, Total Creatine Kinase 52, C-Reactive Protein, Quantitative 10.7H, Pro-B-Type Natriuretic Peptide [Pending], Total Protein 7.2, Albumin 2.5L, Globulin 4.7, Albumin/Globulin Ratio 0.5L, Triglycerides Level 66, Cholesterol Level 119, LDL Cholesterol 68, HDL Cholesterol 34L, Cholesterol/HDL Ratio 3.5, Amylase Level 120H, Lipase 793H, Thyroid Stimulating Hormone (TSH) 2.037 Height (Feet): 5 Height (Inches): 2.00 Weight (Pounds): 235 General Appearance: no apparent distress Cardiovascular: normal rate Respiratory/Chest: decreased breath sounds Abdomen: distended Rakesh Hammer MD Jan 28, 2020 15:02
[2020-01-28 15:35] VITALS: BP 148/76
[2020-01-28] MEDS ORDERED: D5NS 1000ml IV ONE (15:43)
[2020-01-28] MEDS ORDERED: NS 275ml ONE (15:43)
--- NOTE | 2020-01-28 17:22 | NUR ---
CASE MANAGEMENT:REVIEW SI; COVID PNA. PANCREATITIS. 100.9 91 18 148/76 96% ON RA IS; K-DUR PO BID IVF D5NS @ 50 ML.HR ZOSYN IV Q8 PROTONIX PO Q12 MED SURG STATUS DCP; FROM HOME
--- NOTE | 2020-01-28 19:21 | NUR ---
NURSE HAND-OFF: Important Events on Shift:Low grade temperature, Advil given, BCx2 done, IVF dc, Patient Status: stable Diet: Regular soft chopped Pending Orders: labs in AM Pending Results/Labs:AMYLASE, LIPASE, CBC CMP MG PHOS 01/28 Pending MD notification:none Latest Vital Signs: Temperature 100.4 , Pulse 91 , B/P 148 /76 , Respiratory Rate 16 , O2 SAT 98 , Room Air, O2 Flow Rate . Vital Sign Comment: Monitor temperature Latest Xiong Fall Score: 20 Fall Risk: Low Risk Safety Measures: Call light Within Reach, Bed Alarm Zone 1, Side Rails Side Rails x2, Bed position Low and Locked. Fall Precautions: Patient Fall Education Report given to Marzena MATA.
--- NOTE | 2020-01-28 19:35 | NUR ---
NURSE NOTES: Patient AOx4, calm. Citizen [place]/Citizen Of [place] speaking, primarily Citizen [place] speaking. Respirations even/unlabored on RA. Denies SOB, pain, no NV. IV patent. Call light in reach, bed in lowest position, locked, will continue to monitor. Pt verbalized understanding to call for assistance
[2020-01-28 20:00] VITALS: BP 144/86
--- NOTE | 2020-01-28 21:34 | General Progress Note ---
Subjective ROS Limited/Unobtainable: Yes Allergies: Coded Allergies: No Known Allergies (Unverified , 01/21/20) Objective Last 24 Hour Vital Signs Date Time Temp Pulse Resp B/P (MAP) Pulse Ox O2 Delivery O2 Flow Rate FiO2 01/28/20 16:24 100.4 01/28/20 15:35 100.9 91 16 148/76 (100) 98 01/28/20 12:00 100.6 90 16 131/80 (97) 99 01/28/20 09:40 99.6 01/28/20 09:40 99.6 01/28/20 09:00 Room Air 01/28/20 08:00 100.2 83 18 132/85 (101) 96 01/28/20 04:00 98.8 83 18 127/75 (92) 96 01/28/20 01:50 98.8 01/27/20 23:31 100.0 92 20 131/63 (85) 99 Intake and Output 01/27/20 01/28/20 19:00 07:00 Intake Total 1200 ml 2260 ml Balance 1200 ml 2260 ml Intake Oral 1600 ml IV Total 660 ml Other 1200 ml # Voids 10 # Bowel Movements 2 Laboratory Tests 01/28/20 05:30: White Blood Count 4.1L, Red Blood Count 3.90L, Hemoglobin 11.5L, Hematocrit 33.0L, Mean Corpuscular Volume 85, Mean Corpuscular Hemoglobin 29.5, Mean Corpuscular Hemoglobin Concent 34.9, Red Cell Distribution Width 12.5, Platelet Count 159, Mean Platelet Volume 6.5, Neutrophils (%) (Auto) 67.6, Lymphocytes (%) (Auto) 24.4, Monocytes (%) (Auto) 7.0, Eosinophils (%) (Auto) 0.4, Basophils (%) (Auto) 0.4, Sodium Level 140, Potassium Level 3.6, Chloride Level 107, Carbon Dioxide Level 25, Anion Gap 8, Blood Urea Nitrogen 7, Creatinine 0.7, Estimat Glomerular Filtration Rate > 60, Glucose Level 104, Hemoglobin A1c 5.9, Uric Acid 0.9L, Calcium Level 8.1L, Phosphorus Level 3.6, Magnesium Level 1.9, Total Bilirubin 0.7, Gamma Glutamyl Transpeptidase 295H, Aspartate Amino Transf (AST/SGOT) 47H, Alanine Aminotransferase (ALT/SGPT) 81H, Alkaline Phosphatase 102, Total Creatine Kinase 52, C-Reactive Protein, Quantitative 10.7H, Pro-B-Type Natriuretic Peptide 192.3H, Total Protein 7.2, Albumin 2.5L, Globulin 4.7, Albumin/Globulin Ratio 0.5L, Triglycerides Level 66, Cholesterol Level 119, LDL Cholesterol 68, HDL Cholesterol 34L, Cholesterol/HDL Ratio 3.5, Amylase Level 120H, Lipase 793H, Thyroid Stimulating Hormone (TSH) 2.037 Height (Feet): 5 Height (Inches): 2.00 Weight (Pounds): 235 Assessment/Plan Problem List: (1) Acute pancreatitis ICD Codes: K85.90 - Acute pancreatitis without necrosis or infection, unspecified SNOMED: 312236937 Qualifiers: Qualified Codes: K85.10 - Biliary acute pancreatitis without necrosis or infection (2) Gall stone ICD Codes: K80.20 - Calculus of gallbladder without cholecystitis without obstruction SNOMED: 858155667 Qualifiers: Qualified Codes: K80.20 - Calculus of gallbladder without cholecystitis without obstruction (3) Lab test positive for detection of COVID-19 virus ICD Codes: U07.1 - COVID-19 SNOMED: [id number] Status: progressing Assessment/Plan: covid positive pna pancreatitis mrcp per gi lipase is going down afebrile Ronny Win MD Jan 28, 2020 21:34
[2020-01-29] VITALS: BP 139/76
[2020-01-29 04:00] VITALS: BP 117/66
[2020-01-29] MEDS: Piperacillin/Tazobactam 3.375 GM in NS 110 ML IVPB SCH ×3 (06:34→21:35)
[2020-01-29 07:32] LABS: BASOPHILS % (AUTO) 0.4 % (0.0-2.0); EOSINOPHILS % (AUTO) 0.7 % (0.0-3.0); HEMATOCRIT 33.6 % (37.0-47.0); HEMOGLOBIN 11.5 G/DL (12.0-16.0); LYMPHOCYTES % (AUTO) 24.5 % (20.0-45.0); MEAN CORPUSCULAR VOLUME 86 FL (80-99); NEUTROPHILS % (AUTO) 67.5 % (45.0-75.0); PLATELET COUNT 169 K/UL (150-450); RED CELL DISTRIBUTION WIDTH 12.6 % (11.6-14.8); WHITE BLOOD COUNT 5.1 K/UL (4.8-10.8)
--- NOTE | 2020-01-29 07:39 | NUR ---
NURSE HAND-OFF: Important Events on Shift:Low grade fever up to 100.5, Advil given once, BCx2 done yesterday and pending results Patient Status: stable Diet: Regular soft chopped Pending Orders: labs in AM as follows Pending Results/Labs:AMYLASE, LIPASE, CBC CMP MG PHOS 01/28 Pending MD notification:none Latest Vital Signs: Temperature 100.4 , Pulse 91 , B/P 148 /76 , Respiratory Rate 16 , O2 SAT 98 , Room Air, O2 Flow Rate . Vital Sign Comment: Monitor temperature, administer antipyretics as necessary, apply cooling measures first, ice packs applied on forehead, cold towels under arms and on face Fall Risk: Low Risk Safety Measures: Call light Within Reach, Bed Alarm Zone 1, Side Rails Side Rails x2, Bed position Low and Locked. Fall Precautions: Patient Fall Education Report given to Patti Moy RN
--- NOTE | 2020-01-29 07:40 | NUR ---
NURSE NOTES: Received patient in bed,awake, alert and oriented x4. Denies pain or discomfort, afebrile @ this time. Abdomen is soft, morning labs in progress. Bed is in lowest position and locked. IV is intact, no s/s of infiltration. Will continue plan of care.
[2020-01-29 07:57] LABS: ALANINE AMINOTRANSFERASE 64 U/L (12-78); ALBUMIN 2.6 G/DL (3.4-5.0); ALBUMIN/GLOBULIN RATIO 0.6 (1.0-2.7); ALKALINE PHOSPHATASE 94 U/L (46-116); AMYLASE 133 U/L (25-115); ANION GAP 6 mmol/L (5-15); ASPARTATE AMINO TRANSFERASE 33 U/L (15-37); BILIRUBIN,TOTAL 0.8 MG/DL (0.2-1.0); BLOOD UREA NITROGEN 6 mg/dL (7-18); CALCIUM 8.3 MG/DL (8.5-10.1); CARBON DIOXIDE 27 MMOL/L (21-32); CHLORIDE 105 MMOL/L (98-107); CREATININE 0.9 MG/DL (0.55-1.30); POTASSIUM 3.8 MMOL/L (3.5-5.1); SODIUM 138 MMOL/L (136-145)
[2020-01-29 08:00] VITALS: BP 121/70
[2020-01-29 08:00] LABS: PHOSPHORUS 4.4 MG/DL (2.5-4.9)
--- NOTE | 2020-01-29 10:18 | Pulmonology Progress Note ---
Subjective ROS Limited/Unobtainable: Yes Interval Events: none new reported Constitutional: Reports: fever HEENT: Repors: no symptoms Respiratory: Reports: no symptoms Cardiovascular: Reports: no symptoms Gastrointestinal/Abdominal: Reports: no symptoms Genitourinary: Reports: no symptoms Allergies: Coded Allergies: No Known Allergies (Unverified , 01/21/20) Objective Last 24 Hour Vital Signs Date Time Temp Pulse Resp B/P (MAP) Pulse Ox O2 Delivery O2 Flow Rate FiO2 01/29/20 04:00 98.9 81 18 117/66 (83) 96 01/29/20 03:10 99.6 01/29/20 00:00 100.4 88 18 139/76 (97) 97 01/28/20 21:00 Room Air 01/28/20 20:00 99.5 88 18 144/86 (105) 97 01/28/20 16:24 100.4 01/28/20 15:35 100.9 91 16 148/76 (100) 98 01/28/20 12:00 100.6 90 16 131/80 (97) 99 Intake and Output 01/28/20 01/29/20 19:00 07:00 Intake Total 1000 ml 110.0 ml Balance 1000 ml 110.0 ml Intake Oral 1000 ml IV Total 110.0 ml # Voids 5 2 Objective 01/28 continues to saturate well on RA; persistent low grade fever, better with tylenol 01/27 saturating well on RA; NAD 01/27/2020 continues to saturate well on RA; NAD 01/26/2020 saturating well on room air; NAD; sitting on her bed 01/25/2020 saturating well on room air 01/24/2020 pt eating in bed; saturating well on room air 01/23/2020 NAD; on room air 01/22/2020 saturating well on room air; NAD General Appearance: WD/WN, no acute distress HEENT: normocephalic Respiratory: lungs clear Cardiovascular: normal rate, regular rhythm, no gallop/murmur Abdomen: soft, non tender Neurologic: alert, oriented x 3, responsive Laboratory Tests 01/29/20 06:50: White Blood Count 5.1, Red Blood Count 3.90L, Hemoglobin 11.5L, Hematocrit 33.6L , Mean Corpuscular Volume 86, Mean Corpuscular Hemoglobin 29.4, Mean Corpuscular Hemoglobin Concent 34.1, Red Cell Distribution Width 12.6, Platelet Count 169, Mean Platelet Volume 6.0L, Neutrophils (%) (Auto) 67.5, Lymphocytes (%) (Auto) 24.5, Monocytes (%) (Auto) 7.0, Eosinophils (%) (Auto) 0.7, Basophils (%) (Auto) 0.4, Sodium Level 138, Potassium Level 3.8, Chloride Level 105, Carbon Dioxide Level 27, Anion Gap 6, Blood Urea Nitrogen 6L, Creatinine 0.9, Estimat Glomerular Filtration Rate > 60, Glucose Level 87, Calcium Level 8.3L, Phosphorus Level 4.4, Magnesium Level 2.0, Total Bilirubin 0.8, Aspartate Amino Transf (AST/SGOT) 33, Alanine Aminotransferase (ALT/SGPT) 64, Alkaline Phosphatase 94, Total Protein 7.2, Albumin 2.6L, Globulin 4.6, Albumin/Globulin Ratio 0.6L, Amylase Level 133H, Lipase 784H Current Medications Medications (Trade) Dose Ordered Sig/Dipti Route PRN Reason Start Time Stop Time Status Last Admin Dose Admin Ibuprofen (Advil) 400 mg Q6H PRN ORAL Temp >100.5 01/22/20 18:00 02/21/20 17:59 01/29/20 02:40 Ondansetron HCl (Zofran) 4 mg Q6H PRN IVP Nausea & Vomiting 01/22/20 07:30 02/21/20 07:29 Pantoprazole (Protonix) 40 mg EVERY 12 HOURS ORAL 01/28/20 15:00 02/27/20 14:59 01/29/20 08:27 Piperacillin Sod/ Tazobactam Sod 3.375 gm/Sodium Chloride 110 ml @ 27.5 mls/hr EVERY 8 HOURS IVPB 01/23/20 14:00 02/01/20 13:59 01/29/20 06:34 Potassium Chloride (K-Dur) 40 meq TWICE A DAY ORAL 01/27/20 18:00 04/26/20 17:59 01/29/20 08:27 Assessment/Plan Assessment/Plan Assessment/Plan 1. Transaminitis 2. Pancreatitis. - elevated amylase, lipase; improving - s/p IVF - pain control - on zosyn per Dr. Santiago - MRCP pending per COVID-19 positive status - per Dr. Kingsley, Dr. Santiago 3. Positive COVID-19. -Currently no intervention required for Covid19 due to her normoxemic status on RA 4. Hypertension Blood Cx result pending per Dr. Blandon The care of this patient was discussed with my supervising physician Time spent for this encounter was approximately 31 minutes Steven Bergman Jan 29, 2020 10:18
[2020-01-29 12:00] VITALS: BP 140/72
--- NOTE | 2020-01-29 13:05 | Nephrology Progress Note ---
Assessment/Plan Problem List: (1) Electrolyte imbalance (2) Acute pancreatitis (3) Gall stone (4) 2019 novel coronavirus disease (COVID-19) (5) Proteinuria Assessment Hypokalemia COVID-19 disease Acute pancreatitis with elevated LFTs Gallstone pancreatitis Obesity Hypertension Proteinuria Plan January 28: Labs reviewed. Stable from renal standpoint of view. Continue per consultants. Low-grade fever persists oral potassium ordered IV fluid adjusted and discontinued Oral Protonix added Continue to monitor renal parameters and electrolytes Continue per consultants Subjective ROS Limited/Unobtainable: No Objective Objective Last 24 Hour Vital Signs Date Time Temp Pulse Resp B/P (MAP) Pulse Ox O2 Delivery O2 Flow Rate FiO2 01/29/20 09:00 Room Air 01/29/20 08:00 98.2 84 18 121/70 (87) 97 01/29/20 04:00 98.9 81 18 117/66 (83) 96 01/29/20 03:10 99.6 01/29/20 00:00 100.4 88 18 139/76 (97) 97 01/28/20 21:00 Room Air 01/28/20 20:00 99.5 88 18 144/86 (105) 97 01/28/20 16:24 100.4 01/28/20 15:35 100.9 91 16 148/76 (100) 98 Intake and Output 01/28/20 01/29/20 19:00 07:00 Intake Total 1000 ml 110.0 ml Balance 1000 ml 110.0 ml Intake Oral 1000 ml IV Total 110.0 ml # Voids 5 2 Laboratory Tests 01/29/20 06:50: White Blood Count 5.1, Red Blood Count 3.90L, Hemoglobin 11.5L, Hematocrit 33.6L , Mean Corpuscular Volume 86, Mean Corpuscular Hemoglobin 29.4, Mean Corpuscular Hemoglobin Concent 34.1, Red Cell Distribution Width 12.6, Platelet Count 169, Mean Platelet Volume 6.0L, Neutrophils (%) (Auto) 67.5, Lymphocytes (%) (Auto) 24.5, Monocytes (%) (Auto) 7.0, Eosinophils (%) (Auto) 0.7, Basophils (%) (Auto) 0.4, Sodium Level 138, Potassium Level 3.8, Chloride Level 105, Carbon Dioxide Level 27, Anion Gap 6, Blood Urea Nitrogen 6L, Creatinine 0.9, Estimat Glomerular Filtration Rate > 60, Glucose Level 87, Calcium Level 8.3L, Ph osphorus Level 4.4, Magnesium Level 2.0, Total Bilirubin 0.8, Aspartate Amino Transf (AST/SGOT) 33, Alanine Aminotransferase (ALT/SGPT) 64, Alkaline Phosphatase 94, Total Protein 7.2, Albumin 2.6L, Globulin 4.6, Albumin/Globulin Ratio 0.6L, Amylase Level 133H, Lipase 784H Height (Feet): 5 Height (Inches): 2.00 Weight (Pounds): 235 General Appearance: no apparent distress Objective No change Rakesh Hammer MD Jan 29, 2020 13:05
[2020-01-29 15:12] VITALS: BP 131/74
--- NOTE | 2020-01-29 15:50 | NUR ---
NURSE NOTES: Patient's temp was 102 oral @13:15pm given ibuprofen as ordered. cooling measures done, Patient denies pain or discomfort but fever. RN rechecked the temp. latest temp is 99.5 Will continue to monitor.
--- NOTE | 2020-01-29 18:33 | Surgery Progress Note ---
Surgery Progress Note Subjective Symptoms: tolerating diet Additional Comments remains febrile labs improved may consider repeat CT or MRI eval for panc edema/cyst Objective Last 24 Hour Vital Signs Date Time Temp Pulse Resp B/P (MAP) Pulse Ox O2 Delivery O2 Flow Rate FiO2 01/29/20 15:46 99.5 01/29/20 15:12 102.0 94 20 131/74 (93) 97 01/29/20 12:00 99.9 94 20 140/72 (94) 96 01/29/20 09:00 Room Air 01/29/20 08:00 98.2 84 18 121/70 (87) 97 01/29/20 04:00 98.9 81 18 117/66 (83) 96 01/29/20 03:10 99.6 01/29/20 00:00 100.4 88 18 139/76 (97) 97 01/28/20 21:00 Room Air 01/28/20 20:00 99.5 88 18 144/86 (105) 97 I&O Intake and Output 01/28/20 01/29/20 19:00 07:00 Intake Total 1000 ml 110.0 ml Balance 1000 ml 110.0 ml Intake Oral 1000 ml IV Total 110.0 ml # Voids 5 2 Cardiovascular: RSR Respiratory: clear Abdomen: soft, non-tender, present bowel sounds, non-distended Extremities: no edema, no tenderness, no cyanosis Laboratory Tests Test 01/29/20 06:50 White Blood Count 5.1 K/UL (4.8-10.8) Red Blood Count 3.90 M/UL (4.20-5.40) L Hemoglobin 11.5 G/DL (12.0-16.0) L Hematocrit 33.6 % (37.0-47.0) L Mean Corpuscular Volume 86 FL (80-99) Mean Corpuscular Hemoglobin 29.4 PG (27.0-31.0) Mean Corpuscular Hemoglobin Concent 34.1 G/DL (32.0-36.0) Red Cell Distribution Width 12.6 % (11.6-14.8) Platelet Count 169 K/UL (150-450) Mean Platelet Volume 6.0 FL (6.5-10.1) L Neutrophils (%) (Auto) 67.5 % (45.0-75.0) Lymphocytes (%) (Auto) 24.5 % (20.0-45.0) Monocytes (%) (Auto) 7.0 % (1.0-10.0) Eosinophils (%) (Auto) 0.7 % (0.0-3.0) Basophils (%) (Auto) 0.4 % (0.0-2.0) Sodium Level 138 MMOL/L (136-145) Potassium Level 3.8 MMOL/L (3.5-5.1) Chloride Level 105 MMOL/L (98-107) Carbon Dioxide Level 27 MMOL/L (21-32) Anion Gap 6 mmol/L (5-15) Blood Urea Nitrogen 6 mg/dL (7-18) L Creatinine 0.9 MG/DL (0.55-1.30) Estimat Glomerular Filtration Rate > 60 mL/min (>60) Glucose Level 87 MG/DL (74-106) Calcium Level 8.3 MG/DL (8.5-10.1) L Phosphorus Level 4.4 MG/DL (2.5-4.9) Magnesium Level 2.0 MG/DL (1.8-2.4) Total Bilirubin 0.8 MG/DL (0.2-1.0) Aspartate Amino Transf (AST/SGOT) 33 U/L (15-37) Alanine Aminotransferase (ALT/SGPT) 64 U/L (12-78) Alkaline Phosphatase 94 U/L (46-116) Total Protein 7.2 G/DL (6.4-8.2) Albumin 2.6 G/DL (3.4-5.0) L Globulin 4.6 g/dL Albumin/Globulin Ratio 0.6 (1.0-2.7) L Amylase Level 133 U/L (25-115) H Lipase 784 U/L (73-393) H Plan Problems: (1) Acute pancreatitis Assessment & Plan: 51-year-old female acute pancreatitis potentially gallstone related. Afebrile hemodynamic stable labs improved. No nausea vomiting fever chills. Pain is resolved. No acute surgical intervention planned. Continue with work-up. Trend labs. GI input appreciated. Will follow with recommendations. Thank you npo iv fluids iv abx trend labs bowel rest will follow with recs thank you febrile tolerating diet labs improving trend labs cont diet cont abx needs mrcp but covid + Liver: See below. Gallbladder: There is cholelithiasis. A 2.6 cm gallstone is noted. Gallbladder wall measures 0.45 cm and is thickened. Common bile duct: Suboptimal evaluation of the common bile duct due to bowel gas. No stones. No dilation. Pancreas: Unremarkable as visualized. Kidneys: Right kidney measures 9.8 x 5 x 5 cm. Left kidney measures 9. 3 x 4.9 x 4.7 cm. No hydronephrosis. No stones. Spleen: Spleen measures 9.3 cm and is unremarkable. Aorta: Abdominal aorta is normal in caliber. Liver measures 15.9 cm. Partial evaluation of the abdominal aorta which is grossly unremarkable. No aneurysm. Inferior vena cava: Unremarkable. IMPRESSION: 1. Limited evaluation due to bowel gas. 2. Cholelithiasis. 3. Gallbladder wall measures 0.45 cm and is diffusely thickened. Clinical correlation is necessary. 4. No pericholecystic fluid noted however. Markedly limited evaluation of the common bile duct due to bowel gas. 5. Clinical correlation is necessary. (2) Gall stone (3) Lab test positive for detection of COVID-19 virus Jalil Santiago Jan 29, 2020 18:33
--- NOTE | 2020-01-29 19:22 | NUR ---
NURSE HAND-OFF: Important Events on Shift: fever of 102 latest temp is 99.5 Patient Status: stable Diet: mech soft chopped Pending Orders: Pending Results/Labs: labs for tomorrow Pending MD notification: Latest Vital Signs: Temperature 99.5 , Pulse 94 , B/P 131 /74 , Respiratory Rate 20 , O2 SAT 97 , Room Air, O2 Flow Rate . Vital Sign Comment: Latest Xiong Fall Score: 20 Fall Risk: Low Risk Safety Measures: Call light Within Reach, Bed Alarm Zone 1, Side Rails Side Rails x2, Bed position Low and Locked. Fall Precautions: Patient Fall Education Report given to Nicole and endorsed plan of care.
--- NOTE | 2020-01-29 19:30 | NUR ---
NURSE NOTES: Received patient in bed,awake, alert and oriented x4. Denies pain or discomfort, afebrile @ this time. Abdomen is soft. Pt is afebrile at this time. Bed is in lowest position and locked. IV is intact, patent, asymptomatic. Will continue plan of care. Remdesevir just completed.
[2020-01-29 20:00] VITALS: BP 112/74
--- NOTE | 2020-01-29 20:39 | NUR ---
NURSE NOTES: Received patient in bed,awake, alert and oriented x4. Denies pain or discomfort, afebrile @ this time. Abdomen is soft. Pt is afebrile at this time. Bed is in lowest position and locked. IV is intact, patent, asymptomatic. Will continue plan of care. Addendum: 01/29/20 at 2042 by Marzena Gunderson RN time 1929
--- NOTE | 2020-01-29 21:13 | General Progress Note ---
Subjective ROS Limited/Unobtainable: Yes Allergies: Coded Allergies: No Known Allergies (Unverified , 01/21/20) Objective Last 24 Hour Vital Signs Date Time Temp Pulse Resp B/P (MAP) Pulse Ox O2 Delivery O2 Flow Rate FiO2 01/29/20 20:37 Room Air 01/29/20 20:00 98.4 84 20 112/74 (87) 96 01/29/20 15:46 99.5 01/29/20 15:12 102.0 94 20 131/74 (93) 97 01/29/20 12:00 99.9 94 20 140/72 (94) 96 01/29/20 09:00 Room Air 01/29/20 08:00 98.2 84 18 121/70 (87) 97 01/29/20 04:00 98.9 81 18 117/66 (83) 96 01/29/20 03:10 99.6 01/29/20 00:00 100.4 88 18 139/76 (97) 97 Intake and Output 01/28/20 01/29/20 19:00 07:00 Intake Total 1000 ml 110.0 ml Balance 1000 ml 110.0 ml Intake Oral 1000 ml IV Total 110.0 ml # Voids 5 2 Laboratory Tests 01/29/20 06:50: White Blood Count 5.1, Red Blood Count 3.90L, Hemoglobin 11.5L, Hematocrit 33.6L , Mean Corpuscular Volume 86, Mean Corpuscular Hemoglobin 29.4, Mean Corpuscular Hemoglobin Concent 34.1, Red Cell Distribution Width 12.6, Platelet Count 169, Mean Platelet Volume 6.0L, Neutrophils (%) (Auto) 67.5, Lymphocytes (%) (Auto) 2 4.5, Monocytes (%) (Auto) 7.0, Eosinophils (%) (Auto) 0.7, Basophils (%) (Auto) 0.4, Sodium Level 138, Potassium Level 3.8, Chloride Level 105, Carbon Dioxide Level 27, Anion Gap 6, Blood Urea Nitrogen 6L, Creatinine 0.9, Estimat Glome rular Filtration Rate > 60, Glucose Level 87, Calcium Level 8.3L, Phosphorus Level 4.4, Magnesium Level 2.0, Total Bilirubin 0.8, Aspartate Amino Transf (AST/SGOT) 33, Alanine Aminotransferase (ALT/SGPT) 64, Alkaline Phosphatase 94, Total Protein 7.2, Albumin 2.6L, Globulin 4.6, Albumin/Globulin Ratio 0.6L, A mylase Level 133H, Lipase 784H Height (Feet): 5 Height (Inches): 2.00 Weight (Pounds): 235 Assessment/Plan Problem List: (1) Acute pancreatitis ICD Codes: K85.90 - Acute pancreatitis without necrosis or infection, unspecified SNOMED: 472495960 Qualifiers: Qualified Codes: K85.10 - Biliary acute pancreatitis without necrosis or i nfection (2) Gall stone ICD Codes: K80.20 - Calculus of gallbladder without cholecystitis without obstruction SNOMED: 980124757 Qualifiers: Qualified Codes: K80.20 - Calculus of gallbladder without cholecystitis without obstruction (3) Lab test positive for detection of COVID-19 virus ICD Codes: U07.1 - COVID-19 SNOMED: 4469163478404249 Status: progressing Assessment/Plan: covid positive pna pancreatitis improving no acute events vitals stable mrcp per gi lipase is going down Ronny Win MD Jan 29, 2020 21:13
[2020-01-30] VITALS: BP 130/68
[2020-01-30 04:00] VITALS: BP 129/80
[2020-01-30 05:44] LABS: BASOPHILS % (AUTO) 0.4 % (0.0-2.0); HEMATOCRIT 35.3 % (37.0-47.0); HEMOGLOBIN 12.2 G/DL (12.0-16.0); LYMPHOCYTES % (AUTO) 22.9 % (20.0-45.0); MEAN CORPUSCULAR VOLUME 86 FL (80-99); MONOCYTES % (AUTO) 5.3 % (1.0-10.0); NEUTROPHILS % (AUTO) 70.4 % (45.0-75.0); PLATELET COUNT 181 K/UL (150-450); RED BLOOD COUNT 4.12 M/UL (4.20-5.40); RED CELL DISTRIBUTION WIDTH 12.6 % (11.6-14.8); WHITE BLOOD COUNT 4.7 K/UL (4.8-10.8)
[2020-01-30 06:03] LABS: ALANINE AMINOTRANSFERASE 57 U/L (12-78); ALBUMIN 2.8 G/DL (3.4-5.0); ALBUMIN/GLOBULIN RATIO 0.5 (1.0-2.7); ALKALINE PHOSPHATASE 93 U/L (46-116); AMYLASE 143 U/L (25-115); ANION GAP 8 mmol/L (5-15); ASPARTATE AMINO TRANSFERASE 32 U/L (15-37); BILIRUBIN,TOTAL 0.9 MG/DL (0.2-1.0); BLOOD UREA NITROGEN 6 mg/dL (7-18); CALCIUM 8.4 MG/DL (8.5-10.1); CARBON DIOXIDE 26 MMOL/L (21-32); CHLORIDE 104 MMOL/L (98-107); CREATININE 0.8 MG/DL (0.55-1.30); POTASSIUM 3.8 MMOL/L (3.5-5.1); SODIUM 138 MMOL/L (136-145)
[2020-01-30] MEDS: Piperacillin/Tazobactam 3.375 GM in NS 110 ML IVPB SCH ×3 (06:28→21:13)
--- NOTE | 2020-01-30 07:30 | NUR ---
NURSE NOTES: Received patient in bed,awake, alert and oriented x4. Patient denies pain or discomfort @ this time, afebrile. Abdomen is soft to touch, IV is intact, Zosyn is running, no side effects noted. Bed is in lowest position and locked. Patient is ambulatory with steady gait. Will continue plan of care.
[2020-01-30 08:00] VITALS: BP 123/73
[2020-01-30 12:00] VITALS: BP 120/74
--- NOTE | 2020-01-30 12:19 | Surgery Progress Note ---
Surgery Progress Note Subjective Symptoms: improved, tolerating diet, passing flatus Objective Last 24 Hour Vital Signs Date Time Temp Pulse Resp B/P (MAP) Pulse Ox O2 Delivery O2 Flow Rate FiO2 01/30/20 09:00 Room Air 01/30/20 08:00 98.6 91 20 123/73 (90) 97 01/30/20 06:59 99.8 01/30/20 04:00 100.6 94 20 129/80 (96) 98 01/30/20 00:00 99.0 80 20 130/68 (88) 95 01/29/20 20:37 Room Air 01/29/20 20:00 98.4 84 20 112/74 (87) 96 01/29/20 15:46 99.5 01/29/20 15:12 102.0 94 20 131/74 (93) 97 I&O Intake and Output 01/29/20 01/30/20 19:00 07:00 Intake Total 937.5 ml Balance 937.5 ml Intake Oral 800 ml IV Total 137.5 ml # Voids 4 Cardiovascular: RSR Respiratory: clear Abdomen: soft, non-tender, present bowel sounds Extremities: no edema, no tenderness, no cyanosis Laboratory Tests Test 01/30/20 04:00 White Blood Count 4.7 K/UL (4.8-10.8) L Red Blood Count 4.12 M/UL (4.20-5.40) L Hemoglobin 12.2 G/DL (12.0-16.0) Hematocrit 35.3 % (37.0-47.0) L Mean Corpuscular Volume 86 FL (80-99) Mean Corpuscular Hemoglobin 29.7 PG (27.0-31.0) Mean Corpuscular Hemoglobin Concent 34.7 G/DL (32.0-36.0) Red Cell Distribution Width 12.6 % (11.6-14.8) Platelet Count 181 K/UL (150-450) Mean Platelet Volume 6.4 FL (6.5-10.1) L Neutrophils (%) (Auto) 70.4 % (45.0-75.0) Lymphocytes (%) (Auto) 22.9 % (20.0-45.0) Monocytes (%) (Auto) 5.3 % (1.0-10.0) Eosinophils (%) (Auto) 1.0 % (0.0-3.0) Basophils (%) (Auto) 0.4 % (0.0-2.0) Erythrocyte Sedimentation Rate 56 MM/HR (0-30) H Sodium Level 138 MMOL/L (136-145) Potassium Level 3.8 MMOL/L (3.5-5.1) Chloride Level 104 MMOL/L (98-107) Carbon Dioxide Level 26 MMOL/L (21-32) Anion Gap 8 mmol/L (5-15) Blood Urea Nitrogen 6 mg/dL (7-18) L Creatinine 0.8 MG/DL (0.55-1.30) Estimat Glomerular Filtration Rate > 60 mL/min (>60) Glucose Level 104 MG/DL (74-106) Calcium Level 8.4 MG/DL (8.5-10.1) L Total Bilirubin 0.9 MG/DL (0.2-1.0) Aspartate Amino Transf (AST/SGOT) 32 U/L (15-37) Alanine Aminotransferase (ALT/SGPT) 57 U/L (12-78) Alkaline Phosphatase 93 U/L (46-116) C-Reactive Protein, Quantitative 12.4 mg/dL (0.00-0.90) H Total Protein 8.1 G/DL (6.4-8.2) Albumin 2.8 G/DL (3.4-5.0) L Globulin 5.3 g/dL Albumin/Globulin Ratio 0.5 (1.0-2.7) L Amylase Level 143 U/L (25-115) H Lipase 756 U/L (73-393) H Plan Problems: (1) Acute pancreatitis Assessment & Plan: 51-year-old female acute pancreatitis potentially gallstone related. Afebrile hemodynamic stable labs improved. No nausea vomiting fever chills. Pain is resolved. No acute surgical intervention planned. Continue with work-up. Trend labs. GI input appreciated. Will follow with recommendations. Thank you npo iv fluids iv abx trend labs bowel rest will follow with recs thank you febrile tolerating diet labs improving trend labs cont diet cont abx needs mrcp but covid + Liver: See below. Gallbladder: There is cholelithiasis. A 2.6 cm gallstone is noted. Gallbladder wall measures 0.45 cm and is thickened. Common bile duct: Suboptimal evaluation of the common bile duct due to bowel gas. No stones. No dilation. Pancreas: Unremarkable as visualized. Kidneys: Right kidney measures 9.8 x 5 x 5 cm. Left kidney measures 9. 3 x 4.9 x 4.7 cm. No hydronephrosis. No stones. Spleen: Spleen measures 9.3 cm and is unremarkable. Aorta: Abdominal aorta is normal in caliber. Liver measures 15.9 cm. Partial evaluation of the abdominal aorta which is grossly unremarkable. No aneurysm. Inferior vena cava: Unremarkable. IMPRESSION: 1. Limited evaluation due to bowel gas. 2. Cholelithiasis. 3. Gallbladder wall measures 0.45 cm and is diffusely thickened. Clinical correlation is necessary. 4. No pericholecystic fluid noted however. Markedly limited evaluation of the common bile duct due to bowel gas. 5. Clinical correlation is necessary. (2) Gall stone (3) Lab test positive for detection of COVID-19 virus Jalil Santiago Jan 30, 2020 12:19
--- NOTE | 2020-01-30 13:00 | NUR ---
NURSE NOTES: no episode of fever so far. Patient denies pain or discomfort.
--- NOTE | 2020-01-30 14:13 | Pulmonology Progress Note ---
Subjective ROS Limited/Unobtainable: Yes Interval Events: still intermittent fever controlled with ibuprofen Constitutional: Reports: fever HEENT: Repors: no symptoms Respiratory: Reports: no symptoms Cardiovascular: Reports: no symptoms Gastrointestinal/Abdominal: Reports: no symptoms Genitourinary: Reports: no symptoms Allergies: Coded Allergies: No Known Allergies (Unverified , 01/21/20) Objective Last 24 Hour Vital Signs Date Time Temp Pulse Resp B/P (MAP) Pulse Ox O2 Delivery O2 Flow Rate FiO2 01/30/20 12:00 98.2 78 20 120/74 (89) 97 01/30/20 09:00 Room Air 01/30/20 08:00 98.6 91 20 123/73 (90) 97 01/30/20 06:59 99.8 01/30/20 04:00 100.6 94 20 129/80 (96) 98 01/30/20 00:00 99.0 80 20 130/68 (88) 95 01/29/20 20:37 Room Air 01/29/20 20:00 98.4 84 20 112/74 (87) 96 01/29/20 15:46 99.5 01/29/20 15:12 102.0 94 20 131/74 (93) 97 Intake and Output 01/29/20 01/30/20 19:00 07:00 Intake Total 937.5 ml Balance 937.5 ml Intake Oral 800 ml IV Total 137.5 ml # Voids 4 Objective 01/29 room air; intermittent fever 01/28 continues to saturate well on RA; persistent low grade fever, better with ibuprofen 01/27 saturating well on RA; NAD 01/27/2020 continues to saturate well on RA; NAD 01/26/2020 saturating well on room air; NAD; sitting on her bed 01/25/2020 saturating well on room air 01/24/2020 pt eating in bed; saturating well on room air 01/23/2020 NAD; on room air 01/22/2020 saturating well on room air; NAD General Appearance: WD/WN, no acute distress HEENT: normocephalic Respiratory: lungs clear Cardiovascular: normal rate, regular rhythm, no gallop/murmur Abdomen: soft, non tender Neurologic: alert, oriented x 3, responsive Microbiology Date/Time Source Procedure Growth Status 01/28/20 17:00 Blood Blood Culture - Preliminary NO GROWTH AFTER 24 HOURS Resulted 01/28/20 16:45 Blood Blood Culture - Preliminary NO GROWTH AFTER 24 HOURS Resulted Laboratory Tests 01/30/20 04:00: White Blood Count 4.7L, Red Blood Count 4.12L, Hemoglobin 12.2, Hematocrit 35.3L , Mean Corpuscular Volume 86, Mean Corpuscular Hemoglobin 29.7, Mean Corpuscular Hemoglobin Concent 34.7, Red Cell Distribution Width 12.6, Platelet Count 181, Mean Platelet Volume 6.4L, Neutrophils (%) (Auto) 70.4, Lymphocytes (%) (Auto) 22.9, Monocytes (%) (Auto) 5.3, Eosinophils (%) (Auto) 1.0, Basophils (%) (Auto) 0.4, Erythrocyte Sedimentation Rate 56H, Sodium Level 138, Potassium Level 3.8, Chloride Level 104, Carbon Dioxide Level 26, Anion Gap 8, Blood Urea Nitrogen 6L , Creatinine 0.8, Estimat Glomerular Filtration Rate > 60, Glucose Level 104, Calcium Level 8.4L, Total Bilirubin 0.9, Aspartate Amino Transf (AST/SGOT) 32, Alanine Aminotransferase (ALT/SGPT) 57, Alkaline Phosphatase 93, C-Reactive Protein, Quantitative 12.4H, Total Protein 8.1, Albumin 2.8L, Globulin 5.3, Albumin/Globulin Ratio 0.5L, Amylase Level 143H, Lipase 756H Current Medications Medications (Trade) Dose Ordered Sig/Dipti Route PRN Reason Start Time Stop Time Status Last Admin Dose Admin Ibuprofen (Advil) 400 mg Q6H PRN ORAL Temp >100.5 01/22/20 18:00 02/21/20 17:59 01/30/20 06:29 Ondansetron HCl (Zofran) 4 mg Q6H PRN IVP Nausea & Vomiting 01/22/20 07:30 02/21/20 07:29 Pantoprazole (Protonix) 40 mg EVERY 12 HOURS ORAL 01/28/20 15:00 02/27/20 14:59 01/30/20 09:17 Piperacillin Sod/ Tazobactam Sod 3.375 gm/Sodium Chloride 110 ml @ 27.5 mls/hr EVERY 8 HOURS IVPB 01/23/20 14:00 02/01/20 13:59 01/30/20 06:28 Potassium Chloride (K-Dur) 40 meq TWICE A DAY ORAL 01/27/20 18:00 04/26/20 17:59 01/30/20 09:18 Assessment/Plan Assessment/Plan 1. Transaminitis 2. Pancreatitis. - elevated amylase, lipase; improving - s/p IVF - pain control - on zosyn per Dr. Santiago - MRCP pending per COVID-19 positive status - per Dr. Kingsley, Dr. Santiago 3. Positive COVID-19. -Currently no intervention required for Covid19 due to her normoxemic status on RA 4. Hypertension 5. Fever - Blood Cx showed no growth - better with ibuprofen prn fever The care of this patient was discussed with my supervising physician Time spent for this encounter was approximately 31 minutes Steven Bergman Jan 30, 2020 14:13
--- NOTE | 2020-01-30 15:21 | Nephrology Progress Note ---
Assessment/Plan Problem List: (1) Electrolyte imbalance (2) Acute pancreatitis (3) Gall stone (4) 2019 novel coronavirus disease (COVID-19) (5) Proteinuria Assessment Hypokalemia COVID-19 disease Acute pancreatitis with elevated LFTs Gallstone pancreatitis Obesity Hypertension Proteinuria Plan January 29: Labs reviewed. Renal parameters stable. Continue per consultants. January 28: Labs reviewed. Stable from renal standpoint of view. Continue per consultants. Low-grade fever persists oral potassium ordered IV fluid adjusted and discontinued Oral Protonix added Continue to monitor renal parameters and electrolytes Continue per consultants Subjective ROS Limited/Unobtainable: No Constitutional: Reports: malaise Objective Objective Last 24 Hour Vital Signs Date Time Temp Pulse Resp B/P (MAP) Pulse Ox O2 Delivery O2 Flow Rate FiO2 01/30/20 12:00 98.2 78 20 120/74 (89) 97 01/30/20 09:00 Room Air 01/30/20 08:00 98.6 91 20 123/73 (90) 97 01/30/20 06:59 99.8 01/30/20 04:00 100.6 94 20 129/80 (96) 98 01/30/20 00:00 99.0 80 20 130/68 (88) 95 01/29/20 20:37 Room Air 01/29/20 20:00 98.4 84 20 112/74 (87) 96 01/29/20 15:46 99.5 Intake and Output 01/29/20 01/30/20 19:00 07:00 Intake Total 937.5 ml Balance 937.5 ml Intake Oral 800 ml IV Total 137.5 ml # Voids 4 Current Medications Medications (Trade) Dose Ordered Sig/Dipti Route PRN Reason Start Time Stop Time Status Last Admin Dose Admin Ibuprofen (Advil) 400 mg Q6H PRN ORAL Temp >100.5 01/22/20 18:00 02/21/20 17:59 01/30/20 06:29 Ondansetron HCl (Zofran) 4 mg Q6H PRN IVP Nausea & Vomiting 01/22/20 07:30 02/21/20 07:29 Pantoprazole (Protonix) 40 mg EVERY 12 HOURS ORAL 01/28/20 15:00 02/27/20 14:59 01/30/20 09:17 Piperacillin Sod/ Tazobactam Sod 3.375 gm/Sodium Chloride 110 ml @ 27.5 mls/hr EVERY 8 HOURS IVPB 01/23/20 14:00 02/01/20 13:59 01/30/20 14:21 Potassium Chloride (K-Dur) 40 meq TWICE A DAY ORAL 01/27/20 18:00 04/26/20 17:59 01/30/20 09:18 Laboratory Tests 01/30/20 04:00: White Blood Count 4.7L, Red Blood Count 4.12L, Hemoglobin 12.2, Hematocrit 35.3L , Mean Corpuscular Volume 86, Mean Corpuscular Hemoglobin 29.7, Mean Corpuscular Hemoglobin Concent 34.7, Red Cell Distribution Width 12.6, Platelet Count 181, Mean Platelet Volume 6.4L, Neutrophils (%) (Auto) 70.4, Lymphocytes (%) (Auto) 22.9, Monocytes (%) (Auto) 5.3, Eosinophils (%) (Auto) 1.0, Basophils (%) (Auto) 0.4, Erythrocyte Sedimentation Rate 56H, Sodium Level 138, Potassium Level 3.8, Chloride Level 104, Carbon Dioxide Level 26, Anion Gap 8, Blood Urea Nitrogen 6L , Creatinine 0.8, Estimat Glomerular Filtration Rate > 60, Glucose Level 104, Calcium Level 8.4L, Total Bilirubin 0.9, Aspartate Amino Transf (AST/SGOT) 32, Alanine Aminotransferase (ALT/SGPT) 57, Alkaline Phosphatase 93, C-Reactive Protein, Quantitative 12.4H, Total Protein 8.1, Albumin 2.8L, Globulin 5.3, Albumin/Globulin Ratio 0.5L, Amylase Level 143H, Lipase 756H Height (Feet): 5 Height (Inches): 2.00 Weight (Pounds): 235 General Appearance: no apparent distress Cardiovascular: normal rate Respiratory/Chest: decreased breath sounds Abdomen: soft Objective No change Rakesh Hammer MD Jan 30, 2020 15:21
--- NOTE | 2020-01-30 15:32 | Infectious Diseases Prog Note ---
Assessment/Plan Assessment/Plan IMPRESSION: 1. COVID-19 disease, seems to be mild or recent infection. 2. Acute pancreatitis, has elevated transaminase. 3. Cholelithiasis.? Passing stone 4. Morbid obesity. 5. Fever PLAN: Continue Zosyn According to GI specialist needs MRCP Blood culture X 2 are negative Subjective ROS Limited/Unobtainable: No Constitutional: Reports: fever, other - in am Respiratory: Reports: no symptoms Cardiovascular: Reports: no symptoms Gastrointestinal/Abdominal: Reports: no symptoms Genitourinary: Reports: no symptoms Allergies: Coded Allergies: No Known Allergies (Unverified , 01/21/20) Objective Last 24 Hour Vital Signs Date Time Temp Pulse Resp B/P (MAP) Pulse Ox O2 Delivery O2 Flow Rate FiO2 01/30/20 12:00 98.2 78 20 120/74 (89) 97 01/30/20 09:00 Room Air 01/30/20 08:00 98.6 91 20 123/73 (90) 97 01/30/20 06:59 99.8 01/30/20 04:00 100.6 94 20 129/80 (96) 98 01/30/20 00:00 99.0 80 20 130/68 (88) 95 01/29/20 20:37 Room Air 01/29/20 20:00 98.4 84 20 112/74 (87) 96 01/29/20 15:46 99.5 Height (Feet): 5 Height (Inches): 2.00 Weight (Pounds): 235 General Appearance: no acute distress HEENT: mucous membranes moist Respiratory/Chest: lungs clear Cardiovascular: normal rate Abdomen: soft, non tender Extremities: no edema Neurologic/Psychiatric: alert, oriented x 3, responsive Microbiology Date/Time Source Procedure Growth Status 01/28/20 17:00 Blood Blood Culture - Preliminary NO GROWTH AFTER 24 HOURS Resulted 01/28/20 16:45 Blood Blood Culture - Preliminary NO GROWTH AFTER 24 HOURS Resulted Laboratory Tests Test 01/30/20 04:00 White Blood Count 4.7 K/UL (4.8-10.8) L Red Blood Count 4.12 M/UL (4.20-5.40) L Hemoglobin 12.2 G/DL (12.0-16.0) Hematocrit 35.3 % (37.0-47.0) L Mean Corpuscular Volume 86 FL (80-99) Mean Corpuscular Hemoglobin 29.7 PG (27.0-31.0) Mean Corpuscular Hemoglobin Concent 34.7 G/DL (32.0-36.0) Red Cell Distribution Width 12.6 % (11.6-14.8) Platelet Count 181 K/UL (150-450) Mean Platelet Volume 6.4 FL (6.5-10.1) L Neutrophils (%) (Auto) 70.4 % (45.0-75.0) Lymphocytes (%) (Auto) 22.9 % (20.0-45.0) Monocytes (%) (Auto) 5.3 % (1.0-10.0) Eosinophils (%) (Auto) 1.0 % (0.0-3.0) Basophils (%) (Auto) 0.4 % (0.0-2.0) Erythrocyte Sedimentation Rate 56 MM/HR (0-30) H Sodium Level 138 MMOL/L (136-145) Potassium Level 3.8 MMOL/L (3.5-5.1) Chloride Level 104 MMOL/L (98-107) Carbon Dioxide Level 26 MMOL/L (21-32) Anion Gap 8 mmol/L (5-15) Blood Urea Nitrogen 6 mg/dL (7-18) L Creatinine 0.8 MG/DL (0.55-1.30) Estimat Glomerular Filtration Rate > 60 mL/min (>60) Glucose Level 104 MG/DL (74-106) Calcium Level 8.4 MG/DL (8.5-10.1) L Total Bilirubin 0.9 MG/DL (0.2-1.0) Aspartate Amino Transf (AST/SGOT) 32 U/L (15-37) Alanine Aminotransferase (ALT/SGPT) 57 U/L (12-78) Alkaline Phosphatase 93 U/L (46-116) C-Reactive Protein, Quantitative 12.4 mg/dL (0.00-0.90) H Total Protein 8.1 G/DL (6.4-8.2) Albumin 2.8 G/DL (3.4-5.0) L Globulin 5.3 g/dL Albumin/Globulin Ratio 0.5 (1.0-2.7) L Amylase Level 143 U/L (25-115) H Lipase 756 U/L (73-393) H Current Medications Medications (Trade) Dose Ordered Sig/Dipti Route PRN Reason Start Time Stop Time Status Last Admin Dose Admin Ibuprofen (Advil) 400 mg Q6H PRN ORAL Temp >100.5 01/22/20 18:00 02/21/20 17:59 01/30/20 06:29 Ondansetron HCl (Zofran) 4 mg Q6H PRN IVP Nausea & Vomiting 01/22/20 07:30 02/21/20 07:29 Pantoprazole (Protonix) 40 mg EVERY 12 HOURS ORAL 01/28/20 15:00 02/27/20 14:59 01/30/20 09:17 Piperacillin Sod/ Tazobactam Sod 3.375 gm/Sodium Chloride 110 ml @ 27.5 mls/hr EVERY 8 HOURS IVPB 01/23/20 14:00 02/01/20 13:59 01/30/20 14:21 Potassium Chloride (K-Dur) 40 meq TWICE A DAY ORAL 01/27/20 18:00 04/26/20 17:59 01/30/20 09:18 Wesley Blandon MD Jan 30, 2020 15:32
[2020-01-30 16:00] VITALS: BP 121/72
--- NOTE | 2020-01-30 19:30 | NUR ---
NURSE HAND-OFF: Important Events on Shift: denies fever, pain, tolerated well to her food. blood culture is negative Patient Status: stable Diet: regular, mech soft chopped Pending Orders: Pending Results/Labs: Pending MD notification: Latest Vital Signs: Temperature 98.2 , Pulse 81 , B/P 121 /72 , Respiratory Rate 20 , O2 SAT 97 , Room Air, O2 Flow Rate . Vital Sign Comment: Latest Xiong Fall Score: 20 Fall Risk: Low Risk Safety Measures: Call light Within Reach, Bed Alarm Zone 1, Side Rails Side Rails x2, Bed position Low and Locked. Fall Precautions: Patient Fall Education Report given to Kenny and endorsed plan of care.
[2020-01-30 20:00] VITALS: BP 139/77
--- NOTE | 2020-01-30 20:16 | General Progress Note ---
Subjective ROS Limited/Unobtainable: Yes Allergies: Coded Allergies: No Known Allergies (Unverified , 01/21/20) Objective Last 24 Hour Vital Signs Date Time Temp Pulse Resp B/P (MAP) Pulse Ox O2 Delivery O2 Flow Rate FiO2 01/30/20 16:00 98.2 81 20 121/72 (88) 97 01/30/20 12:00 98.2 78 20 120/74 (89) 97 01/30/20 09:00 Room Air 01/30/20 08:00 98.6 91 20 123/73 (90) 97 01/30/20 06:59 99.8 01/30/20 04:00 100.6 94 20 129/80 (96) 98 01/30/20 00:00 99.0 80 20 130/68 (88) 95 01/29/20 20:37 Room Air Intake and Output 01/29/20 01/30/20 19:00 07:00 Intake Total 937.5 ml Balance 937.5 ml Intake Oral 800 ml IV Total 137.5 ml # Voids 4 Laboratory Tests 01/30/20 04:00: White Blood Count 4.7L, Red Blood Count 4.12L, Hemoglobin 12.2, Hematocrit 35.3L , Mean Corpuscular Volume 86, Mean Corpuscular Hemoglobin 29.7, Mean Corpuscular Hemoglobin Concent 34.7, Red Cell Distribution Width 12.6, Platelet Count 181, Mean Platelet Volume 6.4L, Neutrophils (%) (Auto) 70.4, Lymphocytes (%) (Auto) 22.9, Monocytes (%) (Auto) 5.3, Eosinophils (%) (Auto) 1.0, Basophils (%) (Auto) 0.4, Erythrocyte Sedimentation Rate 56H, Sodium Level 138, Potassium Level 3.8, Chloride Level 104, Carbon Dioxide Level 26, Anion Gap 8, Blood Urea Nitrogen 6L , Creatinine 0.8, Estimat Glomerular Filtration Rate > 60, Glucose Level 104, Calcium Level 8.4L, Total Bilirubin 0.9, Aspartate Amino Transf (AST/SGOT) 32, Alanine Aminotransferase (ALT/SGPT) 57, Alkaline Phosphatase 93, C-Reactive Protein, Quantitative 12.4H, Total Protein 8.1, Albumin 2.8L, Globulin 5.3, Albumin/Globulin Ratio 0.5L, Amylase Level 143H, Lipase 756H Height (Feet): 5 Height (Inches): 2.00 Weight (Pounds): 235 Assessment/Plan Problem List: (1) Acute pancreatitis ICD Codes: K85.90 - Acute pancreatitis without necrosis or infection, unspecified SNOMED: 251463336 Qualifiers: Qualified Codes: K85.10 - Biliary acute pancreatitis without necrosis or infection (2) Gall stone ICD Codes: K80.20 - Calculus of gallbladder without cholecystitis without obstruction SNOMED: 933927921 Qualifiers: Qualified Codes: K80.20 - Calculus of gallbladder without cholecystitis w ithout obstruction (3) Lab test positive for detection of COVID-19 virus ICD Codes: U07.1 - COVID-19 SNOMED: 5726900896379886 Status: progressing Assessment/Plan: covid positive pna pancreatitis improving diet per gi reviewed chart and labs and meds Ronny Win MD Jan 30, 2020 20:16
--- NOTE | 2020-01-30 22:55 | NUR ---
NURSE NOTES: Patient sitting on chair, on the phone, on room air. No complaints of SOB nor pain. Instructed to use call light for assistance. Bed in lowest and lock engaged. Will continue to monitor.
[2020-01-31] VITALS: BP 125/62
[2020-01-31 04:00] VITALS: BP 118/60
[2020-01-31] MEDS: Piperacillin/Tazobactam 3.375 GM in NS 110 ML IVPB SCH ×3 (05:35→21:20)
--- NOTE | 2020-01-31 07:25 | NUR ---
NURSE HAND-OFF: Important Events on Shift: Abx as ordered Patient Status: stable Diet: regular Pending Orders: Pending Results/Labs: Pending MD notification: Latest Vital Signs: Temperature 98.0 , Pulse 84 , B/P 118 /60 , Respiratory Rate 17 , O2 SAT 97 , Room Air, O2 Flow Rate . Vital Sign Comment: Latest Xiong Fall Score: 20 Fall Risk: Low Risk Safety Measures: Call light Within Reach, Bed Alarm Zone 1, Side Rails Side Rails x2, Bed position Low and Locked. Fall Precautions: Patient Fall Education Report given to ADOLFO Gilliam.
[2020-01-31 08:00] VITALS: BP 106/83
--- NOTE | 2020-01-31 09:11 | Pulmonology Progress Note ---
Subjective ROS Limited/Unobtainable: Yes Interval Events: no fever overnight HEENT: Repors: no symptoms Respiratory: Reports: no symptoms Cardiovascular: Reports: no symptoms Gastrointestinal/Abdominal: Reports: no symptoms Genitourinary: Reports: no symptoms Allergies: Coded Allergies: No Known Allergies (Unverified , 01/21/20) Objective Last 24 Hour Vital Signs Date Time Temp Pulse Resp B/P (MAP) Pulse Ox O2 Delivery O2 Flow Rate FiO2 01/31/20 04:00 98.0 84 17 118/60 (79) 97 01/31/20 00:00 98.6 91 18 125/62 (83) 96 01/30/20 21:00 Room Air 01/30/20 20:00 98.9 88 16 139/77 (97) 98 01/30/20 16:00 98.2 81 20 121/72 (88) 97 01/30/20 12:00 98.2 78 20 120/74 (89) 97 Intake and Output 01/30/20 01/31/20 19:00 07:00 Intake Total 820.0 ml 537.5 ml Balance 820.0 ml 537.5 ml Intake Oral 600 ml 400 ml IV Total 220.0 ml 137.5 ml # Voids 8 3 # Bowel Movements 2 Objective 01/30 room air; no fever overnight; tolerating diet 01/29 room air; intermittent fever 01/28 continues to saturate well on RA; persistent low grade fever, better with ibuprofen 01/27 saturating well on RA; NAD 01/27/2020 continues to saturate well on RA; NAD 01/26/2020 saturating well on room air; NAD; sitting on her bed 01/25/2020 saturating well on room air 01/24/2020 pt eating in bed; saturating well on room air 01/23/2020 NAD; on room air 01/22/2020 saturating well on room air; NAD General Appearance: WD/WN, no acute distress HEENT: normocephalic Respiratory: lungs clear Cardiovascular: normal rate, regular rhythm, no gallop/murmur Abdomen: soft, non tender Neurologic: alert, oriented x 3, responsive Microbiology Date/Time Source Procedure Growth Status 01/28/20 17:00 Blood Blood Culture - Preliminary NO GROWTH AFTER 48 HOURS Resulted 01/28/20 16:45 Blood Blood Culture - Preliminary NO GROWTH AFTER 48 HOURS Resulted Current Medications Medications (Trade) Dose Ordered Sig/Dipti Route PRN Reason Start Time Stop Time Status Last Admin Dose Admin Ibuprofen (Advil) 400 mg Q6H PRN ORAL Temp >100.5 01/22/20 18:00 02/21/20 17:59 01/30/20 06:29 Ondansetron HCl (Zofran) 4 mg Q6H PRN IVP Nausea & Vomiting 01/22/20 07:30 02/21/20 07:29 Pantoprazole (Protonix) 40 mg EVERY 12 HOURS ORAL 01/28/20 15:00 02/27/20 14:59 01/30/20 21:12 Piperacillin Sod/ Tazobactam Sod 3.375 gm/Sodium Chloride 110 ml @ 27.5 mls/hr EVERY 8 HOURS IVPB 01/23/20 14:00 02/01/20 13:59 01/31/20 05:35 Potassium Chloride (K-Dur) 40 meq TWICE A DAY ORAL 01/27/20 18:00 04/26/20 17:59 01/30/20 17:48 Assessment/Plan Assessment/Plan 1. Transaminitis 2. Pancreatitis. - elevated amylase, lipase; elevated, stable - s/p IVF - pain control - on zosyn per Dr. Santiago - MRCP pending per COVID-19 positive status - per Dr. Kingsley, Dr. Santiago 3. Positive COVID-19. -Currently no intervention required for Covid19 due to her normoxemic status on RA 4. Hypertension 5. Fever - Blood Cx showed no growth - better with ibuprofen prn fever Stable for dc from pulmonary stand point of view The care of this patient was discussed with my supervising physician Time spent for this encounter was approximately 31 minutes Steven Bergman Jan 31, 2020 09:11 Bubba Penny MD Jan 31, 2020 17:45
--- NOTE | 2020-01-31 09:35 | NUR ---
NURSE NOTES: Report received from Kenny MATA, rounds made. Patient up to bathroom, steady. AOx4, calm, Azeri/Vietnamese speaking. Respirations even/unlabored on RA. Denies SOB, pain,NV. IVF infusing to RW, site slightly bruised,Zosyn infusing without difficulty. Call light in reach, bed in lowest position,will continue to monitor.
--- NOTE | 2020-01-31 11:24 | General Progress Note ---
Subjective ROS Limited/Unobtainable: No Allergies: Coded Allergies: No Known Allergies (Unverified , 01/21/20) Objective Last 24 Hour Vital Signs Date Time Temp Pulse Resp B/P (MAP) Pulse Ox O2 Delivery O2 Flow Rate FiO2 01/31/20 08:00 98.2 84 16 106/83 (91) 99 01/31/20 04:00 98.0 84 17 118/60 (79) 97 01/31/20 00:00 98.6 91 18 125/62 (83) 96 01/30/20 21:00 Room Air 01/30/20 20:00 98.9 88 16 139/77 (97) 98 01/30/20 16:00 98.2 81 20 121/72 (88) 97 01/30/20 12:00 98.2 78 20 120/74 (89) 97 Intake and Output 01/30/20 01/31/20 19:00 07:00 Intake Total 820.0 ml 537.5 ml Balance 820.0 ml 537.5 ml Intake Oral 600 ml 400 ml IV Total 220.0 ml 137.5 ml # Voids 8 3 # Bowel Movements 2 Height (Feet): 5 Height (Inches): 2.00 Weight (Pounds): 235 General Appearance: no apparent distress EENT: normal ENT inspection Neck: supple Cardiovascular: normal rate Respiratory/Chest: decreased breath sounds Abdomen: normal bowel sounds, non tender, soft Extremities: non-tender Assessment/Plan Status: progressing Assessment/Plan: gallstone pancreatitis? Covid positive pain control needs MRCP but covid + surg in put appreciated repeat labs for tomorrow on reg diet will fu David Kingsley MD Jan 31, 2020 11:24
--- NOTE | 2020-01-31 11:57 | General Progress Note ---
Subjective ROS Limited/Unobtainable: Yes Allergies: Coded Allergies: No Known Allergies (Unverified , 01/21/20) Objective Last 24 Hour Vital Signs Date Time Temp Pulse Resp B/P (MAP) Pulse Ox O2 Delivery O2 Flow Rate FiO2 01/31/20 08:00 98.2 84 16 106/83 (91) 99 01/31/20 04:00 98.0 84 17 118/60 (79) 97 01/31/20 00:00 98.6 91 18 125/62 (83) 96 01/30/20 21:00 Room Air 01/30/20 20:00 98.9 88 16 139/77 (97) 98 01/30/20 16:00 98.2 81 20 121/72 (88) 97 01/30/20 12:00 98.2 78 20 120/74 (89) 97 Intake and Output 01/30/20 01/31/20 19:00 07:00 Intake Total 820.0 ml 537.5 ml Balance 820.0 ml 537.5 ml Intake Oral 600 ml 400 ml IV Total 220.0 ml 137.5 ml # Voids 8 3 # Bowel Movements 2 Height (Feet): 5 Height (Inches): 2.00 Weight (Pounds): 235 Assessment/Plan Problem List: (1) Acute pancreatitis ICD Codes: K85.90 - Acute pancreatitis without necrosis or infection, unspecified SNOMED: 076147102 Qualifiers: Qualified Codes: K85.10 - Biliary acute pancreatitis without necrosis or infection (2) Gall stone ICD Codes: K80.20 - Calculus of gallbladder without cholecystitis without obstruction SNOMED: 647504322 Qualifiers: Qualified Codes: K80.20 - Calculus of gallbladder without cholecystitis without obstruction (3) Lab test positive for detection of COVID-19 virus ICD Codes: U07.1 - COVID-19 SNOMED: [id number] Status: progressing Assessment/Plan: covid positive pna pancreatitis prn supportive care afebrile vitals stable Ronny Win MD Jan 31, 2020 11:57
[2020-01-31 12:00] VITALS: BP 121/78
--- NOTE | 2020-01-31 12:21 | Infectious Diseases Prog Note ---
Assessment/Plan Assessment/Plan IMPRESSION: 1. COVID-19 disease, seems to be mild or recent infection. 2. Acute pancreatitis, has elevated transaminase. 3. Cholelithiasis.? Passing stone 4. Morbid obesity. 5. Fever PLAN: Continue Zosyn According to GI specialist needs MRCP Blood culture X 2 are negative Subjective ROS Limited/Unobtainable: No Constitutional: Reports: no symptoms Respiratory: Reports: no symptoms Gastrointestinal/Abdominal: Reports: no symptoms Allergies: Coded Allergies: No Known Allergies (Unverified , 01/21/20) Objective Last 24 Hour Vital Signs Date Time Temp Pulse Resp B/P (MAP) Pulse Ox O2 Delivery O2 Flow Rate FiO2 01/31/20 08:00 98.2 84 16 106/83 (91) 99 01/31/20 04:00 98.0 84 17 118/60 (79) 97 01/31/20 00:00 98.6 91 18 125/62 (83) 96 01/30/20 21:00 Room Air 01/30/20 20:00 98.9 88 16 139/77 (97) 98 01/30/20 16:00 98.2 81 20 121/72 (88) 97 Height (Feet): 5 Height (Inches): 2.00 Weight (Pounds): 235 HEENT: mucous membranes moist Respiratory/Chest: lungs clear Cardiovascular: normal rate Abdomen: soft, non tender Extremities: no edema Neurologic/Psychiatric: alert, oriented x 3, responsive Microbiology Date/Time Source Procedure Growth Status 01/28/20 17:00 Blood Blood Culture - Preliminary NO GROWTH AFTER 48 HOURS Resulted 01/28/20 16:45 Blood Blood Culture - Preliminary NO GROWTH AFTER 48 HOURS Resulted Current Medications Medications (Trade) Dose Ordered Sig/Dipti Route PRN Reason Start Time Stop Time Status Last Admin Dose Admin Ibuprofen (Advil) 400 mg Q6H PRN ORAL Temp >100.5 01/22/20 18:00 02/21/20 17:59 01/30/20 06:29 Ondansetron HCl (Zofran) 4 mg Q6H PRN IVP Nausea & Vomiting 01/22/20 07:30 02/21/20 07:29 Pantoprazole (Protonix) 40 mg EVERY 12 HOURS ORAL 01/28/20 15:00 02/27/20 14:59 01/31/20 09:15 Piperacillin Sod/ Tazobactam Sod 3.375 gm/Sodium Chloride 110 ml @ 27.5 mls/hr EVERY 8 HOURS IVPB 01/23/20 14:00 02/01/20 13:59 01/31/20 05:35 Potassium Chloride (K-Dur) 40 meq TWICE A DAY ORAL 01/27/20 18:00 04/26/20 17:59 01/31/20 09:15 Wesley Blandon MD Jan 31, 2020 12:21
--- NOTE | 2020-01-31 13:25 | Nephrology Progress Note ---
Assessment/Plan Problem List: (1) Electrolyte imbalance (2) Acute pancreatitis (3) Gall stone (4) 2019 novel coronavirus disease (COVID-19) (5) Proteinuria Assessment Hypokalemia COVID-19 disease Acute pancreatitis with elevated LFTs Gallstone pancreatitis Obesity Hypertension Proteinuria Plan January 30: No labs drawn today. Remains stable from renal standpoint of view. January 29: Labs reviewed. Renal parameters stable. Continue per consultants. January 28: Labs reviewed. Stable from renal standpoint of view. Continue per consultants. Low-grade fever persists oral potassium ordered IV fluid adjusted and discontinued Oral Protonix added Continue to monitor renal parameters and electrolytes Continue per consultants Subjective ROS Limited/Unobtainable: No Objective Objective Last 24 Hour Vital Signs Date Time Temp Pulse Resp B/P (MAP) Pulse Ox O2 Delivery O2 Flow Rate FiO2 01/31/20 12:00 98.2 84 16 121/78 (92) 95 01/31/20 08:00 98.2 84 16 106/83 (91) 99 01/31/20 04:00 98.0 84 17 118/60 (79) 97 01/31/20 00:00 98.6 91 18 125/62 (83) 96 01/30/20 21:00 Room Air 01/30/20 20:00 98.9 88 16 139/77 (97) 98 01/30/20 16:00 98.2 81 20 121/72 (88) 97 Intake and Output 01/30/20 01/31/20 19:00 07:00 Intake Total 820.0 ml 537.5 ml Balance 820.0 ml 537.5 ml Intake Oral 600 ml 400 ml IV Total 220.0 ml 137.5 ml # Voids 8 3 # Bowel Movements 2 No labs drawn today Height (Feet): 5 Height (Inches): 2.00 Weight (Pounds): 235 Cardiovascular: normal rate Respiratory/Chest: decreased breath sounds Abdomen: distended Objective No change Rakesh Hammer MD Jan 31, 2020 13:25
[2020-01-31 15:16] VITALS: BP 124/74
--- NOTE | 2020-01-31 17:40 | Surgery Progress Note ---
Surgery Progress Note Subjective Symptoms: improved, pain absent, tolerating diet, passing flatus, BM Objective Last 24 Hour Vital Signs Date Time Temp Pulse Resp B/P (MAP) Pulse Ox O2 Delivery O2 Flow Rate FiO2 01/31/20 15:16 98.4 77 18 124/74 (91) 98 01/31/20 12:00 98.2 84 16 121/78 (92) 95 01/31/20 08:00 98.2 84 16 106/83 (91) 99 01/31/20 04:00 98.0 84 17 118/60 (79) 97 01/31/20 00:00 98.6 91 18 125/62 (83) 96 01/30/20 21:00 Room Air 01/30/20 20:00 98.9 88 16 139/77 (97) 98 I&O Intake and Output 01/30/20 01/31/20 19:00 07:00 Intake Total 820.0 ml 537.5 ml Balance 820.0 ml 537.5 ml Intake Oral 600 ml 400 ml IV Total 220.0 ml 137.5 ml # Voids 8 3 # Bowel Movements 2 Cardiovascular: RSR Respiratory: clear Abdomen: soft, flat, non-tender, present bowel sounds Extremities: no edema, no tenderness, no cyanosis Plan Problems: (1) Acute pancreatitis Assessment & Plan: 51-year-old female acute pancreatitis potentially gallstone related. Afebrile hemodynamic stable labs improved. No nausea vomiting fever chills. Pain is resolved. No acute surgical intervention planned. Continue with work-up. Trend labs. GI input appreciated. Will follow with recommendations. Thank you npo iv fluids iv abx trend labs bowel rest will follow with recs thank you febrile tolerating diet labs improving trend labs cont diet cont abx needs mrcp but covid + Liver: See below. Gallbladder: There is cholelithiasis. A 2.6 cm gallstone is noted. Gallbladder wall measures 0.45 cm and is thickened. Common bile duct: Suboptimal evaluation of the common bile duct due to bowel gas. No stones. No dilation. Pancreas: Unremarkable as visualized. Kidneys: Right kidney measures 9.8 x 5 x 5 cm. Left kidney measures 9. 3 x 4.9 x 4.7 cm. No hydronephrosis. No stones. Spleen: Spleen measures 9.3 cm and is unremarkable. Aorta: Abdominal aorta is normal in caliber. Liver measures 15.9 cm. Partial evaluation of the abdominal aorta which is grossly unremarkable. No aneurysm. Inferior vena cava: Unremarkable. IMPRESSION: 1. Limited evaluation due to bowel gas. 2. Cholelithiasis. 3. Gallbladder wall measures 0.45 cm and is diffusely thickened. Clinical correlation is necessary. 4. No pericholecystic fluid noted however. Markedly limited evaluation of the common bile duct due to bowel gas. 5. Clinical correlation is necessary. (2) Gall stone (3) Lab test positive for detection of COVID-19 virus Jalil Santiago Jan 31, 2020 17:40
--- NOTE | 2020-01-31 19:18 | NUR ---
NURSE HAND-OFF: Important Events on Shift:N/A Patient Status: stable Diet: Soft/Chopped Pending Orders: labs in AM Pending Results/Labs:Amylase, Lipase, CBC CMP 01/31 Pending MD notification:none Latest Vital Signs: Temperature 98.4 , Pulse 77 , B/P 124 /74 , Respiratory Rate 18 , O2 SAT 98 , Room Air, O2 Flow Rate . Vital Sign Comment: none Latest Xiong Fall Score: 20 Fall Risk: Low Risk Safety Measures: Call light Within Reach, Bed Alarm Zone 1, Side Rails Side Rails x2, Bed position Low and Locked. Fall Precautions: Patient Fall Education Report given to Ambreen MATA.
--- NOTE | 2020-01-31 19:40 | NUR ---
NURSE NOTES: Patient in bed, awake and alert x4; talking on the phone. On room air with no signs of distress. COVID-19 isolation. Bed locked and in lowest position. Call light in reach. Will continue plan of care.
[2020-01-31 20:00] VITALS: BP 109/66
[2020-02-01] VITALS: BP 117/71
[2020-02-01 04:00] VITALS: BP 108/64
[2020-02-01] MEDS: Piperacillin/Tazobactam 3.375 GM in NS 110 ML IVPB SCH ×3 (05:36→21:10)
[2020-02-01 07:58] LABS: BASOPHILS % (AUTO) 0.4 % (0.0-2.0); EOSINOPHILS % (AUTO) 2.3 % (0.0-3.0); HEMATOCRIT 35.8 % (37.0-47.0); HEMOGLOBIN 12.4 G/DL (12.0-16.0); LYMPHOCYTES % (AUTO) 24.8 % (20.0-45.0); MEAN CORPUSCULAR VOLUME 85 FL (80-99); MONOCYTES % (AUTO) 10.3 % (1.0-10.0); NEUTROPHILS % (AUTO) 62.2 % (45.0-75.0); PLATELET COUNT 249 K/UL (150-450); RED BLOOD COUNT 4.24 M/UL (4.20-5.40); RED CELL DISTRIBUTION WIDTH 12.3 % (11.6-14.8); WHITE BLOOD COUNT 5.1 K/UL (4.8-10.8)
[2020-02-01 08:00] VITALS: BP 127/42
--- NOTE | 2020-02-01 08:23 | NUR ---
NURSE HAND-OFF: Important Events on Shift: No events Patient Status: Stable Diet: Reg mech soft chopped Pending Orders: N/A Pending Results/Labs:CMP, Amylase, Lipase Pending MD notification: N/A Latest Vital Signs: Temperature 98.1 , Pulse 88 , B/P 108 /64 , Respiratory Rate 18 , O2 SAT 96 , Room Air, O2 Flow Rate . Vital Sign Comment: N/A Latest Xiong Fall Score: 20 Fall Risk: Low Risk Safety Measures: Call light Within Reach, Bed Alarm Zone 1, Side Rails Side Rails x2, Bed position Low and Locked. Fall Precautions: Patient Fall Education Report given to ADOLFO Prince
[2020-02-01 08:25] LABS: ALANINE AMINOTRANSFERASE 58 U/L (12-78); ALBUMIN 2.7 G/DL (3.4-5.0); ALBUMIN/GLOBULIN RATIO 0.5 (1.0-2.7); ALKALINE PHOSPHATASE 89 U/L (46-116); AMYLASE 161 U/L (25-115); ANION GAP 7 mmol/L (5-15); ASPARTATE AMINO TRANSFERASE 43 U/L (15-37); BILIRUBIN,TOTAL 0.8 MG/DL (0.2-1.0); BLOOD UREA NITROGEN 7 mg/dL (7-18); CALCIUM 8.7 MG/DL (8.5-10.1); CARBON DIOXIDE 25 MMOL/L (21-32); CHLORIDE 103 MMOL/L (98-107); CREATININE 0.8 MG/DL (0.55-1.30); POTASSIUM 4.2 MMOL/L (3.5-5.1); SODIUM 135 MMOL/L (136-145)
--- NOTE | 2020-02-01 08:30 | NUR ---
NURSE NOTES: Received report from Ambreen MATA. Patient is awake and oriented, in no distress, reporting no pain, denies SOB, VS stable. In isolation for COVID. Updated on plan of care. Side rails upx2, bed low and locked, call light within reach.
--- NOTE | 2020-02-01 08:51 | Pulmonology Progress Note ---
Subjective ROS Limited/Unobtainable: No Interval Events: no fever overnight Constitutional: Reports: no symptoms HEENT: Repors: no symptoms Respiratory: Reports: no symptoms Cardiovascular: Reports: no symptoms Gastrointestinal/Abdominal: Reports: no symptoms Genitourinary: Reports: no symptoms Allergies: Coded Allergies: No Known Allergies (Unverified , 01/21/20) Objective Last 24 Hour Vital Signs Date Time Temp Pulse Resp B/P (MAP) Pulse Ox O2 Delivery O2 Flow Rate FiO2 02/01/20 08:00 98.6 86 18 127/42 (70) 95 02/01/20 04:00 98.1 88 18 108/64 (79) 96 02/01/20 00:00 98.8 81 18 117/71 (86) 96 01/31/20 21:00 Room Air 01/31/20 20:00 98.1 75 18 109/66 (80) 96 01/31/20 15:16 98.4 77 18 124/74 (91) 98 01/31/20 12:00 98.2 84 16 121/78 (92) 95 01/31/20 09:00 Room Air Intake and Output 01/31/20 02/01/20 19:00 07:00 Intake Total 1200 ml 400 ml Balance 1200 ml 400 ml Intake Oral 1200 ml 400 ml # Voids 4 3 # Bowel Movements 2 Objective 01/31 room air; no fever; tolerating diet 01/30 room air; no fever overnight; tolerating diet 01/29 room air; intermittent fever 01/28 continues to saturate well on RA; persistent low grade fever, better with ibuprofen 01/27 saturating well on RA; NAD 01/27/2020 continues to saturate well on RA; NAD 01/26/2020 saturating well on room air; NAD; sitting on her bed 01/25/2020 saturating well on room air 01/24/2020 pt eating in bed; saturating well on room air 01/23/2020 NAD; on room air 01/22/2020 saturating well on room air; NAD General Appearance: WD/WN, no acute distress HEENT: normocephalic Respiratory: lungs clear Cardiovascular: normal rate, regular rhythm, no gallop/murmur Abdomen: soft, non tender Neurologic: alert, oriented x 3, responsive Laboratory Tests 02/01/20 05:30: White Blood Count 5.1, Red Blood Count 4.24, Hemoglobin 12.4, Hematocrit 35.8L, Mean Corpuscular Volume 85, Mean Corpuscular Hemoglobin 29.2, Mean Corpuscular Hemoglobin Concent 34.5, Red Cell Distribution Width 12.3, Platelet Count 249, Mean Platelet Volume 6.4L, Neutrophils (%) (Auto) 62.2, Lymphocytes (%) (Auto) 24.8, Monocytes (%) (Auto) 10.3H, Eosinophils (%) (Auto) 2.3, Basophils (%) (Auto) 0.4, Sodium Level 135L, Potassium Level 4.2, Chloride Level 103, Carbon Dioxide Level 25, Anion Gap 7, Blood Urea Nitrogen 7, Creatinine 0.8, Estimat Glomerular Filtration Rate > 60, Glucose Level 102, Calcium Level 8.7, Total Bilirubin 0.8, Aspartate Amino Transf (AST/SGOT) 43H, Alanine Aminotransferase (ALT/SGPT) 58, Alkaline Phosphatase 89, Total Protein 8.3H, Albumin 2.7L, Globulin 5.6, Albumin/Globulin Ratio 0.5L, Amylase Level 161H, Lipase 874H Current Medications Medications (Trade) Dose Ordered Sig/Dipti Route PRN Reason Start Time Stop Time Status Last Admin Dose Admin Ibuprofen (Advil) 400 mg Q6H PRN ORAL Temp >100.5 01/22/20 18:00 02/21/20 17:59 01/30/20 06:29 Ondansetron HCl (Zofran) 4 mg Q6H PRN IVP Nausea & Vomiting 01/22/20 07:30 02/21/20 07:29 Pantoprazole (Protonix) 40 mg EVERY 12 HOURS ORAL 01/28/20 15:00 02/27/20 14:59 01/31/20 21:13 Piperacillin Sod/ Tazobactam Sod 3.375 gm/Sodium Chloride 110 ml @ 27.5 mls/hr EVERY 8 HOURS IVPB 01/23/20 14:00 02/05/20 23:59 02/01/20 05:36 Potassium Chloride (K-Dur) 40 meq TWICE A DAY ORAL 01/27/20 18:00 04/26/20 17:59 01/31/20 18:34 Assessment/Plan Assessment/Plan 1. Transaminitis 2. Pancreatitis. - elevated amylase, lipase; slightly more elevated today - s/p IVF - pain control - on zosyn per Dr. Santiago - MRCP pending per COVID-19 positive status - per Dr. Kingsley, Dr. Santiago 3. Positive COVID-19. -Currently no intervention required for Covid19 due to her normoxemic status on RA 4. Hypertension 5. Fever - Blood Cx showed no growth - better with ibuprofen prn fever Stable for dc from pulmonary stand point of view The care of this patient was discussed with my supervising physician Time spent for this encounter was approximately 31 minutes Steven Bergman Feb 01, 2020 08:51 Bubab Penny MD Feb 01, 2020 15:34
[2020-02-01 12:00] VITALS: BP 127/84
--- NOTE | 2020-02-01 12:04 | Surgery Progress Note ---
Surgery Progress Note Subjective Symptoms: improved, tolerating diet, voiding well, passing flatus, BM Objective Last 24 Hour Vital Signs Date Time Temp Pulse Resp B/P (MAP) Pulse Ox O2 Delivery O2 Flow Rate FiO2 02/01/20 08:00 98.6 86 18 127/42 (70) 95 02/01/20 04:00 98.1 88 18 108/64 (79) 96 02/01/20 00:00 98.8 81 18 117/71 (86) 96 01/31/20 21:00 Room Air 01/31/20 20:00 98.1 75 18 109/66 (80) 96 01/31/20 15:16 98.4 77 18 124/74 (91) 98 I&O Intake and Output 01/31/20 02/01/20 19:00 07:00 Intake Total 1200 ml 400 ml Balance 1200 ml 400 ml Intake Oral 1200 ml 400 ml # Voids 4 3 # Bowel Movements 2 Cardiovascular: RSR Respiratory: clear Abdomen: soft, flat, non-tender, present bowel sounds, non-distended Extremities: no edema, no tenderness, no cyanosis Laboratory Tests Test 02/01/20 05:30 White Blood Count 5.1 K/UL (4.8-10.8) Red Blood Count 4.24 M/UL (4.20-5.40) Hemoglobin 12.4 G/DL (12.0-16.0) Hematocrit 35.8 % (37.0-47.0) L Mean Corpuscular Volume 85 FL (80-99) Mean Corpuscular Hemoglobin 29.2 PG (27.0-31.0) Mean Corpuscular Hemoglobin Concent 34.5 G/DL (32.0-36.0) Red Cell Distribution Width 12.3 % (11.6-14.8) Platelet Count 249 K/UL (150-450) Mean Platelet Volume 6.4 FL (6.5-10.1) L Neutrophils (%) (Auto) 62.2 % (45.0-75.0) Lymphocytes (%) (Auto) 24.8 % (20.0-45.0) Monocytes (%) (Auto) 10.3 % (1.0-10.0) H Eosinophils (%) (Auto) 2.3 % (0.0-3.0) Basophils (%) (Auto) 0.4 % (0.0-2.0) Sodium Level 135 MMOL/L (136-145) L Potassium Level 4.2 MMOL/L (3.5-5.1) Chloride Level 103 MMOL/L (98-107) Carbon Dioxide Level 25 MMOL/L (21-32) Anion Gap 7 mmol/L (5-15) Blood Urea Nitrogen 7 mg/dL (7-18) Creatinine 0.8 MG/DL (0.55-1.30) Estimat Glomerular Filtration Rate > 60 mL/min (>60) Glucose Level 102 MG/DL (74-106) Calcium Level 8.7 MG/DL (8.5-10.1) Total Bilirubin 0.8 MG/DL (0.2-1.0) Aspartate Amino Transf (AST/SGOT) 43 U/L (15-37) H Alanine Aminotransferase (ALT/SGPT) 58 U/L (12-78) Alkaline Phosphatase 89 U/L (46-116) Total Protein 8.3 G/DL (6.4-8.2) H Albumin 2.7 G/DL (3.4-5.0) L Globulin 5.6 g/dL Albumin/Globulin Ratio 0.5 (1.0-2.7) L Amylase Level 161 U/L (25-115) H Lipase 874 U/L (73-393) H Plan Problems: (1) Acute pancreatitis Assessment & Plan: 51-year-old female acute pancreatitis potentially gallstone related. Afebrile hemodynamic stable labs improved. No nausea vomiting fever chills. Pain is resolved. No acute surgical intervention planned. Continue with work-up. Trend labs. GI input appreciated. Will follow with recommendations. Thank you npo iv fluids iv abx trend labs bowel rest will follow with recs thank you febrile tolerating diet labs improving trend labs cont diet cont abx needs mrcp but covid + labs noted exam benign pending covid Liver: See below. Gallbladder: There is cholelithiasis. A 2.6 cm gallstone is noted. Gallbladder wall measures 0.45 cm and is thickened. Common bile duct: Suboptimal evaluation of the common bile duct due to bowel gas. No stones. No dilation. Pancreas: Unremarkable as visualized. Kidneys: Right kidney measures 9.8 x 5 x 5 cm. Left kidney measures 9. 3 x 4.9 x 4.7 cm. No hydronephrosis. No stones. Spleen: Spleen measures 9.3 cm and is unremarkable. Aorta: Abdominal aorta is normal in caliber. Liver measures 15.9 cm. Partial evaluation of the abdominal aorta which is grossly unremarkable. No aneurysm. Inferior vena cava: Unremarkable. IMPRESSION: 1. Limited evaluation due to bowel gas. 2. Cholelithiasis. 3. Gallbladder wall measures 0.45 cm and is diffusely thickened. Clinical correlation is necessary. 4. No pericholecystic fluid noted however. Markedly limited evaluation of the common bile duct due to bowel gas. 5. Clinical correlation is necessary. (2) Gall stone (3) Lab test positive for detection of COVID-19 virus Jalil Santiago Feb 01, 2020 12:04
--- NOTE | 2020-02-01 12:09 | NUR ---
RD ASSESSMENT & RECOMMENDATIONS SEE CARE ACTIVITY FOR COMPLETE ASSESSMENT DAILY ESTIMATED NEEDS: Needs based on acute pancreatitis, obese 64.2kg abw 20-25 kcals/kg 8262-9484 total kcals 1-1.5 g protein/kg 64-96 g total protein 25-30 mL/kg 8455-2124 total fluid mLs NUTRITION DIAGNOSIS: Decreased fat needs r/t pancreatitis as evidenced by elevated LFT's, elevated Lipase, and amylase. CURRENT DIET: regular ms finely chopped PO DIET RECOMMENDATIONS: LOW FAT DIET (texture per TALENT DEVELOPMENT CONSULTANT) ADDITIONAL RECOMMENDATIONS: 1) Maintain calibrated bed scale wts 2) Rec TALENT DEVELOPMENT CONSULTANT eval for possible texture upgrade 3) Monitor for continued tolerance to diet -> trend lipase and amylase levels
--- NOTE | 2020-02-01 12:28 | Infectious Diseases Prog Note ---
Assessment/Plan Assessment/Plan IMPRESSION: 1. COVID-19 disease, seems to be mild or recent infection. 2. Acute pancreatitis, has elevated transaminase. 3. Cholelithiasis.? Passing stone 4. Morbid obesity. 5. Fever PLAN: Continue Zosyn According to GI specialist needs MRCP Patient is clear for MRCP, already is 10 days on isolation Subjective ROS Limited/Unobtainable: No Constitutional: Reports: no symptoms Respiratory: Reports: no symptoms Cardiovascular: Reports: no symptoms Gastrointestinal/Abdominal: Reports: no symptoms Allergies: Coded Allergies: No Known Allergies (Unverified , 01/21/20) Objective Last 24 Hour Vital Signs Date Time Temp Pulse Resp B/P (MAP) Pulse Ox O2 Delivery O2 Flow Rate FiO2 02/01/20 08:00 98.6 86 18 127/42 (70) 95 02/01/20 04:00 98.1 88 18 108/64 (79) 96 02/01/20 00:00 98.8 81 18 117/71 (86) 96 01/31/20 21:00 Room Air 01/31/20 20:00 98.1 75 18 109/66 (80) 96 01/31/20 15:16 98.4 77 18 124/74 (91) 98 Height (Feet): 5 Height (Inches): 2.00 Weight (Pounds): 235 HEENT: mucous membranes moist Respiratory/Chest: lungs clear Cardiovascular: normal rate Abdomen: soft, non tender Extremities: no edema Neurologic/Psychiatric: alert, oriented x 3, responsive Laboratory Tests Test 02/01/20 05:30 White Blood Count 5.1 K/UL (4.8-10.8) Red Blood Count 4.24 M/UL (4.20-5.40) Hemoglobin 12.4 G/DL (12.0-16.0) Hematocrit 35.8 % (37.0-47.0) L Mean Corpuscular Volume 85 FL (80-99) Mean Corpuscular Hemoglobin 29.2 PG (27.0-31.0) Mean Corpuscular Hemoglobin Concent 34.5 G/DL (32.0-36.0) Red Cell Distribution Width 12.3 % (11.6-14.8) Platelet Count 249 K/UL (150-450) Mean Platelet Volume 6.4 FL (6.5-10.1) L Neutrophils (%) (Auto) 62.2 % (45.0-75.0) Lymphocytes (%) (Auto) 24.8 % (20.0-45.0) Monocytes (%) (Auto) 10.3 % (1.0-10.0) H Eosinophils (%) (Auto) 2.3 % (0.0-3.0) Basophils (%) (Auto) 0.4 % (0.0-2.0) Sodium Level 135 MMOL/L (136-145) L Potassium Level 4.2 MMOL/L (3.5-5.1) Chloride Level 103 MMOL/L (98-107) Carbon Dioxide Level 25 MMOL/L (21-32) Anion Gap 7 mmol/L (5-15) Blood Urea Nitrogen 7 mg/dL (7-18) Creatinine 0.8 MG/DL (0.55-1.30) Estimat Glomerular Filtration Rate > 60 mL/min (>60) Glucose Level 102 MG/DL (74-106) Calcium Level 8.7 MG/DL (8.5-10.1) Total Bilirubin 0.8 MG/DL (0.2-1.0) Aspartate Amino Transf (AST/SGOT) 43 U/L (15-37) H Alanine Aminotransferase (ALT/SGPT) 58 U/L (12-78) Alkaline Phosphatase 89 U/L (46-116) Total Protein 8.3 G/DL (6.4-8.2) H Albumin 2.7 G/DL (3.4-5.0) L Globulin 5.6 g/dL Albumin/Globulin Ratio 0.5 (1.0-2.7) L Amylase Level 161 U/L (25-115) H Lipase 874 U/L (73-393) H Current Medications Medications (Trade) Dose Ordered Sig/Dipti Route PRN Reason Start Time Stop Time Status Last Admin Dose Admin Ibuprofen (Advil) 400 mg Q6H PRN ORAL Temp >100.5 01/22/20 18:00 02/21/20 17:59 01/30/20 06:29 Ondansetron HCl (Zofran) 4 mg Q6H PRN IVP Nausea & Vomiting 01/22/20 07:30 02/21/20 07:29 Pantoprazole (Protonix) 40 mg EVERY 12 HOURS ORAL 01/28/20 15:00 02/27/20 14:59 02/01/20 10:03 Piperacillin Sod/ Tazobactam Sod 3.375 gm/Sodium Chloride 110 ml @ 27.5 mls/hr EVERY 8 HOURS IVPB 01/23/20 14:00 02/05/20 23:59 02/01/20 05:36 Potassium Chloride (K-Dur) 40 meq TWICE A DAY ORAL 01/27/20 18:00 04/26/20 17:59 02/01/20 10:03 Wesley Blandon MD Feb 01, 2020 12:28
--- NOTE | 2020-02-01 12:59 | General Progress Note ---
Subjective ROS Limited/Unobtainable: No Allergies: Coded Allergies: No Known Allergies (Unverified , 01/21/20) Objective Last 24 Hour Vital Signs Date Time Temp Pulse Resp B/P (MAP) Pulse Ox O2 Delivery O2 Flow Rate FiO2 02/01/20 08:00 98.6 86 18 127/42 (70) 95 02/01/20 04:00 98.1 88 18 108/64 (79) 96 02/01/20 00:00 98.8 81 18 117/71 (86) 96 01/31/20 21:00 Room Air 01/31/20 20:00 98.1 75 18 109/66 (80) 96 01/31/20 15:16 98.4 77 18 124/74 (91) 98 Intake and Output 01/31/20 02/01/20 19:00 07:00 Intake Total 1200 ml 400 ml Balance 1200 ml 400 ml Intake Oral 1200 ml 400 ml # Voids 4 3 # Bowel Movements 2 Laboratory Tests 02/01/20 05:30: White Blood Count 5.1, Red Blood Count 4.24, Hemoglobin 12.4, Hematocrit 35.8L, Mean Corpuscular Volume 85, Mean Corpuscular Hemoglobin 29.2, Mean Corpuscular Hemoglobin Concent 34.5, Red Cell Distribution Width 12.3, Platelet Count 249, Mean Platelet Volume 6.4L, Neutrophils (%) (Auto) 62.2, Lymphocytes (%) (Auto) 24.8, Monocytes (%) (Auto) 10.3H, Eosinophils (%) (Auto) 2.3, Basophils (%) (Auto) 0.4, Sodium Level 135L, Potassium Level 4.2, Chloride Level 103, Carbon Dioxide Level 25, Anion Gap 7, Blood Urea Nitrogen 7, Creatinine 0.8, Estimat Glomerular Filtration Rate > 60, Glucose Level 102, Calcium Level 8.7, Total Bilirubin 0.8, Aspartate Amino Transf (AST/SGOT) 43H, Alanine Aminotransferase (ALT/SGPT) 58, Alkaline Phosphatase 89, Total Protein 8.3H, Albumin 2.7L, Globulin 5.6, Albumin/Globulin Ratio 0.5L, Amylase Level 161H, Lipase 874H Height (Feet): 5 Height (Inches): 2.00 Weight (Pounds): 235 General Appearance: no apparent distress EENT: normal ENT inspection Neck: supple Cardiovascular: normal rate Respiratory/Chest: decreased breath sounds Abdomen: normal bowel sounds, non tender, soft Extremities: non-tender Assessment/Plan Status: progressing Assessment/Plan: gallstone pancreatitis? Covid positive pain control needs MRCP but covid + surg in put appreciated repeat labs for tomorrow on reg diet will fu David Kingsley MD Feb 01, 2020 12:59
--- NOTE | 2020-02-01 13:53 | Nephrology Progress Note ---
Assessment/Plan Problem List: (1) Electrolyte imbalance (2) Acute pancreatitis (3) Gall stone (4) 2019 novel coronavirus disease (COVID-19) (5) Proteinuria Assessment Hypokalemia COVID-19 disease Acute pancreatitis with elevated LFTs Gallstone pancreatitis Obesity Hypertension Proteinuria Plan January 31: Labs reviewed. Renal parameters stable. Continue per consultants. January 30: No labs drawn today. Remains stable from renal standpoint of view. January 29: Labs reviewed. Renal parameters stable. Continue per consultants. January 28: Labs reviewed. Stable from renal standpoint of view. Continue per consultants. Low-grade fever persists oral potassium ordered IV fluid adjusted and discontinued Oral Protonix added Continue to monitor renal parameters and electrolytes Continue per consultants Subjective ROS Limited/Unobtainable: No Constitutional: Reports: malaise Objective Objective Last 24 Hour Vital Signs Date Time Temp Pulse Resp B/P (MAP) Pulse Ox O2 Delivery O2 Flow Rate FiO2 02/01/20 08:00 98.6 86 18 127/42 (70) 95 02/01/20 04:00 98.1 88 18 108/64 (79) 96 02/01/20 00:00 98.8 81 18 117/71 (86) 96 01/31/20 21:00 Room Air 01/31/20 20:00 98.1 75 18 109/66 (80) 96 01/31/20 15:16 98.4 77 18 124/74 (91) 98 Intake and Output0 01/31/20 02/01/20 19:00 07:00 Intake Total 1200 ml 400 ml Balance 1200 ml 400 ml Intake Oral 1200 ml 400 ml # Voids 4 3 # Bowel Movements 2 Current Medications Medications (Trade) Dose Ordered Sig/Dipti Route PRN Reason Start Time Stop Time Status Last Admin Dose Admin Ibuprofen (Advil) 400 mg Q6H PRN ORAL Temp >100.5 01/22/20 18:00 02/21/20 17:59 01/30/20 06:29 Ondansetron HCl (Zofran) 4 mg Q6H PRN IVP Nausea & Vomiting 01/22/20 07:30 02/21/20 07:29 Pantoprazole (Protonix) 40 mg EVERY 12 HOURS ORAL 01/28/20 15:00 02/27/20 14:59 02/01/20 10:03 Piperacillin Sod/ Tazobactam Sod 3.375 gm/Sodium Chloride 110 ml @ 27.5 mls/hr EVERY 8 HOURS IVPB 01/23/20 14:00 02/05/20 23:59 02/01/20 05:36 Potassium Chloride (K-Dur) 40 meq TWICE A DAY ORAL 01/27/20 18:00 04/26/20 17:59 02/01/20 10:03 Laboratory Tests 02/01/20 05:30: White Blood Count 5.1, Red Blood Count 4.24, Hemoglobin 12.4, Hematocrit 35.8L, Mean Corpuscular Volume 85, Mean Corpuscular Hemoglobin 29.2, Mean Corpuscular Hemoglobin Concent 34.5, Red Cell Distribution Width 12.3, Platelet Count 249, Mean Platelet Volume 6.4L, Neutrophils (%) (Auto) 62.2, Lymphocytes (%) (Auto) 24.8, Monocytes (%) (Auto) 10.3H, Eosinophils (%) (Auto) 2.3, Basophils (%) (Auto) 0.4, Sodium Level 135L, Potassium Level 4.2, Chloride Level 103, Carbon Dioxide Level 25, Anion Gap 7, Blood Urea Nitrogen 7, Creatinine 0.8, Estimat Glomerular Filtration Rate > 60, Glucose Level 102, Calcium Level 8.7, Total Bilirubin 0.8, Aspartate Amino Transf (AST/SGOT) 43H, Alanine Aminotransferase (ALT/SGPT) 58, Alkaline Phosphatase 89, Total Protein 8.3H, Albumin 2.7L, Johanna bulin 5.6, Albumin/Globulin Ratio 0.5L, Amylase Level 161H, Lipase 874H Height (Feet): 5 Height (Inches): 2.00 Weight (Pounds): 235 Cardiovascular: normal rate Respiratory/Chest: decreased breath sounds - Rate 80s Abdomen: soft Objective No change Rakesh Hammer MD Feb 01, 2020 13:53
--- NOTE | 2020-02-01 15:48 | NUR ---
CASE MANAGEMENT:REVIEW SI;COVID PNEUMONIA. PANCREATITIS. 98.8 88 18 127/42 95% ON RA NA 135 AST 43 ALB 2.7 AMYLASE 161 LIPASE 874 IS;PROTONIX PO Q12 K-DUR PO BID ZOSYN IV Q8 MED SURG STATUS DCP;FROM HOME PLAN;ABD MRI
[2020-02-01 16:00] VITALS: BP 139/84
--- NOTE | 2020-02-01 16:27 | Diagnostic Imaging Report ---
Indication: Acute pancreatitis with elevated transaminases, cholelithiasis, fever Technique: Coronal and axial single shot fast spin-echo breath-hold, axial T2 FRFSE, 2-D thick slab MRCP, AXIAL 2-D FIESTA fat saturated, axial 3-D dual echo breath-hold, water weighted axial LAVA FLEX, revealed 3-D MRCP images were obtained of the abdomen. MIP reconstructions were generated of the bile ducts Comparison: No comparison MRI. Reference made to abdominal sonogram 01/21/2020 Findings: The gallbladder demonstrates 2 very large central gallstones measuring up to 2.7 cm. It also demonstrates multiple smaller gallstones as well as a small amount of sludge. There is no gallbladder wall thickening or pericholecystic edema. On multiple sequences, there is a filling defect in the downstream common bile duct which measures approximately 5 mm length by 2 mm in diameter. On the coronal MRCP images, this appears to be attached to the wall of the common bile duct. The common bile duct is mildly dilated, measuring up to 10 mm in diameter. There is no intrahepatic biliary ductal dilatation. The pancreatic duct is mildly ectatic, measuring up to 3 mm in diameter. No pancreatic head mass or pancreatic cystic lesion demonstrated. There is a slight degree of edema of the peripancreatic fat extending slightly into the anterior Gerota's fascia on the axial T2 fat saturated images. Although this is not clearly visible on the coronal MRCP images. The pancreas is otherwise unremarkable. There is trace pleural fluid bilaterally. The right kidney demonstrates a lower pole cyst and another tiny one in the upper pole. On the fat saturated T2 images, there is also a 5 mm area of decreased signal which is not evident on other images, most likely represents a tiny angiomyolipoma The uterus demonstrates marked thickening of the endometrium, which measures up to 2.9 mm thick. This demonstrates high T2 signal and low T1 signal. This area is included only on the coronal images Impression: Cholelithiasis. No findings to suggest acute cholecystitis Dilated common bile duct and common hepatic duct. Apparent filling defect in the downstream common bile duct, suspicious for choledocholithiasis. Appearing somewhat unusual but suspect that this is a real finding given the presence of cholelithiasis and biliary ductal dilatation Mild ectasia of the pancreatic duct Very questionable peripancreatic edema at the inferior border of the pancreas; suspect artifactual but if real could represent very mild acute pancreatitis, given stated clinical history of such Thickened endometrium, abnormal in a perimenopausal female. 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
--- NOTE | 2020-02-01 19:29 | NUR ---
NURSE HAND-OFF: Important Events on Shift: MRI abdomen complete, tolerating diet well, ambulating, no SOB Patient Status: stable Diet: Regular Pending Orders: N/A Pending Results/Labs: N/A Pending MD notification: N/A Latest Vital Signs: Temperature 99.2 , Pulse 87 , B/P 139 /84 , Respiratory Rate 16 , O2 SAT 97 , Room Air, O2 Flow Rate . Vital Sign Comment: VS stable Latest Xiong Fall Score: 20 Fall Risk: Low Risk Safety Measures: Call light Within Reach, Bed Alarm Zone 1, Side Rails Side Rails x2, Bed position Low and Locked. Fall Precautions: Patient Fall Education Report given to Steph MATA.
[2020-02-01 20:00] VITALS: BP 137/73
--- NOTE | 2020-02-01 21:47 | General Progress Note ---
Subjective ROS Limited/Unobtainable: Yes Allergies: Coded Allergies: No Known Allergies (Unverified , 01/21/20) Objective Last 24 Hour Vital Signs Date Time Temp Pulse Resp B/P (MAP) Pulse Ox O2 Delivery O2 Flow Rate FiO2 02/01/20 20:52 Room Air 02/01/20 20:00 97.8 89 20 137/73 (94) 96 02/01/20 16:00 99.2 87 16 139/84 (102) 97 02/01/20 12:00 99.9 93 16 127/84 (98) 98 02/01/20 09:00 Room Air 02/01/20 08:00 98.6 86 18 127/42 (70) 95 02/01/20 04:00 98.1 88 18 108/64 (79) 96 02/01/20 00:00 98.8 81 18 117/71 (86) 96 Intake and Output 01/31/20 02/01/20 19:00 07:00 Intake Total 1200 ml 400 ml Balance 1200 ml 400 ml Intake Oral 1200 ml 400 ml # Voids 4 3 # Bowel Movements 2 Laboratory Tests 02/01/20 05:30: White Blood Count 5.1, Red Blood Count 4.24, Hemoglobin 12.4, Hematocrit 35.8L, Mean Corpuscular Volume 85, Mean Corpuscular Hemoglobin 29.2, Mean Corpuscular Hemoglobin Concent 34.5, Red Cell Distribution Width 12.3, Platelet Count 249, Mean Platelet Volume 6.4L, Neutrophils (%) (Auto) 62.2, Lymphocytes (%) (Auto) 24.8, Monocytes (%) (Auto) 10.3H, Eosinophils (%) (Auto) 2.3, Basophils (%) (Au to) 0.4, Sodium Level 135L, Potassium Level 4.2, Chloride Level 103, Carbon Dioxide Level 25, Anion Gap 7, Blood Urea Nitrogen 7, Creatinine 0.8, Estimat Glomerular Filtration Rate > 60, Glucose Level 102, Calcium Level 8.7, Total Bilirubin 0.8, Aspartate Amino Transf (AST/SGOT) 43H, Alanine Aminotransferase (ALT/SGPT) 58, Alkaline Phosphatase 89, Total Protein 8.3H, Albumin 2.7L, Globulin 5.6, Albumin/Globulin Ratio 0.5L, Amylase Level 161H, Lipase 874H Height (Feet): 5 Height (Inches): 2.00 Weight (Pounds): 235 Assessment/Plan Problem List: (1) Acute pancreatitis ICD Codes: K85.90 - Acute pancreatitis without necrosis or infection, uns pecified SNOMED: [id number] Qualifiers: Qualified Codes: K85.10 - Biliary acute pancreatitis without necrosis or infection (2) Gall stone ICD Codes: K80.20 - Calculus of gallbladder without cholecystitis without obstruction SNOMED: [id number] Qualifiers: Qualified Codes: K80.20 - Calculus of gallbladder without cholecystitis without obstruction (3) Lab test positive for detection of COVID-19 virus ICD Codes: U07.1 - COVID-19 SNOMED: [id number] Status: progressing Assessment/Plan: covid positive pna pancreatitis s/p hypoxica prn supportive care Ronny Win MD Feb 01, 2020 21:47
[2020-02-02] VITALS: BP_SYST 117; BP_SYST 120; BP_DIAS 74; BP_DIAS 76
[2020-02-02 04:00] VITALS: BP 117/76
[2020-02-02] MEDS: Piperacillin/Tazobactam 3.375 GM in NS 110 ML IVPB SCH ×3 (05:20→20:39)
--- NOTE | 2020-02-02 06:25 | NUR ---
NURSE HAND-OFF: Important Events on Shift:fever Patient Status: stable Diet: reg Pending Orders: Pending Results/Labs: Pending MD notification: Latest Vital Signs: Temperature 98.4 , Pulse 105 , B/P 117 /76 , Respiratory Rate 21 , O2 SAT 93 , Room Air, O2 Flow Rate . Vital Sign Comment: [] Latest Xiong Fall Score: 20 Fall Risk: Low Risk Safety Measures: Call light Within Reach, Bed Alarm Zone 1, Side Rails Side Rails x2, Bed position Low and Locked. Fall Precautions: Beka Do Patient Fall Education Addendum: 02/02/20 at 0732 by LIZZETH ANNE RN RN HAND-OFF: Report given to
--- NOTE | 2020-02-02 07:48 | NUR ---
NURSE NOTES: Patient alert x4; no sing of distress and shortness of breath; no sing of chest pain; IV Right W flushes well; side rails up x2, breaks engaged, bed at lowest position; call light within reach; will keep monitoring.
[2020-02-02 08:00] VITALS: BP 135/68
--- NOTE | 2020-02-02 08:50 | NUR ---
NURSE NOTES: storage battery charger received call from Dr. Kingsley to do rapid covid test for possible MRCP. supervisor food checkers and cashiers made aware.
--- NOTE | 2020-02-02 09:06 | General Progress Note ---
Subjective ROS Limited/Unobtainable: Yes Allergies: Coded Allergies: No Known Allergies (Unverified , 01/21/20) Objective Last 24 Hour Vital Signs Date Time Temp Pulse Resp B/P (MAP) Pulse Ox O2 Delivery O2 Flow Rate FiO2 02/02/20 05:18 98.4 02/02/20 04:00 100.3 105 21 117/76 (90) 93 02/02/20 00:00 98.3 81 20 120/74 (89) 97 02/01/20 20:52 Room Air 02/01/20 20:00 97.8 89 20 137/73 (94) 96 02/01/20 16:00 99.2 87 16 139/84 (102) 97 02/01/20 12:00 99.9 93 16 127/84 (98) 98 02/01/20 09:00 Room Air Intake and Output 02/01/20 02/02/20 19:00 07:00 Intake Total 1220 ml 110.0 ml Balance 1220 ml 110.0 ml Intake Oral 1000 ml IV Total 220 ml 110.0 ml # Voids 2 2 Height (Feet): 5 Height (Inches): 2.00 Weight (Pounds): 235 General Appearance: no apparent distress EENT: normal ENT inspection Neck: supple Cardiovascular: normal rate Respiratory/Chest: lungs clear Abdomen: normal bowel sounds, non tender, soft Extremities: non-tender Assessment/Plan Status: progressing Assessment/Plan: gallstone pancreatitis? Covid positive pain control surg in put appreciated repeat labs for tomorrow on reg diet MRCP reviewed plan ERCP for tomorrow D/W ID>>> patient can be taken off of isolation David Kingsley MD Feb 02, 2020 09:06
--- NOTE | 2020-02-02 09:10 | Pulmonology Progress Note ---
Subjective ROS Limited/Unobtainable: No Interval Events: fever overnight, controlled Constitutional: Reports: no symptoms HEENT: Repors: no symptoms Respiratory: Reports: no symptoms Cardiovascular: Reports: no symptoms Gastrointestinal/Abdominal: Reports: no symptoms Genitourinary: Reports: no symptoms Allergies: Coded Allergies: No Known Allergies (Unverified , 01/21/20) Objective Last 24 Hour Vital Signs Date Time Temp Pulse Resp B/P (MAP) Pulse Ox O2 Delivery O2 Flow Rate FiO2 02/02/20 05:18 98.4 02/02/20 04:00 100.3 105 21 117/76 (90) 93 02/02/20 00:00 98.3 81 20 120/74 (89) 97 02/01/20 20:52 Room Air 02/01/20 20:00 97.8 89 20 137/73 (94) 96 02/01/20 16:00 99.2 87 16 139/84 (102) 97 02/01/20 12:00 99.9 93 16 127/84 (98) 98 Intake and Output 02/01/20 02/02/20 19:00 07:00 Intake Total 1220 ml 110.0 ml Balance 1220 ml 110.0 ml Intake Oral 1000 ml IV Total 220 ml 110.0 ml # Voids 2 2 Objective 02/01 room air; fever again overnight; now NPO 01/31 room air; no fever; tolerating diet 01/30 room air; no fever overnight; tolerating diet 01/29 room air; intermittent fever 01/28 continues to saturate well on RA; persistent low grade fever, better with ibuprofen 01/27 saturating well on RA; NAD 01/27/2020 continues to saturate well on RA; NAD 01/26/2020 saturating well on room air; NAD; sitting on her bed 01/25/2020 saturating well on room air 01/24/2020 pt eating in bed; saturating well on room air 01/23/2020 NAD; on room air 01/22/2020 saturating well on room air; NAD General Appearance: WD/WN, no acute distress HEENT: normocephalic Respiratory: lungs clear Cardiovascular: normal rate, regular rhythm, no gallop/murmur Abdomen: soft, non tender Neurologic: alert, oriented x 3, responsive Current Medications Medications (Trade) Dose Ordered Sig/Dipti Route PRN Reason Start Time Stop Time Status Last Admin Dose Admin Ibuprofen (Advil) 400 mg Q6H PRN ORAL Temp >100.5 01/22/20 18:00 02/21/20 17:59 02/02/20 04:48 Ondansetron HCl (Zofran) 4 mg Q6H PRN IVP Nausea & Vomiting 01/22/20 07:30 02/21/20 07:29 Pantoprazole (Protonix) 40 mg EVERY 12 HOURS ORAL 01/28/20 15:00 02/27/20 14:59 02/01/20 21:10 Piperacillin Sod/ Tazobactam Sod 3.375 gm/Sodium Chloride 110 ml @ 27.5 mls/hr EVERY 8 HOURS IVPB 01/23/20 14:00 02/05/20 23:59 02/02/20 05:20 Potassium Chloride (K-Dur) 40 meq TWICE A DAY ORAL 01/27/20 18:00 04/26/20 17:59 02/01/20 17:50 Assessment/Plan Assessment/Plan 1. Transaminitis 2. Pancreatitis. - elevated amylase, lipase; no am labs today - s/p IVF - pain control - on zosyn per Dr. Santiago - MRCP pending per COVID-19 positive status; repeat rapid COVID-19 test pending collection - MRI abd result noted; cholelithiasis, possible very mild acute pancreatitis - per Dr. Kingsley, Dr. Santiago 3. Positive COVID-19. -Currently no intervention required for Covid19 due to her normoxemic status on RA - repeat rapid COVID-19 test pending collection 4. Hypertension 5. Fever - Blood Cx showed no growth - better with ibuprofen prn fever The care of this patient was discussed with my supervising physician Time spent for this encounter was approximately 31 minutes Steven Bergman Feb 02, 2020 09:10
--- NOTE | 2020-02-02 11:06 | NUR ---
NURSE NOTES: There is an order to get consent for ERCP; I tried to reach patient's daughter Natasha Cardenas; however, the call wasn't picked up; will keep trying.
[2020-02-02 12:00] VITALS: BP 113/66
--- NOTE | 2020-02-02 12:18 | Infectious Diseases Prog Note ---
Assessment/Plan Assessment/Plan antibiotics : zosyn A 1. COVID-19 disease on room air, 97 % saturation 2. Acute pancreatitis 3. Cholelithiasis 4. Morbid obesity. 5. Fever improving P 1. continue zosyn 2. ERCP planned tomorrow Subjective Constitutional: Denies: fever, chills Respiratory: Denies: shortness of breath, dry cough Gastrointestinal/Abdominal: Denies: nausea, vomiting, diarrhea Musculoskeletal: Denies: pain Allergies: Coded Allergies: No Known Allergies (Unverified , 01/21/20) Objective Last 24 Hour Vital Signs Date Time Temp Pulse Resp B/P (MAP) Pulse Ox O2 Delivery O2 Flow Rate FiO2 02/02/20 09:00 Room Air 02/02/20 08:00 98.4 84 20 135/68 (90) 96 02/02/20 05:18 98.4 02/02/20 04:00 100.3 105 21 117/76 (90) 93 02/02/20 00:00 98.3 81 20 120/74 (89) 97 02/01/20 20:52 Room Air 02/01/20 20:00 97.8 89 20 137/73 (94) 96 02/01/20 16:00 99.2 87 16 139/84 (102) 97 Height (Feet): 5 Height (Inches): 2.00 Weight (Pounds): 235 Current Medications Medications (Trade) Dose Ordered Sig/Dipti Route PRN Reason Start Time Stop Time Status Last Admin Dose Admin Ibuprofen (Advil) 400 mg Q6H PRN ORAL Temp >100.5 01/22/20 18:00 02/21/20 17:59 02/02/20 04:48 Ondansetron HCl (Zofran) 4 mg Q6H PRN IVP Nausea & Vomiting 01/22/20 07:30 02/21/20 07:29 Pantoprazole (Protonix) 40 mg EVERY 12 HOURS ORAL 01/28/20 15:00 02/27/20 14:59 02/02/20 09:37 Piperacillin Sod/ Tazobactam Sod 3.375 gm/Sodium Chloride 110 ml @ 27.5 mls/hr EVERY 8 HOURS IVPB 01/23/20 14:00 02/05/20 23:59 02/02/20 05:20 Potassium Chloride (K-Dur) 40 meq TWICE A DAY ORAL 01/27/20 18:00 04/26/20 17:59 02/02/20 09:37 Dru Ferguson MD Feb 02, 2020 12:18
--- NOTE | 2020-02-02 12:18 | Nephrology Progress Note ---
Assessment/Plan Problem List: (1) Electrolyte imbalance (2) Acute pancreatitis (3) Gall stone (4) 2019 novel coronavirus disease (COVID-19) (5) Proteinuria Assessment Hypokalemia COVID-19 disease Acute pancreatitis with elevated LFTs Gallstone pancreatitis Obesity Hypertension Proteinuria Plan February 01: No labs drawn today. Remains stable from renal standpoint of view. January 31: Labs reviewed. Renal parameters stable. Continue per consultants. January 30: No labs drawn today. Remains stable from renal standpoint of view. January 29: Labs reviewed. Renal parameters stable. Continue per consultants. January 28: Labs reviewed. Stable from renal standpoint of view. Continue per consultants. Low-grade fever persists oral potassium ordered IV fluid adjusted and discontinued Oral Protonix added Continue to monitor renal parameters and electrolytes Continue per consultants Subjective ROS Limited/Unobtainable: No Constitutional: Reports: malaise Objective Objective Last 24 Hour Vital Signs Date Time Temp Pulse Resp B/P (MAP) Pulse Ox O2 Delivery O2 Flow Rate FiO2 02/02/20 09:00 Room Air 02/02/20 08:00 98.4 84 20 135/68 (90) 96 02/02/20 05:18 98.4 02/02/20 04:00 100.3 105 21 117/76 (90) 93 02/02/20 00:00 98.3 81 20 120/74 (89) 97 02/01/20 20:52 Room Air 02/01/20 20:00 97.8 89 20 137/73 (94) 96 02/01/20 16:00 99.2 87 16 139/84 (102) 97 Intake and Output 02/01/20 02/02/20 19:00 07:00 Intake Total 1220 ml 110.0 ml Balance 1220 ml 110.0 ml Intake Oral 1000 ml IV Total 220 ml 110.0 ml # Voids 2 2 Height (Feet): 5 Height (Inches): 2.00 Weight (Pounds): 235 General Appearance: no apparent distress Cardiovascular: normal rate Respiratory/Chest: decreased breath sounds Abdomen: distended Objective No change Rakesh Hammer MD Feb 02, 2020 12:18
--- NOTE | 2020-02-02 12:21 | Surgery Progress Note ---
Surgery Progress Note Subjective Additional Comments mri noted choledocholithiasis plan for ercp Objective Last 24 Hour Vital Signs Date Time Temp Pulse Resp B/P (MAP) Pulse Ox O2 Delivery O2 Flow Rate FiO2 02/02/20 09:00 Room Air 02/02/20 08:00 98.4 84 20 135/68 (90) 96 02/02/20 05:18 98.4 02/02/20 04:00 100.3 105 21 117/76 (90) 93 02/02/20 00:00 98.3 81 20 120/74 (89) 97 02/01/20 20:52 Room Air 02/01/20 20:00 97.8 89 20 137/73 (94) 96 02/01/20 16:00 99.2 87 16 139/84 (102) 97 I&O Intake and Output 02/01/20 02/02/20 19:00 07:00 Intake Total 1220 ml 110.0 ml Balance 1220 ml 110.0 ml Intake Oral 1000 ml IV Total 220 ml 110.0 ml # Voids 2 2 Cardiovascular: RSR Respiratory: clear Abdomen: soft, non-tender, present bowel sounds Extremities: no edema, no tenderness, no cyanosis Plan Problems: (1) Acute pancreatitis Assessment & Plan: 51-year-old female acute pancreatitis potentially gallstone related. Afebrile hemodynamic stable labs improved. No nausea vomiting fever chills. Pain is resolved. No acute surgical intervention planned. Continue with work-up. Trend labs. GI input appreciated. Will follow with recommendations. Thank you npo iv fluids iv abx trend labs bowel rest will follow with recs thank you febrile tolerating diet labs improving trend labs cont diet cont abx needs mrcp but covid + labs noted exam benign pending covid mrcp noted plan ercp Liver: See below. Gallbladder: There is cholelithiasis. A 2.6 cm gallstone is noted. Gallbladder wall measures 0.45 cm and is thickened. Common bile duct: Suboptimal evaluation of the common bile duct due to bowel gas. No stones. No dilation. Pancreas: Unremarkable as visualized. Kidneys: Right kidney measures 9.8 x 5 x 5 cm. Left kidney measures 9. 3 x 4.9 x 4.7 cm. No hydronephrosis. No stones. Spleen: Spleen measures 9.3 cm and is unremarkable. Aorta: Abdominal aorta is normal in caliber. Liver measures 15.9 cm. Partial evaluation of the abdominal aorta which is grossly unremarkable. No aneurysm. Inferior vena cava: Unremarkable. IMPRESSION: 1. Limited evaluation due to bowel gas. 2. Cholelithiasis. 3. Gallbladder wall measures 0.45 cm and is diffusely thickened. Clinical correlation is necessary. 4. No pericholecystic fluid noted however. Markedly limited evaluation of the common bile duct due to bowel gas. 5. Clinical correlation is necessary. The gallbladder demonstrates 2 very large central gallstones measuring up to 2.7 cm. It also demonstrates multiple smaller gallstones as well as a small amount of sludge. There is no gallbladder wall thickening or pericholecystic edema. On multiple sequences, there is a filling defect in the downstream common bile duct which measures approximately 5 mm length by 2 mm in diameter. On the coronal MRCP images, this appears to be attached to the wall of the common bile duct. The common bile duct is mildly dilated, measuring up to 10 mm in diameter. There is no intrahepatic biliary ductal dilatation. The pancreatic duct is mildly ectatic, measuring up to 3 mm in diameter. No pancreatic head mass or pancreatic cystic lesion demonstrated. There is a slight degree of edema of the peripancreatic fat extending slightly into the anterior Gerota's fascia on the axial T2 fat saturated images. Although this is not clearly visible on the coronal MRCP images. The pancreas is otherwise unremarkable. There is trace pleural fluid bilaterally. The right kidney demonstrates a lower pole cyst and another tiny one in the upper pole. On the fat saturated T2 images, there is also a 5 mm area of decreased signal which is not evident on other images, most likely represents a tiny angiomyolipoma The uterus demonstrates marked thickening of the endometrium, which measures up to 2.9 mm thick. This demonstrates high T2 signal and low T1 signal. This area is included only on the coronal images Impression: Cholelithiasis. No findings to suggest acute cholecystitis Dilated common bile duct and common hepatic duct. Apparent filling defect in the downstream common bile duct, suspicious for choledocholithiasis. Appearing somewhat unusual but suspect that this is a real finding given the presence of cholelithiasis and biliary ductal dilatation Mild ectasia of the pancreatic duct Very questionable peripancreatic edema at the inferior border of the pancreas; suspect artifactual but if real could represent very mild acute pancreatitis, given stated clinical history of such Thickened endometrium, abnormal in a perimenopausal female. Recommend further evaluation with sonography Suspect trace bilateral pleural effusions Incidental findings small right renal cysts and probable small right renal angiomyolipoma (2) Gall stone (3) Lab test positive for detection of COVID-19 virus Jalil Santiago Feb 02, 2020 12:21
--- NOTE | 2020-02-02 15:59 | NUR ---
CASE MANAGEMENT:REVIEW SI;COVID PNEUMONIA. PANCREATITIS. 100.3 105 21 135/68 93% ON RA IS;ZOSYN IV Q8 PROTONIX PO Q12 K-DUR PO B ID MED SURG STATUS DCP;FROM HOME PLAN; ERCP
[2020-02-02 16:00] VITALS: BP 106/61
--- NOTE | 2020-02-02 19:27 | NUR ---
NURSE HAND-OFF: Important Events on Shift:COVID-19 Rapid swap positive; ERCP cancled Patient Status: Diet: Pending Orders: Pending Results/Labs: Pending MD notification: Latest Vital Signs: Temperature 98.7 , Pulse 83 , B/P 106 /61 , Respiratory Rate 20 , O2 SAT 96 , Room Air, O2 Flow Rate . Vital Sign Comment: Latest Xiong Fall Score: 20 Fall Risk: Low Risk Safety Measures: Call light Within Reach, Bed Alarm Zone 1, Side Rails Side Rails x2, Bed position Low and Locked. Fall Precautions: Yellow Socks Patient Fall Education Report given to .
--- NOTE | 2020-02-02 19:32 | NUR ---
NURSE NOTES: Pt is AAO x 4, on room air. No labored breathing. Denies pain or discomfort. Ambulatory. IV site intact and patent. Bed locked, in lowest position, bed alarm on, side rails up, call light within reach. Instructed to call for assistance as needed. Will continue to monitor.
--- NOTE | 2020-02-02 20:31 | General Progress Note ---
Subjective ROS Limited/Unobtainable: Yes Allergies: Coded Allergies: No Known Allergies (Unverified , 01/21/20) Objective Last 24 Hour Vital Signs Date Time Temp Pulse Resp B/P (MAP) Pulse Ox O2 Delivery O2 Flow Rate FiO2 02/02/20 16:00 98.7 83 20 106/61 (76) 96 02/02/20 12:00 98.0 81 20 113/66 (82) 96 02/02/20 09:00 Room Air 02/02/20 08:00 98.4 84 20 135/68 (90) 96 02/02/20 05:18 98.4 02/02/20 04:00 100.3 105 21 117/76 (90) 93 02/02/20 00:00 98.3 81 20 120/74 (89) 97 02/01/20 20:52 Room Air Intake and Output 02/01/20 02/02/20 19:00 07:00 Intake Total 1220 ml 110.0 ml Balance 1220 ml 110.0 ml Intake Oral 1000 ml IV Total 220 ml 110.0 ml # Voids 2 2 Height (Feet): 5 Height (Inches): 2.00 Weight (Pounds): 235 Assessment/Plan Problem List: (1) Acute pancreatitis ICD Codes: K85.90 - Acute pancreatitis without necrosis or infection, unspecified SNOMED: 506359135 Qualifiers: Qualified Codes: K85.10 - Biliary acute pancreatitis without necrosis or infection (2) Gall stone ICD Codes: K80.20 - Calculus of gallbladder without cholecystitis without obstruction SNOMED: 793792841 Qualifiers: Qualified Codes: K80.20 - Calculus of gallbladder without cholecystitis without obstruction (3) Lab test positive for detection of COVID-19 virus ICD Codes: U07.1 - COVID-19 SNOMED: 3339184288784191 Status: progressing Assessment/Plan: covid positive pna pancreatitis diet per gi no change check lipase afebrile Ronny Win MD Feb 02, 2020 20:31
[2020-02-03] VITALS: BP 130/65
[2020-02-03 04:00] VITALS: BP 122/72
[2020-02-03] MEDS: Piperacillin/Tazobactam 3.375 GM in NS 110 ML IVPB SCH ×3 (04:51→21:07)
--- NOTE | 2020-02-03 07:29 | NUR ---
NURSE HAND-OFF: Important Events on Shift:uneventful overnight, covid positive ERCP cancelled Patient Status: Diet: Pending Orders: Pending Results/Labs: Pending MD notification: Latest Vital Signs: Temperature 99.0 , Pulse 82 , B/P 122 /72 , Respiratory Rate 20 , Latest Xiong Fall Score: 20 Fall Risk: Low Risk Safety Measures: Call light Within Reach, Bed Alarm Zone 1, Side Rails Side Rails x2, Bed position Low and Locked. Fall Precautions: Yellow Socks Patient Fall Education Report given to . Latest Xiong Fall Score: 20 Fall Risk: Low Risk Safety Measures: Call light Within Reach, Bed Alarm Zone 1, Side Rails Side Rails x2, Bed position Low and Locked. Fall Precautions: Yellow Socks Patient Fall Education Report given to Keara MATA
--- NOTE | 2020-02-03 07:30 | NUR ---
NURSE NOTES: Patient is in bed awake and able to verbalize needs. Stable. Breathing is even and unlabored. Denies pain or SOB at this time. Patient instructed to use call light for assistance, verbalized understanding. All safety measures provided. Patient is in bed in locked and lowest position with call light within reach. All needs met at this time. Will continue to monitor.
[2020-02-03 07:36] LABS: ALANINE AMINOTRANSFERASE 78 U/L (12-78); ALBUMIN 2.8 G/DL (3.4-5.0); ALBUMIN/GLOBULIN RATIO 0.5 (1.0-2.7); ALKALINE PHOSPHATASE 84 U/L (46-116); ANION GAP 8 mmol/L (5-15); ASPARTATE AMINO TRANSFERASE 41 U/L (15-37); BILIRUBIN,TOTAL 0.8 MG/DL (0.2-1.0); BLOOD UREA NITROGEN 7 mg/dL (7-18); CALCIUM 8.5 MG/DL (8.5-10.1); CARBON DIOXIDE 27 MMOL/L (21-32); CHLORIDE 100 MMOL/L (98-107); CREATININE 0.9 MG/DL (0.55-1.30); SODIUM 135 MMOL/L (136-145)
[2020-02-03 08:00] VITALS: BP 120/74
[2020-02-03 08:11] LABS: BASOPHILS % (AUTO) 0.3 % (0.0-2.0); EOSINOPHILS % (AUTO) 2.2 % (0.0-3.0); HEMATOCRIT 40.7 % (37.0-47.0); HEMOGLOBIN 13.4 G/DL (12.0-16.0); LYMPHOCYTES % (AUTO) 19.4 % (20.0-45.0); MEAN CORPUSCULAR VOLUME 91 FL (80-99); NEUTROPHILS % (AUTO) 69.1 % (45.0-75.0); PLATELET COUNT 272 K/UL (150-450); RED BLOOD COUNT 4.48 M/UL (4.20-5.40); RED CELL DISTRIBUTION WIDTH 12.4 % (11.6-14.8); WHITE BLOOD COUNT 4.1 K/UL (4.8-10.8)
--- NOTE | 2020-02-03 09:05 | Pulmonology Progress Note ---
Subjective ROS Limited/Unobtainable: Yes Interval Events: low grade fever on and off, better with advil Constitutional: Denies: fever, chills HEENT: Repors: no symptoms Respiratory: Reports: no symptoms Cardiovascular: Reports: no symptoms Gastrointestinal/Abdominal: Denies: nausea, vomiting, diarrhea Genitourinary: Reports: no symptoms Musculoskeletal: Denies: pain Allergies: Coded Allergies: No Known Allergies (Unverified , 01/21/20) Objective Last 24 Hour Vital Signs Date Time Temp Pulse Resp B/P (MAP) Pulse Ox O2 Delivery O2 Flow Rate FiO2 02/03/20 08:00 98.1 81 18 120/74 (89) 98 02/03/20 05:33 99.0 02/03/20 04:00 100.2 82 20 122/72 (89) 96 02/03/20 00:00 98.1 97 20 130/65 (86) 98 02/02/20 21:00 Room Air 02/02/20 16:00 98.7 83 20 106/61 (76) 96 02/02/20 12:00 98.0 81 20 113/66 (82) 96 Intake and Output 02/02/20 02/03/20 19:00 07:00 Intake Total 960.0 ml 110.0 ml Balance 960.0 ml 110.0 ml Intake Oral 850 ml IV Total 110.0 ml 110.0 ml # Voids 4 3 Objective 02/02 room air; low grade fever, better with advil 02/01 room air; fever again overnight; now NPO 01/31 room air; no fever; tolerating diet 01/30 room air; no fever overnight; tolerating diet 01/29 room air; intermittent fever 01/28 continues to saturate well on RA; persistent low grade fever, better with ibuprofen 01/27 saturating well on RA; NAD 01/27/2020 continues to saturate well on RA; NAD 01/26/2020 saturating well on room air; NAD; sitting on her bed 01/25/2020 saturating well on room air 01/24/2020 pt eating in bed; saturating well on room air 01/23/2020 NAD; on room air 01/22/2020 saturating well on room air; NAD General Appearance: WD/WN, no acute distress HEENT: normocephalic Respiratory: lungs clear Cardiovascular: normal rate, regular rhythm, no gallop/murmur Abdomen: soft, non tender Neurologic: alert, oriented x 3, responsive Microbiology Date/Time Source Procedure Growth Status 02/02/20 09:47 Nasopharynx SARS-CoV-2 RdRp Gene Assay - Final Complete Laboratory Tests 02/03/20 03:00: White Blood Count 4.1L, Red Blood Count 4.48, Hemoglobin 13.4, Hematocrit 40.7, Mean Corpuscular Volume 91, Mean Corpuscular Hemoglobin 29.8, Mean Corpuscular Hemoglobin Concent 32.9, Red Cell Distribution Width 12.4, Platelet Count 272, Mean Platelet Volume 6.3L, Neutrophils (%) (Auto) 69.1, Lymphocytes (%) (Auto) 19.4L, Monocytes (%) (Auto) 9.0, Eosinophils (%) (Auto) 2.2, Basophils (%) (Auto) 0.3, Sodium Level 135L, Potassium Level 4.0, Chloride Level 100, Carbon Dioxide Level 27, Anion Gap 8, Blood Urea Nitrogen 7, Creatinine 0.9, Estimat Glomerular Filtration Rate > 60, Glucose Level 102, Calcium Level 8.5, Total Bilirubin 0.8, Aspartate Amino Transf (AST/SGOT) 41H, Alanine Aminotransferase (ALT/SGPT) 78, Alkaline Phosphatase 84, Total Protein 8.7H, Albumin 2.8L, Globulin 5.9, Albumin/Globulin Ratio 0.5L Current Medications Medications (Trade) Dose Ordered Sig/Dipti Route PRN Reason Start Time Stop Time Status Last Admin Dose Admin Ibuprofen (Advil) 400 mg Q6H PRN ORAL Temp >100.5 01/22/20 18:00 02/21/20 17:59 02/03/20 05:03 Ondansetron HCl (Zofran) 4 mg Q6H PRN IVP Nausea & Vomiting 01/22/20 07:30 02/21/20 07:29 Pantoprazole (Protonix) 40 mg EVERY 12 HOURS ORAL 01/28/20 15:00 02/27/20 14:59 02/03/20 08:53 Piperacillin Sod/ Tazobactam Sod 3.375 gm/Sodium Chloride 110 ml @ 27.5 mls/hr EVERY 8 HOURS IVPB 01/23/20 14:00 02/05/20 23:59 12/24/20 04:51 Potassium Chloride (K-Dur) 40 meq TWICE A DAY ORAL 01/27/20 18:00 04/26/20 17:59 02/03/20 08:53 Assessment/Plan Assessment/Plan 1. Transaminitis 2. Pancreatitis. - elevated amylase, lipase; no am labs today - s/p IVF - pain control - on zosyn per Dr. Santiago - ERCP held since repeat rapid COVID-19 positive 02/01 - MRI abd result noted; cholelithiasis, possible very mild acute pancreatitis - per Dr. Kingsley, Dr. Santiago 3. Positive COVID-19. -Currently no intervention required for Covid19 due to her normoxemic status on RA - repeat rapid COVID-19 test positive 02/01 4. Hypertension 5. Fever - Blood Cx showed no growth - better with ibuprofen prn fever The care of this patient was discussed with my supervising physician Time spent for this encounter was approximately 31 minutes Steven Bergman Feb 03, 2020 09:05 Bubba Penny MD Feb 04, 2020 11:21
--- NOTE | 2020-02-03 09:25 | General Progress Note ---
Subjective ROS Limited/Unobtainable: No Allergies: Coded Allergies: No Known Allergies (Unverified , 01/21/20) Objective Last 24 Hour Vital Signs Date Time Temp Pulse Resp B/P (MAP) Pulse Ox O2 Delivery O2 Flow Rate FiO2 02/03/20 08:00 98.1 81 18 120/74 (89) 98 02/03/20 05:33 99.0 02/03/20 04:00 100.2 82 20 122/72 (89) 96 02/03/20 00:00 98.1 97 20 130/65 (86) 98 02/02/20 21:00 Room Air 02/02/20 16:00 98.7 83 20 106/61 (76) 96 02/02/20 12:00 98.0 81 20 113/66 (82) 96 Intake and Output 02/02/20 02/03/20 19:00 07:00 Intake Total 960.0 ml 110.0 ml Balance 960.0 ml 110.0 ml Intake Oral 850 ml IV Total 110.0 ml 110.0 ml # Voids 4 3 Laboratory Tests 02/03/20 03:00: White Blood Count 4.1L, Red Blood Count 4.48, Hemoglobin 13.4, Hematocrit 40.7, Mean Corpuscular Volume 91, Mean Corpuscular Hemoglobin 29.8, Mean Corpuscular Hemoglobin Concent 32.9, Red Cell Distribution Width 12.4, Platelet Count 272, Mean Platelet Volume 6.3L, Neutrophils (%) (Auto) 69.1, Lymphocytes (%) (Auto) 19.4L, Monocytes (%) (Auto) 9.0, Eosinophils (%) (Auto) 2.2, Basophils (%) (Auto) 0.3, Sodium Level 135L, Potassium Level 4.0, Chloride Level 100, Carbon Dioxide Level 27, Anion Gap 8, Blood Urea Nitrogen 7, Creatinine 0.9, Estimat Glomerular Filtration Rate > 60, Glucose Level 102, Calcium Level 8.5, Total Bilirubin 0.8, Aspartate Amino Transf (AST/SGOT) 41H, Alanine Aminotransferase (ALT/SGPT) 78, Alkaline Phosphatase 84, Total Protein 8.7H, Albumin 2.8L, Globulin 5.9, Albumin/Globulin Ratio 0.5L Height (Feet): 5 Height (Inches): 2.00 Weight (Pounds): 235 General Appearance: alert EENT: normal ENT inspection Neck: supple Cardiovascular: normal rate Respiratory/Chest: decreased breath sounds Abdomen: normal bowel sounds, non tender, soft Extremities: non-tender Assessment/Plan Status: progressing Assessment/Plan: gallstone pancreatitis? Covid positive pain control surg in put appreciated repeat labs for tomorrow on reg diet MRCP reviewed ercp canceled today due to stable LFTS and still Covid + resume diet will fu plan ERCP next week David Kingsley MD Feb 03, 2020 09:25
[2020-02-03 12:00] VITALS: BP 133/87
--- NOTE | 2020-02-03 13:15 | General Progress Note ---
Subjective ROS Limited/Unobtainable: Yes Allergies: Coded Allergies: No Known Allergies (Unverified , 01/21/20) Objective Last 24 Hour Vital Signs Date Time Temp Pulse Resp B/P (MAP) Pulse Ox O2 Delivery O2 Flow Rate FiO2 02/03/20 12:00 99.1 97 20 133/87 (102) 98 02/03/20 09:00 Room Air 02/03/20 08:00 98.1 81 18 120/74 (89) 98 02/03/20 05:33 99.0 02/03/20 04:00 100.2 82 20 122/72 (89) 96 02/03/20 00:00 98.1 97 20 130/65 (86) 98 02/02/20 21:00 Room Air 02/02/20 16:00 98.7 83 20 106/61 (76) 96 Intake and Output 02/02/20 02/03/20 19:00 07:00 Intake Total 960.0 ml 110.0 ml Balance 960.0 ml 110.0 ml Intake Oral 850 ml IV Total 110.0 ml 110.0 ml # Voids 4 3 Laboratory Tests 02/03/20 03:00: White Blood Count 4.1L, Red Blood Count 4.48, Hemoglobin 13.4, Hematocrit 40.7, Mean Corpuscular Volume 91, Mean Corpuscular Hemoglobin 29.8, Mean Corpuscular Hemoglobin Concent 32.9, Red Cell Distribution Width 12.4, Platelet Count 272, Mean Platelet Volume 6.3L, Neutrophils (%) (Auto) 69.1, Lymphocytes (%) (Auto) 19.4L, Monocytes (%) (Auto) 9.0, Eosinophils (%) (Auto) 2.2, Basophils (%) (Auto) 0.3, Sodium Level 135L, Potassium Level 4.0, Chloride Level 100, Carbon Dioxide Level 27, Anion Gap 8, Blood Urea Nitrogen 7, Creatinine 0.9, Estimat Glomerular Filtration Rate > 60, Glucose Level 102, Calcium Level 8.5, Total Bilirubin 0.8, Aspartate Amino Transf (AST/SGOT) 41H, Alanine Aminotransferase (ALT/SGPT) 78, Alkaline Phosphatase 84, Total Protein 8.7H, Albumin 2.8L, Globulin 5.9, Albumin/Globulin Ratio 0.5L Height (Feet): 5 Height (Inches): 2.00 Weight (Pounds): 235 Assessment/Plan Problem List: (1) Acute pancreatitis ICD Codes: K85.90 - Acute pancreatitis without necrosis or infection, unspecified SNOMED: [id number] Qualifiers: Qualified Codes: K85.10 - Biliary acute pancreatitis without necrosis or infection (2) Gall stone ICD Codes: K80.20 - Calculus of gallbladder without cholecystitis without obstruction SNOMED: [id number] Qualifiers: Qualified Codes: K80.20 - Calculus of gallbladder without cholecystitis without obstruction (3) Lab test positive for detection of COVID-19 virus ICD Codes: U07.1 - COVID-19 SNOMED: 3814812296972493 Status: progressing Assessment/Plan: covid positive pna pancreatitis no abdominal pain afebrile improved lipase Ronny Win MD Feb 03, 2020 13:15
--- NOTE | 2020-02-03 13:27 | Nephrology Progress Note ---
Assessment/Plan Problem List: (1) Electrolyte imbalance (2) Acute pancreatitis (3) Gall stone (4) 2019 novel coronavirus disease (COVID-19) (5) Proteinuria Assessment Hypokalemia COVID-19 disease Acute pancreatitis with elevated LFTs Gallstone pancreatitis Obesity Hypertension Proteinuria Plan February 02: Labs reviewed. Serum sodium 135 stable. Continue per consultants. February 01: No labs drawn today. Remains stable from renal standpoint of view. January 31: Labs reviewed. Renal parameters stable. Continue per consultants. January 30: No labs drawn today. Remains stable from renal standpoint of view. January 29: Labs reviewed. Renal parameters stable. Continue per consultants. January 28: Labs reviewed. Stable from renal standpoint of view. Continue per consultants. Low-grade fever persists oral potassium ordered IV fluid adjusted and discontinued Oral Protonix added Continue to monitor renal parameters and electrolytes Continue per consultants Subjective ROS Limited/Unobtainable: No Constitutional: Reports: malaise Objective Objective Last 24 Hour Vital Signs Date Time Temp Pulse Resp B/P (MAP) Pulse Ox O2 Delivery O2 Flow Rate FiO2 02/03/20 12:00 99.1 97 20 133/87 (102) 98 02/03/20 09:00 Room Air 02/03/20 08:00 98.1 81 18 120/74 (89) 98 02/03/20 05:33 99.0 02/03/20 04:00 100.2 82 20 122/72 (89) 96 02/03/20 00:00 98.1 97 20 130/65 (86) 98 02/02/20 21:00 Room Air 02/02/20 16:00 98.7 83 20 106/61 (76) 96 Intake and Output 02/02/20 02/03/20 19:00 07:00 Intake Total 960.0 ml 110.0 ml Balance 960.0 ml 110.0 ml Intake Oral 850 ml IV Total 110.0 ml 110.0 ml # Voids 4 3 Laboratory Tests 02/03/20 03:00: White Blood Count 4.1L, Red Blood Count 4.48, Hemoglobin 13.4, Hematocrit 40.7, Mean Corpuscular Volume 91, Mean Corpuscular Hemoglobin 29.8, Mean Corpuscular Hemoglobin Concent 32.9, Red Cell Distribution Width 12.4, Platelet Count 272, Mean Platelet Volume 6.3L, Neutrophils (%) (Auto) 69.1, Lymphocytes (%) (Auto) 19.4L, Monocytes (%) (Auto) 9.0, Eosinophils (%) (Auto) 2.2, Basophils (%) (Auto) 0.3, Sodium Level 135L, Potassium Level 4.0, Chloride Level 100, Carbon Dioxide Level 27, Anion Gap 8, Blood Urea Nitrogen 7, Creatinine 0.9, Estimat Glomerular Filtration Rate > 60, Glucose Level 102, Calcium Level 8.5, Total Bilirubin 0.8, Aspartate Amino Transf (AST/SGOT) 41H, Alanine Aminotransferase (ALT/SGPT) 78, Alkaline Phosphatase 84, Total Protein 8.7H, Albumin 2.8L, Globulin 5.9, Albumin/Globulin Ratio 0.5L Height (Feet): 5 Height (Inches): 2.00 Weight (Pounds): 235 General Appearance: no apparent distress Cardiovascular: tachycardia Respiratory/Chest: decreased breath sounds Abdomen: soft Objective No change Rakesh Hammer MD Feb 03, 2020 13:27
--- NOTE | 2020-02-03 13:42 | NUR ---
CASE MANAGEMENT:REVIEW SI;COVID PNA. PANCREATITIS. 100.2 97 20 133/87 96% ON RA NA 135 AST 41 ALB 2.8 IS;PROTONIX PO Q12 K-DUR PO BID ZOSYN IV Q8 ADVIL PO Q6 PRN MED SURG STATUS DCP;FROM HOME PLAN; ERCP ~ ON HOLD D/T COVID+ STATUS
--- NOTE | 2020-02-03 14:23 | Surgery Progress Note ---
Surgery Progress Note Subjective Additional Comments covid + ercp cancelled for now doing well wants to go home Objective Last 24 Hour Vital Signs Date Time Temp Pulse Resp B/P (MAP) Pulse Ox O2 Delivery O2 Flow Rate FiO2 02/03/20 12:00 99.1 97 20 133/87 (102) 98 02/03/20 09:00 Room Air 02/03/20 08:00 98.1 81 18 120/74 (89) 98 02/03/20 05:33 99.0 02/03/20 04:00 100.2 82 20 122/72 (89) 96 02/03/20 00:00 98.1 97 20 130/65 (86) 98 02/02/20 21:00 Room Air 02/02/20 16:00 98.7 83 20 106/61 (76) 96 I&O Intake and Output 02/02/20 02/03/20 18:59 06:59 Intake Total 960.0 ml 110.0 ml Balance 960.0 ml 110.0 ml Intake Oral 850 ml IV Total 110.0 ml 110.0 ml # Voids 4 3 Cardiovascular: RSR Respiratory: clear Abdomen: soft, non-tender, present bowel sounds, non-distended Extremities: no edema, no tenderness, no cyanosis Laboratory Tests Test 02/03/20 03:00 White Blood Count 4.1 K/UL (4.8-10.8) L Red Blood Count 4.48 M/UL (4.20-5.40) Hemoglobin 13.4 G/DL (12.0-16.0) Hematocrit 40.7 % (37.0-47.0) Mean Corpuscular Volume 91 FL (80-99) Mean Corpuscular Hemoglobin 29.8 PG (27.0-31.0) Mean Corpuscular Hemoglobin Concent 32.9 G/DL (32.0-36.0) Red Cell Distribution Width 12.4 % (11.6-14.8) Platelet Count 272 K/UL (150-450) Mean Platelet Volume 6.3 FL (6.5-10.1) L Neutrophils (%) (Auto) 69.1 % (45.0-75.0) Lymphocytes (%) (Auto) 19.4 % (20.0-45.0) L Monocytes (%) (Auto) 9.0 % (1.0-10.0) Eosinophils (%) (Auto) 2.2 % (0.0-3.0) Basophils (%) (Auto) 0.3 % (0.0-2.0) Sodium Level 135 MMOL/L (136-145) L Potassium Level 4.0 MMOL/L (3.5-5.1) Chloride Level 100 MMOL/L (98-107) Carbon Dioxide Level 27 MMOL/L (21-32) Anion Gap 8 mmol/L (5-15) Blood Urea Nitrogen 7 mg/dL (7-18) Creatinine 0.9 MG/DL (0.55-1.30) Estimat Glomerular Filtration Rate > 60 mL/min (>60) Glucose Level 102 MG/DL (74-106) Calcium Level 8.5 MG/DL (8.5-10.1) Total Bilirubin 0.8 MG/DL (0.2-1.0) Aspartate Amino Transf (AST/SGOT) 41 U/L (15-37) H Alanine Aminotransferase (ALT/SGPT) 78 U/L (12-78) Alkaline Phosphatase 84 U/L (46-116) Total Protein 8.7 G/DL (6.4-8.2) H Albumin 2.8 G/DL (3.4-5.0) L Globulin 5.9 g/dL Albumin/Globulin Ratio 0.5 (1.0-2.7) L Plan Problems: (1) Acute pancreatitis Assessment & Plan: 51-year-old female acute pancreatitis potentially gallstone related. Afebrile hemodynamic stable labs improved. No nausea vomiting fever chills. Pain is resolved. No acute surgical intervention planned. Continue with work-up. Trend labs. GI input appreciated. Will follow with recommendations. Thank you npo iv fluids iv abx trend labs bowel rest will follow with recs thank you febrile tolerating diet labs improving trend labs cont diet cont abx needs mrcp but covid + labs noted exam benign pending covid mrcp noted plan ercp Liver: See below. Gallbladder: There is cholelithiasis. A 2.6 cm gallstone is noted. Gallbladder wall measures 0.45 cm and is thickened. Common bile duct: Suboptimal evaluation of the common bile duct due to bowel gas. No stones. No dilation. Pancreas: Unremarkable as visualized. Kidneys: Right kidney measures 9.8 x 5 x 5 cm. Left kidney measures 9. 3 x 4.9 x 4.7 cm. No hydronephrosis. No stones. Spleen: Spleen measures 9.3 cm and is unremarkable. Aorta: Abdominal aorta is normal in caliber. Liver measures 15.9 cm. Partial evaluation of the abdominal aorta which is grossly unremarkable. No aneurysm. Inferior vena cava: Unremarkable. IMPRESSION: 1. Limited evaluation due to bowel gas. 2. Cholelithiasis. 3. Gallbladder wall measures 0.45 cm and is diffusely thickened. Clinical correlation is necessary. 4. No pericholecystic fluid noted however. Markedly limited evaluation of the common bile duct due to bowel gas. 5. Clinical correlation is necessary. The gallbladder demonstrates 2 very large central gallstones measuring up to 2.7 cm. It also demonstrates multiple smaller gallstones as well as a small amount of sludge. There is no gallbladder wall thickening or pericholecystic edema. On multiple sequences, there is a filling defect in the downstream common bile duct which measures approximately 5 mm length by 2 mm in diameter. On the coronal MRCP images, this appears to be attached to the wall of the common bile duct. The common bile duct is mildly dilated, measuring up to 10 mm in diameter. There is no intrahepatic biliary ductal dilatation. The pancreatic duct is mildly ectatic, measuring up to 3 mm in diameter. No pancreatic head mass or pancreatic cystic lesion demonstrated. There is a slight degree of edema of the peripancreatic fat extending slightly into the anterior Gerota's fascia on the axial T2 fat saturated images. Although this is not clearly visible on the coronal MRCP images. The pancreas is otherwise unremarkable. There is trace pleural fluid bilaterally. The right kidney demonstrates a lower pole cyst and another tiny one in the upper pole. On the fat saturated T2 images, there is also a 5 mm area of decreased signal which is not evident on other images, most likely represents a tiny angiomyolipoma The uterus demonstrates marked thickening of the endometrium, which measures up to 2.9 mm thick. This demonstrates high T2 signal and low T1 signal. This area is included only on the coronal images Impression: Cholelithiasis. No findings to suggest acute cholecystitis Dilated common bile duct and common hepatic duct. Apparent filling defect in the downstream common bile duct, suspicious for choledocholithiasis. Appearing somewhat unusual but suspect that this is a real finding given the presence of cholelithiasis and biliary ductal dilatation Mild ectasia of the pancreatic duct Very questionable peripancreatic edema at the inferior border of the pancreas; suspect artifactual but if real could represent very mild acute pancreatitis, given stated clinical history of such Thickened endometrium, abnormal in a perimenopausal female. Recommend further evaluation with sonography Suspect trace bilateral pleural effusions Incidental findings small right renal cysts and probable small right renal angiomyolipoma (2) Gall stone (3) Lab test positive for detection of COVID-19 virus Jalil Santiago Feb 03, 2020 14:23
[2020-02-03 16:00] VITALS: BP 121/69
--- NOTE | 2020-02-03 16:42 | Infectious Diseases Prog Note ---
Assessment/Plan Assessment/Plan IMPRESSION: 1. COVID-19 disease, seems to be mild or recent infection. 2. Acute pancreatitis, has elevated transaminase. 3. Cholelithiasis & Choledocholithiasis 4. Morbid obesity. 5. Fever PLAN: Continue Zosyn Patient is clear for ERCP, already is more than10 days on isolation Subjective ROS Limited/Unobtainable: Yes Constitutional: Reports: fever, other - Ra=[id number] Allergies: Coded Allergies: No Known Allergies (Unverified , 01/21/20) Objective Last 24 Hour Vital Signs Date Time Temp Pulse Resp B/P (MAP) Pulse Ox O2 Delivery O2 Flow Rate FiO2 02/03/20 12:00 99.1 97 20 133/87 (102) 98 02/03/20 09:00 Room Air 02/03/20 08:00 98.1 81 18 120/74 (89) 98 02/03/20 05:33 99.0 02/03/20 04:00 100.2 82 20 122/72 (89) 96 02/03/20 00:00 98.1 97 20 130/65 (86) 98 02/02/20 21:00 Room Air Height (Feet): 5 Height (Inches): 2.00 Weight (Pounds): 235 HEENT: mucous membranes moist Respiratory/Chest: lungs clear Cardiovascular: normal rate Abdomen: soft, non tender Extremities: no edema Neurologic/Psychiatric: other - sleeping Microbiology Date/Time Source Procedure Growth Status 02/02/20 09:47 Nasopharynx SARS-CoV-2 RdRp Gene Assay - Final Complete Laboratory Tests Test 02/03/20 03:00 White Blood Count 4.1 K/UL (4.8-10.8) L Red Blood Count 4.48 M/UL (4.20-5.40) Hemoglobin 13.4 G/DL (12.0-16.0) Hematocrit 40.7 % (37.0-47.0) Mean Corpuscular Volume 91 FL (80-99) Mean Corpuscular Hemoglobin 29.8 PG (27.0-31.0) Mean Corpuscular Hemoglobin Concent 32.9 G/DL (32.0-36.0) Red Cell Distribution Width 12.4 % (11.6-14.8) Platelet Count 272 K/UL (150-450) Mean Platelet Volume 6.3 FL (6.5-10.1) L Neutrophils (%) (Auto) 69.1 % (45.0-75.0) Lymphocytes (%) (Auto) 19.4 % (20.0-45.0) L Monocytes (%) (Auto) 9.0 % (1.0-10.0) Eosinophils (%) (Auto) 2.2 % (0.0-3.0) Basophils (%) (Auto) 0.3 % (0.0-2.0) Sodium Level 135 MMOL/L (136-145) L Potassium Level 4.0 MMOL/L (3.5-5.1) Chloride Level 100 MMOL/L (98-107) Carbon Dioxide Level 27 MMOL/L (21-32) Anion Gap 8 mmol/L (5-15) Blood Urea Nitrogen 7 mg/dL (7-18) Creatinine 0.9 MG/DL (0.55-1.30) Estimat Glomerular Filtration Rate > 60 mL/min (>60) Glucose Level 102 MG/DL (74-106) Calcium Level 8.5 MG/DL (8.5-10.1) Total Bilirubin 0.8 MG/DL (0.2-1.0) Aspartate Amino Transf (AST/SGOT) 41 U/L (15-37) H Alanine Aminotransferase (ALT/SGPT) 78 U/L (12-78) Alkaline Phosphatase 84 U/L (46-116) Total Protein 8.7 G/DL (6.4-8.2) H Albumin 2.8 G/DL (3.4-5.0) L Globulin 5.9 g/dL Albumin/Globulin Ratio 0.5 (1.0-2.7) L Current Medications Medications (Trade) Dose Ordered Sig/Dipti Route PRN Reason Start Time Stop Time Status Last Admin Dose Admin Ibuprofen (Advil) 400 mg Q6H PRN ORAL Temp >100.5 01/22/20 18:00 02/21/20 17:59 02/03/20 05:03 Ondansetron HCl (Zofran) 4 mg Q6H PRN IVP Nausea & Vomiting 01/22/20 07:30 02/21/20 07:29 Pantoprazole (Protonix) 40 mg EVERY 12 HOURS ORAL 01/28/20 15:00 02/27/20 14:59 12/24/20 08:53 Piperacillin Sod/ Tazobactam Sod 3.375 gm/Sodium Chloride 110 ml @ 27.5 mls/hr EVERY 8 HOURS IVPB 01/23/20 14:00 02/05/20 23:59 02/03/20 13:20 Potassium Chloride (K-Dur) 40 meq TWICE A DAY ORAL 01/27/20 18:00 04/26/20 17:59 02/03/20 08:53 Wesley Blandon MD Feb 03, 2020 16:42
--- NOTE | 2020-02-03 19:35 | NUR ---
NURSE NOTES: Received report from ADOLFO Sarah. AAO x 4, on room air. No labored breathing. Denies pain or discomfort. Ambulatory. Fever noted. Ice packed applied. IV site intact and patent. Bed locked, lowest position, alarm on, side rails up, call light within reach. Will continue to monitor.
--- NOTE | 2020-02-03 19:38 | NUR ---
NURSE HAND-OFF: Important Events on Shift: antibiotics Patient Status: stable Diet: reg Pending Orders: n/a Pending Results/Labs:n/a Pending MD notification:n/a Latest Vital Signs: Temperature 101.5 , Pulse 85 , B/P 121 /69 , Respiratory Rate 18 , O2 SAT 99 , Room Air, O2 Flow Rate . Vital Sign Comment: n/a Latest Xiong Fall Score: 20 Fall Risk: Low Risk Safety Measures: Call light Within Reach, Bed Alarm Zone 1, Side Rails Side Rails x2, Bed position Low and Locked. Fall Precautions: Yellow Socks Patient Fall Education Report given to Steph MATA.
[2020-02-03 20:00] VITALS: BP 130/63
[2020-02-04] VITALS: BP 106/54
[2020-02-04 04:00] VITALS: BP 130/75
[2020-02-04] MEDS: Piperacillin/Tazobactam 3.375 GM in NS 110 ML IVPB SCH ×3 (05:11→21:00)
[2020-02-04 05:53] LABS: HEMATOCRIT 37.7 % (37.0-47.0); HEMOGLOBIN 13.2 G/DL (12.0-16.0); MEAN CORPUSCULAR VOLUME 83 FL (80-99); PLATELET COUNT 274 K/UL (150-450); RED BLOOD COUNT 4.54 M/UL (4.20-5.40); RED CELL DISTRIBUTION WIDTH 12.8 % (11.6-14.8); WHITE BLOOD COUNT 3.1 K/UL (4.8-10.8)
--- NOTE | 2020-02-04 06:24 | NUR ---
NURSE HAND-OFF: Important Events on Shift:fever Patient Status: Diet: low fat Pending Orders: Pending Results/Labs:am labs Pending MD notification: Latest Vital Signs: Temperature 99.2 , Pulse 96 , B/P 130 /75 , Respiratory Rate 20 , O2 SAT 97 , Room Air, O2 Flow Rate . Vital Sign Comment: Latest Xiong Fall Score: 20 Fall Risk: Low Risk Safety Measures: Call light Within Reach, Bed Alarm Zone 1, Side Rails Side Rails x2, Bed position Low and Locked. Fall Precautions: Beka Do Patient Fall Education Addendum: 02/04/20 at 0715 by LIZZETH ANNE RN RN HAND-OFF: Report given to
[2020-02-04 07:29] LABS: ALANINE AMINOTRANSFERASE 59 U/L (12-78); ALBUMIN 2.8 G/DL (3.4-5.0); ALBUMIN/GLOBULIN RATIO 0.5 (1.0-2.7); ALKALINE PHOSPHATASE 82 U/L (46-116); AMYLASE 168 U/L (25-115); ANION GAP 8 mmol/L (5-15); ASPARTATE AMINO TRANSFERASE 41 U/L (15-37); BILIRUBIN,TOTAL 0.8 MG/DL (0.2-1.0); BLOOD UREA NITROGEN 6 mg/dL (7-18); CALCIUM 8.6 MG/DL (8.5-10.1); CARBON DIOXIDE 25 MMOL/L (21-32); CHLORIDE 102 MMOL/L (98-107); CREATININE 0.8 MG/DL (0.55-1.30); SODIUM 135 MMOL/L (136-145)
[2020-02-04 08:00] VITALS: BP 127/79
--- NOTE | 2020-02-04 08:04 | NUR ---
NURSE NOTES: pt is in the bed alert, awake and verbally responsive. on room air, no SOB noted. denies any pain and discomfort. no acute distress noted at this time. call light within reach.
--- NOTE | 2020-02-04 09:03 | Pulmonology Progress Note ---
Subjective ROS Limited/Unobtainable: Yes Interval Events: low grade fever on and off, better with advil Constitutional: Reports: fever, other - Gfot=613.2 HEENT: Repors: no symptoms Respiratory: Reports: no symptoms Cardiovascular: Reports: no symptoms Gastrointestinal/Abdominal: Denies: nausea, vomiting, diarrhea Genitourinary: Reports: no symptoms Musculoskeletal: Denies: pain Allergies: Coded Allergies: No Known Allergies (Unverified , 01/21/20) Objective Last 24 Hour Vital Signs Date Time Temp Pulse Resp B/P (MAP) Pulse Ox O2 Delivery O2 Flow Rate FiO2 02/04/20 05:41 99.2 02/04/20 04:00 100.1 96 20 130/75 (93) 97 02/04/20 00:00 97.7 72 20 106/54 (71) 98 02/03/20 21:00 Room Air 02/03/20 20:00 100.0 95 20 130/63 (85) 95 02/03/20 19:08 100.0 02/03/20 16:00 98.2 85 18 121/69 (86) 99 02/03/20 12:00 99.1 97 20 133/87 (102) 98 Intake and Output 02/03/20 02/04/20 19:00 07:00 Intake Total 137.5 ml Balance 137.5 ml IV Total 137.5 ml # Voids 2 Objective 02/03 Nisl=304.2 02/02 room air; low grade fever, better with advil 02/01 room air; fever again overnight; now NPO 01/31 room air; no fever; tolerating diet 01/30 room air; no fever overnight; tolerating diet 01/29 room air; intermittent fever 01/28 continues to saturate well on RA; persistent low grade fever, better with ibuprofen 01/27 saturating well on RA; NAD 01/27/2020 continues to saturate well on RA; NAD 01/26/2020 saturating well on room air; NAD; sitting on her bed 01/25/2020 saturating well on room air 01/24/2020 pt eating in bed; saturating well on room air 01/23/2020 NAD; on room air 01/22/2020 saturating well on room air; NAD General Appearance: WD/WN, no acute distress HEENT: normocephalic Respiratory: lungs clear Cardiovascular: normal rate, regular rhythm, no gallop/murmur Abdomen: soft, non tender Neurologic: alert, oriented x 3, responsive Microbiology Date/Time Source Procedure Growth Status 02/02/20 09:47 Nasopharynx SARS-CoV-2 RdRp Gene Assay - Final Complete Laboratory Tests 02/04/20 04:10: White Blood Count 3.1L, Red Blood Count 4.54, Hemoglobin 13.2, Hematocrit 37.7, Mean Corpuscular Volume 83#, Mean Corpuscular Hemoglobin 29.1, Mean Corpuscular Hemoglobin Concent 35.0, Red Cell Distribution Width 12.8, Platelet Count 274, Mean Platelet Volume 6.1L, Neutrophils (%) (Auto) , Lymphocytes (%) (Auto) , Monocytes (%) (Auto) , Eosinophils (%) (Auto) , Basophils (%) (Auto) , Sodium Level 135L, Potassium Level 4.0, Chloride Level 102, Carbon Dioxide Level 25, Anion Gap 8, Blood Urea Nitrogen 6L, Creatinine 0.8, Estimat Glomerular Filtration Rate > 60, Glucose Level 94, Calcium Level 8.6, Total Bilirubin 0.8, Aspartate Amino Transf (AST/SGOT) 41H, Alanine Aminotransferase (ALT/SGPT) 59, Alkaline Phosphatase 82, Total Protein 8.7H, Albumin 2.8L, Globulin 5.9, Albumin/Globulin Ratio 0.5L, Amylase Level 168H, Lipase 1005H Current Medications Medications (Trade) Dose Ordered Sig/Dipti Route PRN Reason Start Time Stop Time Status Last Admin Dose Admin Ibuprofen (Advil) 400 mg Q6H PRN ORAL Temp >100.5 01/22/20 18:00 02/21/20 17:59 02/04/20 05:11 Ondansetron HCl (Zofran) 4 mg Q6H PRN IVP Nausea & Vomiting 01/22/20 07:30 02/21/20 07:29 Pantoprazole (Protonix) 40 mg EVERY 12 HOURS ORAL 01/28/20 15:00 02/27/20 14:59 02/03/20 20:44 Piperacillin Sod/ Tazobactam Sod 3.375 gm/Sodium Chloride 110 ml @ 27.5 mls/hr EVERY 8 HOURS IVPB 01/23/20 14:00 02/05/20 23:59 02/04/20 05:11 Potassium Chloride (K-Dur) 40 meq TWICE A DAY ORAL 01/27/20 18:00 04/26/20 17:59 02/03/20 17:34 Assessment/Plan Assessment/Plan 1. Transaminitis 2. Pancreatitis. - elevated amylase, lipase - s/p IVF - pain control - on zosyn per Dr. Santiago - MRI abd result noted; cholelithiasis, possible very mild acute pancreatitis - per Dr. Kingsley, Dr. Santiago - now clear for ERCP per ID 3. Positive COVID-19. -Currently no intervention required for Covid19 due to her normoxemic status on RA - repeat rapid COVID-19 test positive 02/01 4. Hypertension 5. Fever - Blood Cx showed no growth - better with ibuprofen prn fever - Tmax= 100.2 The care of this patient was discussed with my supervising physician Time spent for this encounter was approximately 31 minutes Steven Bergman Feb 04, 2020 09:03 Bubba Penny MD Feb 04, 2020 11:21
--- NOTE | 2020-02-04 10:03 | General Progress Note ---
Subjective ROS Limited/Unobtainable: Yes Allergies: Coded Allergies: No Known Allergies (Unverified , 01/21/20) Objective Last 24 Hour Vital Signs Date Time Temp Pulse Resp B/P (MAP) Pulse Ox O2 Delivery O2 Flow Rate FiO2 02/04/20 05:41 99.2 02/04/20 04:00 100.1 96 20 130/75 (93) 97 02/04/20 00:00 97.7 72 20 106/54 (71) 98 02/03/20 21:00 Room Air 02/03/20 20:00 100.0 95 20 130/63 (85) 95 02/03/20 19:08 100.0 02/03/20 16:00 98.2 85 18 121/69 (86) 99 02/03/20 12:00 99.1 97 20 133/87 (102) 98 Intake and Output 02/03/20 02/04/20 19:00 07:00 Intake Total 137.5 ml Balance 137.5 ml IV Total 137.5 ml # Voids 2 Laboratory Tests 02/04/20 04:10: White Blood Count 3.1L, Red Blood Count 4.54, Hemoglobin 13.2, Hematocrit 37.7, Mean Corpuscular Volume 83#, Mean Corpuscular Hemoglobin 29.1, Mean Corpuscular Hemoglobin Concent 35.0, Red Cell Distribution Width 12.8, Platelet Count 274, Mean Platelet Volume 6.1L, Neutrophils (%) (Auto) , Lymphocytes (%) (Auto) , Monocytes (%) (Auto) , Eosinophils (%) (Auto) , Basophils (%) (Auto) , Sodium Level 135L, Potassium Level 4.0, Chloride Level 102, Carbon Dioxide Level 25, Anion Gap 8, Blood Urea Nitrogen 6L, Creatinine 0.8, Estimat Glomerular Filtration Rate > 60, Glucose Level 94, Calcium Level 8.6, Total Bilirubin 0.8, Aspartate Amino Transf (AST/SGOT) 41H, Alanine Aminotransferase (ALT/SGPT) 59, Alkaline Phosphatase 82, Total Protein 8.7H, Albumin 2.8L, Globulin 5.9, Albumin/Globulin Ratio 0.5L, Amylase Level 168H, Lipase 1005H Height (Feet): 5 Height (Inches): 2.00 Weight (Pounds): 235 General Appearance: no apparent distress EENT: normal ENT inspection Neck: supple Cardiovascular: normal rate Respiratory/Chest: decreased breath sounds Abdomen: normal bowel sounds, non tender, soft Extremities: non-tender Assessment/Plan Status: progressing Assessment/Plan: gallstone pancreatitis? Covid positive pain control surg in put appreciated repeat labs for tomorrow on reg diet MRCP reviewed ercp canceled due to stable LFTS and still Covid + resume diet will fu plan ERCP next week David Kingsley MD Feb 04, 2020 10:03
--- NOTE | 2020-02-04 11:40 | Surgery Progress Note ---
Surgery Progress Note Subjective Symptoms: improved, tolerating diet, voiding well, passing flatus, BM Objective Last 24 Hour Vital Signs Date Time Temp Pulse Resp B/P (MAP) Pulse Ox O2 Delivery O2 Flow Rate FiO2 02/04/20 09:00 Room Air 02/04/20 05:41 99.2 02/04/20 04:00 100.1 96 20 130/75 (93) 97 02/04/20 00:00 97.7 72 20 106/54 (71) 98 02/03/20 21:00 Room Air 02/03/20 20:00 100.0 95 20 130/63 (85) 95 02/03/20 19:08 100.0 02/03/20 16:00 98.2 85 18 121/69 (86) 99 02/03/20 12:00 99.1 97 20 133/87 (102) 98 I&O Intake and Output 02/03/20 02/04/20 18:59 06:59 Intake Total 137.5 ml Balance 137.5 ml IV Total 137.5 ml # Voids 2 Cardiovascular: RSR Respiratory: clear Abdomen: soft, flat, non-tender, present bowel sounds, non-distended Extremities: no edema, no tenderness, no cyanosis Laboratory Tests Test 02/04/20 04:10 White Blood Count 3.1 K/UL (4.8-10.8) L Red Blood Count 4.54 M/UL (4.20-5.40) Hemoglobin 13.2 G/DL (12.0-16.0) Hematocrit 37.7 % (37.0-47.0) Mean Corpuscular Volume 83 FL (80-99) # Mean Corpuscular Hemoglobin 29.1 PG (27.0-31.0) Mean Corpuscular Hemoglobin Concent 35.0 G/DL (32.0-36.0) Red Cell Distribution Width 12.8 % (11.6-14.8) Platelet Count 274 K/UL (150-450) Mean Platelet Volume 6.1 FL (6.5-10.1) L Neutrophils (%) (Auto) % (45.0-75.0) Lymphocytes (%) (Auto) % (20.0-45.0) Monocytes (%) (Auto) % (1.0-10.0) Eosinophils (%) (Auto) % (0.0-3.0) Basophils (%) (Auto) % (0.0-2.0) Sodium Level 135 MMOL/L (136-145) L Potassium Level 4.0 MMOL/L (3.5-5.1) Chloride Level 102 MMOL/L (98-107) Carbon Dioxide Level 25 MMOL/L (21-32) Anion Gap 8 mmol/L (5-15) Blood Urea Nitrogen 6 mg/dL (7-18) L Creatinine 0.8 MG/DL (0.55-1.30) Estimat Glomerular Filtration Rate > 60 mL/min (>60) Glucose Level 94 MG/DL (74-106) Calcium Level 8.6 MG/DL (8.5-10.1) Total Bilirubin 0.8 MG/DL (0.2-1.0) Aspartate Amino Transf (AST/SGOT) 41 U/L (15-37) H Alanine Aminotransferase (ALT/SGPT) 59 U/L (12-78) Alkaline Phosphatase 82 U/L (46-116) Total Protein 8.7 G/DL (6.4-8.2) H Albumin 2.8 G/DL (3.4-5.0) L Globulin 5.9 g/dL Albumin/Globulin Ratio 0.5 (1.0-2.7) L Amylase Level 168 U/L (25-115) H Lipase 1005 U/L (73-393) H Plan Problems: (1) Acute pancreatitis Assessment & Plan: 51-year-old female acute pancreatitis potentially gallstone related. Afebrile hemodynamic stable labs improved. No nausea vomiting fever chills. Pain is resolved. No acute surgical intervention planned. Continue with work-up. Trend labs. GI input appreciated. Will follow with recommendations. Thank you npo iv fluids iv abx trend labs bowel rest will follow with recs thank you febrile tolerating diet labs improving trend labs cont diet cont abx needs mrcp but covid + labs noted exam benign pending covid mrcp noted plan ercp Liver: See below. Gallbladder: There is cholelithiasis. A 2.6 cm gallstone is noted. Gallbladder wall measures 0.45 cm and is thickened. Common bile duct: Suboptimal evaluation of the common bile duct due to bowel gas. No stones. No dilation. Pancreas: Unremarkable as visualized. Kidneys: Right kidney measures 9.8 x 5 x 5 cm. Left kidney measures 9. 3 x 4.9 x 4.7 cm. No hydronephrosis. No stones. Spleen: Spleen measures 9.3 cm and is unremarkable. Aorta: Abdominal aorta is normal in caliber. Liver measures 15.9 cm. Partial evaluation of the abdominal aorta which is grossly unremarkable. No aneurysm. Inferior vena cava: Unremarkable. IMPRESSION: 1. Limited evaluation due to bowel gas. 2. Cholelithiasis. 3. Gallbladder wall measures 0.45 cm and is diffusely thickened. Clinical correlation is necessary. 4. No pericholecystic fluid noted however. Markedly limited evaluation of the common bile duct due to bowel gas. 5. Clinical correlation is necessary. The gallbladder demonstrates 2 very large central gallstones measuring up to 2.7 cm. It also demonstrates multiple smaller gallstones as well as a small amount of sludge. There is no gallbladder wall thickening or pericholecystic edema. On multiple sequences, there is a filling defect in the downstream common bile duct which measures approximately 5 mm length by 2 mm in diameter. On the coronal MRCP images, this appears to be attached to the wall of the common bile duct. The common bile duct is mildly dilated, measuring up to 10 mm in diameter. There is no intrahepatic biliary ductal dilatation. The pancreatic duct is mildly ectatic, measuring up to 3 mm in diameter. No pancreatic head mass or pancreatic cystic lesion demonstrated. There is a slight degree of edema of the peripancreatic fat extending slightly into the anterior Gerota's fascia on the axial T2 fat saturated images. Although this is not clearly visible on the coronal MRCP images. The pancreas is otherwise unremarkable. There is trace pleural fluid bilaterally. The right kidney demonstrates a lower pole cyst and another tiny one in the upper pole. On the fat saturated T2 images, there is also a 5 mm area of decreased signal which is not evident on other images, most likely represents a tiny angiomyolipoma The uterus demonstrates marked thickening of the endometrium, which measures up to 2.9 mm thick. This demonstrates high T2 signal and low T1 signal. This area is included only on the coronal images Impression: Cholelithiasis. No findings to suggest acute cholecystitis Dilated common bile duct and common hepatic duct. Apparent filling defect in the downstream common bile duct, suspicious for choledocholithiasis. Appearing somewhat unusual but suspect that this is a real finding given the presence of cholelithiasis and biliary ductal dilatation Mild ectasia of the pancreatic duct Very questionable peripancreatic edema at the inferior border of the pancreas; suspect artifactual but if real could represent very mild acute pancreatitis, given stated clinical history of such Thickened endometrium, abnormal in a perimenopausal female. Recommend further evaluation with sonography Suspect trace bilateral pleural effusions Incidental findings small right renal cysts and probable small right renal angiomyolipoma (2) Gall stone (3) Lab test positive for detection of COVID-19 virus Jalil Santiago Feb 04, 2020 11:40
[2020-02-04 12:00] VITALS: BP 140/81
--- NOTE | 2020-02-04 14:30 | Nephrology Progress Note ---
Assessment/Plan Problem List: (1) Electrolyte imbalance (2) Acute pancreatitis (3) Gall stone (4) 2019 novel coronavirus disease (COVID-19) (5) Proteinuria Assessment Hypokalemia COVID-19 disease Acute pancreatitis with elevated LFTs Gallstone pancreatitis Obesity Hypertension Proteinuria Plan February 03: Labs reviewed. Status quo. Continue per consultants. February 02: Labs reviewed. Serum sodium 135 stable. Continue per consultants. February 01: No labs drawn today. Remains stable from renal standpoint of view. January 31: Labs reviewed. Renal parameters stable. Continue per consultants. January 30: No labs drawn today. Remains stable from renal standpoint of view. January 29: Labs reviewed. Renal parameters stable. Continue per consultants. January 28: Labs reviewed. Stable from renal standpoint of view. Continue per consultants. Low-grade fever persists oral potassium ordered IV fluid adjusted and discontinued Oral Protonix added Continue to monitor renal parameters and electrolytes Continue per consultants Subjective ROS Limited/Unobtainable: No Constitutional: Reports: malaise Objective Objective Last 24 Hour Vital Signs Date Time Temp Pulse Resp B/P (MAP) Pulse Ox O2 Delivery O2 Flow Rate FiO2 02/04/20 12:00 97.9 86 19 140/81 (100) 95 02/04/20 09:00 Room Air 02/04/20 08:00 98.2 85 18 127/79 (95) 96 02/04/20 05:41 99.2 02/04/20 04:00 100.1 96 20 130/75 (93) 97 02/04/20 00:00 97.7 72 20 106/54 (71) 98 02/03/20 21:00 Room Air 02/03/20 20:00 100.0 95 20 130/63 (85) 95 02/03/20 19:08 100.0 02/03/20 16:00 98.2 85 18 121/69 (86) 99 Intake and Output 02/03/20 02/04/20 19:00 07:00 Intake Total 137.5 ml Balance 137.5 ml IV Total 137.5 ml # Voids 2 Laboratory Tests 02/04/20 04:10: White Blood Count 3.1L, Red Blood Count 4.54, Hemoglobin 13.2, Hematocrit 37.7, Mean Corpuscular Volume 83#, Mean Corpuscular Hemoglobin 29.1, Mean Corpuscular Hemoglobin Concent 35.0, Red Cell Distribution Width 12.8, Platelet Count 274, Mean Platelet Volume 6.1L, Neutrophils (%) (Auto) , Lymphocytes (%) (Auto) , Monocytes (%) (Auto) , Eosinophils (%) (Auto) , Basophils (%) (Auto) , Sodium Level 135L, Potassium Level 4.0, Chloride Level 102, Carbon Dioxide Level 25, Anion Gap 8, Blood Urea Nitrogen 6L, Creatinine 0.8, Estimat Glomerular Filtration Rate > 60, Glucose Level 94, Calcium Level 8.6, Total Bilirubin 0.8, Aspartate Amino Transf (AST/SGOT) 41H, Alanine Aminotransferase (ALT/SGPT) 59, Alkaline Phosphatase 82, Total Protein 8.7H, Albumin 2.8L, Globulin 5.9, Albumin/Globulin Ratio 0.5L, Amylase Level 168H, Lipase 1005H Height (Feet): 5 Height (Inches): 2.00 Weight (Pounds): 235 General Appearance: no apparent distress Respiratory/Chest: decreased breath sounds Abdomen: soft Objective No change Rakesh Hammer MD Feb 04, 2020 14:30
[2020-02-04 16:00] VITALS: BP 122/63
--- NOTE | 2020-02-04 17:17 | Infectious Diseases Prog Note ---
Assessment/Plan Assessment/Plan IMPRESSION: 1. COVID-19 disease, seems to be mild or recent infection. 2. Acute pancreatitis, has elevated transaminase. 3. Cholelithiasis & Choledocholithiasis 4. Morbid obesity. 5. Fever PLAN: Continue Zosyn Patient is clear for ERCP, already is more than10 days on isolation Subjective ROS Limited/Unobtainable: Yes Constitutional: Reports: fever, other - Tv=657.1 Allergies: Coded Allergies: No Known Allergies (Unverified , 01/21/20) Objective Last 24 Hour Vital Signs Date Time Temp Pulse Resp B/P (MAP) Pulse Ox O2 Delivery O2 Flow Rate FiO2 02/04/20 16:00 98.2 80 18 122/63 (82) 96 02/04/20 12:00 97.9 86 19 140/81 (100) 95 02/04/20 09:00 Room Air 02/04/20 08:00 98.2 85 18 127/79 (95) 96 02/04/20 05:41 99.2 02/04/20 04:00 100.1 96 20 130/75 (93) 97 02/04/20 00:00 97.7 72 20 106/54 (71) 98 02/03/20 21:00 Room Air 02/03/20 20:00 100.0 95 20 130/63 (85) 95 02/03/20 19:08 100.0 Height (Feet): 5 Height (Inches): 2.00 Weight (Pounds): 235 HEENT: mucous membranes moist Respiratory/Chest: lungs clear Cardiovascular: normal rate Abdomen: soft, non tender Extremities: no edema Neurologic/Psychiatric: other - sleeping Microbiology Date/Time Source Procedure Growth Status 02/02/20 09:47 Nasopharynx SARS-CoV-2 RdRp Gene Assay - Final Complete Laboratory Tests Test 02/04/20 04:10 White Blood Count 3.1 K/UL (4.8-10.8) L Red Blood Count 4.54 M/UL (4.20-5.40) Hemoglobin 13.2 G/DL (12.0-16.0) Hematocrit 37.7 % (37.0-47.0) Mean Corpuscular Volume 83 FL (80-99) # Mean Corpuscular Hemoglobin 29.1 PG (27.0-31.0) Mean Corpuscular Hemoglobin Concent 35.0 G/DL (32.0-36.0) Red Cell Distribution Width 12.8 % (11.6-14.8) Platelet Count 274 K/UL (150-450) Mean Platelet Volume 6.1 FL (6.5-10.1) L Neutrophils (%) (Auto) % (45.0-75.0) Lymphocytes (%) (Auto) % (20.0-45.0) Monocytes (%) (Auto) % (1.0-10.0) Eosinophils (%) (Auto) % (0.0-3.0) Basophils (%) (Auto) % (0.0-2.0) Sodium Level 135 MMOL/L (136-145) L Potassium Level 4.0 MMOL/L (3.5-5.1) Chloride Level 102 MMOL/L (98-107) Carbon Dioxide Level 25 MMOL/L (21-32) Anion Gap 8 mmol/L (5-15) Blood Urea Nitrogen 6 mg/dL (7-18) L Creatinine 0.8 MG/DL (0.55-1.30) Estimat Glomerular Filtration Rate > 60 mL/min (>60) Glucose Level 94 MG/DL (74-106) Calcium Level 8.6 MG/DL (8.5-10.1) Total Bilirubin 0.8 MG/DL (0.2-1.0) Aspartate Amino Transf (AST/SGOT) 41 U/L (15-37) H Alanine Aminotransferase (ALT/SGPT) 59 U/L (12-78) Alkaline Phosphatase 82 U/L (46-116) Total Protein 8.7 G/DL (6.4-8.2) H Albumin 2.8 G/DL (3.4-5.0) L Globulin 5.9 g/dL Albumin/Globulin Ratio 0.5 (1.0-2.7) L Amylase Level 168 U/L (25-115) H Lipase 1005 U/L (73-393) H Current Medications Medications (Trade) Dose Ordered Sig/Dipti Route PRN Reason Start Time Stop Time Status Last Admin Dose Admin Ibuprofen (Advil) 400 mg Q6H PRN ORAL Temp >100.5 01/22/20 18:00 02/21/20 17:59 02/04/20 05:11 Ondansetron HCl (Zofran) 4 mg Q6H PRN IVP Nausea & Vomiting 01/22/20 07:30 02/21/20 07:29 Pantoprazole (Protonix) 40 mg EVERY 12 HOURS ORAL 01/28/20 15:00 02/27/20 14:59 02/04/20 09:17 Piperacillin Sod/ Tazobactam Sod 3.375 gm/Sodium Chloride 110 ml @ 27.5 mls/hr EVERY 8 HOURS IVPB 01/23/20 14:00 02/09/20 13:59 02/04/20 14:06 Potassium Chloride (K-Dur) 40 meq TWICE A DAY ORAL 01/27/20 18:00 04/26/20 17:59 02/04/20 09:17 Wesley Blandon MD Feb 04, 2020 17:17
--- NOTE | 2020-02-04 18:41 | NUR ---
NURSE HAND-OFF: Important Events on Shift:N/A Patient Status: STABLE Diet: LOW FAT DIET Pending Orders: N/A Pending Results/Labs:N/A Pending MD notification:N/A Latest Vital Signs: Temperature 98.2 , Pulse 80 , B/P 122 /63 , Respiratory Rate 18 , O2 SAT 96 , Room Air, O2 Flow Rate . Vital Sign Comment: STABLE Latest Xiong Fall Score: 20 Fall Risk: Low Risk Safety Measures: Call light Within Reach, Bed Alarm Zone 1, Side Rails Side Rails x2, Bed position Low and Locked. Fall Precautions: Yellow Socks Patient Fall Education Report given to . Addendum: 02/04/20 at 1858 by Dayne Bowles RN HAND-OFF: Report given to
[2020-02-04 20:00] VITALS: BP 151/81
--- NOTE | 2020-02-04 22:46 | General Progress Note ---
Subjective ROS Limited/Unobtainable: Yes Allergies: Coded Allergies: No Known Allergies (Unverified , 01/21/20) Objective Last 24 Hour Vital Signs Date Time Temp Pulse Resp B/P (MAP) Pulse Ox O2 Delivery O2 Flow Rate FiO2 02/04/20 21:00 Room Air 02/04/20 20:39 100.1 02/04/20 20:00 100.9 88 18 151/81 (104) 95 02/04/20 16:00 98.2 80 18 122/63 (82) 96 02/04/20 12:00 97.9 86 19 140/81 (100) 95 02/04/20 09:00 Room Air 02/04/20 08:00 98.2 85 18 127/79 (95) 96 02/04/20 05:41 99.2 02/04/20 04:00 100.1 96 20 130/75 (93) 97 02/04/20 00:00 97.7 72 20 106/54 (71) 98 Intake and Output 02/03/20 02/04/20 19:00 07:00 Intake Total 137.5 ml Balance 137.5 ml IV Total 137.5 ml # Voids 2 Laboratory Tests 02/04/20 04:10: White Blood Count 3.1L, Red Blood Count 4.54, Hemoglobin 13.2, Hematocrit 37.7, Mean Corpuscular Volume 83#, Mean Corpuscular Hemoglobin 29.1, Mean Corpuscular Hemoglobin Concent 35.0, Red Cell Distribution Width 12.8, Platelet Count 274, Mean Platelet Volume 6.1L, Neutrophils (%) (Auto) , Lymphocytes (%) (Auto) , Monocytes (%) (Auto) , Eosinophils (%) (Auto) , Basophils (%) (Auto) , Sodium Level 135L, Potassium Level 4.0, Chloride Level 102, Carbon Dioxide Level 25, Anion Gap 8, Blood Urea Nitrogen 6L, Creatinine 0.8, Estimat Glomerular Filtration Rate > 60, Glucose Level 94, Calcium Level 8.6, Total Bilirubin 0.8, Aspartate Amino Transf (AST/SGOT) 41H, Alanine Aminotransferase (ALT/SGPT) 59, Alkaline Phosphatase 82, Total Protein 8.7H, Albumin 2.8L, Globulin 5.9, Albumin/Globulin Ratio 0.5L, Amylase Level 168H, Lipase 1005H Height (Feet): 5 Height (Inches): 2.00 Weight (Pounds): 235 Assessment/Plan Problem List: (1) Acute pancreatitis ICD Codes: K85.90 - Acute pancreatitis without necrosis or infection, unspecified SNOMED: 980906730 Qualifiers: Qualified Codes: K85.10 - Biliary acute pancreatitis without necrosis or infection (2) Gall stone ICD Codes: K80.20 - Calculus of gallbladder without cholecystitis without obstruction SNOMED: 385511346 Qualifiers: Qualified Codes: K80.20 - Calculus of gallbladder without cholecystitis without obstruction (3) Lab test positive for detection of COVID-19 virus ICD Codes: U07.1 - COVID-19 SNOMED: 5500082368998430 Status: progressing Assessment/Plan: covid positive pna malnutrtion afebrile no acute evetns prn supportive rx Ronny Win MD Feb 04, 2020 22:46
[2020-02-05] VITALS: BP 120/82
[2020-02-05 04:00] VITALS: BP 129/72
[2020-02-05] MEDS: Piperacillin/Tazobactam 3.375 GM in NS 110 ML IVPB SCH ×3 (05:02→21:04)
--- NOTE | 2020-02-05 06:35 | NUR ---
NURSE HAND-OFF: Important Events on Shift:fever Patient Status: stable Diet: low fat Pending Orders: Pending Results/Labs:am labs Pending MD notification: Latest Vital Signs: Temperature 98.4 , Pulse 83 , B/P 129 /72 , Respiratory Rate 20 , O2 SAT 96 , Room Air, O2 Flow Rate . Vital Sign Comment: [] Latest Xiong Fall Score: 20 Fall Risk: Low Risk Safety Measures: Call light Within Reach, Bed Alarm Zone 1, Side Rails Side Rails x2, Bed position Low and Locked. Fall Precautions: Beka Do Patient Fall Education Addendum: 02/05/20 at 0719 by LIZZETH ANNE RN RN HAND-OFF: Report given to
[2020-02-05 08:00] VITALS: BP 134/81
--- NOTE | 2020-02-05 08:13 | NUR ---
NURSE NOTES: Received pt ADOLFO Choi. Pt was resting, no acute distress. call light w/in reach.
[2020-02-05 08:56] LABS: HEMOGLOBIN 12.4 G/DL (12.0-16.0); MEAN CORPUSCULAR VOLUME 82 FL (80-99); PLATELET COUNT 245 K/UL (150-450); RED BLOOD COUNT 4.29 M/UL (4.20-5.40); RED CELL DISTRIBUTION WIDTH 13.6 % (11.6-14.8); WHITE BLOOD COUNT 2.6 K/UL (4.8-10.8)
[2020-02-05 09:22] LABS: ALANINE AMINOTRANSFERASE 56 U/L (12-78); ALBUMIN 2.6 G/DL (3.4-5.0); ALBUMIN/GLOBULIN RATIO 0.5 (1.0-2.7); ALKALINE PHOSPHATASE 74 U/L (46-116); AMYLASE 151 U/L (25-115); ANION GAP 5 mmol/L (5-15); ASPARTATE AMINO TRANSFERASE 44 U/L (15-37); BILIRUBIN,TOTAL 0.6 MG/DL (0.2-1.0); BLOOD UREA NITROGEN 7 mg/dL (7-18); CALCIUM 8.3 MG/DL (8.5-10.1); CARBON DIOXIDE 26 MMOL/L (21-32); CHLORIDE 103 MMOL/L (98-107); CREATININE 0.8 MG/DL (0.55-1.30); POTASSIUM 4.3 MMOL/L (3.5-5.1); SODIUM 134 MMOL/L (136-145)
--- NOTE | 2020-02-05 10:16 | General Progress Note ---
Subjective ROS Limited/Unobtainable: No Allergies: Coded Allergies: No Known Allergies (Unverified , 01/21/20) Objective Last 24 Hour Vital Signs Date Time Temp Pulse Resp B/P (MAP) Pulse Ox O2 Delivery O2 Flow Rate FiO2 02/05/20 04:00 98.4 83 20 129/72 (91) 96 02/05/20 00:00 98.5 79 20 120/82 (95) 95 02/04/20 21:00 Room Air 02/04/20 20:39 100.1 02/04/20 20:00 100.9 88 18 151/81 (104) 95 02/04/20 16:00 98.2 80 18 122/63 (82) 96 02/04/20 12:00 97.9 86 19 140/81 (100) 95 Intake and Output 02/04/20 02/05/20 19:00 07:00 Intake Total 1280 ml 137.5 ml Balance 1280 ml 137.5 ml Intake Oral 1280 ml IV Total 137.5 ml # Voids 4 3 # Bowel Movements 1 Laboratory Tests 02/05/20 07:42: White Blood Count 2.6L, Corrected White Blood Count , Red Blood Count 4.29, Hemoglobin 12.4, Hematocrit 35.0L, Mean Corpuscular Volume 82, Mean Corpuscular Hemoglobin 28.9, Mean Corpuscular Hemoglobin Concent 35.5, Red Cell Distribution Width 13.6, Platelet Count 245, Mean Platelet Volume 6.6, Neutrophils (%) (Auto) , Lymphocytes (%) (Auto) , Monocytes (%) (Auto) , Eosinophils (%) (Auto) , Basophils (%) (Auto) , Differential Total Cells Counted 100, Neutrophils % (Manual) 55, Lymphocytes % (Manual) 22, Monocytes % (Manual) 21H, Eosinophils % (Manual) 2, Basophils % (Manual) 0, Band Neutrophils 0, Platelet Estimate Adequate, Platelet Morphology Normal, Red Blood Cell Morphology Normal, Sodium Level 134L, Potassium Level 4.3, Chloride Level 103, Carbon Dioxide Level 26, Anion Gap 5, Blood Urea Nitrogen 7, Creatinine 0.8, Estimat Glomerular Filtration Rate > 60, Glucose Level 92, Calcium Level 8.3L, Total Bilirubin 0.6, Aspartate Amino Transf (AST/SGOT) 44H, Alanine Aminotransferase (ALT/SGPT) 56, Alkaline Phosphatase 74, Total Protein 7.9, Albumin 2.6L, Globulin 5.3, Albumin/Globulin Ratio 0.5L, Amylase Level 151H, Lipase 840H Height (Feet): 5 Height (Inches): 2.00 Weight (Pounds): 235 General Appearance: no apparent distress EENT: normal ENT inspection Neck: normal alignment Cardiovascular: normal rate Respiratory/Chest: decreased breath sounds Abdomen: normal bowel sounds, non tender, soft Extremities: non-tender Assessment/Plan Status: progressing Assessment/Plan: gallstone pancreatitis? Covid positive pain control surg in put appreciated repeat labs for tomorrow on reg diet MRCP reviewed ercp canceled due to stable LFTS and still Covid + resume diet will fu plan ERCP this week David Kingsley MD Feb 05, 2020 10:16
--- NOTE | 2020-02-05 11:50 | Nephrology Progress Note ---
Assessment/Plan Problem List: (1) Electrolyte imbalance (2) Acute pancreatitis (3) Gall stone (4) 2019 novel coronavirus disease (COVID-19) (5) Proteinuria Assessment Hypokalemia COVID-19 disease Acute pancreatitis with elevated LFTs Gallstone pancreatitis Obesity Hypertension Proteinuria Plan February 04: Labs are reviewed. Serum sodium drifting down. Will order urine and serum osmolality's. Continue per consultants. February 03: Labs reviewed. Status quo. Continue per consultants. February 02: Labs reviewed. Serum sodium 135 stable. Continue per consultants. February 01: No labs drawn today. Remains stable from renal standpoint of view. January 31: Labs reviewed. Renal parameters stable. Continue per consultants. January 30: No labs drawn today. Remains stable from renal standpoint of view. January 29: Labs reviewed. Renal parameters stable. Continue per consultants. January 28: Labs reviewed. Stable from renal standpoint of view. Continue per consultants. Low-grade fever persists oral potassium ordered IV fluid adjusted and discontinued Oral Protonix added Continue to monitor renal parameters and electrolytes Continue per consultants Subjective ROS Limited/Unobtainable: No Constitutional: Reports: malaise Objective Objective Last 24 Hour Vital Signs Date Time Temp Pulse Resp B/P (MAP) Pulse Ox O2 Delivery O2 Flow Rate FiO2 02/05/20 04:00 98.4 83 20 129/72 (91) 96 02/05/20 00:00 98.5 79 20 120/82 (95) 95 02/04/20 21:00 Room Air 02/04/20 20:39 100.1 02/04/20 20:00 100.9 88 18 151/81 (104) 95 02/04/20 16:00 98.2 80 18 122/63 (82) 96 02/04/20 12:00 97.9 86 19 140/81 (100) 95 Intake and Output 02/04/20 02/05/20 19:00 07:00 Intake Total 1280 ml 137.5 ml Balance 1280 ml 137.5 ml Intake Oral 1280 ml IV Total 137.5 ml # Voids 4 3 # Bowel Movements 1 Laboratory Tests 02/05/20 07:42: White Blood Count 2.6L, Corrected White Blood Count , Red Blood Count 4.29, Hemoglobin 12.4, Hematocrit 35.0L, Mean Corpuscular Volume 82, Mean Corpuscular Hemoglobin 28.9, Mean Corpuscular Hemoglobin Concent 35.5, Red Cell Distribution Width 13.6, Platelet Count 245, Mean Platelet Volume 6.6, Neutrophils (%) (Auto) , Lymphocytes (%) (Auto) , Monocytes (%) (Auto) , Eosinophils (%) (Auto) , Basophils (%) (Auto) , Differential Total Cells Counted 100, Neutrophils % (Manual) 55, Lymphocytes % (Manual) 22, Monocytes % (Manual) 21H, Eosinophils % (Manual) 2, Basophils % (Manual) 0, Band Neutrophils 0, Platelet Estimate Adequate, Platelet Morphology Normal, Red Blood Cell Morphology Normal, Sodium Level 134L, Potassium Level 4.3, Chloride Level 103, Carbon Dioxide Level 26, Anion Gap 5, Blood Urea Nitrogen 7, Creatinine 0.8, Estimat Glomerular Filtration Rate > 60, Glucose Level 92, Calcium Level 8.3L, Total Bilirubin 0.6, Aspartate Amino Transf (AST/SGOT) 44H, Alanine Aminotransferase (ALT/SGPT) 56, Alkaline Phosphatase 74, Total Protein 7.9, Albumin 2.6L, Globulin 5.3, Albumin/Globulin Ratio 0.5L, Amylase Level 151H, Lipase 840H Height (Feet): 5 Height (Inches): 2.00 Weight (Pounds): 235 General Appearance: no apparent distress Objective No change Rakesh Hammer MD Feb 05, 2020 11:50
[2020-02-05 12:00] VITALS: BP 138/78
--- NOTE | 2020-02-05 13:27 | Pulmonology Progress Note ---
Subjective ROS Limited/Unobtainable: No Interval Events: None new reported. Constitutional: Reports: fever, other - Is=056.1 HEENT: Repors: no symptoms Respiratory: Reports: no symptoms Cardiovascular: Reports: no symptoms Gastrointestinal/Abdominal: Denies: nausea, vomiting, diarrhea Genitourinary: Reports: no symptoms Musculoskeletal: Denies: pain Allergies: Coded Allergies: No Known Allergies (Unverified , 01/21/20) Objective Last 24 Hour Vital Signs Date Time Temp Pulse Resp B/P (MAP) Pulse Ox O2 Delivery O2 Flow Rate FiO2 02/05/20 04:00 98.4 83 20 129/72 (91) 96 02/05/20 00:00 98.5 79 20 120/82 (95) 95 02/04/20 21:00 Room Air 02/04/20 20:39 100.1 02/04/20 20:00 100.9 88 18 151/81 (104) 95 02/04/20 16:00 98.2 80 18 122/63 (82) 96 Intake and Output 02/04/20 02/05/20 19:00 07:00 Intake Total 1280 ml 137.5 ml Balance 1280 ml 137.5 ml Intake Oral 1280 ml IV Total 137.5 ml # Voids 4 3 # Bowel Movements 1 General Appearance: WD/WN, no acute distress HEENT: normocephalic Respiratory: lungs clear Cardiovascular: normal rate, regular rhythm, no gallop/murmur Abdomen: soft, non tender Neurologic: alert, oriented x 3, responsive Laboratory Tests 02/05/20 07:42: White Blood Count 2.6L, Corrected White Blood Count , Red Blood Count 4.29, Hemoglobin 12.4, Hematocrit 35.0L, Mean Corpuscular Volume 82, Mean Corpuscular Hemoglobin 28.9, Mean Corpuscular Hemoglobin Concent 35.5, Red Cell Distribution Width 13.6, Platelet Count 245, Mean Platelet Volume 6.6, Neutrophils (%) (Auto) , Lymphocytes (%) (Auto) , Monocytes (%) (Auto) , Eosinophils (%) (Auto) , Baso phils (%) (Auto) , Differential Total Cells Counted 100, Neutrophils % (Manual) 55, Lymphocytes % (Manual) 22, Monocytes % (Manual) 21H, Eosinophils % (Manual) 2, Basophils % (Manual) 0, Band Neutrophils 0, Platelet Estimate Adequate, Platelet Morphology Normal, Red Blood Cell Morphology Normal, Sodium Level 134L, Potassium Level 4.3, Chloride Level 103, Carbon Dioxide Level 26, Anion Gap 5, Blood Urea Nitrogen 7, Creatinine 0.8, Estimat Glomerular Filtration Rate > 60, Glucose Level 92, Calcium Level 8.3L, Total Bilirubin 0.6, Aspartate Amino Transf (AST/SGOT) 44H, Alanine Aminotransferase (ALT/SGPT) 56, Alkaline Phosphatase 74, Total Protein 7.9, Albumin 2.6L, Globulin 5.3, Albumin/Globulin Ratio 0.5L, Amylase Level 151H, Lipase 840H Current Medications Medications (Trade) Dose Ordered Sig/Dipti Route PRN Reason Start Time Stop Time Status Last Admin Dose Admin Ibuprofen (Advil) 400 mg Q6H PRN ORAL Temp >100.5 01/22/20 18:00 02/21/20 17:59 02/04/20 20:09 Ondansetron HCl (Zofran) 4 mg Q6H PRN IVP Nausea & Vomiting 01/22/20 07:30 02/21/20 07:29 Pantoprazole (Protonix) 40 mg EVERY 12 HOURS ORAL 01/28/20 15:00 02/27/20 14:59 02/05/20 08:52 Piperacillin Sod/ Tazobactam Sod 3.375 gm/Sodium Chloride 110 ml @ 27.5 mls/hr EVERY 8 HOURS IVPB 01/23/20 14:00 02/09/20 13:59 02/05/20 05:02 Potassium Chloride (K-Dur) 40 meq TWICE A DAY ORAL 01/27/20 18:00 04/26/20 17:59 02/05/20 08:52 Assessment/Plan Assessment/Plan Assessment/Plan 1. Transaminitis 2. Pancreatitis. - per Dr. Kingsley, Dr. Santiago 3. Positive COVID-19. -Currently no intervention required for Covid19 due to her normoxemic status on RA 4. Hypertension (Patient was seen earlier today. Signature timestamp does not reflect patient encounter time) Bubba Penny,Bubba Amaro MD Feb 05, 2020 13:27
--- NOTE | 2020-02-05 14:04 | Surgery Progress Note ---
Surgery Progress Note Subjective Symptoms: improved, tolerating diet, passing flatus Objective Last 24 Hour Vital Signs Date Time Temp Pulse Resp B/P (MAP) Pulse Ox O2 Delivery O2 Flow Rate FiO2 02/05/20 04:00 98.4 83 20 129/72 (91) 96 02/05/20 00:00 98.5 79 20 120/82 (95) 95 02/04/20 21:00 Room Air 02/04/20 20:39 100.1 02/04/20 20:00 100.9 88 18 151/81 (104) 95 02/04/20 16:00 98.2 80 18 122/63 (82) 96 I&O Intake and Output 02/04/20 02/05/20 19:00 07:00 Intake Total 1280 ml 137.5 ml Balance 1280 ml 137.5 ml Intake Oral 1280 ml IV Total 137.5 ml # Voids 4 3 # Bowel Movements 1 Cardiovascular: RSR Respiratory: clear Abdomen: soft, flat, non-tender, present bowel sounds Extremities: no edema, no tenderness Laboratory Tests Test 02/05/20 07:42 White Blood Count 2.6 K/UL (4.8-10.8) L Corrected White Blood Count K/UL Red Blood Count 4.29 M/UL (4.20-5.40) Hemoglobin 12.4 G/DL (12.0-16.0) Hematocrit 35.0 % (37.0-47.0) L Mean Corpuscular Volume 82 FL (80-99) Mean Corpuscular Hemoglobin 28.9 PG (27.0-31.0) Mean Corpuscular Hemoglobin Concent 35.5 G/DL (32.0-36.0) Red Cell Distribution Width 13.6 % (11.6-14.8) Platelet Count 245 K/UL (150-450) Mean Platelet Volume 6.6 FL (6.5-10.1) Neutrophils (%) (Auto) % (45.0-75.0) Lymphocytes (%) (Auto) % (20.0-45.0) Monocytes (%) (Auto) % (1.0-10.0) Eosinophils (%) (Auto) % (0.0-3.0) Basophils (%) (Auto) % (0.0-2.0) Differential Total Cells Counted 100 Neutrophils % (Manual) 55 % (45-75) Lymphocytes % (Manual) 22 % (20-45) Monocytes % (Manual) 21 % (1-10) H Eosinophils % (Manual) 2 % (0-3) Basophils % (Manual) 0 % (0-2) Band Neutrophils 0 % (0-8) Platelet Estimate Adequate Platelet Morphology Normal Red Blood Cell Morphology Normal Sodium Level 134 MMOL/L (136-145) L Potassium Level 4.3 MMOL/L (3.5-5.1) Chloride Level 103 MMOL/L (98-107) Carbon Dioxide Level 26 MMOL/L (21-32) Anion Gap 5 mmol/L (5-15) Blood Urea Nitrogen 7 mg/dL (7-18) Creatinine 0.8 MG/DL (0.55-1.30) Estimat Glomerular Filtration Rate > 60 mL/min (>60) Glucose Level 92 MG/DL (74-106) Calcium Level 8.3 MG/DL (8.5-10.1) L Total Bilirubin 0.6 MG/DL (0.2-1.0) Aspartate Amino Transf (AST/SGOT) 44 U/L (15-37) H Alanine Aminotransferase (ALT/SGPT) 56 U/L (12-78) Alkaline Phosphatase 74 U/L (46-116) Total Protein 7.9 G/DL (6.4-8.2) Albumin 2.6 G/DL (3.4-5.0) L Globulin 5.3 g/dL Albumin/Globulin Ratio 0.5 (1.0-2.7) L Amylase Level 151 U/L (25-115) H Lipase 840 U/L (73-393) H Plan Problems: (1) Acute pancreatitis Assessment & Plan: 51-year-old female acute pancreatitis potentially gallstone related. Afebrile hemodynamic stable labs improved. No nausea vomiting fever chills. Pain is resolved. No acute surgical intervention planned. Continue with work-up. Trend labs. GI input appreciated. Will follow with recommendations. Thank you npo iv fluids iv abx trend labs bowel rest will follow with recs thank you febrile tolerating diet labs improving trend labs cont diet cont abx needs mrcp but covid + labs noted exam benign pending covid mrcp noted plan ercp Liver: See below. Gallbladder: There is cholelithiasis. A 2.6 cm gallstone is noted. Gallbladder wall measures 0.45 cm and is thickened. Common bile duct: Suboptimal evaluation of the common bile duct due to bowel gas. No stones. No dilation. Pancreas: Unremarkable as visualized. Kidneys: Right kidney measures 9.8 x 5 x 5 cm. Left kidney measures 9. 3 x 4.9 x 4.7 cm. No hydronephrosis. No stones. Spleen: Spleen measures 9.3 cm and is unremarkable. Aorta: Abdominal aorta is normal in caliber. Liver measures 15.9 cm. Partial evaluation of the abdominal aorta which is grossly unremarkable. No aneurysm. Inferior vena cava: Unremarkable. IMPRESSION: 1. Limited evaluation due to bowel gas. 2. Cholelithiasis. 3. Gallbladder wall measures 0.45 cm and is diffusely thickened. Clinical correlation is necessary. 4. No pericholecystic fluid noted however. Markedly limited evaluation of the common bile duct due to bowel gas. 5. Clinical correlation is necessary. The gallbladder demonstrates 2 very large central gallstones measuring up to 2.7 cm. It also demonstrates multiple smaller gallstones as well as a small amount of sludge. There is no gallbladder wall thickening or pericholecystic edema. On multiple sequences, there is a filling defect in the downstream common bile duct which measures approximately 5 mm length by 2 mm in diameter. On the coronal MRCP images, this appears to be attached to the wall of the common bile duct. The common bile duct is mildly dilated, measuring up to 10 mm in diameter. There is no intrahepatic biliary ductal dilatation. The pancreatic duct is mildly ectatic, measuring up to 3 mm in diameter. No pancreatic head mass or pancreatic cystic lesion demonstrated. There is a slight degree of edema of the peripancreatic fat extending slightly into the anterior Gerota's fascia on the axial T2 fat saturated images. Although this is not clearly visible on the coronal MRCP images. The pancreas is otherwise unremarkable. There is trace pleural fluid bilaterally. The right kidney demonstrates a lower pole cyst and another tiny one in the upper pole. On the fat saturated T2 images, there is also a 5 mm area of decreased signal which is not evident on other images, most likely represents a tiny angiomyolipoma The uterus demonstrates marked thickening of the endometrium, which measures up to 2.9 mm thick. This demonstrates high T2 signal and low T1 signal. This area is included only on the coronal images Impression: Cholelithiasis. No findings to suggest acute cholecystitis Dilated common bile duct and common hepatic duct. Apparent filling defect in the downstream common bile duct, suspicious for choledocholithiasis. Appearing somewhat unusual but suspect that this is a real finding given the presence of cholelithiasis and biliary ductal dilatation Mild ectasia of the pancreatic duct Very questionable peripancreatic edema at the inferior border of the pancreas; suspect artifactual but if real could represent very mild acute pancreatitis, given stated clinical history of such Thickened endometrium, abnormal in a perimenopausal female. Recommend further evaluation with sonography Suspect trace bilateral pleural effusions Incidental findings small right renal cysts and probable small right renal angiomyolipoma (2) Gall stone (3) Lab test positive for detection of COVID-19 virus Jalil Santiago Feb 05, 2020 14:04
--- NOTE | 2020-02-05 14:21 | Infectious Diseases Prog Note ---
Assessment/Plan Assessment/Plan IMPRESSION: 1. COVID-19 disease, seems to be mild or recent infection. 2. Acute pancreatitis, has elevated transaminase. 3. Cholelithiasis & Choledocholithiasis 4. Morbid obesity. 5. Fever PLAN: Continue Zosyn Patient is clear for ERCP, already is more than10 days on isolation Subjective ROS Limited/Unobtainable: Yes Constitutional: Reports: fever, other - So=917.9 last night Respiratory: Reports: no symptoms Cardiovascular: Reports: no symptoms Gastrointestinal/Abdominal: Reports: no symptoms Genitourinary: Reports: no symptoms Allergies: Coded Allergies: No Known Allergies (Unverified , 01/21/20) Objective Last 24 Hour Vital Signs Date Time Temp Pulse Resp B/P (MAP) Pulse Ox O2 Delivery O2 Flow Rate FiO2 02/05/20 04:00 98.4 83 20 129/72 (91) 96 02/05/20 00:00 98.5 79 20 120/82 (95) 95 02/04/20 21:00 Room Air 02/04/20 20:39 100.1 02/04/20 20:00 100.9 88 18 151/81 (104) 95 02/04/20 16:00 98.2 80 18 122/63 (82) 96 Height (Feet): 5 Height (Inches): 2.00 Weight (Pounds): 235 General Appearance: no acute distress HEENT: mucous membranes moist Respiratory/Chest: lungs clear Cardiovascular: normal rate Abdomen: soft, non tender Extremities: no edema Neurologic/Psychiatric: alert, oriented x 3, responsive Laboratory Tests Test 02/05/20 07:42 White Blood Count 2.6 K/UL (4.8-10.8) L Corrected White Blood Count K/UL Red Blood Count 4.29 M/UL (4.20-5.40) Hemoglobin 12.4 G/DL (12.0-16.0) Hematocrit 35.0 % (37.0-47.0) L Mean Corpuscular Volume 82 FL (80-99) Mean Corpuscular Hemoglobin 28.9 PG (27.0-31.0) Mean Corpuscular Hemoglobin Concent 35.5 G/DL (32.0-36.0) Red Cell Distribution Width 13.6 % (11.6-14.8) Platelet Count 245 K/UL (150-450) Mean Platelet Volume 6.6 FL (6.5-10.1) Neutrophils (%) (Auto) % (45.0-75.0) Lymphocytes (%) (Auto) % (20.0-45.0) Monocytes (%) (Auto) % (1.0-10.0) Eosinophils (%) (Auto) % (0.0-3.0) Basophils (%) (Auto) % (0.0-2.0) Differential Total Cells Counted 100 Neutrophils % (Manual) 55 % (45-75) Lymphocytes % (Manual) 22 % (20-45) Monocytes % (Manual) 21 % (1-10) H Eosinophils % (Manual) 2 % (0-3) Basophils % (Manual) 0 % (0-2) Band Neutrophils 0 % (0-8) Platelet Estimate Adequate Platelet Morphology Normal Red Blood Cell Morphology Normal Sodium Level 134 MMOL/L (136-145) L Potassium Level 4.3 MMOL/L (3.5-5.1) Chloride Level 103 MMOL/L (98-107) Carbon Dioxide Level 26 MMOL/L (21-32) Anion Gap 5 mmol/L (5-15) Blood Urea Nitrogen 7 mg/dL (7-18) Creatinine 0.8 MG/DL (0.55-1.30) Estimat Glomerular Filtration Rate > 60 mL/min (>60) Glucose Level 92 MG/DL (74-106) Calcium Level 8.3 MG/DL (8.5-10.1) L Total Bilirubin 0.6 MG/DL (0.2-1.0) Aspartate Amino Transf (AST/SGOT) 44 U/L (15-37) H Alanine Aminotransferase (ALT/SGPT) 56 U/L (12-78) Alkaline Phosphatase 74 U/L (46-116) Total Protein 7.9 G/DL (6.4-8.2) Albumin 2.6 G/DL (3.4-5.0) L Globulin 5.3 g/dL Albumin/Globulin Ratio 0.5 (1.0-2.7) L Amylase Level 151 U/L (25-115) H Lipase 840 U/L (73-393) H Current Medications Medications (Trade) Dose Ordered Sig/Dipti Route PRN Reason Start Time Stop Time Status Last Admin Dose Admin Ibuprofen (Advil) 400 mg Q6H PRN ORAL Temp >100.5 01/22/20 18:00 02/21/20 17:59 02/04/20 20:09 Ondansetron HCl (Zofran) 4 mg Q6H PRN IVP Nausea & Vomiting 01/22/20 07:30 02/21/20 07:29 Pantoprazole (Protonix) 40 mg EVERY 12 HOURS ORAL 01/28/20 15:00 02/27/20 14:59 02/05/20 08:52 Piperacillin Sod/ Tazobactam Sod 3.375 gm/Sodium Chloride 110 ml @ 27.5 mls/hr EVERY 8 HOURS IVPB 01/23/20 14:00 02/09/20 13:59 02/05/20 05:02 Potassium Chloride (K-Dur) 40 meq TWICE A DAY ORAL 01/27/20 18:00 04/26/20 17:59 02/05/20 08:52 Wesley Blandon MD Feb 05, 2020 14:21
[2020-02-05 16:00] VITALS: BP 135/80
--- NOTE | 2020-02-05 20:00 | NUR ---
NURSE NOTES: RECEIVED PATIENT, ON RA, NO DISTRESS, DENIES ABDOMINAL PAIN, AMBULATED IN ROOM, WELL TOLERATED.
--- NOTE | 2020-02-05 20:18 | NUR ---
HAND-OFF: Report given to ADOLFO Stevenson, pt is stable condition.
[2020-02-05 20:36] VITALS: BP 151/82
--- NOTE | 2020-02-05 21:55 | General Progress Note ---
Subjective ROS Limited/Unobtainable: Yes Allergies: Coded Allergies: No Known Allergies (Unverified , 01/21/20) Objective Last 24 Hour Vital Signs Date Time Temp Pulse Resp B/P (MAP) Pulse Ox O2 Delivery O2 Flow Rate FiO2 02/05/20 21:35 Room Air 02/05/20 20:36 98.6 86 20 151/82 (105) 96 02/05/20 16:00 99.7 103 20 135/80 (98) 97 02/05/20 12:00 99.0 80 20 138/78 (98) 98 02/05/20 09:00 Room Air 02/05/20 08:00 98.6 86 20 134/81 (98) 98 02/05/20 04:00 98.4 83 20 129/72 (91) 96 02/05/20 00:00 98.5 79 20 120/82 (95) 95 Intake and Output 02/04/20 02/05/20 18:59 06:59 Intake Total 1280 ml 137.5 ml Balance 1280 ml 137.5 ml Intake Oral 1280 ml IV Total 137.5 ml # Voids 4 3 # Bowel Movements 1 Laboratory Tests 02/05/20 07:42: White Blood Count 2.6L, Corrected White Blood Count , Red Blood Count 4.29, Hemoglobin 12.4, Hematocrit 35.0L, Mean Corpuscular Volume 82, Mean Corpuscular Hemoglobin 28.9, Mean Corpuscular Hemoglobin Concent 35.5, Red Cell Distribution Width 13.6, Platelet Count 245, Mean Platelet Volume 6.6, Neutrophils (%) (Auto) , Lymphocytes (%) (Auto) , Monocytes (%) (Auto) , Eosinophils (%) (Auto) , Basophils (%) (Auto) , Differential Total Cells Counted 100, Neutrophils % (Manual) 55, Lymphocytes % (Manual) 22, Monocytes % (Manual) 21H, Eosinophils % (Manual) 2, Basophils % (Manual) 0, Band Neutrophils 0, Platelet Estimate Adequate, Platelet Morphology Normal, Red Blood Cell Morphology Normal, Sodium Level 134L, Potassium Level 4.3, Chloride Level 103, Carbon Dioxide Level 26, Anion Gap 5, Blood Urea Nitrogen 7, Creatinine 0.8, Estimat Glomerular Filtration Rate > 60, Glucose Level 92, Calcium Level 8.3L, Total Bilirubin 0.6, Aspartate Amino Transf (AST/SGOT) 44H, Alanine Aminotransferase (ALT/SGPT) 56, Alkaline Phosphatase 74, Total Protein 7.9, Albumin 2.6L, Globulin 5.3, Albumin/Globulin Ratio 0.5L, Amylase Level 151H, Lipase 840H Height (Feet): 5 Height (Inches): 2.00 Weight (Pounds): 235 Assessment/Plan Problem List: (1) Acute pancreatitis ICD Codes: K85.90 - Acute pancreatitis without necrosis or infection, unspecified SNOMED: [id number] Qualifiers: Qualified Codes: K85.10 - Biliary acute pancreatitis without necrosis or infection (2) Gall stone ICD Codes: K80.20 - Calculus of gallbladder without cholecystitis without obstruction SNOMED: [id number] Qualifiers: Qualified Codes: K80.20 - Calculus of gallbladder without cholecystitis without obstruction (3) Lab test positive for detection of COVID-19 virus ICD Codes: U07.1 - COVID-19 SNOMED: [id number] Status: progressing Assessment/Plan: covid positive pna prn supportive rx not improving reviewed chart and labs Ronny Win MD Feb 05, 2020 21:55
[2020-02-06 04:00] VITALS: BP 131/64
[2020-02-06] MEDS: Piperacillin/Tazobactam 3.375 GM in NS 110 ML IVPB SCH ×3 (04:56→21:03)
[2020-02-06 05:28] LABS: HEMATOCRIT 33.7 % (37.0-47.0); HEMOGLOBIN 12.1 G/DL (12.0-16.0); MEAN CORPUSCULAR VOLUME 81 FL (80-99); PLATELET COUNT 254 K/UL (150-450); RED BLOOD COUNT 4.15 M/UL (4.20-5.40); WHITE BLOOD COUNT 2.5 K/UL (4.8-10.8)
[2020-02-06 06:57] LABS: ALANINE AMINOTRANSFERASE 66 U/L (12-78); ALBUMIN 2.8 G/DL (3.4-5.0); ALBUMIN/GLOBULIN RATIO 0.6 (1.0-2.7); ALKALINE PHOSPHATASE 79 U/L (46-116); AMYLASE 162 U/L (25-115); ANION GAP 7 mmol/L (5-15); ASPARTATE AMINO TRANSFERASE 51 U/L (15-37); BILIRUBIN,TOTAL 0.7 MG/DL (0.2-1.0); BLOOD UREA NITROGEN 8 mg/dL (7-18); CALCIUM 8.2 MG/DL (8.5-10.1); CARBON DIOXIDE 25 MMOL/L (21-32); CHLORIDE 102 MMOL/L (98-107); CREATININE 0.9 MG/DL (0.55-1.30); POTASSIUM 3.7 MMOL/L (3.5-5.1); SODIUM 134 MMOL/L (136-145)
[2020-02-06 08:00] VITALS: BP 115/73
--- NOTE | 2020-02-06 08:00 | NUR ---
NURSE NOTES: Received pt from RAUDEL Goetz. Pt was sleeping in room air, no acute distress noted, no S/S of pain or discomfort. Right hand PIV access G 24, saline locked. call light w/in easy reach, side rails up x3, bed locked lowest position possible. Will continue to monitor pt and follow up with the plan of care.
--- NOTE | 2020-02-06 08:01 | NUR ---
HAND-OFF: Report given to rn Scotti.
--- NOTE | 2020-02-06 08:01 | NUR ---
NURSE HAND-OFF: Important Events on Shift: Patient Status: no abdo pain or respiratory distress Diet: low fat diet tolerated Pending Orders: vit d level drawn Pending Results/Labs: Pending MD notification: Latest Vital Signs: Temperature 98.6 , Pulse 78 , B/P 131 /64 , Respiratory Rate 20 , O2 SAT 96 , Room Air, O2 Flow Rate . Vital Sign Comment: Latest Xiong Fall Score: 20 Fall Risk: Low Risk Safety Measures: Call light Within Reach, Bed Alarm Zone 1, Side Rails Side Rails x2, Bed position Low and Locked. Fall Precautions: Yellow Socks Patient Fall Education Report given to Rn Scotti.
--- NOTE | 2020-02-06 10:38 | Pulmonology Progress Note ---
Subjective ROS Limited/Unobtainable: Yes Interval Events: None new reported. Constitutional: Reports: fever, other - Zk=992.9 last night HEENT: Repors: no symptoms Respiratory: Reports: no symptoms, dry cough Cardiovascular: Reports: no symptoms Gastrointestinal/Abdominal: Reports: no symptoms Genitourinary: Reports: no symptoms Musculoskeletal: Denies: pain Allergies: Coded Allergies: No Known Allergies (Unverified , 01/21/20) Objective Last 24 Hour Vital Signs Date Time Temp Pulse Resp B/P (MAP) Pulse Ox O2 Delivery O2 Flow Rate FiO2 02/06/20 04:00 98.6 78 20 131/64 (86) 96 02/06/20 00:00 20 96 02/05/20 21:35 Room Air 02/05/20 20:36 98.6 86 20 151/82 (105) 96 02/05/20 16:00 99.7 103 20 135/80 (98) 97 02/05/20 12:00 99.0 80 20 138/78 (98) 98 Intake and Output 02/05/20 02/06/20 19:00 07:00 Intake Total 950 ml 537.5 ml Balance 950 ml 537.5 ml Intake Oral 950 ml 400 ml IV Total 137.5 ml # Voids 3 2 # Bowel Movements 1 General Appearance: WD/WN, no acute distress HEENT: normocephalic Respiratory: lungs clear Cardiovascular: normal rate, regular rhythm, no gallop/murmur Abdomen: soft, non tender Neurologic: alert, oriented x 3, responsive Laboratory Tests 02/06/20 05:15: White Blood Count 2.5L, Red Blood Count 4.15L, Hemoglobin 12.1, Hematocrit 33.7L , Mean Corpuscular Volume 81, Mean Corpuscular Hemoglobin 29.2, Mean Corpuscular Hemoglobin Concent 35.9, Red Cell Distribution Width 13.0, Platelet Count 254, Mean Platelet Volume 5.9L, Neutrophils (%) (Auto) , Lymphocytes (%) (Auto) , Monocytes (%) (Auto) , Eosinophils (%) (Auto) , Basophils (%) (Auto) , Differential Total Cells Counted 100, Neutrophils % (Manual) 53, Lymphocytes % (Manual) 39, Monocytes % (Manual) 6, Eosinophils % (Manual) 2, Basophils % (Manual) 0, Band Neutrophils 0, Platelet Estimate Adequate, Platelet Morphology Normal, Red Blood Cell Morphology Normal, Sodium Level 134L, Potassium Level 3.7, Chloride Level 102, Carbon Dioxide Level 25, Anion Gap 7, Blood Urea Nitrogen 8, Creatinine 0.9, Estimat Glomerular Filtration Rate > 60, Glucose Level 109H, Osmolality [Pending], Uric Acid 1.9L, Calcium Level 8.2L, Total Bilirubin 0.7, Aspartate Amino Transf (AST/SGOT) 51H, Alanine Aminotransferase (ALT/SGPT) 66, Alkaline Phosphatase 79, Total Protein 7.3, Albumin 2.8L, Globulin 4.5, Albumin/Globulin Ratio 0.6L, Amylase Level 162H, Lipase 1035H, Vit connors D 25-Hydroxy [Pending], 25-Hydroxy Vitamin D2 [Pending], 25-Hydroxy Vitamin D3 [Pending] 02/06/20 05:45: Urine Osmolality [Pending], Urine Random Sodium 54 Current Medications Medications (Trade) Dose Ordered Sig/Dipti Route PRN Reason Start Time Stop Time Status Last Admin Dose Admin Ibuprofen (Advil) 400 mg Q6H PRN ORAL Temp >100.5 01/22/20 18:00 02/21/20 17:59 02/04/20 20:09 Ondansetron HCl (Zofran) 4 mg Q6H PRN IVP Nausea & Vomiting 01/22/20 07:30 02/21/20 07:29 Pantoprazole (Protonix) 40 mg EVERY 12 HOURS ORAL 01/28/20 15:00 02/27/20 14:59 02/06/20 08:34 Piperacillin Sod/ Tazobactam Sod 3.375 gm/Sodium Chloride 110 ml @ 27.5 mls/hr EVERY 8 HOURS IVPB 01/23/20 14:00 02/09/20 13:59 02/06/20 04:56 Potassium Chloride (K-Dur) 40 meq TWICE A DAY ORAL 01/27/20 18:00 04/26/20 17:59 02/06/20 08:34 Assessment/Plan Assessment/Plan Assessment/Plan 1. Transaminitis 2. Pancreatitis. - per Dr. Kingsley, Dr. Santiago 3. Positive COVID-19. -Currently no intervention required for Covid19 due to her normoxemic status on RA Sat 95% 4. Hypertension Gulwani,Karima CHEMISTRY ACCOUNT MANAGER Feb 06, 2020 10:38
--- NOTE | 2020-02-06 10:57 | General Progress Note ---
Subjective ROS Limited/Unobtainable: Yes Allergies: Coded Allergies: No Known Allergies (Unverified , 01/21/20) Objective Last 24 Hour Vital Signs Date Time Temp Pulse Resp B/P (MAP) Pulse Ox O2 Delivery O2 Flow Rate FiO2 02/06/20 04:00 98.6 78 20 131/64 (86) 96 02/06/20 00:00 20 96 02/05/20 21:35 Room Air 02/05/20 20:36 98.6 86 20 151/82 (105) 96 02/05/20 16:00 99.7 103 20 135/80 (98) 97 02/05/20 12:00 99.0 80 20 138/78 (98) 98 Intake and Output 02/05/20 02/06/20 19:00 07:00 Intake Total 950 ml 537.5 ml Balance 950 ml 537.5 ml Intake Oral 950 ml 400 ml IV Total 137.5 ml # Voids 3 2 # Bowel Movements 1 Laboratory Tests 02/06/20 05:15: White Blood Count 2.5L, Red Blood Count 4.15L, Hemoglobin 12.1, Hematocrit 33.7L , Mean Corpuscular Volume 81, Mean Corpuscular Hemoglobin 29.2, Mean Corpuscular Hemoglobin Concent 35.9, Red Cell Distribution Width 13.0, Platelet Count 254, Mean Platelet Volume 5.9L, Neutrophils (%) (Auto) , Lymphocytes (%) (Auto) , Monocytes (%) (Auto) , Eosinophils (%) (Auto) , Basophils (%) (Auto) , Differential Total Cells Counted 100, Neutrophils % (Manual) 53, Lymphocytes % (Manual) 39, Monocytes % (Manual) 6, Eosinophils % (Manual) 2, Basophils % (Manual) 0, Band Neutrophils 0, Platelet Estimate Adequate, Platelet Morphology Normal, Red Blood Cell Morphology Normal, Sodium Level 134L, Potassium Level 3.7, Chloride Level 102, Carbon Dioxide Level 25, Anion Gap 7, Blood Urea Nitrogen 8, Creatinine 0.9, Estimat Glomerular Filtration Rate > 60, Glucose Level 109H, Osmolality [Pending], Uric Acid 1.9L, Calcium Level 8.2L, Total Bilirubin 0.7, Aspartate Amino Transf (AST/SGOT) 51H, Alanine Aminotransferase (ALT/SGPT) 66, Alkaline Phosphatase 79, Total Protein 7.3, Albumin 2.8L, Globulin 4.5, Albumin/Globulin Ratio 0.6L, Amylase Level 162H, Lipase 1035H, Vitamin D 25-Hydroxy [Pending], 25-Hydroxy Vitamin D2 [Pending], 25-Hydroxy Vitamin D3 [Pending] 02/06/20 05:45: Urine Osmolality [Pending], Urine Random Sodium 54 Height (Feet): 5 Height (Inches): 2.00 Weight (Pounds): 235 General Appearance: alert EENT: normal ENT inspection Neck: supple Cardiovascular: normal rate Respiratory/Chest: decreased breath sounds Abdomen: normal bowel sounds, non tender, soft Extremities: non-tender Assessment/Plan Status: progressing Assessment/Plan: gallstone pancreatitis? Covid positive pain control surg in put appreciated repeat labs for tomorrow on reg diet MRCP reviewed ercp canceled due to stable LFTS and still Covid + resume diet will fu plan ERCP tomorrow if rapid negative David Kingsley MD Feb 06, 2020 10:56
[2020-02-06 12:00] VITALS: BP 132/86
--- NOTE | 2020-02-06 13:35 | NUR ---
NURSE NOTES: Rapid covid test (+), informed dr Kingsley who agreed nurse cancel NPO and consent for ERCP orders.
--- NOTE | 2020-02-06 15:16 | Nephrology Progress Note ---
Assessment/Plan Problem List: (1) Electrolyte imbalance (2) Acute pancreatitis (3) Gall stone (4) 2019 novel coronavirus disease (COVID-19) (5) Proteinuria Assessment Hypokalemia COVID-19 disease Acute pancreatitis with elevated LFTs Gallstone pancreatitis Obesity Hypertension Proteinuria Plan February 05: Labs reviewed. Serum sodium 134 stable. Continue as is. February 04: Labs are reviewed. Serum sodium drifting down. Will order urine and serum osmolality's. Continue per consultants. February 03: Labs reviewed. Status quo. Continue per consultants. February 02: Labs reviewed. Serum sodium 135 stable. Continue per consultants. February 01: No labs drawn today. Remains stable from renal standpoint of view. January 31: Labs reviewed. Renal parameters stable. Continue per consultants. January 30: No labs drawn today. Remains stable from renal standpoint of view. January 29: Labs reviewed. Renal parameters stable. Continue per consultants. January 28: Labs reviewed. Stable from renal standpoint of view. Continue per consultants. Low-grade fever persists oral potassium ordered IV fluid adjusted and discontinued Oral Protonix added Continue to monitor renal parameters and electrolytes Continue per consultants Subjective ROS Limited/Unobtainable: No Constitutional: Reports: malaise Objective Objective Last 24 Hour Vital Signs Date Time Temp Pulse Resp B/P (MAP) Pulse Ox O2 Delivery O2 Flow Rate FiO2 02/06/20 12:00 98.9 93 20 132/86 (101) 97 02/06/20 09:00 Room Air 02/06/20 08:00 98.1 85 20 115/73 (87) 95 02/06/20 04:00 98.6 78 20 131/64 (86) 96 02/06/20 00:00 20 96 02/05/20 21:35 Room Air 02/05/20 20:36 98.6 86 20 151/82 (105) 96 02/05/20 16:00 99.7 103 20 135/80 (98) 97 Intake and Output 02/05/20 02/06/20 19:00 07:00 Intake Total 950 ml 537.5 ml Balance 950 ml 537.5 ml Intake Oral 950 ml 400 ml IV Total 137.5 ml # Voids 3 2 # Bowel Movements 1 Current Medications Medications (Trade) Dose Ordered Sig/Dipti Route PRN Reason Start Time Stop Time Status Last Admin Dose Admin Ibuprofen (Advil) 400 mg Q6H PRN ORAL Temp >100.5 01/22/20 18:00 02/21/20 17:59 02/04/20 20:09 Ondansetron HCl (Zofran) 4 mg Q6H PRN IVP Nausea & Vomiting 01/22/20 07:30 02/21/20 07:29 Pantoprazole (Protonix) 40 mg EVERY 12 HOURS ORAL 01/28/20 15:00 02/27/20 14:59 02/06/20 08:34 Piperacillin Sod/ Tazobactam Sod 3.375 gm/Sodium Chloride 110 ml @ 27.5 mls/hr EVERY 8 HOURS IVPB 01/23/20 14:00 02/09/20 13:59 02/06/20 15:04 Potassium Chloride (K-Dur) 40 meq TWICE A DAY ORAL 01/27/20 18:00 04/26/20 17:59 02/06/20 08:34 Laboratory Tests 02/06/20 05:15: White Blood Count 2.5L, Red Blood Count 4.15L, Hemoglobin 12.1, Hematocrit 33.7L , Mean Corpuscular Volume 81, Mean Corpuscular Hemoglobin 29.2, Mean Corpuscular Hemoglobin Concent 35.9, Red Cell Distribution Width 13.0, Platelet Count 254, Mean Platelet Volume 5.9L, Neutrophils (%) (Auto) , Lymphocytes (%) (Auto) , Monocytes (%) (Auto) , Eosinophils (%) (Auto) , Basophils (%) (Auto) , Differential Total Cells Counted 100, Neutrophils % (Manual) 53, Lymphocytes % (Manual) 39, Monocytes % (Manual) 6, Eosinophils % (Manual) 2, Basophils % (Manual) 0, Band Neutrophils 0, Platelet Estimate Adequate, Platelet Morphology Normal, Red Blood Cell Morphology Normal, Sodium Level 134L, Potassium Level 3.7, Chloride Level 102, Carbon Dioxide Level 25, Anion Gap 7, Blood Urea Nitrogen 8, Creatinine 0.9, Estimat Glomerular Filtration Rate > 60, Glucose Level 109H, Osmolality [Pending], Uric Acid 1.9L, Calcium Level 8.2L, Total Bilirubin 0.7, Aspartate Amino Transf (AST/SGOT) 51H, Alanine Aminotransferase (ALT/SGPT) 66, Alkaline Phosphatase 79, Total Protein 7.3, Albumin 2.8L, Globulin 4.5, Albumin/Globulin Ratio 0.6L, Amylase Level 162H, Lipase 1035H, Vitamin D 25-Hydroxy [Pending], 25-Hydroxy Vitamin D2 [Pending], 25-Hydroxy Vitamin D3 [Pending] 02/06/20 05:45: Urine Osmolality [Pending], Urine Random Sodium 54 Height (Feet): 5 Height (Inches): 2.00 Weight (Pounds): 235 General Appearance: no apparent distress Cardiovascular: tachycardia Respiratory/Chest: decreased breath sounds Abdomen: soft Objective No change Rakesh Hammer MD Feb 06, 2020 15:16
[2020-02-06 16:00] VITALS: BP 137/82
--- NOTE | 2020-02-06 18:15 | Surgery Progress Note ---
Surgery Progress Note Subjective Symptoms: improved, tolerating diet, passing flatus, BM Objective Last 24 Hour Vital Signs Date Time Temp Pulse Resp B/P (MAP) Pulse Ox O2 Delivery O2 Flow Rate FiO2 02/06/20 12:00 98.9 93 20 132/86 (101) 97 02/06/20 09:00 Room Air 02/06/20 08:00 98.1 85 20 115/73 (87) 95 02/06/20 04:00 98.6 78 20 131/64 (86) 96 02/06/20 00:00 20 96 02/05/20 21:35 Room Air 02/05/20 20:36 98.6 86 20 151/82 (105) 96 I&O Intake and Output 02/05/20 02/06/20 19:00 07:00 Intake Total 950 ml 537.5 ml Balance 950 ml 537.5 ml Intake Oral 950 ml 400 ml IV Total 137.5 ml # Voids 3 2 # Bowel Movements 1 Dressing: saturated Cardiovascular: RSR Respiratory: decreased breath sounds Abdomen: soft, non-tender, present bowel sounds Extremities: no tenderness, no cyanosis Laboratory Tests Test 02/06/20 05:15 02/06/20 05:45 White Blood Count 2.5 K/UL (4.8-10.8) L Red Blood Count 4.15 M/UL (4.20-5.40) L Hemoglobin 12.1 G/DL (12.0-16.0) Hematocrit 33.7 % (37.0-47.0) L Mean Corpuscular Volume 81 FL (80-99) Mean Corpuscular Hemoglobin 29.2 PG (27.0-31.0) Mean Corpuscular Hemoglobin Concent 35.9 G/DL (32.0-36.0) Red Cell Distribution Width 13.0 % (11.6-14.8) Platelet Count 254 K/UL (150-450) Mean Platelet Volume 5.9 FL (6.5-10.1) L Neutrophils (%) (Auto) % (45.0-75.0) Lymphocytes (%) (Auto) % (20.0-45.0) Monocytes (%) (Auto) % (1.0-10.0) Eosinophils (%) (Auto) % (0.0-3.0) Basophils (%) (Auto) % (0.0-2.0) Differential Total Cells Counted 100 Neutrophils % (Manual) 53 % (45-75) Lymphocytes % (Manual) 39 % (20-45) Monocytes % (Manual) 6 % (1-10) Eosinophils % (Manual) 2 % (0-3) Basophils % (Manual) 0 % (0-2) Band Neutrophils 0 % (0-8) Platelet Estimate Adequate Platelet Morphology Normal Red Blood Cell Morphology Normal Sodium Level 134 MMOL/L (136-145) L Potassium Level 3.7 MMOL/L (3.5-5.1) Chloride Level 102 MMOL/L (98-107) Carbon Dioxide Level 25 MMOL/L (21-32) Anion Gap 7 mmol/L (5-15) Blood Urea Nitrogen 8 mg/dL (7-18) Creatinine 0.9 MG/DL (0.55-1.30) Estimat Glomerular Filtration Rate > 60 mL/min (>60) Glucose Level 109 MG/DL (74-106) H Osmolality Pending Uric Acid 1.9 MG/DL (2.6-7.2) L Calcium Level 8.2 MG/DL (8.5-10.1) L Total Bilirubin 0.7 MG/DL (0.2-1.0) Aspartate Amino Transf (AST/SGOT) 51 U/L (15-37) H Alanine Aminotransferase (ALT/SGPT) 66 U/L (12-78) Alkaline Phosphatase 79 U/L (46-116) Total Protein 7.3 G/DL (6.4-8.2) Albumin 2.8 G/DL (3.4-5.0) L Globulin 4.5 g/dL Albumin/Globulin Ratio 0.6 (1.0-2.7) L Amylase Level 162 U/L (25-115) H Lipase 1035 U/L (73-393) H Vitamin D 25-Hydroxy Pending 25-Hydroxy Vitamin D2 Pending 25-Hydroxy Vitamin D3 Pending Urine Osmolality Pending Urine Random Sodium 54 mmol/L (20-110) Plan Problems: (1) Acute pancreatitis Assessment & Plan: 51-year-old female acute pancreatitis potentially gallstone related. Afebrile hemodynamic stable labs improved. No nausea vomiting fever chills. Pain is resolved. No acute surgical intervention planned. Continue with work-up. Trend labs. GI input appreciated. Will follow with recommendations. Thank you npo iv fluids iv abx trend labs bowel rest will follow with recs thank you febrile tolerating diet labs improving trend labs cont diet cont abx needs mrcp but covid + labs noted exam benign pending covid mrcp noted plan ercp Liver: See below. Gallbladder: There is cholelithiasis. A 2.6 cm gallstone is noted. Gallbladder wall measures 0.45 cm and is thickened. Common bile duct: Suboptimal evaluation of the common bile duct due to bowel gas. No stones. No dilation. Pancreas: Unremarkable as visualized. Kidneys: Right kidney measures 9.8 x 5 x 5 cm. Left kidney measures 9. 3 x 4.9 x 4.7 cm. No hydronephrosis. No stones. Spleen: Spleen measures 9.3 cm and is unremarkable. Aorta: Abdominal aorta is normal in caliber. Liver measures 15.9 cm. Partial evaluation of the abdominal aorta which is grossly unremarkable. No aneurysm. Inferior vena cava: Unremarkable. IMPRESSION: 1. Limited evaluation due to bowel gas. 2. Cholelithiasis. 3. Gallbladder wall measures 0.45 cm and is diffusely thickened. Clinical correlation is necessary. 4. No pericholecystic fluid noted however. Markedly limited evaluation of the common bile duct due to bowel gas. 5. Clinical correlation is necessary. The gallbladder demonstrates 2 very large central gallstones measuring up to 2.7 cm. It also demonstrates multiple smaller gallstones as well as a small amount of sludge. There is no gallbladder wall thickening or pericholecystic edema. On multiple sequences, there is a filling defect in the downstream common bile duct which measures approximately 5 mm length by 2 mm in diameter. On the coronal MR CP images, this appears to be attached to the wall of the common bile duct. The common bile duct is mildly dilated, measuring up to 10 mm in diameter. There is no intrahepatic biliary ductal dilatation. The pancreatic duct is mildly ectatic, measuring up to 3 mm in diameter. No pancreatic head mass or pancreatic cystic lesion demonstrated. There is a slight degree of edema of the peripancreatic fat extending slightly into the anterior Gerota's fascia on the axial T2 fat saturated images. Although this is not clearly visible on the coronal MRCP images. The pancreas is otherwise unremarkable. There is trace pleural fluid bilaterally. The right kidney demonstrates a lower pole cyst and another tiny one in the upper pole. On the fat saturated T2 images, there is also a 5 mm area of decreased signal which is not evident on other images, most likely represents a tiny angiomyolipoma The uterus demonstrates marked thickening of the endometrium, which measures up to 2.9 mm thick. This demonstrates high T2 signal and low T1 signal. This area is included only on the coronal images Impression: Cholelithiasis. No findings to suggest acute cholecystitis Dilated common bile duct and common hepatic duct. Apparent filling defect in the downstream common bile duct, suspicious for choledocholithiasis. Appearing somewhat unusual but suspect that this is a real finding given the presence of choleli thiasis and biliary ductal dilatation Mild ectasia of the pancreatic duct Very questionable peripancreatic edema at the inferior border of the pancreas; suspect artifactual but if real could represent very mild acute pancreatitis, given stated clinical history of such Thickened endometrium, abnormal in a perimenopausal female. Recommend further evaluation with sonography Suspect trace bilateral pleural effusions Incidental findings small right renal cysts and probable small right renal angiomyolipoma (2) Gall stone (3) Lab test positive for detection of COVID-19 virus Jalil Santiago Feb 06, 2020 18:15
--- NOTE | 2020-02-06 19:30 | NUR ---
NURSE NOTES: Received report from ADOLFO Jacobsen. AAO x 4, on room air. No labored breathing. Denies pain or discomfort. Ambulatory. IV site intact and patent. Bed locked, lowest position, alarm on, side rails up, call light within reach. Will continue to monitor.
--- NOTE | 2020-02-06 19:48 | NUR ---
NURSE HAND-OFF: Important Events on Shift:[] Patient Status: [] Diet: [lowfat] Pending Orders: [] Pending Results/Labs:[] Pending MD notification:[] Latest Vital Signs: Temperature 98.5 , Pulse 89 , B/P 137 /82 , Respiratory Rate 20 , O2 SAT 98 , Room Air, O2 Flow Rate . Vital Sign Comment: [] Latest Xiong Fall Score: 20 Fall Risk: Low Risk Safety Measures: Call light Within Reach, Bed Alarm Zone 1, Side Rails Side Rails x2, Bed position Low and Locked. Fall Precautions: Yellow Socks Patient Fall Education Report given to [RN Sergio].
[2020-02-06 20:00] VITALS: BP 124/76
--- NOTE | 2020-02-06 22:23 | General Progress Note ---
Subjective ROS Limited/Unobtainable: Yes Allergies: Coded Allergies: No Known Allergies (Unverified , 01/21/20) Objective Last 24 Hour Vital Signs Date Time Temp Pulse Resp B/P (MAP) Pulse Ox O2 Delivery O2 Flow Rate FiO2 02/06/20 16:00 98.5 89 20 137/82 (100) 98 02/06/20 12:00 98.9 93 20 132/86 (101) 97 02/06/20 09:00 Room Air 02/06/20 08:00 98.1 85 20 115/73 (87) 95 02/06/20 04:00 98.6 78 20 131/64 (86) 96 02/06/20 00:00 20 96 Intake and Output 02/05/20 02/06/20 19:00 07:00 Intake Total 950 ml 537.5 ml Balance 950 ml 537.5 ml Intake Oral 950 ml 400 ml IV Total 137.5 ml # Voids 3 2 # Bowel Movements 1 Laboratory Tests 02/06/20 05:15: White Blood Count 2.5L, Red Blood Count 4.15L, Hemoglobin 12.1, Hematocrit 33.7L , Mean Corpuscular Volume 81, Mean Corpuscular Hemoglobin 29.2, Mean Corpuscular Hemoglobin Concent 35.9, Red Cell Distribution Width 13.0, Platelet Count 254, Mean Platelet Volume 5.9L, Neutrophils (%) (Auto) , Lymphocytes (%) (Auto) , Monocytes (%) (Auto) , Eosinophils (%) (Auto) , Basophils (%) (Auto) , Differential Total Cells Counted 100, Neutrophils % (Manual) 53, Lymphocytes % (Manual) 39, Monocytes % (Manual) 6, Eosinophils % (Manual) 2, Basophils % (Manual) 0, Band Neutrophils 0, Platelet Estimate Adequate, Platelet Morphology Normal, Red Blood Cell Morphology Normal, Sodium Level 134L, Potassium Level 3.7, Chloride Level 102, Carbon Dioxide Level 25, Anion Gap 7, Blood Urea Nitrogen 8, Creatinine 0.9, Estimat Glomerular Filtration Rate > 60, Glucose Level 109H, Osmolality [Pending], Uric Acid 1.9L, Calcium Level 8.2L, Total Bilirubin 0.7, Aspartate Amino Transf (AST/SGOT) 51H, Alanine Aminotransferase (ALT/SGPT) 66, Alkaline Phosphatase 79, Total Protein 7.3, Albumin 2.8L, Globulin 4.5, Albumin/Globulin Ratio 0.6L, Amylase Level 162H, Lipase 1035H, Vitamin D 25-Hydroxy [Pending], 25-Hydroxy Vitamin D2 [Pending], 25-Hydroxy Vitamin D3 [Pending] 02/06/20 05:45: Urine Osmolality [Pending], Urine Random Sodium 54 Height (Feet): 5 Height (Inches): 2.00 Weight (Pounds): 235 Assessment/Plan Problem List: (1) Acute pancreatitis ICD Codes: K85.90 - Acute pancreatitis without necrosis or infection, unspecified SNOMED: 453166520 Qualifiers: Qualified Codes: K85.10 - Biliary acute pancreatitis without necrosis or infection (2) Gall stone ICD Codes: K80.20 - Calculus of gallbladder without cholecystitis without o bstruction SNOMED: 506858573 Qualifiers: Qualified Codes: K80.20 - Calculus of gallbladder without cholecystitis without obstruction (3) Lab test positive for detection of COVID-19 virus ICD Codes: U07.1 - COVID-19 SNOMED: 1290603103731277 Status: progressing Assessment/Plan: covid positive pna prn supportive rx s/p hypoxia no fever reviewed chart and labs Ronny Win MD Feb 06, 2020 22:23
[2020-02-07] VITALS: BP_SYST 115; BP_SYST 119; BP_DIAS 74; BP_DIAS 76
[2020-02-07 04:00] VITALS: BP 138/81
[2020-02-07] MEDS: Piperacillin/Tazobactam 3.375 GM in NS 110 ML IVPB SCH ×3 (05:32→22:18)
--- NOTE | 2020-02-07 06:57 | NUR ---
NURSE HAND-OFF: Important Events on Shift:no fever Patient Status: stable Diet: low fat Pending Orders: Pending Results/Labs: Pending MD notification: Latest Vital Signs: Temperature 98.5 , Pulse 85 , B/P 138 /81 , Respiratory Rate 20 , O2 SAT 96 , Room Air, O2 Flow Rate . Vital Sign Comment: [] Latest Xiong Fall Score: 20 Fall Risk: Low Risk Safety Measures: Call light Within Reach, Bed Alarm Zone 1, Side Rails Side Rails x2, Bed position Low and Locked. Fall Precautions: Yellow Socks Patient Fall Education Addendum: 02/07/20 at 0725 by LIZZETH ANNE RN RN HAND-OFF: Report given to
[2020-02-07 08:00] VITALS: BP 123/80
--- NOTE | 2020-02-07 08:33 | General Progress Note ---
Subjective ROS Limited/Unobtainable: Yes Allergies: Coded Allergies: No Known Allergies (Unverified , 01/21/20) Objective Last 24 Hour Vital Signs Date Time Temp Pulse Resp B/P (MAP) Pulse Ox O2 Delivery O2 Flow Rate FiO2 02/07/20 04:00 98.5 85 20 138/81 (100) 96 02/07/20 00:00 99.1 82 18 119/76 (90) 95 02/06/20 21:00 Room Air 02/06/20 20:00 98.2 72 18 124/76 (92) 97 02/06/20 16:00 98.5 89 20 137/82 (100) 98 02/06/20 12:00 98.9 93 20 132/86 (101) 97 02/06/20 09:00 Room Air l Intake and Output 02/06/20 02/07/20 19:00 07:00 Intake Total 800 ml 110.0 ml Balance 800 ml 110.0 ml Intake Oral 800 ml IV Total 110.0 ml # Voids 3 2 # Bowel Movements 1 Height (Feet): 5 Height (Inches): 2.00 Weight (Pounds): 235 General Appearance: no apparent distress EENT: normal ENT inspection Neck: supple Cardiovascular: normal rate Respiratory/Chest: decreased breath sounds Abdomen: normal bowel sounds, non tender, soft Extremities: non-tender Assessment/Plan Status: progressing Assessment/Plan: gallstone pancreatitis? Covid positive pain control surg in put appreciated repeat labs for tomorrow on reg diet MRCP reviewed d/w ID plan possible ercp for tomorrow David Kingsley MD Feb 07, 2020 08:32
--- NOTE | 2020-02-07 09:47 | Pulmonology Progress Note ---
Subjective ROS Limited/Unobtainable: Yes Interval Events: None new reported. HEENT: Repors: no symptoms Respiratory: Reports: no symptoms, dry cough Cardiovascular: Reports: no symptoms Gastrointestinal/Abdominal: Reports: no symptoms Genitourinary: Reports: no symptoms Musculoskeletal: Denies: pain Allergies: Coded Allergies: No Known Allergies (Unverified , 01/21/20) Objective Last 24 Hour Vital Signs Date Time Temp Pulse Resp B/P (MAP) Pulse Ox O2 Delivery O2 Flow Rate FiO2 02/07/20 08:00 97.7 85 20 123/80 (94) 96 96 02/07/20 04:00 98.5 85 20 138/81 (100) 96 02/07/20 00:00 99.1 82 18 119/76 (90) 95 02/06/20 21:00 Room Air 02/06/20 20:00 98.2 72 18 124/76 (92) 97 02/06/20 16:00 98.5 89 20 137/82 (100) 98 02/06/20 12:00 98.9 93 20 132/86 (101) 97 Intake and Output 02/06/20 02/07/20 19:00 07:00 Intake Total 800 ml 110.0 ml Balance 800 ml 110.0 ml Intake Oral 800 ml IV Total 110.0 ml # Voids 3 2 # Bowel Movements 1 Objective 02/06 room air; no fever overnight 02/03 [id number]=153.2 02/02 room air; low grade fever, better with advil 02/01 room air; fever again overnight; now NPO 01/31 room air; no fever; tolerating diet 01/30 room air; no fever overnight; tolerating diet 01/29 room air; intermittent fever 01/28 continues to saturate well on RA; persistent low grade fever, better with ibuprofen 01/27 saturating well on RA; NAD 01/27/2020 continues to saturate well on RA; NAD 01/26/2020 saturating well on room air; NAD; sitting on her bed 01/25/2020 saturating well on room air 01/24/2020 pt eating in bed; saturating well on room air 01/23/2020 NAD; on room air 01/22/2020 saturating well on room air; NAD General Appearance: WD/WN, no acute distress HEENT: normocephalic Respiratory: lungs clear Cardiovascular: normal rate, regular rhythm, no gallop/murmur Abdomen: soft, non tender Neurologic: alert, oriented x 3, responsive Microbiology Date/Time Source Procedure Growth Status 02/06/20 12:40 Nasopharynx SARS-CoV-2 RdRp Gene Assay - Final Complete Current Medications Medications (Trade) Dose Ordered Sig/Dipti Route PRN Reason Start Time Stop Time Status Last Admin Dose Admin Ibuprofen (Advil) 400 mg Q6H PRN ORAL Temp >100.5 01/22/20 18:00 02/21/20 17:59 02/04/20 20:09 Ondansetron HCl (Zofran) 4 mg Q6H PRN IVP Nausea & Vomiting 01/22/20 07:30 02/21/20 07:29 Pantoprazole (Protonix) 40 mg EVERY 12 HOURS ORAL 01/28/20 15:00 02/27/20 14:59 02/07/20 08:32 Piperacillin Sod/ Tazobactam Sod 3.375 gm/Sodium Chloride 110 ml @ 27.5 mls/hr EVERY 8 HOURS IVPB 01/23/20 14:00 02/09/20 13:59 02/07/20 05:32 Potassium Chloride (K-Dur) 40 meq TWICE A DAY ORAL 01/27/20 18:00 04/26/20 17:59 02/07/20 08:32 Assessment/Plan Assessment/Plan 1. Transaminitis 2. Pancreatitis. - elevated amylase, lipase - s/p IVF - pain control - on zosyn per Dr. Santiago - MRI abd result noted; cholelithiasis, possible very mild acute pancreatitis - per Dr. Kingsley, Dr. Santiago - possible ERCP today per Dr. Kingsley 3. Positive COVID-19. -Currently no intervention required for Covid19 due to her normoxemic status on RA - repeat rapid COVID-19 test positive 02/01 - Rapid COVID-19 test 02/05 positive again 4. Hypertension 5. Fever - Blood Cx showed no growth - better with ibuprofen prn fever The care of this patient was discussed with my supervising physician Time spent for this encounter was approximately 31 minutes Steven Bergman Feb 07, 2020 09:47
[2020-02-07 12:00] VITALS: BP 139/86
--- NOTE | 2020-02-07 13:05 | Infectious Diseases Prog Note ---
Assessment/Plan Assessment/Plan IMPRESSION: 1. COVID-19 disease, seems to be mild or recent infection. 2. Acute pancreatitis, has elevated transaminase. 3. Cholelithiasis & Choledocholithiasis 4. Morbid obesity. 5. Fever PLAN: Continue Zosyn Will have ERCP tomorrow Case was D/W GI specialist Patient is clear for procedure Subjective ROS Limited/Unobtainable: No Constitutional: Reports: no symptoms Respiratory: Reports: no symptoms Gastrointestinal/Abdominal: Reports: no symptoms Genitourinary: Reports: no symptoms Allergies: Coded Allergies: No Known Allergies (Unverified , 01/21/20) Objective Last 24 Hour Vital Signs Date Time Temp Pulse Resp B/P (MAP) Pulse Ox O2 Delivery O2 Flow Rate FiO2 02/07/20 08:00 97.7 85 20 123/80 (94) 96 96 02/07/20 04:00 98.5 85 20 138/81 (100) 96 02/07/20 00:00 99.1 82 18 119/76 (90) 95 02/06/20 21:00 Room Air 02/06/20 20:00 98.2 72 18 124/76 (92) 97 02/06/20 16:00 98.5 89 20 137/82 (100) 98 Height (Feet): 5 Height (Inches): 2.00 Weight (Pounds): 235 General Appearance: no acute distress HEENT: mucous membranes moist Respiratory/Chest: lungs clear Cardiovascular: normal rate Abdomen: soft, non tender Extremities: no edema Neurologic/Psychiatric: alert, oriented x 3, responsive Microbiology Date/Time Source Procedure Growth Status 02/06/20 12:40 Nasopharynx SARS-CoV-2 RdRp Gene Assay - Final Complete Current Medications Medications (Trade) Dose Ordered Sig/Dipti Route PRN Reason Start Time Stop Time Status Last Admin Dose Admin Ibuprofen (Advil) 400 mg Q6H PRN ORAL Temp >100.5 01/22/20 18:00 02/21/20 17:59 02/04/20 20:09 Ondansetron HCl (Zofran) 4 mg Q6H PRN IVP Nausea & Vomiting 01/22/20 07:30 02/21/20 07:29 Pantoprazole (Protonix) 40 mg EVERY 12 HOURS ORAL 01/28/20 15:00 02/27/20 14:59 02/07/20 08:32 Piperacillin Sod/ Tazobactam Sod 3.375 gm/Sodium Chloride 110 ml @ 27.5 mls/hr EVERY 8 HOURS IVPB 01/23/20 14:00 02/09/20 13:59 02/07/20 05:32 Potassium Chloride (K-Dur) 40 meq TWICE A DAY ORAL 01/27/20 18:00 04/26/20 17:59 02/07/20 08:32 Wesley Blandon MD Feb 07, 2020 13:05
--- NOTE | 2020-02-07 13:27 | NUR ---
RD ASSESSMENT & RECOMMENDATIONS SEE CARE ACTIVITY FOR COMPLETE ASSESSMENT DAILY ESTIMATED NEEDS: Needs based on acute pancreatitis, obese 64.2kg abw 20-25 kcals/kg 8714-7009 total kcals 1-1.5 g protein/kg 64-96 g total protein 25-30 mL/kg 3146-2462 total fluid mLs NUTRITION DIAGNOSIS: Decreased fat needs r/t pancreatitis as evidenced by elevated LFT's, elevated Lipase, and amylase. CURRENT DIET: Low Fat PO DIET RECOMMENDATIONS: LOW FAT DIET (texture per [employer] REPA[employer]ER) ADDITIONAL RECOMMENDATIONS: 1) Maintain calibrated bed scale wts 2) Rec [employer] eval for possible texture upgrade 3) Monitor for continued tolerance to diet -> trend lipase and amylase levels- now trending up
--- NOTE | 2020-02-07 14:07 | Nephrology Progress Note ---
Assessment/Plan Problem List: (1) Electrolyte imbalance (2) Acute pancreatitis (3) Gall stone (4) 2019 novel coronavirus disease (COVID-19) (5) Proteinuria Assessment Hypokalemia COVID-19 disease Acute pancreatitis with elevated LFTs Gallstone pancreatitis Obesity Hypertension Proteinuria Plan February 06: No labs drawn today. Stable from renal standpoint of view. February 05: Labs reviewed. Serum sodium 134 stable. Continue as is. February 04: Labs are reviewed. Serum sodium drifting down. Will order urine and serum osmolality's. Continue per consultants. February 03: Labs reviewed. Status quo. Continue per consultants. February 02: Labs reviewed. Serum sodium 135 stable. Continue per consultants. February 01: No labs drawn today. Remains stable from renal standpoint of view. January 31: Labs reviewed. Renal parameters stable. Continue per consultants. January 30: No labs drawn today. Remains stable from renal standpoint of view. January 29: Labs reviewed. Renal parameters stable. Continue per consultants. January 28: Labs reviewed. Stable from renal standpoint of view. Continue per consultants. Low-grade fever persists oral potassium ordered IV fluid adjusted and discontinued Oral Protonix added Continue to monitor renal parameters and electrolytes Continue per consultants Subjective ROS Limited/Unobtainable: No Constitutional: Reports: malaise Objective Objective Last 24 Hour Vital Signs Date Time Temp Pulse Resp B/P (MAP) Pulse Ox O2 Delivery O2 Flow Rate FiO2 02/07/20 09:00 Room Air 02/07/20 08:00 97.7 85 20 123/80 (94) 96 96 02/07/20 04:00 98.5 85 20 138/81 (100) 96 02/07/20 00:00 99.1 82 18 119/76 (90) 95 02/06/20 21:00 Room Air 02/06/20 20:00 98.2 72 18 124/76 (92) 97 02/06/20 16:00 98.5 89 20 137/82 (100) 98 Intake and Output 02/06/20 02/07/20 19:00 07:00 Intake Total 800 ml 110.0 ml Balance 800 ml 110.0 ml Intake Oral 800 ml IV Total 110.0 ml # Voids 3 2 # Bowel Movements 1 No labs drawn today Height (Feet): 5 Height (Inches): 2.00 Weight (Pounds): 235 General Appearance: no apparent distress Cardiovascular: tachycardia Respiratory/Chest: decreased breath sounds Abdomen: distended Objective No change Rakesh Hammer MD Feb 07, 2020 14:07
[2020-02-07 16:00] VITALS: BP 138/81
--- NOTE | 2020-02-07 17:10 | NUR ---
CASE MANAGEMENT:REVIEW SI;COVID PNA. PANCREATITIS. 99.1 89 20 139/86 95% ON RA IS;ZOSYN IV Q8 K-DUR PO BID PROTONIX PO Q12 MED SURG STATUS DCP;FROM HOME PLAN; ERCP FOR 02/08/20
--- NOTE | 2020-02-07 17:43 | Surgery Progress Note ---
Surgery Progress Note Subjective Additional Comments remains covid + as of thje 28 feels okay no n/v/f/c Objective Last 24 Hour Vital Signs Date Time Temp Pulse Resp B/P (MAP) Pulse Ox O2 Delivery O2 Flow Rate FiO2 02/07/20 12:00 98.1 89 20 139/86 (103) 97 89 02/07/20 09:00 Room Air 02/07/20 08:00 97.7 85 20 123/80 (94) 96 96 02/07/20 04:00 98.5 85 20 138/81 (100) 96 02/07/20 00:00 99.1 82 18 119/76 (90) 95 02/06/20 21:00 Room Air 02/06/20 20:00 98.2 72 18 124/76 (92) 97 I&O Intake and Output 02/06/20 02/07/20 19:00 07:00 Intake Total 800 ml 110.0 ml Balance 800 ml 110.0 ml Intake Oral 800 ml IV Total 110.0 ml # Voids 3 2 # Bowel Movements 1 Cardiovascular: RSR Respiratory: clear Abdomen: soft, non-tender, present bowel sounds, non-distended Extremities: no edema, no tenderness, no cyanosis Plan Problems: (1) Acute pancreatitis Assessment & Plan: 51-year-old female acute pancreatitis potentially gallstone related. Afebrile hemodynamic stable labs improved. No nausea vomiting fever chills. Pain is resolved. No acute surgical intervention planned. Continue with work-up. Trend labs. GI input appreciated. Will follow with recommen dations. Thank you npo iv fluids iv abx trend labs bowel rest will follow with recs thank you febrile tolerating diet labs improving trend labs cont diet cont abx needs mrcp but covid + labs noted exam benign pending covid mrcp noted plan ercp Liver: See below. Gallbladder: There is cholelithiasis. A 2.6 cm gallstone is noted. Gallbladder wall measures 0.45 cm and is thickened. Common bile duct: Suboptimal evaluation of the common bile duct due to bowel gas. No stones. No dilation. Pancreas: Unremarkable as visualized. Kidneys: Right kidney measures 9.8 x 5 x 5 cm. Left kidney measures 9. 3 x 4.9 x 4.7 cm. No hydronephrosis. No stones. Spleen: Spleen measures 9.3 cm and is unremarkable. Aorta: Abdominal aorta is normal in caliber. Liver measures 15.9 cm. Partial evaluation of the abdominal aorta which is grossly unremarkable. No aneurysm. Inferior vena cava: Unremarkable. IMPRESSION: 1. Limited evaluation due to bowel gas. 2. Cholelithiasis. 3. Gallbladder wall measures 0.45 cm and is diffusely thickened. Clinical correlation is necessary. 4. No pericholecystic fluid noted however. Markedly limited evaluation of the common bile duct due to bowel gas. 5. Clinical correlation is necessary. The gallbladder demonstrates 2 very large central gallstones measuring up to 2.7 cm. It also demonstrates multiple smaller gallstones as well as a small amount of sludge. There is no gallbladder wall thickening or pericholecystic edema. On multiple sequences, there is a filling defect in the downstream common bile duct which measures approximately 5 mm length by 2 mm in diameter. On the coronal MRCP images, this appears to be attached to the wall of the common bile duct. The common bile duct is mildly dilated, measuring up to 10 mm in diameter. There is no intrahepatic biliary ductal dilatation. The pancreatic duct is mildly ectatic, measuring up to 3 mm in diameter. No pancreatic head mass or pancreatic cystic lesion demonstrated. There is a slight degree of edema of the peripancreatic fat extending slightly into the anterior Gerota's fascia on the axial T2 fat saturated images. Although this is not clearly visible on the coronal MRCP images. The pancreas is otherwise unremarkable. There is trace pleural fluid bilaterally. The right kidney demonstrates a lower pole cyst and another tiny one in the upper pole. On the fat saturated T2 images, there is also a 5 mm area of decreased signal which is not evident on other images, most likely represents a tiny angiomyolipoma The uterus demonstrates marked thickening of the endometrium, which measures up to 2.9 mm thick. This demonstrates high T2 signal and low T1 signal. This area is included only on the coronal images Impression: Cholelithiasis. No findings to suggest acute cholecystitis Dilated common bile duct and common hepatic duct. Apparent filling defect in the downstream common bile duct, suspicious for choledocholithiasis. Appearing somewhat unusual but suspect that this is a real finding given the presence of cholelithiasis and biliary ductal dilatation Mild ectasia of the pancreatic duct Very questionable peripancreatic edema at the inferior border of the pancreas; suspect artifactual but if real could represent very mild acute pancreatitis, given stated clinical history of such Thickened endometrium, abnormal in a perimenopausal female. 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
--- NOTE | 2020-02-07 19:30 | NUR ---
NURSE NOTES: Receive a report from ADOLFO Steven.
--- NOTE | 2020-02-07 19:50 | NUR ---
NURSE HAND-OFF: Important Events on Shift:[] Patient Status: [] Diet: [] Pending Orders: [] Pending Results/Labs:[] Pending MD notification:[] Latest Vital Signs: Temperature 96.4 , Pulse 82 , B/P 138 /81 , Respiratory Rate 20 , O2 SAT 98 , Room Air, O2 Flow Rate . Vital Sign Comment: [] Latest Xiong Fall Score: 20 Fall Risk: Low Risk Safety Measures: Call light Within Reach, Bed Alarm Zone 1, Side Rails Side Rails x2, Bed position Low and Locked. Fall Precautions: Yellow Socks Patient Fall Education Report given to [RN Oh].
[2020-02-07 20:00] VITALS: BP 129/75
--- NOTE | 2020-02-07 20:00 | NUR ---
NURSE NOTES: Pt is awake and alert. No acute distress noted. Denies pain or Nausea. Afebrile. On isolation d/t Covid-19(+). No SOB or coughing noted. Planning on ERCP tomorrow. Consent form is done. Pt is aware MNNPO. On ATB treatment. Call light within reach. Will continue to monitor.
--- NOTE | 2020-02-07 21:35 | General Progress Note ---
Subjective ROS Limited/Unobtainable: Yes Allergies: Coded Allergies: No Known Allergies (Unverified , 01/21/20) Objective Last 24 Hour Vital Signs Date Time Temp Pulse Resp B/P (MAP) Pulse Ox O2 Delivery O2 Flow Rate FiO2 02/07/20 16:00 96.4 82 20 138/81 (100) 98 82 02/07/20 12:00 98.1 89 20 139/86 (103) 97 89 02/07/20 09:00 Room Air 02/07/20 08:00 97.7 85 20 123/80 (94) 96 96 02/07/20 04:00 98.5 85 20 138/81 (100) 96 02/07/20 00:00 99.1 82 18 119/76 (90) 95 Intake and Output 02/06/20 02/07/20 18:59 06:59 Intake Total 827.5 ml 110.0 ml Balance 827.5 ml 110.0 ml Intake Oral 800 ml IV Total 27.5 ml 110.0 ml # Voids 3 2 # Bowel Movements 1 Height (Feet): 5 Height (Inches): 2.00 Weight (Pounds): 235 Assessment/Plan Problem List: (1) Acute pancreatitis ICD Codes: K85.90 - Acute pancreatitis without necrosis or infection, unspecified SNOMED: 629488001 Qualifiers: Qualified Codes: K85.10 - Biliary acute pancreatitis without necrosis or infection (2) Gall stone ICD Codes: K80.20 - Calculus of gallbladder without cholecystitis without obstruction SNOMED: 105022942 Qualifiers: Qualified Codes: K80.20 - Calculus of gallbladder without cholecystitis without obstruction (3) Lab test positive for detection of COVID-19 virus ICD Codes: U07.1 - COVID-19 SNOMED: 1005647998483760 Status: progressing Assessment/Plan: covid positive pna on oxygen pancreatitis resolved resp insuff no wheezing reviewed chart and labs Ronny Win MD Feb 07, 2020 21:35
[2020-02-08] VITALS (12 sets, daily range): BP systolic 105–141; BP diastolic 47–89
[2020-02-08] MEDS: Piperacillin/Tazobactam 3.375 GM in NS 110 ML IVPB SCH ×3 (05:07→21:15)
[2020-02-08 06:34] LABS: HEMATOCRIT 37.6 % (37.0-47.0); HEMOGLOBIN 12.6 G/DL (12.0-16.0); MEAN CORPUSCULAR VOLUME 87 FL (80-99); PLATELET COUNT 214 K/UL (150-450); RED BLOOD COUNT 4.31 M/UL (4.20-5.40); RED CELL DISTRIBUTION WIDTH 12.8 % (11.6-14.8); WHITE BLOOD COUNT 2.3 K/UL (4.8-10.8)
[2020-02-08 06:53] LABS: ALANINE AMINOTRANSFERASE 83 U/L (12-78); ALBUMIN 2.8 G/DL (3.4-5.0); ALKALINE PHOSPHATASE 75 U/L (46-116); ANION GAP 5 mmol/L (5-15); BILIRUBIN,TOTAL 0.8 MG/DL (0.2-1.0); BLOOD UREA NITROGEN 8 mg/dL (7-18); CALCIUM 8.6 MG/DL (8.5-10.1); CARBON DIOXIDE 27 MMOL/L (21-32); CHLORIDE 105 MMOL/L (98-107); CREATININE 0.9 MG/DL (0.55-1.30); SODIUM 137 MMOL/L (136-145)
[2020-02-08 07:11] LABS: ASPARTATE AMINO TRANSFERASE 71 U/L (15-37)
--- NOTE | 2020-02-08 07:13 | NUR ---
NURSE HAND-OFF: Important Events on Shift: MNNPO for ERCP schedule @ 1300-consent(+), Denies pain. Patient Status: [stable] Diet: [NPO] Pending Orders: [] Pending Results/Labs:[] Pending MD notification:[] Latest Vital Signs: Temperature 97.3 , Pulse 73 , B/P 120 /47 , Respiratory Rate 20 , O2 SAT 97 , Room Air, O2 Flow Rate . Vital Sign Comment: [] Latest Xiong Fall Score: 20 Fall Risk: Low Risk Safety Measures: Call light Within Reach, Bed Alarm Zone 1, Side Rails Side Rails x2, Bed position Low and Locked. Fall Precautions: Yellow Socks Patient Fall Education
--- NOTE | 2020-02-08 07:30 | NUR ---
HAND-OFF: Report given to ADOLFO Neely.
--- NOTE | 2020-02-08 08:00 | NUR ---
NURSE NOTES: RN received report from [facility]. Patient is aaoX4, verbally responsive, no pain noted, no s/s of respiratory distress noted. IV is intact, clean, patent, asymptomatic. RN explained plan of care to the patient. Patient NPO since midnight. Bed in lowest position and locked. Call light within reach. Will continue to monitor for comfort and safety. Addendum: 02/08/20 at 1100 by Yogesh Vigil RN RN assessed at 7:55 am. Late charting
--- NOTE | 2020-02-08 08:51 | Pulmonology Progress Note ---
Subjective ROS Limited/Unobtainable: No Interval Events: None new reported. Constitutional: Reports: no symptoms HEENT: Repors: no symptoms Respiratory: Reports: no symptoms Cardiovascular: Reports: no symptoms Gastrointestinal/Abdominal: Reports: no symptoms Genitourinary: Reports: no symptoms Musculoskeletal: Denies: pain Allergies: Coded Allergies: No Known Allergies (Unverified , 01/21/20) Objective Last 24 Hour Vital Signs Date Time Temp Pulse Resp B/P (MAP) Pulse Ox O2 Delivery O2 Flow Rate FiO2 02/08/20 04:00 97.3 73 20 120/47 (71) 97 02/08/20 00:00 97.7 82 20 105/64 (78) 98 67 02/07/20 21:00 Room Air 02/07/20 20:00 98.1 69 20 129/75 (93) 98 02/07/20 16:00 96.4 82 20 138/81 (100) 98 82 02/07/20 12:00 98.1 89 20 139/86 (103) 97 89 02/07/20 09:00 Room Air Intake and Output 02/07/20 02/08/20 19:00 07:00 Intake Total 600 ml Balance 600 ml Intake Oral 600 ml # Voids 3 2 # Bowel Movements 1 Objective 02/07 no change 02/06 room air; no fever overnight 02/03 Rrdl=432.2 02/02 room air; low grade fever, better with advil 02/01 room air; fever again overnight; now NPO 01/31 room air; no fever; tolerating diet 01/30 room air; no fever overnight; tolerating diet 01/29 room air; intermittent fever 01/28 continues to saturate well on RA; persistent low grade fever, better with ibuprofen 01/27 saturating well on RA; NAD 01/27/2020 continues to saturate well on RA; NAD 01/26/2020 saturating well on room air; NAD; sitting on her bed 01/25/2020 saturating well on room air 01/24/2020 pt eating in bed; saturating well on room air 01/23/2020 NAD; on room air 01/22/2020 saturating well on room air; NAD General Appearance: WD/WN, no acute distress HEENT: normocephalic Respiratory: lungs clear Cardiovascular: normal rate, regular rhythm, no gallop/murmur Abdomen: soft, non tender Neurologic: alert, oriented x 3, responsive Microbiology Date/Time Source Procedure Growth Status 02/06/20 12:40 Nasopharynx SARS-CoV-2 RdRp Gene Assay - Final Complete Laboratory Tests 02/08/20 06:00: White Blood Count 2.3L, Red Blood Count 4.31, Hemoglobin 12.6, Hematocrit 37.6, Mean Corpuscular Volume 87, Mean Corpuscular Hemoglobin 29.1, Mean Corpuscular Hemoglobin Concent 33.4, Red Cell Distribution Width 12.8, Platelet Count 214, Mean Platelet Volume 6.3L, Neutrophils (%) (Auto) , Lymphocytes (%) (Auto) , Monocytes (%) (Auto) , Eosinophils (%) (Auto) , Basophils (%) (Auto) , Neutrophils % (Manual) [Pending], Lymphocytes % (Manual) [Pending], Platelet Estimate [Pending], Platelet Morphology [Pending], Sodium Level 137, Potassium Level 4.0, Chloride Level 105, Carbon Dioxide Level 27, Anion Gap 5, Blood Urea Nitrogen 8, Creatinine 0.9, Estimat Glomerular Filtration Rate > 60, Glucose Level 103, Calcium Level 8.6, Total Bilirubin 0.8, Aspartate Amino Transf (AST/SGOT) 71H, Alanine Aminotransferase (ALT/SGPT) 83H, Alkaline Phosphatase 75, Total Protein 8.0, Albumin 2.8L, Globulin 5.2 Current Medications Medications (Trade) Dose Ordered Sig/Dipti Route PRN Reason Start Time Stop Time Status Last Admin Dose Admin Ibuprofen (Advil) 400 mg Q6H PRN ORAL Temp >100.5 01/22/20 18:00 02/21/20 17:59 02/04/20 20:09 Ondansetron HCl (Zofran) 4 mg Q6H PRN IVP Nausea & Vomiting 01/22/20 07:30 02/21/20 07:29 Pantoprazole (Protonix) 40 mg EVERY 12 HOURS ORAL 01/28/20 15:00 02/27/20 14:59 02/08/20 08:41 Piperacillin Sod/ Tazobactam Sod 3.375 gm/Sodium Chloride 110 ml @ 27.5 mls/hr EVERY 8 HOURS IVPB 01/23/20 14:00 02/09/20 13:59 02/08/20 05:07 Potassium Chloride (K-Dur) 40 meq TWICE A DAY ORAL 01/27/20 18:00 04/26/20 17:59 02/08/20 08:41 Assessment/Plan Assessment/Plan 1. Transaminitis 2. Pancreatitis. - elevated amylase, lipase - s/p IVF - pain control - on zosyn per Dr. Santiago - MRI abd result noted; cholelithiasis, possible very mild acute pancreatitis - per Dr. Kingsley, Dr. Santiago - ERCP scheduled today per Dr. Kingsley 3. Positive COVID-19. - Currently no intervention required for Covid19 due to her normoxemic status on RA - repeat rapid COVID-19 test positive 02/01 - Rapid COVID-19 test 02/05 positive again 4. Hypertension 5. Fever - Blood Cx showed no growth - better with ibuprofen prn fever The care of this patient was discussed with my supervising physician Time spent for this encounter was approximately 31 minutes Steven Bergman Feb 08, 2020 08:51
--- NOTE | 2020-02-08 09:26 | Pre-Procedure Note/Attestation ---
Pre-Procedure Note/Attestation Complete Prior to Procedure Planned Procedure: not applicable Procedure Narrative: ercp Indications for Procedure Pre-Operative Diagnosis: cbd stone Attestation I attest that I discussed the nature of the procedure; its benefits; risks and complications; and alternatives (and the risks and benefits of such alternatives), prior to the procedure, with the patient (or the patient's legal delivery representative). I attest that, if there was a reasonable possibility of needing a blood transfusion, the patient (or the patient's legal delivery representative) was given the [facility] standardized written summary, pursuant to the [place] Blood Safety Act ([place] Health and Safety Code # 1645, as amended). I attest that I re-evaluated the patient just prior to the surgery and that there has been no change in the patient's H&P, except as documented below: David Kingsley MD Feb 08, 2020 09:26
[2020-02-08] MEDS ORDERED: Rocuronium Bromide 50mg/5ml Inj IV ONE (10:41)
[2020-02-08] MEDS ORDERED: Succinylcholine 20mg/ml 10ml vial ONE (10:41)
--- NOTE | 2020-02-08 11:23 | Nephrology Progress Note ---
Assessment/Plan Problem List: (1) Electrolyte imbalance (2) Acute pancreatitis (3) Gall stone (4) 2019 novel coronavirus disease (COVID-19) (5) Proteinuria Assessment Hypokalemia COVID-19 disease Acute pancreatitis with elevated LFTs Gallstone pancreatitis Obesity Hypertension Proteinuria Plan February 07: Labs reviewed. Renal parameters are stable. Continue per consultants February 06: No labs drawn today. Stable from renal standpoint of view. February 05: Labs reviewed. Serum sodium 134 stable. Continue as is. February 04: Labs are reviewed. Serum sodium drifting down. Will order urine and serum osmolality's. Continue per consultants. February 03: Labs reviewed. Status quo. Continue per consultants. February 02: Labs reviewed. Serum sodium 135 stable. Continue per consultants. February 01: No labs drawn today. Remains stable from renal standpoint of view. January 31: Labs reviewed. Renal parameters stable. Continue per consultants. January 30: No labs drawn today. Remains stable from renal standpoint of view. January 29: Labs reviewed. Renal parameters stable. Continue per consultants. January 28: Labs reviewed. Stable from renal standpoint of view. Continue per consultants. Low-grade fever persists oral potassium ordered IV fluid adjusted and discontinued Oral Protonix added Continue to monitor renal parameters and electrolytes Continue per consultants Subjective ROS Limited/Unobtainable: No Constitutional: Reports: malaise Objective Objective Last 24 Hour Vital Signs Date Time Temp Pulse Resp B/P (MAP) Pulse Ox O2 Delivery O2 Flow Rate FiO2 02/08/20 04:00 97.3 73 20 120/47 (71) 97 02/08/20 00:00 97.7 82 20 105/64 (78) 98 67 02/07/20 21:00 Room Air 02/07/20 20:00 98.1 69 20 129/75 (93) 98 02/07/20 16:00 96.4 82 20 138/81 (100) 98 82 02/07/20 12:00 98.1 89 20 139/86 (103) 97 89 Intake and Output 02/07/20 02/08/20 19:00 07:00 Intake Total 600 ml Balance 600 ml Intake Oral 600 ml # Voids 3 2 # Bowel Movements 1 Current Medications Medications (Trade) Dose Ordered Sig/Dipti Route PRN Reason Start Time Stop Time Status Last Admin Dose Admin Ibuprofen (Advil) 400 mg Q6H PRN ORAL Temp >100.5 01/22/20 18:00 02/21/20 17:59 02/04/20 20:09 Ondansetron HCl (Zofran) 4 mg Q6H PRN IVP Nausea & Vomiting 01/22/20 07:30 02/21/20 07:29 Pantoprazole (Protonix) 40 mg EVERY 12 HOURS ORAL 01/28/20 15:00 02/27/20 14:59 02/08/20 08:41 Piperacillin Sod/ Tazobactam Sod 3.375 gm/Sodium Chloride 110 ml @ 27.5 mls/hr EVERY 8 HOURS IVPB 01/23/20 14:00 02/13/20 13:59 02/08/20 05:07 Potassium Chloride (K-Dur) 40 meq TWICE A DAY ORAL 01/27/20 18:00 04/26/20 17:59 02/08/20 08:41 Laboratory Tests 02/08/20 06:00: White Blood Count 2.3L, Red Blood Count 4.31, Hemoglobin 12.6, Hematocrit 37.6, Mean Corpuscular Volume 87, Mean Corpuscular Hemoglobin 29.1, Mean Corpuscular Hemoglobin Concent 33.4, Red Cell Distribution Width 12.8, Platelet Count 214, Mean Platelet Volume 6.3L, Neutrophils (%) (Auto) , Lymphocytes (%) (Auto) , Monocytes (%) (Auto) , Eosinophils (%) (Auto) , Basophils (%) (Auto) , Differential Total Cells Counted 100, Neutrophils % (Manual) 50, Lymphocytes % (Manual) 34, Monocytes % (Manual) 15H, Eosinophils % (Manual) 1, Basophils % (Manual) 0, Band Neutrophils 0, Platelet Estimate Adequate, Platelet Morphology Normal, Red Blood Cell Morphology Normal, Sodium Level 137, Potassium Level 4.0, Chloride Level 105, Carbon Dioxide Level 27, Anion Gap 5, Blood Urea Nitrogen 8, Creatinine 0.9, Estimat Glomerular Filtration Rate > 60, Glucose Level 103, Calcium Level 8.6, Total Bilirubin 0.8, Aspartate Amino Transf (AST/SGOT) 71H, Alanine Aminotransferase (ALT/SGPT) 83H, Alkaline Phosphatase 75, Total Protein 8.0, Albumin 2.8L, Globulin 5.2 Height (Feet): 5 Height (Inches): 5.00 Weight (Pounds): 235 General Appearance: no apparent distress Cardiovascular: normal rate Respiratory/Chest: decreased breath sounds Abdomen: soft Objective No change Rakesh Hammer MD Feb 08, 2020 11:23
[2020-02-08] MEDS ORDERED: Midazolam 2mg/2ml Inj ONE (11:48)
[2020-02-08] MEDS ORDERED: fentaNYL 100 mcg/2 mL IV ONE (11:48)
[2020-02-08] MEDS ORDERED: Glycopyrrolate 0.2mg/ml 1ml Vial ONE (12:30)
[2020-02-08] MEDS ORDERED: Neostigmine 1mg/ml 10ml Inj ONE (12:30)
[2020-02-08] MEDS ORDERED: Iothalamate Meglumine 60% 30ML INJ ONE (12:39)
--- NOTE | 2020-02-08 13:13 | Endoscopy Procedure Note ---
Endoscopy Procedure Note General Indication for Procedure: pancreatitis Procedures Performed: ERCP Operative Findings/Diagnosis: same Specimen: none Pt Tolerated Procedure Well: Yes Estimated Blood Loss: none Anesthesia Anesthesiologist: elizabeth Anesthesia: MAC Inserted Devices Implant(s) used?: No GI Core Measures 50 yrs or older w/o bx or poly: Not Applicable 10yrs. F/U recommended: Not Applicable David Kingsley MD Feb 08, 2020 13:13
[2020-02-08] MEDS ORDERED: NS 500ML IVPB ONE (13:55)
--- NOTE | 2020-02-08 14:30 | Procedure Note ---
DATE OF PROCEDURE: 02/08/2020 SURGEON: David Kingsley MD. PROCEDURE: ERCP, sphincterotomy, stone removal. ANESTHESIA: Per Dr. Kovacs. INSTRUMENT: Olympus adult flexible ERCP Scope INDICATION: Choledocholithiasis, gallstone pancreatitis. REASON FOR PROCEDURE: The procedure, risks, benefits, and possible consequences, including hemorrhage, aspiration, perforation and infection, and alternative treatments, were explained to the patient/legal guardian by Dr. David Kingsley and the patient/legal guardian understood and accepted these risks. DESCRIPTION OF PROCEDURE: After informed consent was obtained and patient was adequately sedated, ERCP scope was advanced from mouth into second portion of the duodenum. Using a sphincterotome, common bile duct was selectively cannulated. Initial cholangiogram showed dilated common bile duct with multiple stone in the distal common bile duct. The patient also had cystic duct patent but multiple gallstones in the gallbladder. Then, over a guidewire, 95% sphincterotomy was performed. Then a balloon was used to sweep the duct multiple times to remove four small black-colored stones. After the stone was removed, there was no further filling defect seen in the common bile duct. Then a balloon sweep was performed and balloon cholangiogram. The flow of contrast was excellent from common bile duct into duodenum so no stent was placed. The patient tolerated procedure very well without any complication. SUMMARY OF FINDINGS: Choledocholithiasis status post ERCP, sphincterotomy, stone removal, and balloon occlusion cholangiogram. RECOMMENDATIONS: Follow labs. Start diet and advance as tolerated. The patient most probably will benefit from cholecystectomy most likely as an outpatient. David Kingsley M.D. DR: Elda JOB#: [id number] CC:
--- NOTE | 2020-02-08 14:32 | NUR ---
NURSE NOTES: RN received patient in [facility] from [facility]. Patient's vitals stable, verbally responsive, aaoX4. IV intact, clean and patent, asymptomatic. Will continue to monitor.
--- NOTE | 2020-02-08 14:39 | Surgery Progress Note ---
Surgery Progress Note Subjective Additional Comments ercp today. stones extracted labs noted likely plan for elective joselito as pancreatitis resolves Objective Last 24 Hour Vital Signs Date Time Temp Pulse Resp B/P (MAP) Pulse Ox O2 Delivery O2 Flow Rate FiO2 02/08/20 12:00 97.7 75 20 141/78 (99) 97 02/08/20 08:00 98.1 75 20 127/76 (93) 97 02/08/20 04:00 97.3 73 20 120/47 (71) 97 02/08/20 00:00 97.7 82 20 105/64 (78) 98 67 02/07/20 21:00 Room Air 02/07/20 20:00 98.1 69 20 129/75 (93) 98 02/07/20 16:00 96.4 82 20 138/81 (100) 98 82 I&O Intake and Output 02/07/20 02/08/20 19:00 07:00 Intake Total 600 ml Balance 600 ml Intake Oral 600 ml # Voids 3 2 # Bowel Movements 1 Cardiovascular: RSR Respiratory: clear Abdomen: soft, non-tender, present bowel sounds Extremities: no edema, no tenderness, no cyanosis Laboratory Tests Test 02/08/20 06:00 White Blood Count 2.3 K/UL (4.8-10.8) L Red Blood Count 4.31 M/UL (4.20-5.40) Hemoglobin 12.6 G/DL (12.0-16.0) Hematocrit 37.6 % (37.0-47.0) Mean Corpuscular Volume 87 FL (80-99) Mean Corpuscular Hemoglobin 29.1 PG (27.0-31.0) Mean Corpuscular Hemoglobin Concent 33.4 G/DL (32.0-36.0) Red Cell Distribution Width 12.8 % (11.6-14.8) Platelet Count 214 K/UL (150-450) Mean Platelet Volume 6.3 FL (6.5-10.1) L Neutrophils (%) (Auto) % (45.0-75.0) Lymphocytes (%) (Auto) % (20.0-45.0) Monocytes (%) (Auto) % (1.0-10.0) Eosinophils (%) (Auto) % (0.0-3.0) Basophils (%) (Auto) % (0.0-2.0) Differential Total Cells Counted 100 Neutrophils % (Manual) 50 % (45-75) Lymphocytes % (Manual) 34 % (20-45) Monocytes % (Manual) 15 % (1-10) H Eosinophils % (Manual) 1 % (0-3) Basophils % (Manual) 0 % (0-2) Band Neutrophils 0 % (0-8) Platelet Estimate Adequate Platelet Morphology Normal Red Blood Cell Morphology Normal Sodium Level 137 MMOL/L (136-145) Potassium Level 4.0 MMOL/L (3.5-5.1) Chloride Level 105 MMOL/L (98-107) Carbon Dioxide Level 27 MMOL/L (21-32) Anion Gap 5 mmol/L (5-15) Blood Urea Nitrogen 8 mg/dL (7-18) Creatinine 0.9 MG/DL (0.55-1.30) Estimat Glomerular Filtration Rate > 60 mL/min (>60) Glucose Level 103 MG/DL (74-106) Calcium Level 8.6 MG/DL (8.5-10.1) Total Bilirubin 0.8 MG/DL (0.2-1.0) Aspartate Amino Transf (AST/SGOT) 71 U/L (15-37) H Alanine Aminotransferase (ALT/SGPT) 83 U/L (12-78) H Alkaline Phosphatase 75 U/L (46-116) Total Protein 8.0 G/DL (6.4-8.2) Albumin 2.8 G/DL (3.4-5.0) L Globulin 5.2 g/dL Plan Problems: (1) Acute pancreatitis Assessment & Plan: 51-year-old female acute pancreatitis potentially gallstone related. Afebrile hemodynamic stable labs improved. No nausea vomiting fever chills. Pain is resolved. No acute surgical intervention planned. Continue with work-up. Trend labs. GI input appreciated. Will follow with recommendations. Thank you npo iv fluids iv abx trend labs bowel rest will follow with recs thank you febrile tolerating diet labs improving trend labs cont diet cont abx needs mrcp but covid + labs noted exam benign pending covid mrcp noted plan ercp s/p ercp diet as tolerated trend labs plan for elective joselito after d/c and pancreatitis resolves Liver: See below. Gallbladder: There is cholelithiasis. A 2.6 cm gallstone is noted. Gallbladder wall measures 0.45 cm and is thickened. Common bile duct: Suboptimal evaluation of the common bile duct due to bowel gas. No stones. No dilation. Pancreas: Unremarkable as visualized. Kidneys: Right kidney measures 9.8 x 5 x 5 cm. Left kidney measures 9. 3 x 4.9 x 4.7 cm. No hydronephrosis. No stones. Spleen: Spleen measures 9.3 cm and is unremarkable. Aorta: Abdominal aorta is normal in caliber. Liver measures 15.9 cm. Partial evaluation of the abdominal aorta which is grossly unremarkable. No aneurysm. Inferior vena cava: Unremarkable. IMPRESSION: 1. Limited evaluation due to bowel gas. 2. Cholelithiasis. 3. Gallbladder wall measures 0.45 cm and is diffusely thickened. Clinical correlation is necessary. 4. No pericholecystic fluid noted however. Markedly limited evaluation of the common bile duct due to bowel gas. 5. Clinical correlation is necessary. The gallbladder demonstrates 2 very large central gallstones measuring up to 2.7 cm. It also demonstrates multiple smaller gallstones as well as a small amount of sludge. There is no gallbladder wall thickening or pericholecystic edema. On multiple sequences, there is a filling defect in the downstream common bile duct which measures approximately 5 mm length by 2 mm in diameter. On the coronal MRCP images, this appears to be attached to the wall of the common bile duct. The common bile duct is mildly dilated, measuring up to 10 mm in diameter. There is no intrahepatic biliary ductal dilatation. The pancreatic duct is mildly ectatic, measuring up to 3 mm in diameter. No pancreatic head mass or pancreatic cystic lesion demonstrated. There is a slight degree of edema of the peripancreatic fat extending slightly into the anterior Gerota's fascia on the axial T2 fat saturated images. Although this is not clearly visible on the coronal MRCP images. The pancreas is otherwise unremarkable. There is trace pleural fluid bilaterally. The right kidney demonstrates a lower pole cyst and another tiny one in the upper pole. On the fat saturated T2 images, there is also a 5 mm area of decreased signal which is not evident on other images, most likely represents a tiny angiomyolipoma The uterus demonstrates marked thickening of the endometrium, which measures up to 2.9 mm thick. This demonstrates high T2 signal and low T1 signal. This area is included only on the coronal images Impression: Cholelithiasis. No findings to suggest acute cholecystitis Dilated common bile duct and common hepatic duct. Apparent filling defect in the downstream common bile duct, suspicious for choledocholithiasis. Appearing somewhat unusual but suspect that this is a real finding given the presence of cholelithiasis and biliary ductal dilatation Mild ectasia of the pancreatic duct Very questionable peripancreatic edema at the inferior border of the pancreas; suspect artifactual but if real could represent very mild acute pancreatitis, given stated clinical history of such Thickened endometrium, abnormal in a perimenopausal female. 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
--- NOTE | 2020-02-08 15:16 | Anethesia Preoperative Eval ---
Anesthesia Pre-op PMH/ROS General Date of Evaluation: Feb 08, 2020 Time of Evaluation: 12:30 Anesthesiologist: Niurka ASA Score: ASA 2 Mallampati Score Class I : Soft palate, uvula, fauces, pillars visible Class II: Soft palate, uvula, fauces visible Class III: Soft palate, base of uvula visible Class IV: Only hard plate visible Mallampati Classification: Class III Surgeon: Sancho Diagnosis: Abd. pain Surgical Procedure: ERCP Anesthesia History: none Family History: no anesthesia problems Allergies: Coded Allergies: No Known Allergies (Unverified , 01/21/20) Medications: see eMAR Patient NPO?: Yes Past Medical History Cardiovascular: Denies: HTN, CAD, [place], valve dz, arrhythmia, other Pulmonary: Denies: asthma, COPD, ERIKA, other Gastrointestinal/Genitourinary: Reports: GERD, other - recurrent abdominal pain; Denies: CRI, ESRD Neurologic/Psychiatric: Denies: dementia, CVA, depression/anxiety, TIA, other Endocrine: Denies: DM, hypothyroidism, steroids, other HEENT: Denies: cataract (L), cataract (R), glaucoma, [place] (L), [place] (R), other Hematology/Immune: Denies: anemia, DVT, bleeding disorder, other Musculoskeletal/Integumentary: Denies: OA, RA, DJD, DDD, edema, other Other: obesity PMH Narrative: as above PSxH Narrative: none Anesthesia Pre-op Phys. Exam Physician Exam Last Vital Signs Date Time Temp Pulse Resp B/P (MAP) Pulse Ox O2 Delivery O2 Flow Rate FiO2 02/08/20 12:00 97.7 75 20 141/78 (99) 97 02/07/20 21:00 Room Air Constitutional: NAD Neurologic: CN 2-12 intact Cardiovascular: RRR, no M/R/G Respiratory: CTA Gastrointestinal: other - obesity Airway Exam Mallampati Score: Class III MO: full Neck: short Teeth: missing Dentures: no upper, no lower Anesthesia Pre-op A/P Labs Hematology Test 02/08/20 06:00 White Blood Count 2.3 K/UL (4.8-10.8) L Red Blood Count 4.31 M/UL (4.20-5.40) Hemoglobin 12.6 G/DL (12.0-16.0) Hematocrit 37.6 % (37.0-47.0) Mean Corpuscular Volume 87 FL (80-99) Mean Corpuscular Hemoglobin 29.1 PG (27.0-31.0) Mean Corpuscular Hemoglobin Concent 33.4 G/DL (32.0-36.0) Red Cell Distribution Width 12.8 % (11.6-14.8) Platelet Count 214 K/UL (150-450) Mean Platelet Volume 6.3 FL (6.5-10.1) L Neutrophils (%) (Auto) % (45.0-75.0) Lymphocytes (%) (Auto) % (20.0-45.0) Monocytes (%) (Auto) % (1.0-10.0) Eosinophils (%) (Auto) % (0.0-3.0) Basophils (%) (Auto) % (0.0-2.0) Differential Total Cells Counted 100 Neutrophils % (Manual) 50 % (45-75) Lymphocytes % (Manual) 34 % (20-45) Monocytes % (Manual) 15 % (1-10) H Eosinophils % (Manual) 1 % (0-3) Basophils % (Manual) 0 % (0-2) Band Neutrophils 0 % (0-8) Platelet Estimate Adequate Platelet Morphology Normal Red Blood Cell Morphology Normal Chemistry Test 02/08/20 06:00 Sodium Level 137 MMOL/L (136-145) Potassium Level 4.0 MMOL/L (3.5-5.1) Chloride Level 105 MMOL/L (98-107) Carbon Dioxide Level 27 MMOL/L (21-32) Anion Gap 5 mmol/L (5-15) Blood Urea Nitrogen 8 mg/dL (7-18) Creatinine 0.9 MG/DL (0.55-1.30) Estimat Glomerular Filtration Rate > 60 mL/min (>60) Glucose Level 103 MG/DL (74-106) Calcium Level 8.6 MG/DL (8.5-10.1) Total Bilirubin 0.8 MG/DL (0.2-1.0) Aspartate Amino Transf (AST/SGOT) 71 U/L (15-37) H Alanine Aminotransferase (ALT/SGPT) 83 U/L (12-78) H Alkaline Phosphatase 75 U/L (46-116) Total Protein 8.0 G/DL (6.4-8.2) Albumin 2.8 G/DL (3.4-5.0) L Globulin 5.2 g/dL Risk Assessment & Plan Assessment: ASA 2 Plan: GA with ETT, prone position Status Change Before Surgery: Srinivas House MD Feb 08, 2020 15:16
--- NOTE | 2020-02-08 15:18 | Immediate Post-Op Evaluation ---
Immediate Post-Op Evalulation Immediate Post-Op Evalulation Procedure: ERCP Date of Evaluation: Feb 08, 2020 Time of Evaluation: 14:10 IV Fluids: 300 Blood Products: none Estimated Blood Loss: none Urinary Output: none Blood Pressure Systolic: 132 Blood Pressure Diastolic: 76 Pulse Rate: 86 Respiratory Rate: 22 O2 Sat by Pulse Oximetry: 98 Temperature (Fahrenheit): 97.7 Pain Score (1-10): 1 Nausea: No Vomiting: No Complications none Patient Status: awake, patent, extubated, none Hydration Status: adequate Srinivas Kovacs MD Feb 08, 2020 15:18
--- NOTE | 2020-02-08 17:32 | NUR ---
CASE MANAGEMENT:REVIEW SI;COVID PNA. PANCREATITIS. S/P ERCP 97.9 91 22 141/86 95% ON RA WBC 2.3 AST 71 ALT 83 IS;PROTONIX PO Q12 K-DUR PO BID ZOSYN IV Q8 MED SURG STATUS DCP;FROM HOME
--- NOTE | 2020-02-08 18:26 | 48 Hour Post Anesthesia Eval ---
Post Anesthesia Evaluation Procedure: ERCP Date of Evaluation: Feb 08, 2020 Time of Evaluation: 18:25 Blood Pressure Systolic: 124 0: 76 Pulse Rate: 68 Respiratory Rate: 22 Temperature (Fahrenheit): 97.8 O2 Sat by Pulse Oximetry: 98 Airway: patent Nausea: No Vomiting: No Pain Intensity: 1 Hydration Status: adequate Cardiopulmonary Status: stable Mental Status/LOC: patient returned to baseline Follow-up Care/Observations: n/a Post-Anesthesia Complications: none Follow-up care needed: N/A Srinivas Kovacs MD Feb 08, 2020 18:26
--- NOTE | 2020-02-08 19:30 | NUR ---
NURSE HAND-OFF: Important Events on Shift:ERCP done Patient Status: stable Diet: low fat Pending Orders: n/a Pending Results/Labs:n/a Pending MD notification:n/a Latest Vital Signs: Temperature 97.8 , Pulse 68 , B/P 124 /76 , Respiratory Rate 22 , O2 SAT 98 , Room Air, O2 Flow Rate 6 . Vital Sign Comment: stable Latest Xiong Fall Score: 20 Fall Risk: Low Risk Safety Measures: Call light Within Reach, Bed Alarm Zone 1, Side Rails Side Rails x2, Bed position Low and Locked. Fall Precautions: Yellow Socks Patient Fall Education Report given to ADOLFO Ram.
--- NOTE | 2020-02-08 19:31 | NUR ---
NURSE NOTES: Received patient in no apparent distress. A&OX4. IV site patent and intact. Bed in lowest position. Call light within reach. Will continue to monitor.
--- NOTE | 2020-02-08 21:22 | General Progress Note ---
Subjective ROS Limited/Unobtainable: Yes Allergies: Coded Allergies: No Known Allergies (Unverified , 01/21/20) Objective Last 24 Hour Vital Signs Date Time Temp Pulse Resp B/P (MAP) Pulse Ox O2 Delivery O2 Flow Rate FiO2 02/08/20 18:26 68 22 98 02/08/20 16:00 97.9 66 20 121/73 (89) 95 02/08/20 15:18 86 22 98 02/08/20 14:25 83 18 132/86 98 Room Air 02/08/20 14:20 81 18 133/88 98 Room Air 02/08/20 14:15 86 18 133/89 98 Simple Mask 6 02/08/20 14:10 91 18 141/86 98 Simple Mask 6 02/08/20 14:05 98 18 134/88 99 Simple Mask 6 02/08/20 14:00 96.9 98 18 136/89 99 Simple Mask 6 02/08/20 12:00 97.7 75 20 141/78 (99) 97 02/08/20 09:00 Room Air 02/08/20 08:00 98.1 75 20 127/76 (93) 97 02/08/20 04:00 97.3 73 20 120/47 (71) 97 02/08/20 00:00 97.7 82 20 105/64 (78) 98 67 Intake and Output 02/07/20 02/08/20 19:00 07:00 Intake Total 600 ml Balance 600 ml Intake Oral 600 ml # Voids 3 2 # Bowel Movements 1 Laboratory Tests 02/08/20 06:00: White Blood Count 2.3L, Red Blood Count 4.31, Hemoglobin 12.6, Hematocrit 37.6, Mean Corpuscular Volume 87, Mean Corpuscular Hemoglobin 29.1, Mean Corpuscular Hemoglobin Concent 33.4, Red Cell Distribution Width 12.8, Platelet Count 214, Mean Platelet Volume 6.3L, Neutrophils (%) (Auto) , Lymphocytes (%) (Auto) , Monocytes (%) (Auto) , Eosinophils (%) (Auto) , Basophils (%) (Auto) , Differential Total Cells Counted 100, Neutrophils % (Manual) 50, Lymphocytes % (Manual) 34, Monocytes % (Manual) 15H, Eosinophils % (Manual) 1, Basophils % (Manual) 0, Band Neutrophils 0, Platelet Estimate Adequate, Platelet Morphology Normal, Red Blood Cell Morphology Normal, Sodium Level 137, Potassium Level 4.0, Chloride Level 105, Carbon Dioxide Level 27, Anion Gap 5, Blood Urea Nitrogen 8, Creatinine 0.9, Estimat Glomerular Filtration Rate > 60, Glucose Level 103, Calcium Level 8.6, Total Bilirubin 0.8, Aspartate Amino Transf (AST/SGOT) 71H, Alanine Aminotransferase (ALT/SGPT) 83H, Alkaline Phosphatase 75, Total Protein 8.0, Albumin 2.8L, Globulin 5.2 Height (Feet): 5 Height (Inches): 5.00 Weight (Pounds): 235 Assessment/Plan Problem List: (1) Acute pancreatitis ICD Codes: K85.90 - Acute pancreatitis without necrosis or infection, unspecified SNOMED: 776854879 Qualifiers: Qualified Codes: K85.10 - Biliary acute pancreatitis without necrosis or infection (2) Gall stone ICD Codes: K80.20 - Calculus of gallbladder without cholecystitis without obstruction SNOMED: 833262813 Qualifiers: Qualified Codes: K80.20 - Calculus of gallbladder without cholecystitis without obstruction (3) Lab test positive for detection of COVID-19 virus ICD Codes: U07.1 - COVID-19 SNOMED: [id number] Status: progressing Assessment/Plan: covid positive pna supportive care afebrile mild abdominal pain pancreatitis resolved resp Ronny Doshi MD Feb 08, 2020 21:22
[2020-02-09] VITALS: BP 118/74
[2020-02-09 04:00] VITALS: BP 108/68
[2020-02-09] MEDS: Piperacillin/Tazobactam 3.375 GM in NS 110 ML IVPB SCH ×3 (05:01→21:07)
[2020-02-09 07:12] LABS: HEMATOCRIT 37.2 % (37.0-47.0); HEMOGLOBIN 12.8 G/DL (12.0-16.0); MEAN CORPUSCULAR VOLUME 86 FL (80-99); PLATELET COUNT 208 K/UL (150-450); RED BLOOD COUNT 4.31 M/UL (4.20-5.40); RED CELL DISTRIBUTION WIDTH 13.1 % (11.6-14.8); WHITE BLOOD COUNT 2.8 K/UL (4.8-10.8)
--- NOTE | 2020-02-09 07:14 | NUR ---
NURSE HAND-OFF: Important Events on Shift: Patient Status: Diet: Pending Orders: Pending Results/Labs: Pending MD notification: Latest Vital Signs: Temperature 97.5 , Pulse 65 , B/P 108 /68 , Respiratory Rate 16 , O2 SAT 98 , Room Air, O2 Flow Rate 6 . Vital Sign Comment: Latest Xiong Fall Score: 20 Fall Risk: Low Risk Safety Measures: Call light Within Reach, Bed Alarm Zone 1, Side Rails Side Rails x2, Bed position Low and Locked. Fall Precautions: Yellow Socks Patient Fall Education Report given to Musa MATA.
[2020-02-09 07:40] LABS: ALBUMIN 2.9 G/DL (3.4-5.0); ALBUMIN/GLOBULIN RATIO 0.6 (1.0-2.7); ALKALINE PHOSPHATASE 84 U/L (46-116); AMYLASE 197 U/L (25-115); ANION GAP 7 mmol/L (5-15); ASPARTATE AMINO TRANSFERASE 84 U/L (15-37); BILIRUBIN,TOTAL 1.2 MG/DL (0.2-1.0); BLOOD UREA NITROGEN 7 mg/dL (7-18); CALCIUM 8.9 MG/DL (8.5-10.1); CARBON DIOXIDE 26 MMOL/L (21-32); CHLORIDE 105 MMOL/L (98-107); CREATININE 0.8 MG/DL (0.55-1.30); POTASSIUM 4.3 MMOL/L (3.5-5.1); SODIUM 138 MMOL/L (136-145)
--- NOTE | 2020-02-09 07:47 | General Progress Note ---
Subjective ROS Limited/Unobtainable: Yes Allergies: Coded Allergies: No Known Allergies (Unverified , 01/21/20) Objective Last 24 Hour Vital Signs Date Time Temp Pulse Resp B/P (MAP) Pulse Ox O2 Delivery O2 Flow Rate FiO2 02/09/20 04:00 97.5 65 16 108/68 (81) 98 02/09/20 00:00 97.9 68 20 118/74 (89) 97 02/08/20 21:00 Room Air 02/08/20 20:00 98.5 77 22 128/76 (93) 97 02/08/20 18:26 68 22 98 02/08/20 16:00 97.9 66 20 121/73 (89) 95 02/08/20 15:18 86 22 98 02/08/20 14:25 83 18 132/86 98 Room Air 02/08/20 14:20 81 18 133/88 98 Room Air 02/08/20 14:15 86 18 133/89 98 Simple Mask 6 02/08/20 14:10 91 18 141/86 98 Simple Mask 6 02/08/20 14:05 98 18 134/88 99 Simple Mask 6 02/08/20 14:00 96.9 98 18 136/89 99 Simple Mask 6 02/08/20 12:00 97.7 75 20 141/78 (99) 97 02/08/20 09:00 Room Air 02/08/20 08:00 98.1 75 20 127/76 (93) 97 Intake and Output 02/08/20 02/09/20 19:00 07:00 Intake Total 600 ml 617.5 ml Balance 600 ml 617.5 ml Intake Oral 600 ml 480 ml IV Total 137.5 ml # Voids 3 3 # Bowel Movements 1 Laboratory Tests 02/09/20 06:00: White Blood Count 2.8L, Red Blood Count 4.31, Hemoglobin 12.8, Hematocrit 37.2, Mean Corpuscular Volume 86, Mean Corpuscular Hemoglobin 29.7, Mean Corpuscular Hemoglobin Concent 34.4, Red Cell Distribution Width 13.1, Platelet Count 208, Mean Platelet Volume 6.6, Neutrophils (%) (Auto) , Lymphocytes (%) (Auto) , Monocytes (%) (Auto) , Eosinophils (%) (Auto) , Basophils (%) (Auto) , Neutrophils % (Manual) [Pending], Lymphocytes % (Manual) [Pending], Platelet Estimate [Pending], Platelet Morphology [Pending], Sodium Level [Pending], Potassium Level [Pending], Chloride Level [Pending], Carbon Dioxide Level [Pending], Blood Urea Nitrogen [Pending], Creatinine [Pending], Estimat Glomerular Filtration Rate [Pending], Glucose Level [Pending], Calcium Level [Pending], Total Bilirubin [Pending], Aspartate Amino Transf (AST/SGOT) [Pending], Alanine Aminotransferase (ALT/SGPT) [Pending], Alkaline Phosphatase [Pending], Total Protein [Pending], Albumin [Pending], Globulin [Pending], Amylase Level [Pending], Lipase [Pending] Height (Feet): 5 Height (Inches): 5.00 Weight (Pounds): 235 General Appearance: no apparent distress EENT: normal ENT inspection Neck: supple Cardiovascular: normal rate Respiratory/Chest: decreased breath sounds Abdomen: normal bowel sounds, non tender, soft Extremities: non-tender Assessment/Plan Status: progressing Assessment/Plan: gallstone pancreatitis? Covid positive pain control surg in put appreciated repeat labs for tomorrow on reg diet s/p ERCP and 4 stone removal on diet fu sug recs fu labs David Kingsley MD Feb 09, 2020 07:47
[2020-02-09 08:00] VITALS: BP 130/70
--- NOTE | 2020-02-09 08:32 | NUR ---
NURSE NOTES: RN received report from ADOLFO Ram. RN received patient in bed. AAOX4, no pain, verbally responsive, no s/s of respiratory distress noted. Patient's is appetite is fine and intake is adequate. IV site clean, dry, intact, asymptomatic and patent. Bed in lowest position and locked. Call light within reach. Will continue to monitor.
[2020-02-09 08:35] LABS: ALANINE AMINOTRANSFERASE 96 U/L (12-78); BILIRUBIN,DIRECT 0.7 MG/DL (0.0-0.3)
--- NOTE | 2020-02-09 09:28 | Pulmonology Progress Note ---
Subjective ROS Limited/Unobtainable: No Interval Events: s/p ERCP and 4 stone removal Constitutional: Reports: no symptoms; Denies: fever HEENT: Repors: no symptoms Respiratory: Reports: no symptoms Cardiovascular: Reports: no symptoms Gastrointestinal/Abdominal: Reports: no symptoms Genitourinary: Reports: no symptoms Musculoskeletal: Denies: pain Allergies: Coded Allergies: No Known Allergies (Unverified , 01/21/20) Objective Last 24 Hour Vital Signs Date Time Temp Pulse Resp B/P (MAP) Pulse Ox O2 Delivery O2 Flow Rate FiO2 02/09/20 08:00 97.1 86 21 130/70 (90) 97 02/09/20 04:00 97.5 65 16 108/68 (81) 98 02/09/20 00:00 97.9 68 20 118/74 (89) 97 02/08/20 21:00 Room Air 02/08/20 20:00 98.5 77 22 128/76 (93) 97 02/08/20 18:26 68 22 98 02/08/20 16:00 97.9 66 20 121/73 (89) 95 02/08/20 15:18 86 22 98 02/08/20 14:25 83 18 132/86 98 Room Air 02/08/20 14:20 81 18 133/88 98 Room Air 02/08/20 14:15 86 18 133/89 98 Simple Mask 6 02/08/20 14:10 91 18 141/86 98 Simple Mask 6 02/08/20 14:05 98 18 134/88 99 Simple Mask 6 02/08/20 14:00 96.9 98 18 136/89 99 Simple Mask 6 02/08/20 12:00 97.7 75 20 141/78 (99) 97 Intake and Output 02/08/20 02/09/20 19:00 07:00 Intake Total 600 ml 617.5 ml Balance 600 ml 617.5 ml Intake Oral 600 ml 480 ml IV Total 137.5 ml # Voids 3 3 # Bowel Movements 1 Objective 02/08 room air; NAD 02/07 no change 02/06 room air; no fever overnight 02/03 Ziff=735.2 02/02 room air; low grade fever, better with advil 02/01 room air; fever again overnight; now NPO 01/31 room air; no fever; tolerating diet 01/30 room air; no fever overnight; tolerating diet 01/29 room air; intermittent fever 01/28 continues to saturate well on RA; persistent low grade fever, better with ibuprofen 01/27 saturating well on RA; NAD 01/27/2020 continues to saturate well on RA; NAD 01/26/2020 saturating well on room air; NAD; sitting on her bed 01/25/2020 saturating well on room air 01/24/2020 pt eating in bed; saturating well on room air 01/23/2020 NAD; on room air 01/22/2020 saturating well on room air; NAD General Appearance: WD/WN, no acute distress HEENT: normocephalic Respiratory: lungs clear Cardiovascular: normal rate, regular rhythm, no gallop/murmur Abdomen: soft, non tender Neurologic: alert, oriented x 3, responsive Microbiology Date/Time Source Procedure Growth Status 02/06/20 12:40 Nasopharynx SARS-CoV-2 RdRp Gene Assay - Final Complete Laboratory Tests 02/09/20 06:00: White Blood Count 2.8L, Red Blood Count 4.31, Hemoglobin 12.8, Hematocrit 37.2, Mean Corpuscular Volume 86, Mean Corpuscular Hemoglobin 29.7, Mean Corpuscular Hemoglobin Concent 34.4, Red Cell Distribution Width 13.1, Platelet Count 208, Mean Platelet Volume 6.6, Neutrophils (%) (Auto) , Lymphocytes (%) (Auto) , Monocytes (%) (Auto) , Eosinophils (%) (Auto) , Basophils (%) (Auto) , Differential Total Cells Counted 100, Neutrophils % (Manual) 53, Lymphocytes % (Manual) 31, Monocytes % (Manual) 12H, Eosinophils % (Manual) 4H, Basophils % (Manual) 0, Band Neutrophils 0, Platelet Estimate Adequate, Platelet Morphology Normal, Red Blood Cell Morphology Normal, Sodium Level 138, Potassium Level 4.3, Chloride Level 105, Carbon Dioxide Level 26, Anion Gap 7, Blood Urea Nitrogen 7, Creatinine 0.8, Estimat Glomerular Filtration Rate > 60, Glucose Level 92, Calcium Level 8.9, Total Bilirubin 1.2H, Direct Bilirubin 0.7H, Aspartate Amino Transf (AST/SGOT) 84H, Alanine Aminotransferase (ALT/SGPT) 96H, Alkaline Phosphatase 84, Total Protein 8.1, Albumin 2.9L, Globulin 5.2, Albumin/Globulin Ratio 0.6L, Amylase Level 197H, Lipase 1089H Current Medications Medications (Trade) Dose Ordered Sig/Dipti Route PRN Reason Start Time Stop Time Status Last Admin Dose Admin Ibuprofen (Advil) 400 mg Q6H PRN ORAL Temp >100.5 01/22/20 18:00 02/21/20 17:59 02/04/20 20:09 Ondansetron HCl (Zofran) 4 mg Q6H PRN IVP Nausea & Vomiting 01/22/20 07:30 02/21/20 07:29 Pantoprazole (Protonix) 40 mg EVERY 12 HOURS ORAL 01/28/20 15:00 02/27/20 14:59 02/09/20 09:24 Piperacillin Sod/ Tazobactam Sod 3.375 gm/Sodium Chloride 110 ml @ 27.5 mls/hr EVERY 8 HOURS IVPB 01/23/20 14:00 02/13/20 13:59 02/09/20 05:01 Potassium Chloride (K-Dur) 40 meq TWICE A DAY ORAL 01/27/20 18:00 04/26/20 17:59 02/09/20 09:24 Assessment/Plan Assessment/Plan 1. Transaminitis 2. Pancreatitis. - elevated amylase, lipase - s/p IVF - pain control - on zosyn per Dr. Santiago - MRI abd result noted; cholelithiasis, possible very mild acute pancreatitis - per Dr. Kingsley, Dr. Santiago - s/p ERCP and 4 stone removal 3. Positive COVID-19. - Currently no intervention required for Covid19 due to her normoxemic status on RA - repeat rapid COVID-19 test positive 02/01 - Rapid COVID-19 test 02/05 positive again 4. Hypertension 5. Fever - Blood Cx showed no growth - better with ibuprofen prn fever The care of this patient was discussed with my supervising physician Time spent for this encounter was approximately 31 minutes Steven Bergman Feb 09, 2020 09:28
[2020-02-09 12:00] VITALS: BP_SYST 121; BP_SYST 130; BP_DIAS 73; BP_DIAS 76
--- NOTE | 2020-02-09 12:21 | Infectious Diseases Prog Note ---
Assessment/Plan Assessment/Plan antibiotics : zosyn A 1. COVID-19 disease on 6 liters, 99 % saturation 2. Acute pancreatitis 3. Cholelithiasis 4. Morbid obesity. 5. Fever improving P 1. continue zosyn 2. ERCP planned Subjective Constitutional: Denies: fever, chills Respiratory: Denies: shortness of breath, dry cough Gastrointestinal/Abdominal: Denies: nausea, vomiting, diarrhea Musculoskeletal: Denies: pain Allergies: Coded Allergies: No Known Allergies (Unverified , 01/21/20) Objective Last 24 Hour Vital Signs Date Time Temp Pulse Resp B/P (MAP) Pulse Ox O2 Delivery O2 Flow Rate FiO2 02/09/20 08:00 97.1 86 21 130/70 (90) 97 02/09/20 04:00 97.5 65 16 108/68 (81) 98 02/09/20 00:00 97.9 68 20 118/74 (89) 97 02/08/20 21:00 Room Air 02/08/20 20:00 98.5 77 22 128/76 (93) 97 02/08/20 18:26 68 22 98 02/08/20 16:00 97.9 66 20 121/73 (89) 95 02/08/20 15:18 86 22 98 02/08/20 14:25 83 18 132/86 98 Room Air 02/08/20 14:20 81 18 133/88 98 Room Air 02/08/20 14:15 86 18 133/89 98 Simple Mask 6 02/08/20 14:10 91 18 141/86 98 Simple Mask 6 02/08/20 14:05 98 18 134/88 99 Simple Mask 6 02/08/20 14:00 96.9 98 18 136/89 99 Simple Mask 6 Height (Feet): 5 Height (Inches): 5.00 Weight (Pounds): 235 Microbiology Date/Time Source Procedure Growth Status 02/06/20 12:40 Nasopharynx SARS-CoV-2 RdRp Gene Assay - Final Complete Laboratory Tests Test 02/09/20 06:00 White Blood Count 2.8 K/UL (4.8-10.8) L Red Blood Count 4.31 M/UL (4.20-5.40) Hemoglobin 12.8 G/DL (12.0-16.0) Hematocrit 37.2 % (37.0-47.0) Mean Corpuscular Volume 86 FL (80-99) Mean Corpuscular Hemoglobin 29.7 PG (27.0-31.0) Mean Corpuscular Hemoglobin Concent 34.4 G/DL (32.0-36.0) Red Cell Distribution Width 13.1 % (11.6-14.8) Platelet Count 208 K/UL (150-450) Mean Platelet Volume 6.6 FL (6.5-10.1) Neutrophils (%) (Auto) % (45.0-75.0) Lymphocytes (%) (Auto) % (20.0-45.0) Monocytes (%) (Auto) % (1.0-10.0) Eosinophils (%) (Auto) % (0.0-3.0) Basophils (%) (Auto) % (0.0-2.0) Differential Total Cells Counted 100 Neutrophils % (Manual) 53 % (45-75) Lymphocytes % (Manual) 31 % (20-45) Monocytes % (Manual) 12 % (1-10) H Eosinophils % (Manual) 4 % (0-3) H Basophils % (Manual) 0 % (0-2) Band Neutrophils 0 % (0-8) Platelet Estimate Adequate Platelet Morphology Normal Red Blood Cell Morphology Normal Sodium Level 138 MMOL/L (136-145) Potassium Level 4.3 MMOL/L (3.5-5.1) Chloride Level 105 MMOL/L (98-107) Carbon Dioxide Level 26 MMOL/L (21-32) Anion Gap 7 mmol/L (5-15) Blood Urea Nitrogen 7 mg/dL (7-18) Creatinine 0.8 MG/DL (0.55-1.30) Estimat Glomerular Filtration Rate > 60 mL/min (>60) Glucose Level 92 MG/DL (74-106) Calcium Level 8.9 MG/DL (8.5-10.1) Total Bilirubin 1.2 MG/DL (0.2-1.0) H Direct Bilirubin 0.7 MG/DL (0.0-0.3) H Aspartate Amino Transf (AST/SGOT) 84 U/L (15-37) H Alanine Aminotransferase (ALT/SGPT) 96 U/L (12-78) H Alkaline Phosphatase 84 U/L (46-116) Total Protein 8.1 G/DL (6.4-8.2) Albumin 2.9 G/DL (3.4-5.0) L Globulin 5.2 g/dL Albumin/Globulin Ratio 0.6 (1.0-2.7) L Amylase Level 197 U/L (25-115) H Lipase 1089 U/L (73-393) H Current Medications Medications (Trade) Dose Ordered Sig/Dipti Route PRN Reason Start Time Stop Time Status Last Admin Dose Admin Ibuprofen (Advil) 400 mg Q6H PRN ORAL Temp >100.5 01/22/20 18:00 02/21/20 17:59 02/04/20 20:09 Ondansetron HCl (Zofran) 4 mg Q6H PRN IVP Nausea & Vomiting 01/22/20 07:30 02/21/20 07:29 Pantoprazole (Protonix) 40 mg EVERY 12 HOURS ORAL 01/28/20 15:00 02/27/20 14:59 02/09/20 09:24 Piperacillin Sod/ Tazobactam Sod 3.375 gm/Sodium Chloride 110 ml @ 27.5 mls/hr EVERY 8 HOURS IVPB 01/23/20 14:00 02/13/20 13:59 02/09/20 05:01 Potassium Chloride (K-Dur) 40 meq TWICE A DAY ORAL 01/27/20 18:00 04/26/20 17:59 02/09/20 09:24 Dru Ferguson MD Feb 09, 2020 12:21
--- NOTE | 2020-02-09 13:51 | Diagnostic Imaging Report ---
INDICATION: Pain, intraoperative TECHNIQUE: Intraoperative imaging Fluoroscopy time: 105.6 seconds Total dose: 1.03 mGym2 Total number of images: 6 COMPARISON: None FINDINGS: Intraoperative imaging demonstrates opacification of the common bile duct, common hepatic duct and cystic duct, subsequent deployment of a stone extraction balloon IMPRESSION: Intraoperative imaging, as described
[2020-02-09 16:00] VITALS: BP 121/76
--- NOTE | 2020-02-09 16:34 | Nephrology Progress Note ---
Assessment/Plan Problem List: (1) Electrolyte imbalance (2) Acute pancreatitis (3) Gall stone (4) 2019 novel coronavirus disease (COVID-19) (5) Proteinuria Assessment Hypokalemia COVID-19 disease Acute pancreatitis with elevated LFTs Gallstone pancreatitis Obesity Hypertension Proteinuria Plan February 08: Labs reviewed. Renal parameters stable. Continue per consultants. February 07: Labs reviewed. Renal parameters are stable. Continue per consultants February 06: No labs drawn today. Stable from renal standpoint of view. February 05: Labs reviewed. Serum sodium 134 stable. Continue as is. February 04: Labs are reviewed. Serum sodium drifting down. Will order urine and serum osmolality's. Continue per consultants. February 03: Labs reviewed. Status quo. Continue per consultants. February 02: Labs reviewed. Serum sodium 135 stable. Continue per consultants. February 01: No labs drawn today. Remains stable from renal standpoint of view. January 31: Labs reviewed. Renal parameters stable. Continue per consultants. January 30: No labs drawn today. Remains stable from renal standpoint of view. January 29: Labs reviewed. Renal parameters stable. Continue per consultants. January 28: Labs reviewed. Stable from renal standpoint of view. Continue per consultants. Low-grade fever persists oral potassium ordered IV fluid adjusted and discontinued Oral Protonix added Continue to monitor renal parameters and electrolytes Continue per consultants Subjective ROS Limited/Unobtainable: No Constitutional: Reports: malaise Objective Objective Last 24 Hour Vital Signs Date Time Temp Pulse Resp B/P (MAP) Pulse Ox O2 Delivery O2 Flow Rate FiO2 02/09/20 08:00 97.1 86 21 130/70 (90) 97 02/09/20 04:00 97.5 65 16 108/68 (81) 98 02/09/20 00:00 97.9 68 20 118/74 (89) 97 02/08/20 21:00 Room Air 02/08/20 20:00 98.5 77 22 128/76 (93) 97 02/08/20 18:26 68 22 98 Intake and Output 02/08/20 02/09/20 18:59 06:59 Intake Total 600 ml 617.5 ml Balance 600 ml 617.5 ml Intake Oral 600 ml 480 ml IV Total 137.5 ml # Voids 3 3 # Bowel Movements 1 Laboratory Tests 02/09/20 06:00: White Blood Count 2.8L, Red Blood Count 4.31, Hemoglobin 12.8, Hematocrit 37.2, Mean Corpuscular Volume 86, Mean Corpuscular Hemoglobin 29.7, Mean Corpuscular Hemoglobin Concent 34.4, Red Cell Distribution Width 13.1, Platelet Count 208, Mean Platelet Volume 6.6, Neutrophils (%) (Auto) , Lymphocytes (%) (Auto) , Monocytes (%) (Auto) , Eosinophils (%) (Auto) , Basophils (%) (Auto) , Differential Total Cells Counted 100, Neutrophils % (Manual) 53, Lymphocytes % (Manual) 31, Monocytes % (Manual) 12H, Eosinophils % (Manual) 4H, Basophils % (Manual) 0, Band Neutrophils 0, Platelet Estimate Adequate, Platelet Morphology Normal, Red Blood Cell Morphology Normal, Sodium Level 138, Potassium Level 4.3, Chloride Level 105, Carbon Dioxide Level 26, Anion Gap 7, Blood Urea Nitrogen 7, Creatinine 0.8, Estimat Glomerular Filtration Rate > 60, Glucose Level 92, Calcium Level 8.9, Total Bilirubin 1.2H, Direct Bilirubin 0.7H, Aspartate Amino Transf (AST/SGOT) 84H, Alanine Aminotransferase (ALT/SGPT) 96H, Alkaline Phosphatase 84, Total Protein 8.1, Albumin 2.9L, Globulin 5.2, Albumin/Globulin Ratio 0.6L, Amylase Level 197H, Lipase 1089H Height (Feet): 5 Height (Inches): 5.00 Weight (Pounds): 235 General Appearance: no apparent distress Cardiovascular: normal rate Respiratory/Chest: decreased breath sounds Abdomen: distended Objective No change Rakesh Hammer MD Feb 09, 2020 16:34
--- NOTE | 2020-02-09 16:38 | NUR ---
CASE MANAGEMENT:REVIEW SI;COVID PNEUMONIA. PANCREATITIS ~ S/P ERCP 98.5 86 22 130/70 97% ON RA T-BILI 1.2 D-BILI 0.7 AST 84 ALT 96 ALB 2.9 AMYLASE 197 LIPASE 1089 IS;PROTONIX PO Q12 K-DUR PO BID ZOSYN IV Q8 MED SURG STATUS DCP;FROM HOME
--- NOTE | 2020-02-09 17:48 | Surgery Progress Note ---
Surgery Progress Note Subjective Additional Comments s/p ercp still with chemical pancreatitis no n/v/f/c Objective Last 24 Hour Vital Signs Date Time Temp Pulse Resp B/P (MAP) Pulse Ox O2 Delivery O2 Flow Rate FiO2 02/09/20 16:00 98.0 86 21 121/76 (91) 97 02/09/20 12:00 98.6 77 21 130/73 (92) 97 02/09/20 09:00 Room Air 02/09/20 08:00 97.1 86 21 130/70 (90) 97 02/09/20 04:00 97.5 65 16 108/68 (81) 98 02/09/20 00:00 97.9 68 20 118/74 (89) 97 02/08/20 21:00 Room Air 02/08/20 20:00 98.5 77 22 128/76 (93) 97 02/08/20 18:26 68 22 98 I&O Intake and Output 02/08/20 02/09/20 19:00 07:00 Intake Total 600 ml 617.5 ml Balance 600 ml 617.5 ml Intake Oral 600 ml 480 ml IV Total 137.5 ml # Voids 3 3 # Bowel Movements 1 Cardiovascular: RSR Respiratory: clear Abdomen: soft, non-tender, present bowel sounds Extremities: no edema, no tenderness, no cyanosis Laboratory Tests Test 02/09/20 06:00 White Blood Count 2.8 K/UL (4.8-10.8) L Red Blood Count 4.31 M/UL (4.20-5.40) Hemoglobin 12.8 G/DL (12.0-16.0) Hematocrit 37.2 % (37.0-47.0) Mean Corpuscular Volume 86 FL (80-99) Mean Corpuscular Hemoglobin 29.7 PG (27.0-31.0) Mean Corpuscular Hemoglobin Concent 34.4 G/DL (32.0-36.0) Red Cell Distribution Width 13.1 % (11.6-14.8) Platelet Count 208 K/UL (150-450) Mean Platelet Volume 6.6 FL (6.5-10.1) Neutrophils (%) (Auto) % (45.0-75.0) Lymphocytes (%) (Auto) % (20.0-45.0) Monocytes (%) (Auto) % (1.0-10.0) Eosinophils (%) (Auto) % (0.0-3.0) Basophils (%) (Auto) % (0.0-2.0) Differential Total Cells Counted 100 Neutrophils % (Manual) 53 % (45-75) Lymphocytes % (Manual) 31 % (20-45) Monocytes % (Manual) 12 % (1-10) H Eosinophils % (Manual) 4 % (0-3) H Basophils % (Manual) 0 % (0-2) Band Neutrophils 0 % (0-8) Platelet Estimate Adequate Platelet Morphology Normal Red Blood Cell Morphology Normal Sodium Level 138 MMOL/L (136-145) Potassium Level 4.3 MMOL/L (3.5-5.1) Chloride Level 105 MMOL/L (98-107) Carbon Dioxide Level 26 MMOL/L (21-32) Anion Gap 7 mmol/L (5-15) Blood Urea Nitrogen 7 mg/dL (7-18) Creatinine 0.8 MG/DL (0.55-1.30) Estimat Glomerular Filtration Rate > 60 mL/min (>60) Glucose Level 92 MG/DL (74-106) Calcium Level 8.9 MG/DL (8.5-10.1) Total Bilirubin 1.2 MG/DL (0.2-1.0) H Direct Bilirubin 0.7 MG/DL (0.0-0.3) H Aspartate Amino Transf (AST/SGOT) 84 U/L (15-37) H Alanine Aminotransferase (ALT/SGPT) 96 U/L (12-78) H Alkaline Phosphatase 84 U/L (46-116) Total Protein 8.1 G/DL (6.4-8.2) Albumin 2.9 G/DL (3.4-5.0) L Globulin 5.2 g/dL Albumin/Globulin Ratio 0.6 (1.0-2.7) L Amylase Level 197 U/L (25-115) H Lipase 1089 U/L (73-393) H Plan Problems: (1) Acute pancreatitis Assessment & Plan: 51-year-old female acute pancreatitis potentially gallstone related. Afebrile hemodynamic stable labs improved. No nausea vomiting fever chills. Pain is resolved. No acute surgical intervention planned. Continue with work-up. Trend labs. GI input appreciated. Will follow with recommendations. Thank you npo iv fluids iv abx trend labs bowel rest will follow with recs thank you febrile tolerating diet labs improving trend labs cont diet cont abx needs mrcp but covid + labs noted exam benign pending covid mrcp noted plan ercp s/p ercp diet as tolerated trend labs plan for elective joselito after d/c and pancreatitis resolves + Liver: See below. Gallbladder: There is cholelithiasis. A 2.6 cm gallstone is noted. Gallbladder wall measures 0.45 cm and is thickened. Common bile duct: Suboptimal evaluation of the common bile duct due to bowel gas. No stones. No dilation. Pancreas: Unremarkable as visualized. Kidneys: Right kidney measures 9.8 x 5 x 5 cm. Left kidney measures 9. 3 x 4.9 x 4.7 cm. No hydronephrosis. No stones. Spleen: Spleen measures 9.3 cm and is unremarkable. Aorta: Abdominal aorta is normal in caliber. Liver measures 15.9 cm. Partial evaluation of the abdominal aorta which is grossly unremarkable. No aneurysm. Inferior vena cava: Unremarkable. IMPRESSION: 1. Limited evaluation due to bowel gas. 2. Cholelithiasis. 3. Gallbladder wall measures 0.45 cm and is diffusely thickened. Clinical correlation is necessary. 4. No pericholecystic fluid noted however. Markedly limited evaluation of the common bile duct due to bowel gas. 5. Clinical correlation is necessary. The gallbladder demonstrates 2 very large central gallstones measuring up to 2.7 cm. It also demonstrates multiple smaller gallstones as well as a small amount of sludge. There is no gallbladder wall thickening or pericholecystic edema. On multiple sequences, there is a filling defect in the downstream common bile duct which measures approximately 5 mm length by 2 mm in diameter. On the coronal MRCP images, this appears to be attached to the wall of the common bile duct. The common bile duct is mildly dilated, measuring up to 10 mm in diameter. There is no intrahepatic biliary ductal dilatation. The pancreatic duct is mildly ectatic, measuring up to 3 mm in diameter. No pancreatic head mass or pancreatic cystic lesion demonstrated. There is a slight degree of edema of the peripancreatic fat extending slightly into the anterior Gerota's fascia on the axial T2 fat saturated images. Although this is not clearly visible on the coronal MRCP images. The pancreas is otherwise unremarkable. There is trace pleural fluid bilaterally. The right kidney demonstrates a lower pole cyst and another tiny one in the upper pole. On the fat saturated T2 images, there is also a 5 mm area of decreased signal which is not evident on other images, most likely represents a tiny angiomyolipoma The uterus demonstrates marked thickening of the endometrium, which measures up to 2.9 mm thick. This demonstrates high T2 signal and low T1 signal. This area is included only on the coronal images Impression: Cholelithiasis. No findings to suggest acute cholecystitis Dilated common bile duct and common hepatic duct. Apparent filling defect in the downstream common bile duct, suspicious for choledocholithiasis. Appearing somewhat unusual but suspect that this is a real finding given the presence of cholelithiasis and biliary ductal dilatation Mild ectasia of the pancreatic duct Very questionable peripancreatic edema at the inferior border of the pancreas; suspect artifactual but if real could represent very mild acute pancreatitis, given stated clinical history of such Thickened endometrium, abnormal in a perimenopausal female. 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
--- NOTE | 2020-02-09 19:42 | NUR ---
NURSE HAND-OFF: Important Events on Shift:uneventful Patient Status: stable Diet: low fat Pending Orders: n/a Pending Results/Labs:vit D hydroxy, osmolality, uric acid Pending MD notification:n/a Latest Vital Signs: Temperature 98.0 , Pulse 86 , B/P 121 /76 , Respiratory Rate 21 , O2 SAT 97 , Room Air, O2 Flow Rate 6 . Vital Sign Comment: stable Latest Xiong Fall Score: 20 Fall Risk: Low Risk Safety Measures: Call light Within Reach, Bed Alarm Zone 1, Side Rails Side Rails x2, Bed position Low and Locked. Fall Precautions: Yellow Socks Patient Fall Education Report given to Ambreen Harvey RN.
--- NOTE | 2020-02-09 19:45 | NUR ---
NURSE NOTES: Patient in bed, awake, ANO x4. On room air with no signs of distress or SOB. IV site patent and intact. Bed in lowest position. Call light within reach. Will continue to monitor.
[2020-02-09 20:00] VITALS: BP 130/71
--- NOTE | 2020-02-09 22:11 | General Progress Note ---
Subjective ROS Limited/Unobtainable: Yes Allergies: Coded Allergies: No Known Allergies (Unverified , 01/21/20) Objective Last 24 Hour Vital Signs Date Time Temp Pulse Resp B/P (MAP) Pulse Ox O2 Delivery O2 Flow Rate FiO2 02/09/20 16:00 98.0 86 21 121/76 (91) 97 02/09/20 12:00 98.6 77 21 130/73 (92) 97 02/09/20 09:00 Room Air 02/09/20 08:00 97.1 86 21 130/70 (90) 97 02/09/20 04:00 97.5 65 16 108/68 (81) 98 02/09/20 00:00 97.9 68 20 118/74 (89) 97 Intake and Output 02/08/20 02/09/20 19:00 07:00 Intake Total 600 ml 617.5 ml Balance 600 ml 617.5 ml Intake Oral 600 ml 480 ml IV Total 137.5 ml # Voids 3 3 # Bowel Movements 1 Laboratory Tests 02/09/20 06:00: White Blood Count 2.8L, Red Blood Count 4.31, Hemoglobin 12.8, Hematocrit 37.2, Mean Corpuscular Volume 86, Mean Corpuscular Hemoglobin 29.7, Mean Corpuscular Hemoglobin Concent 34.4, Red Cell Distribution Width 13.1, Platelet Count 208, Mean Platelet Volume 6.6, Neutrophils (%) (Auto) , Lymphocytes (%) (Auto) , Monocytes (%) (Auto) , Eosinophils (%) (Auto) , Basophils (%) (Auto) , Diff erential Total Cells Counted 100, Neutrophils % (Manual) 53, Lymphocytes % (Manual) 31, Monocytes % (Manual) 12H, Eosinophils % (Manual) 4H, Basophils % (Manual) 0, Band Neutrophils 0, Platelet Estimate Adequate, Platelet Morphology Normal, Red Blood Cell Morphology Normal, Sodium Level 138, Potassium Level 4.3, Chloride Level 105, Carbon Dioxide Level 26, Anion Gap 7, Blood Urea Nitrogen 7, Creatinine 0.8, Estimat Glomerular Filtration Rate > 60, Glucose Level 92, Calcium Level 8.9, Total Bilirubin 1.2H, Direct Bilirubin 0.7H, Aspartate Amino Transf (AST/SGOT) 84H, Alanine Aminotransferase (ALT/SGPT) 96H, Alkaline Phosphatase 84, Total Protein 8.1, Albumin 2.9L, Globulin 5.2, Albumin/Globulin Ratio 0.6L, Amylase Level 197H, Lipase 1089H Height (Feet): 5 Height (Inches): 5.00 Weight (Pounds): 235 Assessment/Plan Problem List: (1) Acute pancreatitis ICD Codes: K85.90 - Acute pancreatitis without necrosis or infection, unspecified SNOMED: 625785586 Qualifiers: Qualified Codes: K85.10 - Biliary acute pancreatitis without necrosis or i nfection (2) Gall stone ICD Codes: K80.20 - Calculus of gallbladder without cholecystitis without obstruction SNOMED: [id number] Qualifiers: Qualified Codes: K80.20 - Calculus of gallbladder without cholecystitis without obstruction (3) Lab test positive for detection of COVID-19 virus ICD Codes: U07.1 - COVID-19 SNOMED: [id number] Status: progressing Assessment/Plan: covid positive pna supportive care no fever weak reviewed chart check labs in am resp Ronny Doshi MD Feb 09, 2020 22:11
[2020-02-10] VITALS: BP 124/79
[2020-02-10 04:00] VITALS: BP 121/76
[2020-02-10] MEDS: Piperacillin/Tazobactam 3.375 GM in NS 110 ML IVPB SCH ×2 (05:32→13:20)
[2020-02-10 07:39] LABS: HEMATOCRIT 35.4 % (37.0-47.0); HEMOGLOBIN 11.5 G/DL (12.0-16.0); MEAN CORPUSCULAR VOLUME 89 FL (80-99); PLATELET COUNT 183 K/UL (150-450); RED BLOOD COUNT 3.98 M/UL (4.20-5.40); RED CELL DISTRIBUTION WIDTH 12.4 % (11.6-14.8); WHITE BLOOD COUNT 2.8 K/UL (4.8-10.8)
--- NOTE | 2020-02-10 07:55 | NUR ---
NURSE NOTES: Received report from ADOLFO Crook. received patient in bed. AAOX4, no pain, verbally responsive, no s/s of respiratory distress noted. Patient's is appetite is fine and intake is adequate. IV site clean, dry, intact, asymptomatic and patent. Bed in lowest position and locked. Call light within reach. Will continue to monitor.
--- NOTE | 2020-02-10 07:59 | NUR ---
NURSE HAND-OFF: Important Events on Shift: No events Patient Status: Stable Diet: Low fat Pending Orders: [] Pending Results/Labs:[] Pending MD notification:[] Latest Vital Signs: Temperature 98.1 , Pulse 78 , B/P 121 /76 , Respiratory Rate 17 , O2 SAT 97 , Room Air, O2 Flow Rate 6 . Vital Sign Comment: [] Latest Xiong Fall Score: 20 Fall Risk: Low Risk Safety Measures: Call light Within Reach, Bed Alarm Zone 1, Side Rails Side Rails x2, Bed position Low and Locked. Fall Precautions: Yellow Socks Patient Fall Education Report given to ADOLFO Carroll.
[2020-02-10 08:00] VITALS: BP 126/70
[2020-02-10 08:26] LABS: ALANINE AMINOTRANSFERASE 77 U/L (12-78); ALBUMIN 2.6 G/DL (3.4-5.0); ALBUMIN/GLOBULIN RATIO 0.6 (1.0-2.7); ALKALINE PHOSPHATASE 71 U/L (46-116); AMYLASE 164 U/L (25-115); ANION GAP 6 mmol/L (5-15); ASPARTATE AMINO TRANSFERASE 63 U/L (15-37); BILIRUBIN,TOTAL 0.7 MG/DL (0.2-1.0); BLOOD UREA NITROGEN 6 mg/dL (7-18); CARBON DIOXIDE 26 MMOL/L (21-32); CHLORIDE 106 MMOL/L (98-107); CREATININE 0.7 MG/DL (0.55-1.30); POTASSIUM 3.9 MMOL/L (3.5-5.1); SODIUM 138 MMOL/L (136-145)
--- NOTE | 2020-02-10 09:34 | General Progress Note ---
Subjective ROS Limited/Unobtainable: No Allergies: Coded Allergies: No Known Allergies (Unverified , 01/21/20) Objective Last 24 Hour Vital Signs Date Time Temp Pulse Resp B/P (MAP) Pulse Ox O2 Delivery O2 Flow Rate FiO2 02/10/20 04:00 98.1 78 17 121/76 (91) 97 02/10/20 00:00 97.7 76 18 124/79 (94) 98 02/09/20 21:00 Room Air 02/09/20 20:00 97.0 81 21 130/71 (90) 96 02/09/20 16:00 98.0 86 21 121/76 (91) 97 02/09/20 12:00 98.6 77 21 130/73 (92) 97 Intake and Output 02/09/20 02/10/20 19:00 07:00 Intake Total 720 ml 480 ml Balance 720 ml 480 ml Intake Oral 720 ml 480 ml # Voids 3 2 # Bowel Movements 1 Laboratory Tests 02/10/20 05:50: White Blood Count 2.8L, Red Blood Count 3.98L, Hemoglobin 11.5L, Hematocrit 35.4L, Mean Corpuscular Volume 89, Mean Corpuscular Hemoglobin 29.0, Mean Corpuscular Hemoglobin Concent 32.6, Red Cell Distribution Width 12.4, Platelet Count 183, Mean Platelet Volume 6.4L, Neutrophils (%) (Auto) , Lymphocytes (%) (Auto) , Monocytes (%) (Auto) , Eosinophils (%) (Auto) , Basophils (%) (Auto) , Neutrophils % (Manual) [Pending], Lymphocytes % (Manual) [Pending], Platelet Estimate [Pending], Platelet Morphology [Pending], Sodium Level 138, Potassium Level 3.9, Chloride Level 106, Carbon Dioxide Level 26, Anion Gap 6, Blood Urea Nitrogen 6L, Creatinine 0.7, Estimat Glomerular Filtration Rate > 60, Glucose Level 100, Calcium Level 8.0L, Total Bilirubin 0.7, Aspartate Amino Transf (AST/SGOT) 63H, Alanine Aminotransferase (ALT/SGPT) 77, Alkaline Phosphatase 71, Total Protein 7.2, Albumin 2.6L, Globulin 4.6, Albumin/Globulin Ratio 0.6L, Amylase Level 164H, Lipase 1025H Height (Feet): 5 Height (Inches): 5.00 Weight (Pounds): 235 General Appearance: no apparent distress EENT: normal ENT inspection Neck: supple Cardiovascular: normal rate Respiratory/Chest: decreased breath sounds Abdomen: normal bowel sounds, non tender, soft Extremities: non-tender Assessment/Plan Status: progressing Assessment/Plan: gallstone pancreatitis? Covid positive pain control surg in put appreciated repeat labs for tomorrow on reg diet s/p ERCP and 4 stone removal on diet fu sug recs fu labs David Kingsley MD Feb 10, 2020 09:33
[2020-02-10 12:00] VITALS: BP 130/68
--- NOTE | 2020-02-10 14:31 | Surgery Progress Note ---
Surgery Progress Note Subjective Additional Comments no pain tolerating diet lip/tico still elevated but chemical only labs noted electrolytes being replaced Objective Last 24 Hour Vital Signs Date Time Temp Pulse Resp B/P (MAP) Pulse Ox O2 Delivery O2 Flow Rate FiO2 02/10/20 12:00 97.6 81 17 130/68 (88) 98 02/10/20 09:00 Room Air 02/10/20 08:00 97.2 80 19 126/70 (88) 97 02/10/20 04:00 98.1 78 17 121/76 (91) 97 02/10/20 00:00 97.7 76 18 124/79 (94) 98 02/09/20 21:00 Room Air 02/09/20 20:00 97.0 81 21 130/71 (90) 96 02/09/20 16:00 98.0 86 21 121/76 (91) 97 I&O Intake and Output 02/09/20 02/10/20 19:00 07:00 Intake Total 720 ml 480 ml Balance 720 ml 480 ml Intake Oral 720 ml 480 ml # Voids 3 2 # Bowel Movements 1 Cardiovascular: RSR Respiratory: clear Abdomen: soft, non-tender, present bowel sounds, non-distended Extremities: no edema, no tenderness, no cyanosis Laboratory Tests Test 02/10/20 05:50 White Blood Count 2.8 K/UL (4.8-10.8) L Red Blood Count 3.98 M/UL (4.20-5.40) L Hemoglobin 11.5 G/DL (12.0-16.0) L Hematocrit 35.4 % (37.0-47.0) L Mean Corpuscular Volume 89 FL (80-99) Mean Corpuscular Hemoglobin 29.0 PG (27.0-31.0) Mean Corpuscular Hemoglobin Concent 32.6 G/DL (32.0-36.0) Red Cell Distribution Width 12.4 % (11.6-14.8) Platelet Count 183 K/UL (150-450) Mean Platelet Volume 6.4 FL (6.5-10.1) L Neutrophils (%) (Auto) % (45.0-75.0) Lymphocytes (%) (Auto) % (20.0-45.0) Monocytes (%) (Auto) % (1.0-10.0) Eosinophils (%) (Auto) % (0.0-3.0) Basophils (%) (Auto) % (0.0-2.0) Neutrophils % (Manual) Pending Lymphocytes % (Manual) Pending Platelet Estimate Pending Platelet Morphology Pending Sodium Level 138 MMOL/L (136-145) Potassium Level 3.9 MMOL/L (3.5-5.1) Chloride Level 106 MMOL/L (98-107) Carbon Dioxide Level 26 MMOL/L (21-32) Anion Gap 6 mmol/L (5-15) Blood Urea Nitrogen 6 mg/dL (7-18) L Creatinine 0.7 MG/DL (0.55-1.30) Estimat Glomerular Filtration Rate > 60 mL/min (>60) Glucose Level 100 MG/DL (74-106) Calcium Level 8.0 MG/DL (8.5-10.1) L Total Bilirubin 0.7 MG/DL (0.2-1.0) Aspartate Amino Transf (AST/SGOT) 63 U/L (15-37) H Alanine Aminotransferase (ALT/SGPT) 77 U/L (12-78) Alkaline Phosphatase 71 U/L (46-116) Total Protein 7.2 G/DL (6.4-8.2) Albumin 2.6 G/DL (3.4-5.0) L Globulin 4.6 g/dL Albumin/Globulin Ratio 0.6 (1.0-2.7) L Amylase Level 164 U/L (25-115) H Lipase 1025 U/L (73-393) H Plan Problems: (1) Acute pancreatitis Assessment & Plan: 51-year-old female acute pancreatitis potentially gallstone related. Afebrile hemodynamic stable labs improved. No nausea vomiting fever chills. Pain is resolved. No acute surgical intervention planned. Continue with work-up. Trend labs. GI input appreciated. Will follow with recommendations. Thank you npo iv fluids iv abx trend labs bowel rest will follow with recs thank you febrile tolerating diet labs improving trend labs cont diet cont abx needs mrcp but covid + labs noted exam benign pending covid mrcp noted plan ercp s/p ercp diet as tolerated trend labs plan for elective joselito after d/c and pancreatitis resolves + Liver: See below. Gallbladder: There is cholelithiasis. A 2.6 cm gallstone is noted. Gallbladder wall measures 0.45 cm and is thickened. Common bile duct: Suboptimal evaluation of the common bile duct due to bowel gas. No stones. No dilation. Pancreas: Unremarkable as visualized. Kidneys: Right kidney measures 9.8 x 5 x 5 cm. Left kidney measures 9. 3 x 4.9 x 4.7 cm. No hydronephrosis. No stones. Spleen: Spleen measures 9.3 cm and is unremarkable. Aorta: Abdominal aorta is normal in caliber. Liver measures 15.9 cm. Partial evaluation of the abdominal aorta which is grossly unremarkable. No aneurysm. Inferior vena cava: Unremarkable. IMPRESSION: 1. Limited evaluation due to bowel gas. 2. Cholelithiasis. 3. Gallbladder wall measures 0.45 cm and is diffusely thickened. Clinical correlation is necessary. 4. No pericholecystic fluid noted however. Markedly limited evaluation of the common bile duct due to bowel gas. 5. Clinical correlation is necessary. The gallbladder demonstrates 2 very large central gallstones measuring up to 2.7 cm. It also demonstrates multiple smaller gallstones as well as a small amount of sludge. There is no gallbladder wall thickening or pericholecystic edema. On multiple sequences, there is a filling defect in the downstream common bile duct which measures approximately 5 mm length by 2 mm in diameter. On the coronal MRCP images, this appears to be attached to the wall of the common bile duct. The common bile duct is mildly dilated, measuring up to 10 mm in diameter. There is no intrahepatic biliary ductal dilatation. The pancreatic duct is mildly ectatic, measuring up to 3 mm in diameter. No pancreatic head mass or pancreatic cystic lesion demonstrated. There is a slight degree of edema of the peripancreatic fat extending slightly into the anterior Gerota's fascia on the axial T2 fat saturated images. Although this is not clearly visible on the coronal MRCP images. The pancreas is otherwise unremarkable. There is trace pleural fluid bilaterally. The right kidney demonstrates a lower pole cyst and another tiny one in the upper pole. On the fat saturated T2 images, there is also a 5 mm area of decreased signal which is not evident on other images, most likely represents a tiny angiomyolipoma The uterus demonstrates marked thickening of the endometrium, which measures up to 2.9 mm thick. This demonstrates high T2 signal and low T1 signal. This area is included only on the coronal images Impression: Cholelithiasis. No findings to suggest acute cholecystitis Dilated common bile duct and common hepatic duct. Apparent filling defect in the downstream common bile duct, suspicious for choledocholithiasis. Appearing somewhat unusual but suspect that this is a real finding given the presence of cholelithiasis and biliary ductal dilatation Mild ectasia of the pancreatic duct Very questionable peripancreatic edema at the inferior border of the pancreas; suspect artifactual but if real could represent very mild acute pancreatitis, given stated clinical history of such Thickened endometrium, abnormal in a perimenopausal female. Recommend further evaluation with sonography Suspect trace bilateral pleural effusions Incidental findings small right renal cysts and probable small right renal angiomyolipoma (2) Gall stone (3) Lab test positive for detection of COVID-19 virus Jalil Santiago Feb 10, 2020 14:31
--- NOTE | 2020-02-10 14:52 | NUR ---
CASE MANAGEMENT:REVIEW SI;COVID PNEUMONIA. PANCREATITIS ~ S/P ERCP 02/08 98.1 81 19 130/68 97% ON RA ALB 2.6 AMYLASE 164 LIPASE 1025 IS;PROTONIX PO Q12 K-DUR PO BID ZOSYN IV Q8 MED SURG STATUS DCP;FROM HOME
--- NOTE | 2020-02-10 14:54 | Nephrology Progress Note ---
Assessment/Plan Problem List: (1) Electrolyte imbalance (2) Acute pancreatitis (3) Gall stone (4) 2019 novel coronavirus disease (COVID-19) (5) Proteinuria Assessment Hypokalemia COVID-19 disease Acute pancreatitis with elevated LFTs Gallstone pancreatitis Obesity Hypertension Proteinuria Plan February 09: Labs reviewed. Renal parameters stable. Continue per consultants. February 08: Labs reviewed. Renal parameters stable. Continue per consultants. February 07: Labs reviewed. Renal parameters are stable. Continue per consultants February 06: No labs drawn today. Stable from renal standpoint of view. February 05: Labs reviewed. Serum sodium 134 stable. Continue as is. February 04: Labs are reviewed. Serum sodium drifting down. Will order urine and serum osmolality's. Continue per consultants. February 03: Labs reviewed. Status quo. Continue per consultants. February 02: Labs reviewed. Serum sodium 135 stable. Continue per consultants. February 01: No labs drawn today. Remains stable from renal standpoint of view. January 31: Labs reviewed. Renal parameters stable. Continue per consultants. January 30: No labs drawn today. Remains stable from renal standpoint of view. January 29: Labs reviewed. Renal parameters stable. Continue per consultants. January 28: Labs reviewed. Stable from renal standpoint of view. Continue per consultants. Low-grade fever persists oral potassium ordered IV fluid adjusted and discontinued Oral Protonix added Continue to monitor renal parameters and electrolytes Continue per consultants Subjective ROS Limited/Unobtainable: No Objective Objective Last 24 Hour Vital Signs Date Time Temp Pulse Resp B/P (MAP) Pulse Ox O2 Delivery O2 Flow Rate FiO2 02/10/20 12:00 97.6 81 17 130/68 (88) 98 02/10/20 09:00 Room Air 02/10/20 08:00 97.2 80 19 126/70 (88) 97 02/10/20 04:00 98.1 78 17 121/76 (91) 97 02/10/20 00:00 97.7 76 18 124/79 (94) 98 02/09/20 21:00 Room Air 02/09/20 20:00 97.0 81 21 130/71 (90) 96 02/09/20 16:00 98.0 86 21 121/76 (91) 97 Intake and Output 02/09/20 02/10/20 19:00 07:00 Intake Total 720 ml 480 ml Balance 720 ml 480 ml Intake Oral 720 ml 480 ml # Voids 3 2 # Bowel Movements 1 Laboratory Tests 02/10/20 05:50: White Blood Count 2.8L, Red Blood Count 3.98L, Hemoglobin 11.5L, Hematocrit 35.4L, Mean Corpuscular Volume 89, Mean Corpuscular Hemoglobin 29.0, Mean Corpuscular Hemoglobin Concent 32.6, Red Cell Distribution Width 12.4, Platelet Count 183, Mean Platelet Volume 6.4L, Neutrophils (%) (Auto) , Lymphocytes (%) (Auto) , Monocytes (%) (Auto) , Eosinophils (%) (Auto) , Basophils (%) (Auto) , Neutrophils % (Manual) [Pending], Lymphocytes % (Manual) [Pending], Platelet Estimate [Pending], Platelet Morphology [Pending], Sodium Level 138, Potassium Level 3.9, Chloride Level 106, Carbon Dioxide Level 26, Anion Gap 6, Blood Urea Nitrogen 6L, Creatinine 0.7, Estimat Glomerular Filtration Rate > 60, Glucose Level 100, Calcium Level 8.0L, Total Bilirubin 0.7, Aspartate Amino Transf (AST/SGOT) 63H, Alanine Aminotransferase (ALT/SGPT) 77, Alkaline Phosphatase 71, Total Protein 7.2, Albumin 2.6L, Globulin 4.6, Albumin/Globulin Ratio 0.6L, Amylase Level 164H, Lipase 1025H Height (Feet): 5 Height (Inches): 5.00 Weight (Pounds): 235 General Appearance: no apparent distress Objective No change Rakesh Hammer MD Feb 10, 2020 14:54
--- NOTE | 2020-02-10 15:42 | Pulmonology Progress Note ---
Subjective ROS Limited/Unobtainable: No Interval Events: s/p ERCP and 4 stone removal Constitutional: Denies: fever, chills HEENT: Repors: no symptoms Respiratory: Reports: no symptoms Cardiovascular: Reports: no symptoms Gastrointestinal/Abdominal: Denies: nausea, vomiting, diarrhea Genitourinary: Reports: no symptoms Musculoskeletal: Denies: pain Allergies: Coded Allergies: No Known Allergies (Unverified , 01/21/20) Objective Last 24 Hour Vital Signs Date Time Temp Pulse Resp B/P (MAP) Pulse Ox O2 Delivery O2 Flow Rate FiO2 02/10/20 12:00 97.6 81 17 130/68 (88) 98 02/10/20 09:00 Room Air 02/10/20 08:00 97.2 80 19 126/70 (88) 97 02/10/20 04:00 98.1 78 17 121/76 (91) 97 02/10/20 00:00 97.7 76 18 124/79 (94) 98 02/09/20 21:00 Room Air 02/09/20 20:00 97.0 81 21 130/71 (90) 96 02/09/20 16:00 98.0 86 21 121/76 (91) 97 Intake and Output 02/09/20 02/10/20 19:00 07:00 Intake Total 720 ml 480 ml Balance 720 ml 480 ml Intake Oral 720 ml 480 ml # Voids 3 2 # Bowel Movements 1 Objective 02/09 no change 02/08 room air; NAD 02/07 no change 02/06 room air; no fever overnight 02/03 Nrqt=987.2 02/02 room air; low grade fever, better with advil 02/01 room air; fever again overnight; now NPO 01/31 room air; no fever; tolerating diet 01/30 room air; no fever overnight; tolerating diet 01/29 room air; intermittent fever 01/28 continues to saturate well on RA; persistent low grade fever, better with ibuprofen 01/27 saturating well on RA; NAD 01/27/2020 continues to saturate well on RA; NAD 01/26/2020 saturating well on room air; NAD; sitting on her bed 01/25/2020 saturating well on room air 01/24/2020 pt eating in bed; saturating well on room air 01/23/2020 NAD; on room air 01/22/2020 saturating well on room air; NAD General Appearance: WD/WN, no acute distress HEENT: normocephalic Respiratory: lungs clear Cardiovascular: normal rate, regular rhythm, no gallop/murmur Abdomen: soft, non tender Neurologic: alert, oriented x 3, responsive Laboratory Tests 02/10/20 05:50: White Blood Count 2.8L, Red Blood Count 3.98L, Hemoglobin 11.5L, Hematocrit 35.4 L, Mean Corpuscular Volume 89, Mean Corpuscular Hemoglobin 29.0, Mean Corpuscular Hemoglobin Concent 32.6, Red Cell Distribution Width 12.4, Platelet Count 183, Mean Platelet Volume 6.4L, Neutrophils (%) (Auto) , Lymphocytes (%) (Auto) , Monocytes (%) (Auto) , Eosinophils (%) (Auto) , Basophils (%) (Auto) , Differential Total Cells Counted 100, Neutrophils % (Manual) 65, Lymphocytes % (Manual) 18L, Monocytes % (Manual) 13H, Eosinophils % (Manual) 4H, Basophils % (Manual) 0, Band Neutrophils 0, Platelet Estimate Adequate, Platelet Morphology Normal, Sodium Level 138, Potassium Level 3.9, Chloride Level 106, Carbon Dioxide Level 26, Anion Gap 6, Blood Urea Nitrogen 6L, Creatinine 0.7, Estimat Glomerular Filtration Rate > 60, Glucose Level 100, Calcium Level 8.0L, Total Bilirubin 0.7, Aspartate Amino Transf (AST/SGOT) 63H, Alanine Aminotransferase (ALT/SGPT) 77, Alkaline Phosphatase 71, Total Protein 7.2, Albumin 2.6L, Globulin 4.6, Albumin/Globulin Ratio 0.6L, Amylase Level 164H, Lipase 1025H Current Medications Medications (Trade) Dose Ordered Sig/Dipti Route PRN Reason Start Time Stop Time Status Last Admin Dose Admin Ibuprofen (Advil) 400 mg Q6H PRN ORAL Temp >100.5 01/22/20 18:00 02/21/20 17:59 02/04/20 20:09 Ondansetron HCl (Zofran) 4 mg Q6H PRN IVP Nausea & Vomiting 01/22/20 07:30 02/21/20 07:29 Pantoprazole (Protonix) 40 mg EVERY 12 HOURS ORAL 01/28/20 15:00 02/27/20 14:59 02/10/20 08:40 Piperacillin Sod/ Tazobactam Sod 3.375 gm/Sodium Chloride 110 ml @ 27.5 mls/hr EVERY 8 HOURS IVPB 01/23/20 14:00 02/13/20 13:59 02/10/20 13:20 Potassium Chloride (K-Dur) 40 meq TWICE A DAY ORAL 01/27/20 18:00 04/26/20 17:59 02/10/20 08:40 Assessment/Plan Assessment/Plan 1. Transaminitis 2. Pancreatitis. - elevated amylase, lipase - s/p IVF - pain control - on zosyn per Dr. Santiago - MRI abd result noted; cholelithiasis, possible very mild acute pancreatitis - per Dr. Kingsley, Dr. Santiago - s/p ERCP and 4 stone removal 02/08 3. Positive COVID-19. - Currently no intervention required for Covid19 due to her normoxemic status on RA - repeat rapid COVID-19 test positive 02/01 - Rapid COVID-19 test 02/05 positive again 4. Hypertension - in control 5. Fever - Blood Cx showed no growth - better with ibuprofen prn fever The care of this patient was discussed with my supervising physician Time spent for this encounter was approximately 31 minutes Steven Bergman Feb 10, 2020 15:42
[2020-02-10 16:00] VITALS: BP 120/70
--- NOTE | 2020-02-10 16:38 | General Progress Note ---
Subjective ROS Limited/Unobtainable: Yes Allergies: Coded Allergies: No Known Allergies (Unverified , 01/21/20) Objective Last 24 Hour Vital Signs Date Time Temp Pulse Resp B/P (MAP) Pulse Ox O2 Delivery O2 Flow Rate FiO2 02/10/20 16:00 97.0 73 18 120/70 (87) 96 02/10/20 12:00 97.6 81 17 130/68 (88) 98 02/10/20 09:00 Room Air 02/10/20 08:00 97.2 80 19 126/70 (88) 97 02/10/20 04:00 98.1 78 17 121/76 (91) 97 02/10/20 00:00 97.7 76 18 124/79 (94) 98 02/09/20 21:00 Room Air 02/09/20 20:00 97.0 81 21 130/71 (90) 96 Intake and Output 02/09/20 02/10/20 19:00 07:00 Intake Total 720 ml 480 ml Balance 720 ml 480 ml Intake Oral 720 ml 480 ml # Voids 3 2 # Bowel Movements 1 Laboratory Tests 02/10/20 05:50: White Blood Count 2.8L, Red Blood Count 3.98L, Hemoglobin 11.5L, Hematocrit 35.4L, Mean Corpuscular Volume 89, Mean Corpuscular Hemoglobin 29.0, Mean Corpuscular Hemoglobin Concent 32.6, Red Cell Distribution Width 12.4, Platelet Count 183, Mean Platelet Volume 6.4L, Neutrophils (%) (Auto) , Lymphocytes (%) (Auto) , Monocytes (%) (Auto) , Eosinophils (%) (Auto) , Basophils (%) (Auto) , Differential Total Cells Counted 100, Neutrophils % (Manual) 65, Lymphocytes % (Manual) 18L, Monocytes % (Manual) 13H, Eosinophils % (Manual) 4H, Basophils % (Manual) 0, Band Neutrophils 0, Platelet Estimate Adequate, Platelet Morphology Normal, Sodium Level 138, Potassium Level 3.9, Chloride Level 106, Carbon Dioxide Level 26, Anion Gap 6, Blood Urea Nitrogen 6L, Creatinine 0.7, Estimat Glomerular Filtration Rate > 60, Glucose Level 100, Calcium Level 8.0L, Total Bilirubin 0.7, Aspartate Amino Transf (AST/SGOT) 63H, Alanine Aminotransferase (ALT/SGPT) 77, Alkaline Phosphatase 71, Total Protein 7.2, Albumin 2.6L, Globulin 4.6, Albumin/Globulin Ratio 0.6L, Amylase Level 164H, Lipase 1025H Height (Feet): 5 Height (Inches): 5.00 Weight (Pounds): 235 Assessment/Plan Problem List: (1) Acute pancreatitis ICD Codes: K85.90 - Acute pancreatitis without necrosis or infection, unspecified SNOMED: 839711611 Qualifiers: Qualified Codes: K85.10 - Biliary acute pancreatitis without necrosis or infection (2) Gall stone ICD Codes: K80.20 - Calculus of gallbladder without cholecystitis without obstruction SNOMED: 745896217 Qualifiers: Qualified Codes: K80.20 - Calculus of gallbladder without cholecystitis without obstruction (3) Lab test positive for detection of COVID-19 virus ICD Codes: U07.1 - COVID-19 SNOMED: [id number] Status: progressing Assessment/Plan: covid positive pna supportive care prn oxygen resp insuff Ronny Win MD Feb 10, 2020 16:38
--- NOTE | 2020-02-10 16:58 | Infectious Diseases Prog Note ---
Assessment/Plan Assessment/Plan IMPRESSION: 1. COVID-19 disease, seems to be mild or recent infection. 2. Acute pancreatitis, has elevated transaminase. 3. Cholelithiasis & Choledocholithiasis s/p ERCP & stones removal 4. Morbid obesity. 5. Leukopenia PLAN: Discontinue Zosyn Subjective ROS Limited/Unobtainable: No Constitutional: Reports: no symptoms Respiratory: Reports: no symptoms Gastrointestinal/Abdominal: Reports: no symptoms Genitourinary: Reports: no symptoms Allergies: Coded Allergies: No Known Allergies (Unverified , 01/21/20) Objective Last 24 Hour Vital Signs Date Time Temp Pulse Resp B/P (MAP) Pulse Ox O2 Delivery O2 Flow Rate FiO2 02/10/20 16:00 97.0 73 18 120/70 (87) 96 02/10/20 12:00 97.6 81 17 130/68 (88) 98 02/10/20 09:00 Room Air 02/10/20 08:00 97.2 80 19 126/70 (88) 97 02/10/20 04:00 98.1 78 17 121/76 (91) 97 02/10/20 00:00 97.7 76 18 124/79 (94) 98 02/09/20 21:00 Room Air 02/09/20 20:00 97.0 81 21 130/71 (90) 96 Height (Feet): 5 Height (Inches): 5.00 Weight (Pounds): 235 General Appearance: no acute distress HEENT: mucous membranes moist Respiratory/Chest: lungs clear Cardiovascular: normal rate Abdomen: soft, non tender Extremities: no edema Neurologic/Psychiatric: alert, responsive Laboratory Tests Test 02/10/20 05:50 White Blood Count 2.8 K/UL (4.8-10.8) L Red Blood Count 3.98 M/UL (4.20-5.40) L Hemoglobin 11.5 G/DL (12.0-16.0) L Hematocrit 35.4 % (37.0-47.0) L Mean Corpuscular Volume 89 FL (80-99) Mean Corpuscular Hemoglobin 29.0 PG (27.0-31.0) Mean Corpuscular Hemoglobin Concent 32.6 G/DL (32.0-36.0) Red Cell Distribution Width 12.4 % (11.6-14.8) Platelet Count 183 K/UL (150-450) Mean Platelet Volume 6.4 FL (6.5-10.1) L Neutrophils (%) (Auto) % (45.0-75.0) Lymphocytes (%) (Auto) % (20.0-45.0) Monocytes (%) (Auto) % (1.0-10.0) Eosinophils (%) (Auto) % (0.0-3.0) Basophils (%) (Auto) % (0.0-2.0) Differential Total Cells Counted 100 Neutrophils % (Manual) 65 % (45-75) Lymphocytes % (Manual) 18 % (20-45) L Monocytes % (Manual) 13 % (1-10) H Eosinophils % (Manual) 4 % (0-3) H Basophils % (Manual) 0 % (0-2) Band Neutrophils 0 % (0-8) Platelet Estimate Adequate Platelet Morphology Normal Sodium Level 138 MMOL/L (136-145) Potassium Level 3.9 MMOL/L (3.5-5.1) Chloride Level 106 MMOL/L (98-107) Carbon Dioxide Level 26 MMOL/L (21-32) Anion Gap 6 mmol/L (5-15) Blood Urea Nitrogen 6 mg/dL (7-18) L Creatinine 0.7 MG/DL (0.55-1.30) Estimat Glomerular Filtration Rate > 60 mL/min (>60) Glucose Level 100 MG/DL (74-106) Calcium Level 8.0 MG/DL (8.5-10.1) L Total Bilirubin 0.7 MG/DL (0.2-1.0) Aspartate Amino Transf (AST/SGOT) 63 U/L (15-37) H Alanine Aminotransferase (ALT/SGPT) 77 U/L (12-78) Alkaline Phosphatase 71 U/L (46-116) Total Protein 7.2 G/DL (6.4-8.2) Albumin 2.6 G/DL (3.4-5.0) L Globulin 4.6 g/dL Albumin/Globulin Ratio 0.6 (1.0-2.7) L Amylase Level 164 U/L (25-115) H Lipase 1025 U/L (73-393) H Current Medications Medications (Trade) Dose Ordered Sig/Dipti Route PRN Reason Start Time Stop Time Status Last Admin Dose Admin Ibuprofen (Advil) 400 mg Q6H PRN ORAL Temp >100.5 01/22/20 18:00 02/21/20 17:59 02/04/20 20:09 Ondansetron HCl (Zofran) 4 mg Q6H PRN IVP Nausea & Vomiting 01/22/20 07:30 02/21/20 07:29 Pantoprazole (Protonix) 40 mg EVERY 12 HOURS ORAL 01/28/20 15:00 02/27/20 14:59 02/10/20 08:40 Piperacillin Sod/ Tazobactam Sod 3.375 gm/Sodium Chloride 110 ml @ 27.5 mls/hr EVERY 8 HOURS IVPB 01/23/20 14:00 02/13/20 13:59 02/10/20 13:20 Potassium Chloride (K-Dur) 40 meq TWICE A DAY ORAL 01/27/20 18:00 04/26/20 17:59 02/10/20 08:40 Wesley Blandon MD Feb 10, 2020 16:58
--- NOTE | 2020-02-10 19:34 | NUR ---
HAND-OFF: Report given to ADOLFO Crook.
[2020-02-10 20:00] VITALS: BP 139/87
[2020-02-11] VITALS: BP 128/72
[2020-02-11 04:00] VITALS: BP 113/69
[2020-02-11 07:14] LABS: HEMATOCRIT 36.7 % (37.0-47.0); HEMOGLOBIN 11.8 G/DL (12.0-16.0); MEAN CORPUSCULAR VOLUME 91 FL (80-99); PLATELET COUNT 190 K/UL (150-450); RED BLOOD COUNT 4.01 M/UL (4.20-5.40); RED CELL DISTRIBUTION WIDTH 12.9 % (11.6-14.8); WHITE BLOOD COUNT 2.8 K/UL (4.8-10.8)
--- NOTE | 2020-02-11 07:28 | NUR ---
HAND-OFF: Report given to ADOLFO Teran.
[2020-02-11 07:55] LABS: ALANINE AMINOTRANSFERASE 79 U/L (12-78); ALBUMIN 2.9 G/DL (3.4-5.0); ALBUMIN/GLOBULIN RATIO 0.6 (1.0-2.7); ALKALINE PHOSPHATASE 78 U/L (46-116); AMYLASE 138 U/L (25-115); ANION GAP 8 mmol/L (5-15); ASPARTATE AMINO TRANSFERASE 29 U/L (15-37); BILIRUBIN,TOTAL 0.6 MG/DL (0.2-1.0); BLOOD UREA NITROGEN 5 mg/dL (7-18); CALCIUM 8.6 MG/DL (8.5-10.1); CARBON DIOXIDE 25 MMOL/L (21-32); CHLORIDE 105 MMOL/L (98-107); CREATININE 0.7 MG/DL (0.55-1.30); SODIUM 138 MMOL/L (136-145)
[2020-02-11 08:00] VITALS: BP 129/73
--- NOTE | 2020-02-11 08:44 | Pulmonology Progress Note ---
Subjective ROS Limited/Unobtainable: No Interval Events: s/p ERCP and 4 stone removal Constitutional: Reports: no symptoms HEENT: Repors: no symptoms Respiratory: Reports: no symptoms Cardiovascular: Reports: no symptoms Gastrointestinal/Abdominal: Reports: no symptoms Genitourinary: Reports: no symptoms Musculoskeletal: Denies: pain Allergies: Coded Allergies: No Known Allergies (Unverified , 01/21/20) Objective Last 24 Hour Vital Signs Date Time Temp Pulse Resp B/P (MAP) Pulse Ox O2 Delivery O2 Flow Rate FiO2 02/11/20 08:00 98.1 77 20 129/73 (91) 99 02/11/20 04:00 98.1 77 20 113/69 (84) 99 02/11/20 00:00 97.9 81 20 128/72 (90) 96 02/10/20 21:00 Room Air 02/10/20 20:00 98.2 78 20 139/87 (104) 97 02/10/20 16:00 97.0 73 18 120/70 (87) 96 02/10/20 12:00 97.6 81 17 130/68 (88) 98 02/10/20 09:00 Room Air Intake and Output 02/10/20 02/11/20 19:00 07:00 Intake Total 400 ml 480 ml Output Total 1 ml Balance 399 ml 480 ml Intake Oral 400 ml 480 ml Output Stool Total 1 ml # Voids 3 2 Objective 02/10 stable respiration 02/09 no change 02/08 room air; NAD 02/07 no change 02/06 room air; no fever overnight 02/03 Rijz=[id number] 02/02 room air; low grade fever, better with advil 02/01 room air; fever again overnight; now NPO 01/31 room air; no fever; tolerating diet 01/30 room air; no fever overnight; tolerating diet 01/29 room air; intermittent fever 01/28 continues to saturate well on RA; persistent low grade fever, better with ibuprofen 01/27 saturating well on RA; NAD 01/27/2020 continues to saturate well on RA; NAD 01/26/2020 saturating well on room air; NAD; sitting on her bed 01/25/2020 saturating well on room air 01/24/2020 pt eating in bed; saturating well on room air 01/23/2020 NAD; on room air 01/22/2020 saturating well on room air; NAD General Appearance: WD/WN, no acute distress HEENT: normocephalic Respiratory: lungs clear Cardiovascular: normal rate, regular rhythm, no gallop/murmur Abdomen: soft, non tender Neurologic: alert, oriented x 3, responsive Laboratory Tests 02/11/20 05:45: White Blood Count 2.8L, Red Blood Count 4.01L, Hemoglobin 11.8L, Hematocrit 36.7L, Mean Corpuscular Volume 91, Mean Corpuscular Hemoglobin 29.4, Mean Corpuscular Hemoglobin Concent 32.2, Red Cell Distribution Width 12.9, Platelet Count 190, Mean Platelet Volume 6.2L, Neutrophils (%) (Auto) , Lymphocytes (%) (Auto) , Monocytes (%) (Auto) , Eosinophils (%) (Auto) , Basophils (%) (Auto) , Neutrophils % (Manual) [Pending], Lymphocytes % (Manual) [Pending], Platelet Estimate [Pending], Platelet Morphology [Pending], Sodium Level 138, Potassium Level 4.0, Chloride Level 105, Carbon Dioxide Level 25, Anion Gap 8, Blood Urea Nitrogen 5L, Creatinine 0.7, Estimat Glomerular Filtration Rate > 60, Glucose Level 100, Calcium Level 8.6, Total Bilirubin 0.6, Aspartate Amino Transf (AST/SGOT) 29, Alanine Aminotransferase (ALT/SGPT) 79H, Alkaline Phosphatase 78, Total Protein 7.7, Albumin 2.9L, Globulin 4.8, Albumin/Globulin Ratio 0.6L, Amylase Level 138H, Lipase 890H Current Medications Medications (Trade) Dose Ordered Sig/Dipti Route PRN Reason Start Time Stop Time Status Last Admin Dose Admin Ibuprofen (Advil) 400 mg Q6H PRN ORAL Temp >100.5 01/22/20 18:00 02/21/20 17:59 02/04/20 20:09 Ondansetron HCl (Zofran) 4 mg Q6H PRN IVP Nausea & Vomiting 01/22/20 07:30 02/21/20 07:29 Pantoprazole (Protonix) 40 mg EVERY 12 HOURS ORAL 01/28/20 15:00 02/27/20 14:59 02/10/20 21:24 Potassium Chloride (K-Dur) 40 meq TWICE A DAY ORAL 01/27/20 18:00 04/26/20 17:59 02/10/20 17:04 Assessment/Plan Assessment/Plan 1. Transaminitis 2. Pancreatitis. - elevated amylase, lipase - s/p IVF - pain control - now off zosyn (01/22-02/09) - MRI abd result noted; cholelithiasis, possible very mild acute pancreatitis - per Dr. Kingsley, Dr. Santiago - s/p ERCP and 4 stone removal 02/08 3. Positive COVID-19.; initial rapid COVID-19 test positive on 01/20 - Currently no intervention required for Covid19 due to her normoxemic status on RA - repeat rapid COVID-19 test positive 02/01 - Rapid COVID-19 test 02/05 positive again 4. Hypertension - in control 5. Fever - Blood Cx showed no growth - better with ibuprofen prn fever Patient is medically stable for discharge from pulmonary stand point of view The care of this patient was discussed with my supervising physician Time spent for this encounter was approximately 31 minutes Steven Bergman Feb 11, 2020 08:44
--- NOTE | 2020-02-11 10:45 | NUR ---
NURSE NOTES: received report from ADOLFO Crook. patient in bed. a&Ox4, verbally responsive. no respiratory distress noted on room air. no pain at this time. IV on LH 20 intact. flushed. ambulatory, bed in the lowest position. call light within reach. will continue to provide plan of care.
[2020-02-11 12:00] VITALS: BP 140/90
--- NOTE | 2020-02-11 13:43 | Surgery Progress Note ---
Surgery Progress Note Subjective Symptoms: improved, pain absent, tolerating diet, voiding well, passing flatus, BM Additional Comments tico / lip improved tolerating diet Objective Last 24 Hour Vital Signs Date Time Temp Pulse Resp B/P (MAP) Pulse Ox O2 Delivery O2 Flow Rate FiO2 02/11/20 12:00 98.2 81 20 140/90 (107) 98 02/11/20 09:00 Room Air 02/11/20 08:00 98.1 77 20 129/73 (91) 99 02/11/20 04:00 98.1 77 20 113/69 (84) 99 02/11/20 00:00 97.9 81 20 128/72 (90) 96 02/10/20 21:00 Room Air 02/10/20 20:00 98.2 78 20 139/87 (104) 97 02/10/20 16:00 97.0 73 18 120/70 (87) 96 I&O Intake and Output 02/10/20 02/11/20 19:00 07:00 Intake Total 400 ml 480 ml Output Total 1 ml Balance 399 ml 480 ml Intake Oral 400 ml 480 ml Output Stool Total 1 ml # Voids 3 2 Cardiovascular: RSR Respiratory: clear Abdomen: soft, non-tender, present bowel sounds, non-distended Extremities: no edema, no tenderness, no cyanosis Laboratory Tests Test 02/11/20 05:45 White Blood Count 2.8 K/UL (4.8-10.8) L Red Blood Count 4.01 M/UL (4.20-5.40) L Hemoglobin 11.8 G/DL (12.0-16.0) L Hematocrit 36.7 % (37.0-47.0) L Mean Corpuscular Volume 91 FL (80-99) Mean Corpuscular Hemoglobin 29.4 PG (27.0-31.0) Mean Corpuscular Hemoglobin Concent 32.2 G/DL (32.0-36.0) Red Cell Distribution Width 12.9 % (11.6-14.8) Platelet Count 190 K/UL (150-450) Mean Platelet Volume 6.2 FL (6.5-10.1) L Neutrophils (%) (Auto) % (45.0-75.0) Lymphocytes (%) (Auto) % (20.0-45.0) Monocytes (%) (Auto) % (1.0-10.0) Eosinophils (%) (Auto) % (0.0-3.0) Basophils (%) (Auto) % (0.0-2.0) Differential Total Cells Counted 100 Neutrophils % (Manual) 51 % (45-75) Lymphocytes % (Manual) 34 % (20-45) Monocytes % (Manual) 11 % (1-10) H Eosinophils % (Manual) 4 % (0-3) H Basophils % (Manual) 0 % (0-2) Band Neutrophils 0 % (0-8) Platelet Estimate Adequate Platelet Morphology Normal Red Blood Cell Morphology Normal Sodium Level 138 MMOL/L (136-145) Potassium Level 4.0 MMOL/L (3.5-5.1) Chloride Level 105 MMOL/L (98-107) Carbon Dioxide Level 25 MMOL/L (21-32) Anion Gap 8 mmol/L (5-15) Blood Urea Nitrogen 5 mg/dL (7-18) L Creatinine 0.7 MG/DL (0.55-1.30) Estimat Glomerular Filtration Rate > 60 mL/min (>60) Glucose Level 100 MG/DL (74-106) Calcium Level 8.6 MG/DL (8.5-10.1) Total Bilirubin 0.6 MG/DL (0.2-1.0) Aspartate Amino Transf (AST/SGOT) 29 U/L (15-37) Alanine Aminotransferase (ALT/SGPT) 79 U/L (12-78) H Alkaline Phosphatase 78 U/L (46-116) Total Protein 7.7 G/DL (6.4-8.2) Albumin 2.9 G/DL (3.4-5.0) L Globulin 4.8 g/dL Albumin/Globulin Ratio 0.6 (1.0-2.7) L Amylase Level 138 U/L (25-115) H Lipase 890 U/L (73-393) H Plan Problems: (1) Acute pancreatitis Assessment & Plan: 51-year-old female acute pancreatitis potentially gallstone related. Afebrile hemodynamic stable labs improved. No nausea vomiting fever chills. Pain is resolved. No acute surgical intervention planned. Continue with work-up. Trend labs. GI input appreciated. Will follow with recommendations. Thank you npo iv fluids iv abx trend labs bowel rest will follow with recs thank you febrile tolerating diet labs improving trend labs cont diet cont abx needs mrcp but covid + labs noted exam benign pending covid mrcp noted plan ercp s/p ercp diet as tolerated trend labs plan for elective joselito after d/c and pancreatitis resolves + Liver: See below. Gallbladder: There is cholelithiasis. A 2.6 cm gallstone is noted. Gallbladder wall measures 0.45 cm and is thickened. Common bile duct: Suboptimal evaluation of the common bile duct due to bowel gas. No stones. No dilation. Pancreas: Unremarkable as visualized. Kidneys: Right kidney measures 9.8 x 5 x 5 cm. Left kidney measures 9. 3 x 4.9 x 4.7 cm. No hydronephrosis. No stones. Spleen: Spleen measures 9.3 cm and is unremarkable. Aorta: Abdominal aorta is normal in caliber. Liver measures 15.9 cm. Partial evaluation of the abdominal aorta which is grossly unremarkable. No aneurysm. Inferior vena cava: Unremarkable. IMPRESSION: 1. Limited evaluation due to bowel gas. 2. Cholelithiasis. 3. Gallbladder wall measures 0.45 cm and is diffusely thickened. Clinical correlation is necessary. 4. No pericholecystic fluid noted however. Markedly limited evaluation of the common bile duct due to bowel gas. 5. Clinical correlation is necessary. The gallbladder demonstrates 2 very large central gallstones measuring up to 2.7 cm. It also demonstrates multiple smaller gallstones as well as a small amount of sludge. There is no gallbladder wall thickening or pericholecystic edema. On multiple sequences, there is a filling defect in the downstream common bile duct which measures approximately 5 mm length by 2 mm in diameter. On the coronal MRCP images, this appears to be attached to the wall of the common bile duct. The common bile duct is mildly dilated, measuring up to 10 mm in diameter. There is no intrahepatic biliary ductal dilatation. The pancreatic duct is mildly ectatic, measuring up to 3 mm in diameter. No pancreatic head mass or pancreatic cystic lesion demonstrated. There is a slight degree of edema of the peripancreatic fat extending slightly into the anterior Gerota's fascia on the axial T2 fat saturated images. Although this is not clearly visible on the coronal MRCP images. The pancreas is otherwise unremarkable. There is trace pleural fluid bilaterally. The right kidney demonstrates a lower pole cyst and another tiny one in the upper pole. On the fat saturated T2 images, there is also a 5 mm area of decreased signal which is not evident on other images, most likely represents a tiny angiomyolipoma The uterus demonstrates marked thickening of the endometrium, which measures up to 2.9 mm thick. This demonstrates high T2 signal and low T1 signal. This area is included only on the coronal images Impression: Cholelithiasis. No findings to suggest acute cholecystitis Dilated common bile duct and common hepatic duct. Apparent filling defect in the downstream common bile duct, suspicious for choledocholithiasis. Appearing somewhat unusual but suspect that this is a real finding given the presence of cholelithiasis and biliary ductal dilatation Mild ectasia of the pancreatic duct Very questionable peripancreatic edema at the inferior border of the pancreas; suspect artifactual but if real could represent very mild acute pancreatitis, given stated clinical history of such Thickened endometrium, abnormal in a perimenopausal female. Recommend further evaluation with sonography Suspect trace bilateral pleural effusions Incidental findings small right renal cysts and probable small right renal angiomyolipoma (2) Gall stone (3) Lab test positive for detection of COVID-19 virus Jalil Santiago Feb 11, 2020 13:43
--- NOTE | 2020-02-11 14:20 | Infectious Diseases Prog Note ---
Assessment/Plan Assessment/Plan IMPRESSION: 1. COVID-19 disease, seems to be mild or recent infection. 2. Acute pancreatitis, has elevated transaminase. 3. Cholelithiasis & Choledocholithiasis s/p ERCP & stones removal 4. Morbid obesity. 5. Leukopenia PLAN: Can be discharged to home Subjective ROS Limited/Unobtainable: No Constitutional: Reports: no symptoms Respiratory: Reports: no symptoms Cardiovascular: Reports: no symptoms Gastrointestinal/Abdominal: Reports: no symptoms Genitourinary: Reports: no symptoms Allergies: Coded Allergies: No Known Allergies (Unverified , 01/21/20) Objective Last 24 Hour Vital Signs Date Time Temp Pulse Resp B/P (MAP) Pulse Ox O2 Delivery O2 Flow Rate FiO2 02/11/20 12:00 98.2 81 20 140/90 (107) 98 02/11/20 09:00 Room Air 02/11/20 08:00 98.1 77 20 129/73 (91) 99 02/11/20 04:00 98.1 77 20 113/69 (84) 99 02/11/20 00:00 97.9 81 20 128/72 (90) 96 02/10/20 21:00 Room Air 02/10/20 20:00 98.2 78 20 139/87 (104) 97 02/10/20 16:00 97.0 73 18 120/70 (87) 96 Height (Feet): 5 Height (Inches): 5.00 Weight (Pounds): 235 HEENT: mucous membranes moist Respiratory/Chest: lungs clear Cardiovascular: normal rate Abdomen: soft, non tender Extremities: no edema Neurologic/Psychiatric: alert, responsive Laboratory Tests Test 02/11/20 05:45 White Blood Count 2.8 K/UL (4.8-10.8) L Red Blood Count 4.01 M/UL (4.20-5.40) L Hemoglobin 11.8 G/DL (12.0-16.0) L Hematocrit 36.7 % (37.0-47.0) L Mean Corpuscular Volume 91 FL (80-99) Mean Corpuscular Hemoglobin 29.4 PG (27.0-31.0) Mean Corpuscular Hemoglobin Concent 32.2 G/DL (32.0-36.0) Red Cell Distribution Width 12.9 % (11.6-14.8) Platelet Count 190 K/UL (150-450) Mean Platelet Volume 6.2 FL (6.5-10.1) L Neutrophils (%) (Auto) % (45.0-75.0) Lymphocytes (%) (Auto) % (20.0-45.0) Monocytes (%) (Auto) % (1.0-10.0) Eosinophils (%) (Auto) % (0.0-3.0) Basophils (%) (Auto) % (0.0-2.0) Differential Total Cells Counted 100 Neutrophils % (Manual) 51 % (45-75) Lymphocytes % (Manual) 34 % (20-45) Monocytes % (Manual) 11 % (1-10) H Eosinophils % (Manual) 4 % (0-3) H Basophils % (Manual) 0 % (0-2) Band Neutrophils 0 % (0-8) Platelet Estimate Adequate Platelet Morphology Normal Red Blood Cell Morphology Normal Sodium Level 138 MMOL/L (136-145) Potassium Level 4.0 MMOL/L (3.5-5.1) Chloride Level 105 MMOL/L (98-107) Carbon Dioxide Level 25 MMOL/L (21-32) Anion Gap 8 mmol/L (5-15) Blood Urea Nitrogen 5 mg/dL (7-18) L Creatinine 0.7 MG/DL (0.55-1.30) Estimat Glomerular Filtration Rate > 60 mL/min (>60) Glucose Level 100 MG/DL (74-106) Calcium Level 8.6 MG/DL (8.5-10.1) Total Bilirubin 0.6 MG/DL (0.2-1.0) Aspartate Amino Transf (AST/SGOT) 29 U/L (15-37) Alanine Aminotransferase (ALT/SGPT) 79 U/L (12-78) H Alkaline Phosphatase 78 U/L (46-116) Total Protein 7.7 G/DL (6.4-8.2) Albumin 2.9 G/DL (3.4-5.0) L Globulin 4.8 g/dL Albumin/Globulin Ratio 0.6 (1.0-2.7) L Amylase Level 138 U/L (25-115) H Lipase 890 U/L (73-393) H Current Medications Medications (Trade) Dose Ordered Sig/Dipti Route PRN Reason Start Time Stop Time Status Last Admin Dose Admin Ibuprofen (Advil) 400 mg Q6H PRN ORAL Temp >100.5 01/22/20 18:00 02/21/20 17:59 02/04/20 20:09 Ondansetron HCl (Zofran) 4 mg Q6H PRN IVP Nausea & Vomiting 01/22/20 07:30 02/21/20 07:29 Pantoprazole (Protonix) 40 mg EVERY 12 HOURS ORAL 01/28/20 15:00 02/27/20 14:59 02/11/20 08:41 Potassium Chloride (K-Dur) 40 meq TWICE A DAY ORAL 01/27/20 18:00 04/26/20 17:59 02/11/20 08:41 Wesley Blandon MD Feb 11, 2020 14:20
[2020-02-11 16:00] VITALS: BP 125/71
--- NOTE | 2020-02-11 16:39 | Nephrology Progress Note ---
Assessment/Plan Problem List: (1) Electrolyte imbalance (2) Acute pancreatitis (3) Gall stone (4) 2019 novel coronavirus disease (COVID-19) (5) Proteinuria Assessment Hypokalemia COVID-19 disease Acute pancreatitis with elevated LFTs Gallstone pancreatitis Obesity Hypertension Proteinuria Plan February 10: Status quo. Labs reviewed. Renal parameters stable. Continue per consultants. February 09: Labs reviewed. Renal parameters stable. Continue per consultants. February 08: Labs reviewed. Renal parameters stable. Continue per consultants. February 07: Labs reviewed. Renal parameters are stable. Continue per consultants February 06: No labs drawn today. Stable from renal standpoint of view. February 05: Labs reviewed. Serum sodium 134 stable. Continue as is. February 04: Labs are reviewed. Serum sodium drifting down. Will order urine and serum osmolality's. Continue per consultants. February 03: Labs reviewed. Status quo. Continue per consultants. February 02: Labs reviewed. Serum sodium 135 stable. Continue per consultants. February 01: No labs drawn today. Remains stable from renal standpoint of view. January 31: Labs reviewed. Renal parameters stable. Continue per consultants. January 30: No labs drawn today. Remains stable from renal standpoint of view. January 29: Labs reviewed. Renal parameters stable. Continue per consultants. January 28: Labs reviewed. Stable from renal standpoint of view. Continue per consultants. Low-grade fever persists oral potassium ordered IV fluid adjusted and discontinued Oral Protonix added Continue to monitor renal parameters and electrolytes Continue per consultants Subjective ROS Limited/Unobtainable: No Constitutional: Reports: malaise, weakness Objective Objective Last 24 Hour Vital Signs Date Time Temp Pulse Resp B/P (MAP) Pulse Ox O2 Delivery O2 Flow Rate FiO2 02/11/20 16:00 97.3 66 20 125/71 (89) 97 02/11/20 12:00 98.2 81 20 140/90 (107) 98 02/11/20 09:00 Room Air 02/11/20 08:00 98.1 77 20 129/73 (91) 99 02/11/20 04:00 98.1 77 20 113/69 (84) 99 02/11/20 00:00 97.9 81 20 128/72 (90) 96 02/10/20 21:00 Room Air 02/10/20 20:00 98.2 78 20 139/87 (104) 97 Intake and Output 02/10/20 02/11/20 19:00 07:00 Intake Total 400 ml 480 ml Output Total 1 ml Balance 399 ml 480 ml Intake Oral 400 ml 480 ml Output Stool Total 1 ml # Voids 3 2 Laboratory Tests 02/11/20 05:45: White Blood Count 2.8L, Red Blood Count 4.01L, Hemoglobin 11.8L, Hematocrit 36.7L, Mean Corpuscular Volume 91, Mean Corpuscular Hemoglobin 29.4, Mean Corpuscular Hemoglobin Concent 32.2, Red Cell Distribution Width 12.9, Platelet Count 190, Mean Platelet Volume 6.2L, Neutrophils (%) (Auto) , Lymphocytes (%) (Auto) , Monocytes (%) (Auto) , Eosinophils (%) (Auto) , Basophils (%) (Auto) , Differential Total Cells Counted 100, Neutrophils % (Manual) 51, Lymphocytes % (Manual) 34, Monocytes % (Manual) 11H, Eosinophils % (Manual) 4H, Basophils % (Manual) 0, Band Neutrophils 0, Platelet Estimate Adequate, Platelet Morphology Normal, Red Blood Cell Morphology Normal, Sodium Level 138, Potassium Level 4.0, Chloride Level 105, Carbon Dioxide Level 25, Anion Gap 8, Blood Urea Nitrogen 5L , Creatinine 0.7, Estimat Glomerular Filtration Rate > 60, Glucose Level 100, Calcium Level 8.6, Total Bilirubin 0.6, Aspartate Amino Transf (AST/SGOT) 29, Alanine Aminotransferase (ALT/SGPT) 79H, Alkaline Phosphatase 78, Total Protein 7.7, Albumin 2.9L, Globulin 4.8, Albumin/Globulin Ratio 0.6L, Amylase Level 138H , Lipase 890H Height (Feet): 5 Height (Inches): 5.00 Weight (Pounds): 235 General Appearance: no apparent distress Cardiovascular: normal rate Respiratory/Chest: decreased breath sounds Abdomen: soft Objective No change Rakesh Hammer MD Feb 11, 2020 16:39
--- NOTE | 2020-02-11 17:11 | NUR ---
CASE MANAGEMENT: REVIEW 02/11/2020 SI:BILIARY ACUTE PANCREATITIS VS: T 97.3 HR 66 RR 20 B/P 125/71 SATS 97% ON RA LABS: WBC 2.8 BUN 5 ALT 79 AMYLASE 138 LIPASE 890 IS:PROTONIX PO Q12H KDUR PO BID MED/SURG
--- NOTE | 2020-02-11 19:14 | NUR ---
NURSE HAND-OFF: Important Events on Shift:new admission. Patient Status: weak Diet: n/a Pending Orders: n/a Pending Results/Labs:n/a Pending MD notification:n/a Latest Vital Signs: Temperature 97.3 , Pulse 66 , B/P 125 /71 , Respiratory Rate 20 , O2 SAT 97 , Room Air, O2 Flow Rate 6 . Vital Sign Comment: stable Latest Xiong Fall Score: 20 Fall Risk: Low Risk Safety Measures: Call light Within Reach, Bed Alarm Zone 1, Side Rails Side Rails x2, Bed position Low and Locked. Fall Precautions: Yellow Socks Patient Fall Education Report given to ADOLFO Gonsalez.
--- NOTE | 2020-02-11 19:20 | NUR ---
NURSE HAND-OFF: Important Events on Shift:monitor off ATB covid positive. Patient Status: stable Diet: low fat Pending Orders: n/a Pending Results/Labs:n/a Pending MD notification:n/a Latest Vital Signs: Temperature 97.3 , Pulse 66 , B/P 125 /71 , Respiratory Rate 20 , O2 SAT 97 , Room Air, O2 Flow Rate 6 . Vital Sign Comment: stable Latest Xiong Fall Score: 20 Fall Risk: Low Risk Safety Measures: Call light Within Reach, Bed Alarm Zone 1, Side Rails Side Rails x2, Bed position Low and Locked. Fall Precautions: Yellow Socks Patient Fall Education Report given to ADOLFO Gonslaez.
[2020-02-11 20:00] VITALS: BP 131/66
--- NOTE | 2020-02-11 20:24 | General Progress Note ---
Subjective ROS Limited/Unobtainable: Yes Allergies: Coded Allergies: No Known Allergies (Unverified , 01/21/20) Objective Last 24 Hour Vital Signs Date Time Temp Pulse Resp B/P (MAP) Pulse Ox O2 Delivery O2 Flow Rate FiO2 02/11/20 16:00 97.3 66 20 125/71 (89) 97 02/11/20 12:00 98.2 81 20 140/90 (107) 98 02/11/20 09:00 Room Air 02/11/20 08:00 98.1 77 20 129/73 (91) 99 02/11/20 04:00 98.1 77 20 113/69 (84) 99 02/11/20 00:00 97.9 81 20 128/72 (90) 96 02/10/20 21:00 Room Air Intake and Output 02/10/20 02/11/20 19:00 07:00 Intake Total 400 ml 480 ml Output Total 1 ml Balance 399 ml 480 ml Intake Oral 400 ml 480 ml Output Stool Total 1 ml # Voids 3 2 Laboratory Tests 02/11/20 05:45: White Blood Count 2.8L, Red Blood Count 4.01L, Hemoglobin 11.8L, Hematocrit 36.7L, Mean Corpuscular Volume 91, Mean Corpuscular Hemoglobin 29.4, Mean Corpuscular Hemoglobin Concent 32.2, Red Cell Distribution Width 12.9, Platelet Count 190, Mean Platelet Volume 6.2L, Neutrophils (%) (Auto) , Lymphocytes (%) (Auto) , Monocytes (%) (Auto) , Eosinophils (%) (Auto) , Basophils (%) (Auto) , Differential Total Cells Counted 100, Neutrophils % (Manual) 51, Lymphocytes % (Manual) 34, Monocytes % (Manual) 11H, Eosinophils % (Manual) 4H, Basophils % (Manual) 0, Band Neutrophils 0, Platelet Estimate Adequate, Platelet Morphology Normal, Red Blood Cell Morphology Normal, Sodium Level 138, Potassium Level 4.0, Chloride Level 105, Carbon Dioxide Level 25, Anion Gap 8, Blood Urea Nitrogen 5L , Creatinine 0.7, Estimat Glomerular Filtration Rate > 60, Glucose Level 100, Calcium Level 8.6, Total Bilirubin 0.6, Aspartate Amino Transf (AST/SGOT) 29, Alanine Aminotransferase (ALT/SGPT) 79H, Alkaline Phosphatase 78, Total Protein 7.7, Albumin 2.9L, Globulin 4.8, Albumin/Globulin Ratio 0.6L, Amylase Level 138H , Lipase 890H Height (Feet): 5 Height (Inches): 5.00 Weight (Pounds): 235 Assessment/Plan Problem List: (1) Acute pancreatitis ICD Codes: K85.90 - Acute pancreatitis without necrosis or infection, unspecified SNOMED: 398468342 Qualifiers: Qualified Codes: K85.10 - Biliary acute pancreatitis without necrosis or infection (2) Gall stone ICD Codes: K80.20 - Calculus of gallbladder without cholecystitis without obstruction SNOMED: 217500133 Qualifiers: Qualified Codes: K80.20 - Calculus of gallbladder without cholecystitis without obstruction (3) Lab test positive for detection of COVID-19 virus ICD Codes: U07.1 - COVID-19 SNOMED: [id number] Status: progressing Assessment/Plan: covid positive pna dc planning is improving resp Ronny Doshi MD Feb 11, 2020 20:24
[2020-02-12] VITALS: BP 129/68
[2020-02-12 04:00] VITALS: BP 131/82
--- NOTE | 2020-02-12 07:35 | NUR ---
NURSE NOTES: RECEIVED PATIENT LYING IN BED, AWAKE, ALERT/ORIENTED X4, [place] SPEAKING, ABLE TO VERBALIZE NEEDS. AMBULATES. DENIES PAIN/DISCOMFORT NOTED. NO SIGNS AND SYMPTOMS OF ACUTE CARDIO-RESPIRATORY DISTRESS/SHORTNESS OF BREATH, DENIES CHEST PAIN, NO PERIPHERAL EDEMA NOTED. PIV INTACT AND PATENT, NO REDNESS/SWELLING NOTED, DROPLET ISOLATION PRECAUTIONS ONGOING. ABDOMEN SOFT/NON DISTENDED/NON TENDER/AUDIBLE BOWEL SOUNDS, DENIES N/V/D, BATHROOM PRIVILEGES. SKIN INTACT. SIDERAILS ARE UP X2 FOR MOBILITY, BED IN LOWEST POSITION FOR SAFETY, ENCOURAGED PATIENT TO UTILIZE CALL LIGHT FOR ASSISTANCE, VERBALIZED UNDERSTANDING. CONTINUE WITH CURRENT PLAN OF CARE.
[2020-02-12 07:50] LABS: ALANINE AMINOTRANSFERASE 122 U/L (12-78); ALBUMIN 2.9 G/DL (3.4-5.0); ALBUMIN/GLOBULIN RATIO 0.6 (1.0-2.7); ALKALINE PHOSPHATASE 74 U/L (46-116); AMYLASE 131 U/L (25-115); ANION GAP 5 mmol/L (5-15); ASPARTATE AMINO TRANSFERASE 89 U/L (15-37); BILIRUBIN,TOTAL 0.5 MG/DL (0.2-1.0); BLOOD UREA NITROGEN 7 mg/dL (7-18); CARBON DIOXIDE 29 MMOL/L (21-32); CHLORIDE 105 MMOL/L (98-107); CREATININE 0.8 MG/DL (0.55-1.30); POTASSIUM 4.2 MMOL/L (3.5-5.1); SODIUM 139 MMOL/L (136-145)
[2020-02-12 08:00] VITALS: BP 126/74
[2020-02-12 08:16] LABS: BASOPHILS % (AUTO) 0.8 % (0.0-2.0); EOSINOPHILS % (AUTO) 7.4 % (0.0-3.0); HEMATOCRIT 37.5 % (37.0-47.0); HEMOGLOBIN 12.2 G/DL (12.0-16.0); LYMPHOCYTES % (AUTO) 32.9 % (20.0-45.0); MEAN CORPUSCULAR VOLUME 92 FL (80-99); MONOCYTES % (AUTO) 11.4 % (1.0-10.0); NEUTROPHILS % (AUTO) 47.5 % (45.0-75.0); PLATELET COUNT 191 K/UL (150-450); RED BLOOD COUNT 4.08 M/UL (4.20-5.40); RED CELL DISTRIBUTION WIDTH 13.5 % (11.6-14.8); WHITE BLOOD COUNT 3.8 K/UL (4.8-10.8)
--- NOTE | 2020-02-12 08:53 | Pulmonology Progress Note ---
Subjective ROS Limited/Unobtainable: Yes Interval Events: s/p ERCP and 4 stone removal Constitutional: Reports: no symptoms HEENT: Repors: no symptoms Respiratory: Reports: no symptoms Cardiovascular: Reports: no symptoms Gastrointestinal/Abdominal: Reports: no symptoms Genitourinary: Reports: no symptoms Musculoskeletal: Denies: pain Allergies: Coded Allergies: No Known Allergies (Unverified , 01/21/20) Objective Last 24 Hour Vital Signs Date Time Temp Pulse Resp B/P (MAP) Pulse Ox O2 Delivery O2 Flow Rate FiO2 02/12/20 04:00 97.6 84 20 131/82 (98) 96 02/12/20 00:00 96.9 72 18 129/68 (88) 98 02/11/20 21:00 Room Air 02/11/20 20:00 97.7 78 20 131/66 (87) 97 02/11/20 16:00 97.3 66 20 125/71 (89) 97 02/11/20 12:00 98.2 81 20 140/90 (107) 98 02/11/20 09:00 Room Air Intake and Output 02/11/20 02/12/20 19:00 07:00 Intake Total 500 ml 480 ml Balance 500 ml 480 ml Intake Oral 500 ml 480 ml # Voids 3 2 # Bowel Movements 1 Objective 02/11 no change 02/10 stable respiration 02/09 no change 02/08 room air; NAD 02/07 no change 02/06 room air; no fever overnight 02/03 Zlsi=[id number] 02/02 room air; low grade fever, better with advil 02/01 room air; fever again overnight; now NPO 01/31 room air; no fever; tolerating diet 01/30 room air; no fever overnight; tolerating diet 01/29 room air; intermittent fever 01/28 continues to saturate well on RA; persistent low grade fever, better with ibuprofen 01/27 saturating well on RA; NAD 01/27/2020 continues to saturate well on RA; NAD 01/26/2020 saturating well on room air; NAD; sitting on her bed 01/25/2020 saturating well on room air 01/24/2020 pt eating in bed; saturating well on room air 01/23/2020 NAD; on room air 01/22/2020 saturating well on room air; NAD General Appearance: WD/WN, no acute distress HEENT: normocephalic Respiratory: lungs clear Cardiovascular: normal rate, regular rhythm, no gallop/murmur Abdomen: soft, non tender Neurologic: alert, oriented x 3, responsive Laboratory Tests 02/12/20 06:20: White Blood Count 3.8L, Red Blood Count 4.08L, Hemoglobin 12.2, Hematocrit 37.5, Mean Corpuscular Volume 92, Mean Corpuscular Hemoglobin 29.8, Mean Corpuscular Hemoglobin Concent 32.4, Red Cell Distribution Width 13.5, Platelet Count 191, Mean Platelet Volume 6.4L, Neutrophils (%) (Auto) 47.5, Lymphocytes (%) (Auto) 32.9, Monocytes (%) (Auto) 11.4H, Eosinophils (%) (Auto) 7.4H, Basophils (%) (Auto) 0.8, Sodium Level 139, Potassium Level 4.2, Chloride Level 105, Carbon Di oxide Level 29, Anion Gap 5, Blood Urea Nitrogen 7, Creatinine 0.8, Estimat Glomerular Filtration Rate > 60, Glucose Level 95, Calcium Level 9.0, Total Bilirubin 0.5, Aspartate Amino Transf (AST/SGOT) 89H, Alanine Aminotransferase (ALT/SGPT) 122H, Alkaline Phosphatase 74, Total Protein 7.8, Albumin 2.9L, Globulin 4.9, Albumin/Globulin Ratio 0.6L, Amylase Level 131H, Lipase 859H Current Medications Medications (Trade) Dose Ordered Sig/Dipti Route PRN Reason Start Time Stop Time Status Last Admin Dose Admin Ibuprofen (Advil) 400 mg Q6H PRN ORAL Temp >100.5 01/22/20 18:00 02/21/20 17:59 02/04/20 20:09 Ondansetron HCl (Zofran) 4 mg Q6H PRN IVP Nausea & Vomiting 01/22/20 07:30 02/21/20 07:29 Pantoprazole (Protonix) 40 mg EVERY 12 HOURS ORAL 01/28/20 15:00 02/27/20 14:59 02/12/20 08:14 Potassium Chloride (K-Dur) 40 meq TWICE A DAY ORAL 01/27/20 18:00 04/26/20 17:59 02/12/20 08:14 Assessment/Plan Assessment/Plan 1. Transaminitis 2. Pancreatitis. - elevated amylase, lipase - s/p IVF - pain control - s/p zosyn (01/22-02/09) - MRI abd result noted; cholelithiasis, possible very mild acute pancreatitis - per Dr. Kingsley, Dr. Santiago - s/p ERCP and 4 stone removal 02/08 3. Positive COVID-19.; initial rapid COVID-19 test positive on 01/20 - Currently no intervention required for Covid19 due to her normoxemic status on RA - repeat rapid COVID-19 test positive 02/01 - Rapid COVID-19 test 02/05 positive again 4. Hypertension - in control 5. Fever - Blood Cx showed no growth - better with ibuprofen prn fever Patient is medically stable for discharge from pulmonary stand point of view The care of this patient was discussed with my supervising physician Time spent for this encounter was approximately 31 minutes Steven Bergman Feb 12, 2020 08:53
[2020-02-12] MEDS ORDERED: NS 275ml ONE (09:26)
[2020-02-12 12:08] VITALS: BP 135/84
--- NOTE | 2020-02-12 12:21 | NUR ---
CASE MANAGEMENT: REVIEW 02/12/2020 SI:BILIARY ACUTE PANCREATITIS VS: T 98.1 HR 75 RR 18 B/P 135/84 SATS 98% ON RA LABS: WBC 3.8 AST 89 ALT 122 AMYLASE 131 LIPASE 859 IS:PROTONIX PO Q12H KDUR PO BID MED/SURG PLAN OF CARE: ERCP
--- NOTE | 2020-02-12 15:09 | Infectious Diseases Prog Note ---
Assessment/Plan Assessment/Plan IMPRESSION: 1. COVID-19 disease, seems to be mild or recent infection. 2. Acute pancreatitis, has elevated transaminase. 3. Cholelithiasis & Choledocholithiasis s/p ERCP & stones removal 4. Morbid obesity. 5. Leukopenia PLAN: Can be discharged to home Subjective ROS Limited/Unobtainable: No HEENT: Reports: no symptoms Respiratory: Reports: no symptoms Gastrointestinal/Abdominal: Reports: no symptoms Genitourinary: Reports: no symptoms Allergies: Coded Allergies: No Known Allergies (Unverified , 01/21/20) Objective Last 24 Hour Vital Signs Date Time Temp Pulse Resp B/P (MAP) Pulse Ox O2 Delivery O2 Flow Rate FiO2 02/12/20 12:08 98.1 75 18 135/84 (101) 98 02/12/20 09:00 Room Air 02/12/20 08:00 97.7 68 18 126/74 (91) 96 02/12/20 04:00 97.6 84 20 131/82 (98) 96 02/12/20 00:00 96.9 72 18 129/68 (88) 98 02/11/20 21:00 Room Air 02/11/20 20:00 97.7 78 20 131/66 (87) 97 02/11/20 16:00 97.3 66 20 125/71 (89) 97 Height (Feet): 5 Height (Inches): 5.00 Weight (Pounds): 235 General Appearance: no acute distress HEENT: mucous membranes moist Respiratory/Chest: lungs clear Cardiovascular: normal rate Abdomen: soft, non tender Extremities: no edema Neurologic/Psychiatric: alert, responsive Laboratory Tests Test 02/12/20 06:20 White Blood Count 3.8 K/UL (4.8-10.8) L Red Blood Count 4.08 M/UL (4.20-5.40) L Hemoglobin 12.2 G/DL (12.0-16.0) Hematocrit 37.5 % (37.0-47.0) Mean Corpuscular Volume 92 FL (80-99) Mean Corpuscular Hemoglobin 29.8 PG (27.0-31.0) Mean Corpuscular Hemoglobin Concent 32.4 G/DL (32.0-36.0) Red Cell Distribution Width 13.5 % (11.6-14.8) Platelet Count 191 K/UL (150-450) Mean Platelet Volume 6.4 FL (6.5-10.1) L Neutrophils (%) (Auto) 47.5 % (45.0-75.0) Lymphocytes (%) (Auto) 32.9 % (20.0-45.0) Monocytes (%) (Auto) 11.4 % (1.0-10.0) H Eosinophils (%) (Auto) 7.4 % (0.0-3.0) H Basophils (%) (Auto) 0.8 % (0.0-2.0) Sodium Level 139 MMOL/L (136-145) Potassium Level 4.2 MMOL/L (3.5-5.1) Chloride Level 105 MMOL/L (98-107) Carbon Dioxide Level 29 MMOL/L (21-32) Anion Gap 5 mmol/L (5-15) Blood Urea Nitrogen 7 mg/dL (7-18) Creatinine 0.8 MG/DL (0.55-1.30) Estimat Glomerular Filtration Rate > 60 mL/min (>60) Glucose Level 95 MG/DL (74-106) Calcium Level 9.0 MG/DL (8.5-10.1) Total Bilirubin 0.5 MG/DL (0.2-1.0) Aspartate Amino Transf (AST/SGOT) 89 U/L (15-37) H Alanine Aminotransferase (ALT/SGPT) 122 U/L (12-78) H Alkaline Phosphatase 74 U/L (46-116) Total Protein 7.8 G/DL (6.4-8.2) Albumin 2.9 G/DL (3.4-5.0) L Globulin 4.9 g/dL Albumin/Globulin Ratio 0.6 (1.0-2.7) L Amylase Level 131 U/L (25-115) H Lipase 859 U/L (73-393) H Current Medications Medications (Trade) Dose Ordered Sig/Dipti Route PRN Reason Start Time Stop Time Status Last Admin Dose Admin Ibuprofen (Advil) 400 mg Q6H PRN ORAL Temp >100.5 01/22/20 18:00 02/21/20 17:59 02/04/20 20:09 Ondansetron HCl (Zofran) 4 mg Q6H PRN IVP Nausea & Vomiting 01/22/20 07:30 02/21/20 07:29 Pantoprazole (Protonix) 40 mg EVERY 12 HOURS ORAL 01/28/20 15:00 02/27/20 14:59 02/12/20 08:14 Potassium Chloride (K-Dur) 40 meq TWICE A DAY ORAL 01/27/20 18:00 04/26/20 17:59 02/12/20 08:14 Wesley Blandon MD Feb 12, 2020 15:09
--- NOTE | 2020-02-12 15:16 | General Progress Note ---
Subjective ROS Limited/Unobtainable: Yes Allergies: Coded Allergies: No Known Allergies (Unverified , 01/21/20) Objective Last 24 Hour Vital Signs Date Time Temp Pulse Resp B/P (MAP) Pulse Ox O2 Delivery O2 Flow Rate FiO2 02/12/20 12:08 98.1 75 18 135/84 (101) 98 02/12/20 09:00 Room Air 02/12/20 08:00 97.7 68 18 126/74 (91) 96 02/12/20 04:00 97.6 84 20 131/82 (98) 96 02/12/20 00:00 96.9 72 18 129/68 (88) 98 02/11/20 21:00 Room Air 02/11/20 20:00 97.7 78 20 131/66 (87) 97 02/11/20 16:00 97.3 66 20 125/71 (89) 97 Intake and Output 02/11/20 02/12/20 19:00 07:00 Intake Total 500 ml 480 ml Balance 500 ml 480 ml Intake Oral 500 ml 480 ml # Voids 3 2 # Bowel Movements 1 Laboratory Tests 02/12/20 06:20: White Blood Count 3.8L, Red Blood Count 4.08L, Hemoglobin 12.2, Hematocrit 37.5, Mean Corpuscular Volume 92, Mean Corpuscular Hemoglobin 29.8, Mean Corpuscular Hemoglobin Concent 32.4, Red Cell Distribution Width 13.5, Platelet Count 191, Mean Platelet Volume 6.4L, Neutrophils (%) (Auto) 47.5, Lymphocytes (%) (Auto) 32.9, Monocytes (%) (Auto) 11.4H, Eosinophils (%) (Auto) 7.4H, Basophils (%) (Auto) 0.8, Sodium Level 139, Potassium Level 4.2, Chloride Level 105, Carbon Dioxide Level 29, Anion Gap 5, Blood Urea Nitrogen 7, Creatinine 0.8, Estimat Glomerular Filtration Rate > 60, Glucose Level 95, Calcium Level 9.0, Total Bilirubin 0.5, Aspartate Amino Transf (AST/SGOT) 89H, Alanine Aminotransferase (ALT/SGPT) 122H, Alkaline Phosphatase 74, Total Protein 7.8, Albumin 2.9L, Globulin 4.9, Albumin/Globulin Ratio 0.6L, Amylase Level 131H, Lipase 859H Height (Feet): 5 Height (Inches): 5.00 Weight (Pounds): 235 Assessment/Plan Problem List: (1) Acute pancreatitis ICD Codes: K85.90 - Acute pancreatitis without necrosis or infection, unspecified SNOMED: 207350616 Qualifiers: Qualified Codes: K85.10 - Biliary acute pancreatitis without necrosis or infection (2) Gall stone ICD Codes: K80.20 - Calculus of gallbladder without cholecystitis without obstruction SNOMED: 919126528 Qualifiers: Qualified Codes: K80.20 - Calculus of gallbladder without cholecystitis without obstruction (3) Lab test positive for detection of COVID-19 virus ICD Codes: U07.1 - COVID-19 SNOMED: [id number] Status: progressing Assessment/Plan: covid positive pna dc planning afebrile no acute respitratory issues no wheezing Ronny Win MD Feb 12, 2020 15:16
[2020-02-12 16:03] VITALS: BP 127/83
--- NOTE | 2020-02-12 16:04 | Nephrology Progress Note ---
Assessment/Plan Problem List: (1) Electrolyte imbalance (2) Acute pancreatitis (3) Gall stone (4) 2019 novel coronavirus disease (COVID-19) (5) Proteinuria Assessment Hypokalemia COVID-19 disease Acute pancreatitis with elevated LFTs Gallstone pancreatitis Obesity Hypertension Proteinuria Plan February 11: Labs reviewed. Renal parameters stable. Remains stable from renal standpoint of view. February 10: Status quo. Labs reviewed. Renal parameters stable. Continue per consultants. February 09: Labs reviewed. Renal parameters stable. Continue per consultants. February 08: Labs reviewed. Renal parameters stable. Continue per consultants. February 07: Labs reviewed. Renal parameters are stable. Continue per consultants February 06: No labs drawn today. Stable from renal standpoint of view. February 05: Labs reviewed. Serum sodium 134 stable. Continue as is. February 04: Labs are reviewed. Serum sodium drifting down. Will order urine and serum osmolality's. Continue per consultants. February 03: Labs reviewed. Status quo. Continue per consultants. February 02: Labs reviewed. Serum sodium 135 stable. Continue per consultants. February 01: No labs drawn today. Remains stable from renal standpoint of view. January 31: Labs reviewed. Renal parameters stable. Continue per consultants. January 30: No labs drawn today. Remains stable from renal standpoint of view. January 29: Labs reviewed. Renal parameters stable. Continue per consultants. January 28: Labs reviewed. Stable from renal standpoint of view. Continue per consultants. Low-grade fever persists oral potassium ordered IV fluid adjusted and discontinued Oral Protonix added Continue to monitor renal parameters and electrolytes Continue per consultants Subjective ROS Limited/Unobtainable: No Constitutional: Reports: malaise Objective Objective Last 24 Hour Vital Signs Date Time Temp Pulse Resp B/P (MAP) Pulse Ox O2 Delivery O2 Flow Rate FiO2 02/12/20 12:08 98.1 75 18 135/84 (101) 98 02/12/20 09:00 Room Air 02/12/20 08:00 97.7 68 18 126/74 (91) 96 02/12/20 04:00 97.6 84 20 131/82 (98) 96 02/12/20 00:00 96.9 72 18 129/68 (88) 98 02/11/20 21:00 Room Air 02/11/20 20:00 97.7 78 20 131/66 (87) 97 Intake and Output 02/11/20 02/12/20 19:00 07:00 Intake Total 500 ml 480 ml Balance 500 ml 480 ml Intake Oral 500 ml 480 ml # Voids 3 2 # Bowel Movements 1 Laboratory Tests 02/12/20 06:20: White Blood Count 3.8L, Red Blood Count 4.08L, Hemoglobin 12.2, Hematocrit 37.5, Mean Corpuscular Volume 92, Mean Corpuscular Hemoglobin 29.8, Mean Corpuscular Hemoglobin Concent 32.4, Red Cell Distribution Width 13.5, Platelet Count 191, Mean Platelet Volume 6.4L, Neutrophils (%) (Auto) 47.5, Lymphocytes (%) (Auto) 32.9, Monocytes (%) (Auto) 11.4H, Eosinophils (%) (Auto) 7.4H, Basophils (%) (Auto) 0.8, Sodium Level 139, Potassium Level 4.2, Chloride Level 105, Carbon Dioxide Level 29, Anion Gap 5, Blood Urea Nitrogen 7, Creatinine 0.8, Estimat Glomerular Filtration Rate > 60, Glucose Level 95, Calcium Level 9.0, Total Bilirubin 0.5, Aspartate Amino Transf (AST/SGOT) 89H, Alanine Aminotransferase (ALT/SGPT) 122H, Alkaline Phosphatase 74, Total Protein 7.8, Albumin 2.9L, Globulin 4.9, Albumin/Globulin Ratio 0.6L, Amylase Level 131H, Lipase 859H Height (Feet): 5 Height (Inches): 5.00 Weight (Pounds): 235 Cardiovascular: normal rate Respiratory/Chest: decreased breath sounds Abdomen: soft Objective No change Rakesh Hammer MD Feb 12, 2020 16:04
--- NOTE | 2020-02-12 16:08 | Surgery Progress Note ---
Surgery Progress Note Subjective Symptoms: improved, pain absent, tolerating diet, voiding well, passing flatus, BM Objective Last 24 Hour Vital Signs Date Time Temp Pulse Resp B/P (MAP) Pulse Ox O2 Delivery O2 Flow Rate FiO2 02/12/20 16:03 98.8 79 18 127/83 (98) 96 02/12/20 12:08 98.1 75 18 135/84 (101) 98 02/12/20 09:00 Room Air 02/12/20 08:00 97.7 68 18 126/74 (91) 96 02/12/20 04:00 97.6 84 20 131/82 (98) 96 02/12/20 00:00 96.9 72 18 129/68 (88) 98 02/11/20 21:00 Room Air 02/11/20 20:00 97.7 78 20 131/66 (87) 97 I&O Intake and Output 02/11/20 02/12/20 19:00 07:00 Intake Total 500 ml 480 ml Balance 500 ml 480 ml Intake Oral 500 ml 480 ml # Voids 3 2 # Bowel Movements 1 Cardiovascular: RSR Respiratory: clear Abdomen: soft, non-tender, present bowel sounds, non-distended Extremities: no edema, no tenderness, no cyanosis Laboratory Tests Test 02/12/20 06:20 White Blood Count 3.8 K/UL (4.8-10.8) L Red Blood Count 4.08 M/UL (4.20-5.40) L Hemoglobin 12.2 G/DL (12.0-16.0) Hematocrit 37.5 % (37.0-47.0) Mean Corpuscular Volume 92 FL (80-99) Mean Corpuscular Hemoglobin 29.8 PG (27.0-31.0) Mean Corpuscular Hemoglobin Concent 32.4 G/DL (32.0-36.0) Red Cell Distribution Width 13.5 % (11.6-14.8) Platelet Count 191 K/UL (150-450) Mean Platelet Volume 6.4 FL (6.5-10.1) L Neutrophils (%) (Auto) 47.5 % (45.0-75.0) Lymphocytes (%) (Auto) 32.9 % (20.0-45.0) Monocytes (%) (Auto) 11.4 % (1.0-10.0) H Eosinophils (%) (Auto) 7.4 % (0.0-3.0) H Basophils (%) (Auto) 0.8 % (0.0-2.0) Sodium Level 139 MMOL/L (136-145) Potassium Level 4.2 MMOL/L (3.5-5.1) Chloride Level 105 MMOL/L (98-107) Carbon Dioxide Level 29 MMOL/L (21-32) Anion Gap 5 mmol/L (5-15) Blood Urea Nitrogen 7 mg/dL (7-18) Creatinine 0.8 MG/DL (0.55-1.30) Estimat Glomerular Filtration Rate > 60 mL/min (>60) Glucose Level 95 MG/DL (74-106) Calcium Level 9.0 MG/DL (8.5-10.1) Total Bilirubin 0.5 MG/DL (0.2-1.0) Aspartate Amino Transf (AST/SGOT) 89 U/L (15-37) H Alanine Aminotransferase (ALT/SGPT) 122 U/L (12-78) H Alkaline Phosphatase 74 U/L (46-116) Total Protein 7.8 G/DL (6.4-8.2) Albumin 2.9 G/DL (3.4-5.0) L Globulin 4.9 g/dL Albumin/Globulin Ratio 0.6 (1.0-2.7) L Amylase Level 131 U/L (25-115) H Lipase 859 U/L (73-393) H Plan Problems: (1) Acute pancreatitis Assessment & Plan: 51-year-old female acute pancreatitis potentially gallstone related. Afebrile hemodynamic stable labs improved. No nausea vomiting fever chills. Pain is resolved. No acute surgical intervention planned. Continue with work-up. Trend labs. GI input appreciated. Will follow with recommendations. Thank you npo iv fluids iv abx trend labs bowel rest will follow with recs thank you febrile tolerating diet labs improving trend labs cont diet cont abx needs mrcp but covid + labs noted exam benign pending covid mrcp noted plan ercp s/p ercp diet as tolerated trend labs plan for elective joseltio after d/c and pancreatitis resolves + Liver: See below. Gallbladder: There is cholelithiasis. A 2.6 cm gallstone is noted. Gallbladder wall measures 0.45 cm and is thickened. Common bile duct: Suboptimal evaluation of the common bile duct due to bowel gas. No stones. No dilation. Pancreas: Unremarkable as visualized. Kidneys: Right kidney measures 9.8 x 5 x 5 cm. Left kidney measures 9. 3 x 4.9 x 4.7 cm. No hydronephrosis. No stones. Spleen: Spleen measures 9.3 cm and is unremarkable. Aorta: Abdominal aorta is normal in caliber. Liver measures 15.9 cm. Partial evaluation of the abdominal aorta which is grossly unremarkable. No aneurysm. Inferior vena cava: Unremarkable. IMPRESSION: 1. Limited evaluation due to bowel gas. 2. Cholelithiasis. 3. Gallbladder wall measures 0.45 cm and is diffusely thickened. Clinical correlation is necessary. 4. No pericholecystic fluid noted however. Markedly limited evaluation of the common bile duct due to bowel gas. 5. Clinical correlation is necessary. The gallbladder demonstrates 2 very large central gallstones measuring up to 2.7 cm. It also demonstrates multiple smaller gallstones as well as a small amount of sludge. There is no gallbladder wall thickening or pericholecystic edema. On multiple sequences, there is a filling defect in the downstream common bile duct which measures approximately 5 mm length by 2 mm in diameter. On the coronal MRCP images, this appears to be attached to the wall of the common bile duct. The common bile duct is mildly dilated, measuring up to 10 mm in diameter. There is no intrahepatic biliary ductal dilatation. The pancreatic duct is mildly ectatic, measuring up to 3 mm in diameter. No pancreatic head mass or pancreatic cystic lesion demonstrated. There is a slight degree of edema of the peripancreatic fat extending slightly into the anterior Gerota's fascia on the axial T2 fat saturated images. Although this is not clearly visible on the coronal MRCP images. The pancreas is otherwise unremarkable. There is trace pleural fluid bilaterally. The right kidney demonstrates a lower pole cyst and another tiny one in the upper pole. On the fat saturated T2 images, there is also a 5 mm area of decreased signal which is not evident on other images, most likely represents a tiny angiomyolipoma The uterus demonstrates marked thickening of the endometrium, which measures up to 2.9 mm thick. This demonstrates high T2 signal and low T1 signal. This area is included only on the coronal images Impression: Cholelithiasis. No findings to suggest acute cholecystitis Dilated common bile duct and common hepatic duct. Apparent filling defect in the downstream common bile duct, suspicious for choledocholithiasis. Appearing somewhat unusual but suspect that this is a real finding given the presence of cholelithiasis and biliary ductal dilatation Mild ectasia of the pancreatic duct Very questionable peripancreatic edema at the inferior border of the pancreas; suspect artifactual but if real could represent very mild acute pancreatitis, given stated clinical history of such Thickened endometrium, abnormal in a perimenopausal female. 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
--- NOTE | 2020-02-12 18:53 | NUR ---
NURSE HAND-OFF: Important Events on Shift:[kept calm and comfortable.] Patient Status: [stable] Diet: [low fat] Pending Orders: [] Pending Results/Labs:[] Pending MD notification:[] Latest Vital Signs: Temperature 98.8 , Pulse 79 , B/P 127 /83 , Respiratory Rate 18 , O2 SAT 96 , Room Air, O2 Flow Rate 6 . Vital Sign Comment: [] Latest Xiong Fall Score: 20 Fall Risk: Low Risk Safety Measures: Call light Within Reach, Bed Alarm Zone 1, Side Rails Side Rails x2, Bed position Low and Locked. Fall Precautions: Yellow Socks Patient Fall Education Report given to [elena].
[2020-02-12 20:00] VITALS: BP 125/76
[2020-02-13] VITALS: BP 131/68
[2020-02-13 04:00] VITALS: BP 125/72
[2020-02-13 08:00] VITALS: BP 140/90
--- NOTE | 2020-02-13 08:00 | NUR ---
NURSE NOTES: Received report from Ambreen MATA, pt a/a/o x4 seating in bed with no signs of distress or other issues at this time. pt is able to ambulate around the room with steady gait. patient is in room air with a saturation of 98%. IV on the left hand gauge#22 heplock. call light within reach, bed in lowest position. I will f/u as needed.
--- NOTE | 2020-02-13 09:30 | NUR ---
NURSE NOTES: called DR. Méndez to obtain d/c orders.RN will carry on as indicated.
[2020-02-13 12:00] VITALS: BP 150/95
--- NOTE | 2020-02-13 12:12 | Pulmonology Progress Note ---
Subjective ROS Limited/Unobtainable: No Interval Events: s/p ERCP and 4 stone removal Constitutional: Reports: no symptoms HEENT: Repors: no symptoms Respiratory: Reports: no symptoms Cardiovascular: Reports: no symptoms Gastrointestinal/Abdominal: Reports: no symptoms Genitourinary: Reports: no symptoms Musculoskeletal: Denies: pain Allergies: Coded Allergies: No Known Allergies (Unverified , 01/21/20) Objective Last 24 Hour Vital Signs Date Time Temp Pulse Resp B/P (MAP) Pulse Ox O2 Delivery O2 Flow Rate FiO2 02/13/20 08:00 97.8 98 18 140/90 (107) 98 02/13/20 04:00 97.9 72 18 125/72 (89) 99 02/13/20 00:00 97.8 77 18 131/68 (89) 96 02/12/20 21:00 Room Air 02/12/20 20:00 97.2 68 18 125/76 (92) 96 02/12/20 16:03 98.8 79 18 127/83 (98) 96 Intake and Output 02/12/20 02/13/20 19:00 07:00 Intake Total 480 ml Balance 480 ml Intake Oral 480 ml # Voids 5 2 Objective 02/12 stable saturation 02/11 no change 02/10 stable respiration 02/09 no change 02/08 room air; NAD 02/07 no change 02/06 room air; no fever overnight 02/03 Tzoc=721.2 02/02 room air; low grade fever, better with advil 02/01 room air; fever again overnight; now NPO 01/31 room air; no fever; tolerating diet 01/30 room air; no fever overnight; tolerating diet 01/29 room air; intermittent fever 01/28 continues to saturate well on RA; persistent low grade fever, better with ibuprofen 01/27 saturating well on RA; NAD 01/27/2020 continues to saturate well on RA; NAD 01/26/2020 saturating well on room air; NAD; sitting on her bed 01/25/2020 saturating well on room air 01/24/2020 pt eating in bed; saturating well on room air 01/23/2020 NAD; on room air 01/22/2020 saturating well on room air; NAD General Appearance: WD/WN, no acute distress HEENT: normocephalic Respiratory: lungs clear Cardiovascular: normal rate, regular rhythm, no gallop/murmur Abdomen: soft, non tender Neurologic: alert, oriented x 3, responsive Current Medications Medications (Trade) Dose Ordered Sig/Dipti Route PRN Reason Start Time Stop Time Status Last Admin Dose Admin Ibuprofen (Advil) 400 mg Q6H PRN ORAL Temp >100.5 01/22/20 18:00 02/21/20 17:59 02/04/20 20:09 Ondansetron HCl (Zofran) 4 mg Q6H PRN IVP Nausea & Vomiting 01/22/20 07:30 02/21/20 07:29 Pantoprazole (Protonix) 40 mg EVERY 12 HOURS ORAL 01/28/20 15:00 02/27/20 14:59 02/13/20 09:36 Potassium Chloride (K-Dur) 40 meq TWICE A DAY ORAL 01/27/20 18:00 04/26/20 17:59 02/13/20 09:36 Assessment/Plan Assessment/Plan 1. Transaminitis 2. Pancreatitis. - elevated amylase, lipase - s/p IVF - pain control - s/p zosyn (01/22-02/09) - MRI abd result noted; cholelithiasis, possible very mild acute pancreatitis - per Dr. Kingsley, Dr. Santiago - s/p ERCP and 4 stone removal 02/08 3. Positive COVID-19.; initial rapid COVID-19 test positive on 01/20 - Currently no intervention required for Covid19 due to her normoxemic status on RA - repeat rapid COVID-19 test positive 02/01 - Rapid COVID-19 test 02/05 positive again 4. Hypertension - in control 5. Fever - Blood Cx showed no growth - better with ibuprofen prn fever Patient is medically stable for discharge from pulmonary stand point The care of this patient was discussed with my supervising physician Time spent for this encounter was approximately 31 minutes Steven Bergman Feb 13, 2020 12:12
--- NOTE | 2020-02-13 12:22 | Surgery Progress Note ---
Surgery Progress Note Subjective Symptoms: improved Additional Comments doing well tolerating diet no n/v labs noted micro reviewed Objective Last 24 Hour Vital Signs Date Time Temp Pulse Resp B/P (MAP) Pulse Ox O2 Delivery O2 Flow Rate FiO2 02/13/20 09:00 Room Air 02/13/20 08:00 97.8 98 18 140/90 (107) 98 02/13/20 04:00 97.9 72 18 125/72 (89) 99 02/13/20 00:00 97.8 77 18 131/68 (89) 96 02/12/20 21:00 Room Air 02/12/20 20:00 97.2 68 18 125/76 (92) 96 02/12/20 16:03 98.8 79 18 127/83 (98) 96 I&O Intake and Output 02/12/20 02/13/20 19:00 07:00 Intake Total 480 ml Balance 480 ml Intake Oral 480 ml # Voids 5 2 Cardiovascular: RSR Respiratory: clear Abdomen: soft, flat, non-tender, present bowel sounds Extremities: no edema, no tenderness, no cyanosis Plan Problems: (1) Acute pancreatitis Assessment & Plan: 51-year-old female acute pancreatitis potentially gallstone related. Afebrile hemodynamic stable labs improved. No nausea vomiting fever chills. Pain is resolved. No acute surgical intervention planned. Continue with work-up. Trend labs. GI input appreciated. Will follow with recommendations. Thank you npo iv fluids iv abx trend labs bowel rest will follow with recs thank you febrile tolerating diet labs improving trend labs cont diet cont abx needs mrcp but covid + labs noted exam benign pending covid mrcp noted plan ercp s/p ercp diet as tolerated trend labs plan for elective joselito after d/c and pancreatitis resolves + Liver: See below. Gallbladder: There is cholelithiasis. A 2.6 cm gallstone is noted. Gallbladder wall measures 0.45 cm and is thickened. Common bile duct: Suboptimal evaluation of the common bile duct due to bowel gas. No stones. No dilation. Pancreas: Unremarkable as visualized. Kidneys: Right kidney measures 9.8 x 5 x 5 cm. Left kidney measures 9. 3 x 4.9 x 4.7 cm. No hydronephrosis. No stones. Spleen: Spleen measures 9.3 cm and is unremarkable. Aorta: Abdominal aorta is normal in caliber. Liver measures 15.9 cm. Partial evaluation of the abdominal aorta which is grossly unremarkable. No aneurysm. Inferior vena cava: Unremarkable. IMPRESSION: 1. Limited evaluation due to bowel gas. 2. Cholelithiasis. 3. Gallbladder wall measures 0.45 cm and is diffusely thickened. Clinical correlation is necessary. 4. No pericholecystic fluid noted however. Markedly limited evaluation of the common bile duct due to bowel gas. 5. Clinical correlation is necessary. The gallbladder demonstrates 2 very large central gallstones measuring up to 2.7 cm. It also demonstrates multiple smaller gallstones as well as a small amount of sludge. There is no gallbladder wall thickening or pericholecystic edema. On multiple sequences, there is a filling defect in the downstream common bile duct which measures approximately 5 mm length by 2 mm in diameter. On the coronal MRCP images, this appears to be attached to the wall of the common bile duct. The common bile duct is mildly dilated, measuring up to 10 mm in diameter. There is no intrahepatic biliary ductal dilatation. The pancreatic duct is mildly ectatic, measuring up to 3 mm in diameter. No pancreatic head mass or pancreatic cystic lesion demonstrated. There is a slight degree of edema of the peripancreatic fat extending slightly into the anterior Gerota's fascia on the axial T2 fat saturated images. Although this is not clearly visible on the coronal MRCP images. The pancreas is otherwise unremarkable. There is trace pleural fluid bilaterally. The right kidney demonstrates a lower pole cyst and another tiny one in the upper pole. On the fat saturated T2 images, there is also a 5 mm area of decreased signal which is not evident on other images, most likely represents a tiny angiomyolipoma The uterus demonstrates marked thickening of the endometrium, which measures up to 2.9 mm thick. This demonstrates high T2 signal and low T1 signal. This area is included only on the coronal images Impression: Cholelithiasis. No findings to suggest acute cholecystitis Dilated common bile duct and common hepatic duct. Apparent filling defect in the downstream common bile duct, suspicious for choledocholithiasis. Appearing somewhat unusual but suspect that this is a real finding given the presence of cholelithiasis and biliary ductal dilatation Mild ectasia of the pancreatic duct Very questionable peripancreatic edema at the inferior border of the pancreas; suspect artifactual but if real could represent very mild acute pancreatitis, given stated clinical history of such Thickened endometrium, abnormal in a perimenopausal female. Recommend further evaluation with sonography Suspect trace bilateral pleural effusions Incidental findings small right renal cysts and probable small right renal angiomyolipoma (2) Gall stone (3) Lab test positive for detection of COVID-19 virus Jalil Santiago Feb 13, 2020 12:22
--- NOTE | 2020-02-13 12:33 | Nephrology Progress Note ---
Assessment/Plan Problem List: (1) Electrolyte imbalance (2) Acute pancreatitis (3) Gall stone (4) 2019 novel coronavirus disease (COVID-19) (5) Proteinuria Assessment Hypokalemia COVID-19 disease Acute pancreatitis with elevated LFTs Gallstone pancreatitis Obesity Hypertension Proteinuria Plan February 12: No labs drawn today. Renal parameters stable. We will continue to monitor renal parameters. Continue per consultants. February 11: Labs reviewed. Renal parameters stable. Remains stable from renal standpoint of view. February 10: Status quo. Labs reviewed. Renal parameters stable. Continue per consultants. February 09: Labs reviewed. Renal parameters stable. Continue per consultants. February 08: Labs reviewed. Renal parameters stable. Continue per consultants. February 07: Labs reviewed. Renal parameters are stable. Continue per consultants February 06: No labs drawn today. Stable from renal standpoint of view. February 05: Labs reviewed. Serum sodium 134 stable. Continue as is. February 04: Labs are reviewed. Serum sodium drifting down. Will order urine and serum osmolality's. Continue per consultants. February 03: Labs reviewed. Status quo. Continue per consultants. February 02: Labs reviewed. Serum sodium 135 stable. Continue per consultants. February 01: No labs drawn today. Remains stable from renal standpoint of view. January 31: Labs reviewed. Renal parameters stable. Continue per consultants. January 30: No labs drawn today. Remains stable from renal standpoint of view. January 29: Labs reviewed. Renal parameters stable. Continue per consultants. January 28: Labs reviewed. Stable from renal standpoint of view. Continue per consultants. Low-grade fever persists oral potassium ordered IV fluid adjusted and discontinued Oral Protonix added Continue to monitor renal parameters and electrolytes Continue per consultants Subjective ROS Limited/Unobtainable: No Constitutional: Reports: malaise Objective Objective Last 24 Hour Vital Signs Date Time Temp Pulse Resp B/P (MAP) Pulse Ox O2 Delivery O2 Flow Rate FiO2 02/13/20 09:00 Room Air 02/13/20 08:00 97.8 98 18 140/90 (107) 98 02/13/20 04:00 97.9 72 18 125/72 (89) 99 02/13/20 00:00 97.8 77 18 131/68 (89) 96 02/12/20 21:00 Room Air 02/12/20 20:00 97.2 68 18 125/76 (92) 96 02/12/20 16:03 98.8 79 18 127/83 (98) 96 Intake and Output 02/12/20 02/13/20 19:00 07:00 Intake Total 480 ml Balance 480 ml Intake Oral 480 ml # Voids 5 2 No labs drawn today Height (Feet): 5 Height (Inches): 5.00 Weight (Pounds): 235 General Appearance: no apparent distress EENT: other - Breathing in room air Cardiovascular: normal rate Respiratory/Chest: decreased breath sounds Abdomen: soft Objective No change Rakesh Hammer MD Feb 13, 2020 12:33
--- NOTE | 2020-02-13 13:58 | NUR ---
NURSE NOTES: Received order to d/c home. Discharge instructions and belongings given to the patient. IV removed prior to d/c. patient is aware that needs to fallow up with her PCP in one week after d/c. patient stated that she will make an appointment Friday to fallow up with her PCP. pt left the floor with no signs of distress or other issues at this time. pts son will provide transportation.
[2020-02-14] MEDS ORDERED: BENADRYL25 M3 PO (20:56)
[2020-02-14] MEDS ORDERED: PREDNISONE20 MG ORAL (20:56)
--- NOTE | 2020-02-15 13:58 | Discharge Summary ---
Discharge Summary Discharge Summary _ Date of admission: 01/21/2020 Date of discharge: 02/13/[address] Win History of Present Illness and Brief Hospital Course Ms. Rhett Simms is a 54-year-old female with no pertinent past medical history who presented to the ER for evaluation of epigastric pain x1 hour. She reported the epigastric pain was 10 out of 10 in severity but denied radiating pain. Patient denied nausea, vomiting, diarrhea, fever, or chills. Patient also denied chest pain or dyspnea. Patient was given IV hydration, Pepcid, Reglan, Benadryl and morphine in the ER. ECG revealed normal sinus rhythm. Chest x-ray revealed no active disease. Abdominal ultrasound showed cholelithiasis, and gallbladder wall that measures 0.45 cm that is diffusely thickened. Lipase was greater than 2000 and CMP was remarkable for elevated liver function test. Patient symptoms improved with analgesia and hydration. However, due to new onset pancreatitis with extremely elevated lipase, patient was admitted to the hospital for further evaluation and treatment. Patient tested positive for COVID-19. Her oxygen saturation was continue to be monitored but it remained stable on room air throughout admission. Patient had new onset low-grade fever, which was well controlled with ibuprofen. Blood cultures showed no growth after 5 days. Given her pancreatitis and associated epigastric pain, she was initially put on n.p.o. and was provided with pain control and IV fluids. Zosyn was started. Over the next few days, patient's LFTs improved and was continued on regular diet. MRI of abdomen on 02/01/2020 revealed the gallbladder demonstrating 2 very large central gallstones measuring up to 2.7 cm. It also demonstrated multiple smaller gallstones as well as a small amount of sludge. The common bile duct was mildly dilated, measuring up to 10 mm in diameter. However there was no intrahepatic biliary ductal dilation. A thickened endometrium was incidentally observed. On 02/09/2020, ERCP was performed and 4 stones were removed. The procedure, risks, benefits, and possible consequences were explained to the patient and the patient accepted these risks. The patient tolerated procedure very well without any complication. Balloon occlusion cholangiogram showed that the flow of contrast was excellent from common bile duct into the duodenum so no stent was placed. It was determined that patient would benefit from elective cholecystectomy as an outpatient. On the day of discharge, patient was medically stable. IV was removed prior to discharge and patient was instructed to follow-up with PCP in 1 week after discharge. Patient left the floor with no signs of distress or other issues. Consultants: Infectious disease Dr. Blandon Nephrology Dr. Ahuja Pulmonology Dr. Penny Surgery Dr. Santiago Discharge Condition Improved and stable Final diagnoses COVID-19 infection Acute pancreatitis Cholelithiasis and choledocholithiasis ERCP and stone removal Morbid obesity Leukopenia Hypokalemia Hypertension Proteinuria I have been assigned to dictate discharge summary for this account. Steven Bergman Feb 15, 2020 13:58
--- NOTE | 2020-02-16 02:30 | Cardiology Report ---
APPROVED REPORT EKG Measurement Heart [id number] <Conclusion> Normal sinus rhythm Normal ECG
== END 2020-02-13 14:37 | DRG 282 ==
LOC: EDBD 16:22 → EMR 17:29 → 4E 18:48 → EDBEDREQ 20:11 → 4E 21:29
PROC: 0FC98ZZ Extirpation of Matter from Common Bile Duct, Via Natural or Artificial Opening Endoscopic (ICD-10-PCS; principal; 2020-02-08 13:27)
DX: K85.10 Biliary acute pancreatitis without necrosis or infection (principal); U07.1 COVID-19; E87.6 Hypokalemia; E66.01 Morbid (severe) obesity due to excess calories; Z68.39 Body mass index [BMI] 39.0-39.9, adult; K80.20 Calculus of gallbladder without cholecystitis without obstruction; I10 Essential (primary) hypertension; R80.9 Proteinuria, unspecified
CPT/HCPCS: 36415; 71045; 74181; 74328; 76000; 76700; 80053; 80061; 81003; 82150; 82248; 82306; 82550; 82977; 83036; 83690; 83735; 83880; 83930; 83935; 84100; 84300; 84443; 84484; 84550; 85007; 85025; 85610; 85651; 85730; 86140; 87040; 93005; 94003; 94150; 96361; 96374; 96375; 99285; J2250; J2710; J2765; J7030; J8499; U0002

== ENCOUNTER 2020-02-25 23:27 | Inpatient (IN) | payer MEDICAID ==
[~2020-02-25] VITALS: Ht 157.5 cm; Wt 95.3 kg
[~2020-02-25 23:27] MED LIST: BENADRYL25 M3 PO; PREDNISONE20 MG ORAL
--- NOTE | 2020-02-25 23:40 | NUR ---
ED Nurse Note: Pt walked into the Ed with c/o back and abdominal pain onset since 193. Pt stated pain radiates from back to the right side of abdomen. Pt stated burning sensation and increased gas. Pt was recently admitted for pancreatitis and was covid positive 01/29. Pt denies CP/SOB/, N/V/D, fever/ chills. Pt is AAOX4 and ambulatory. Placed on monitor/ iso bed
[2020-02-25] MEDS ORDERED: Omnipaque-300 100ml vial INJ PRN (23:45)
--- NOTE | 2020-02-25 23:45 | NUR ---
ED Nurse Note: ERMD at bedside
--- NOTE | 2020-02-26 | NUR ---
ED Nurse Note: Blood sent to lab
[2020-02-26 00:05] VITALS: BP 150/88
--- NOTE | 2020-02-26 00:05 | Emergency Room Report ---
History of Present Illness General Chief Complaint: Back Injury Present Illness HPI 54-year-old female with a history of gallstone pancreatitis and recent infection with COVID-19 here with right-sided back pain and midline epigastric abdominal pain ongoing for 1 day. Of note the patient was recently discharged from the hospital 2 weeks ago after she was found to have gallstone pancreatitis and underwent an ERCP in which 4 large gallstones were removed. Patient says that she tolerated the procedure well and has been doing well since the procedure. She did test positive for COVID-19 during that hospitalization but has not had any symptoms from that. Says that her symptoms started earlier tonight. Says that there is a dull right-sided back pain and now she is feeling epigastric abdominal pain that is sharp and says "I have been belching a lot and feel the acid in my stomach." Denies headache, vision changes, neck pain, neck stiff ness, fevers, chills, chest pain, palpitation or shortness of breath, cough, other abdominal pain, nausea, vomiting, diarrhea, dysuria, change in stool color or caliber. No trauma. No leg pain or leg swelling. 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 COVID-19 Screening: Positive COVID-19 COVID-19 Testing Source: [facility] Review of Systems All Other Systems: negative except mentioned in HPI Physical Exam Vital Signs Date Time Temp Pulse Resp B/P (MAP) Pulse Ox O2 Delivery O2 Flow Rate FiO2 02/25/20 23:31 98.8 99 16 150/88 (108) 95 Room Air Sp02 EP Interpretation: reviewed, normal General Appearance: no apparent distress, alert, non-toxic Head: normocephalic, atraumatic Eyes: bilateral eye normal inspection, bilateral eye PERRL ENT: hearing grossly normal, normal pharynx, no angioedema, normal voice Neck: full range of motion, supple/symm/no masses Respiratory: chest non-tender, lungs clear, normal breath sounds, speaking full sentences Cardiovascular #1: regular rate, rhythm, no edema Cardiovascular #2: 2+ carotid (R), 2+ carotid (L), 2+ radial (R), 2+ radial (L), 2+ dorsalis pedis (R), 2+ dorsalis pedis (L) Gastrointestinal: normal bowel sounds, soft, non-distended, no guarding, no rebound, other - Very mild epigastric abdominal pain. Negative Rovsing sign. Negative Leon sign. No rebound or guarding. Nonperitoneal Rectal: deferred Genitourinary: normal inspection, no CVA tenderness Musculoskeletal: back normal, normal range of motion, gait/station normal, non- tender Neurologic: alert, motor strength/tone normal, oriented x3, sensory intact, responsive, speech normal Psychiatric: judgement/insight normal, memory normal, mood/affect normal, no suicidal/homicidal ideation Lymphatic: no adenopathy Medical Decision Making Diagnostic Impression: Primary Impression: Diverticulitis Additional Impressions: 2019 novel coronavirus disease (COVID-19) Cholelithiasis ER Course Laboratory Tests Test 02/25/20 02:55 02/26/20 00:05 Urine Color Yellow Urine Appearance Slightly cloudy Urine pH 6.5 (4.5-8.0) Urine Specific [employer] 1.015 (1.005-1.035) Urine Protein 1+ (NEGATIVE) H Urine Glucose (UA) Negative (NEGATIVE) Urine Ketones Negative (NEGATIVE) Urine Blood 4+ (NEGATIVE) H Urine Nitrite Negative (NEGATIVE) Urine Bilirubin Negative (NEGATIVE) Urine Urobilinogen 1 MG/DL (0.0-1.0) H Urine Leukocyte Esterase Negative (NEGATIVE) Urine RBC Pending Urine WBC Pending Urine Squamous Epithelial Cells Pending Urine Bacteria Pending White Blood Count 6.5 K/UL (4.8-10.8) Red Blood Count 4.63 M/UL (4.20-5.40) Hemoglobin 12.9 G/DL (12.0-16.0) Hematocrit 40.2 % (37.0-47.0) Mean Corpuscular Volume 87 FL (80-99) Mean Corpuscular Hemoglobin 27.8 PG (27.0-31.0) Mean Corpuscular Hemoglobin Concent 32.1 G/DL (32.0-36.0) Red Cell Distribution Width 13.9 % (11.6-14.8) Platelet Count 261 K/UL (150-450) Mean Platelet Volume 6.3 FL (6.5-10.1) L Neutrophils (%) (Auto) 65.5 % (45.0-75.0) Lymphocytes (%) (Auto) 21.7 % (20.0-45.0) Monocytes (%) (Auto) 7.4 % (1.0-10.0) Eosinophils (%) (Auto) 4.6 % (0.0-3.0) H Basophils (%) (Auto) 0.8 % (0.0-2.0) Sodium Level 139 MMOL/L (136-145) Potassium Level 3.4 MMOL/L (3.5-5.1) L Chloride Level 103 MMOL/L (98-107) Carbon Dioxide Level 27 MMOL/L (21-32) Anion Gap 9 mmol/L (5-15) Blood Urea Nitrogen 10 mg/dL (7-18) Creatinine 0.7 MG/DL (0.55-1.30) Estimated Glomerular Filtration Rate > 60 mL/min (>60) Glucose Level 159 MG/DL (74-106) H Calcium Level 9.5 MG/DL (8.5-10.1) Total Bilirubin 0.7 MG/DL (0.2-1.0) Aspartate Amino Transferase (AST) 99 U/L (15-37) H Alanine Aminotransferase (ALT) 212 U/L (12-78) H Alkaline Phosphatase 98 U/L (46-116) Total Protein 8.4 G/DL (6.4-8.2) H Albumin 3.4 G/DL (3.4-5.0) Globulin 5.0 g/dL Albumin/Globulin Ratio 0.7 (1.0-2.7) L Lipase 366 U/L (73-393) EKG: NSR, no ischemia, intervals WNL. No ectopy. Rate 86 bpm Rhythm strip: patient monitored for arrhythmias - no malignant dysrhythmias, runs of PVCs, nor pauses noted CT abdomen pelvis:IMPRESSION: 1. Cholelithiasis and borderline to mild extrahepatic biliary ductal dilatation. 2. Findings compatible with mild uncomplicated sigmoid diverticulitis. Recommend follow-up after appropriate clinical therapy to ensure resolution. 3. Endometrial thickness as above, correlate for patient status regarding menopause. 54-year-old female here with right back and bilateral lower abdominal pain. Patient was hemodynamically stable and neurovascular intact throughout her stay in the emergency department. She was given a GI cocktail without any resolution of her pain. She began vomiting and was given Zofran with intermittent resolution of her nausea. However after about an hour the patient became nauseous once again and vomited several times nonbilious nonbloody. She was given Reglan with improvement. CBC and CMP largely unremarkable. CT abdomen pelvis however revealed cholelithiasis and borderline ductal dilatation of 6 mm she also had evidence of sigmoid diverticulitis. Started on Zosyn. Given IV fluids. To be admitted to [facility]. Last Vital Signs Date Time Temp Pulse Resp B/P (MAP) Pulse Ox O2 Delivery O2 Flow Rate FiO2 02/25/20 23:31 98.8 99 16 150/88 (108) 95 Room Air Referrals: NOT CHOSEN SHASTA/,REFERRING (PCP) Familia Ferris M.D. Feb 26, 2020 00:05
[2020-02-26] MEDS ORDERED: Lidocaine 2% Visc 15ml soln ORAL ONE (00:15)
[2020-02-26] MEDS ORDERED: Mylanta II UD 30ml ORAL ONE (00:15)
[2020-02-26] MEDS ORDERED: Dicyclomine HCl 10mg/5ml oral soln ORAL ONE (00:15)
[2020-02-26] MEDS ORDERED: Acetaminophen 500mg (ES) tab ORAL ONE (00:15)
[2020-02-26 00:40] LABS: BASOPHILS % (AUTO) 0.8 % (0.0-2.0); EOSINOPHILS % (AUTO) 4.6 % (0.0-3.0); HEMATOCRIT 40.2 % (37.0-47.0); HEMOGLOBIN 12.9 G/DL (12.0-16.0); LYMPHOCYTES % (AUTO) 21.7 % (20.0-45.0); MEAN CORPUSCULAR VOLUME 87 FL (80-99); MONOCYTES % (AUTO) 7.4 % (1.0-10.0); NEUTROPHILS % (AUTO) 65.5 % (45.0-75.0); PLATELET COUNT 261 K/UL (150-450); RED BLOOD COUNT 4.63 M/UL (4.20-5.40); RED CELL DISTRIBUTION WIDTH 13.9 % (11.6-14.8); WHITE BLOOD COUNT 6.5 K/UL (4.8-10.8)
[2020-02-26 00:51] LABS: ANION GAP 9 mmol/L (5-15); BLOOD UREA NITROGEN 10 mg/dL (7-18); CALCIUM 9.5 MG/DL (8.5-10.1); CARBON DIOXIDE 27 MMOL/L (21-32); CHLORIDE 103 MMOL/L (98-107); CREATININE 0.7 MG/DL (0.55-1.30); POTASSIUM 3.4 MMOL/L (3.5-5.1); SODIUM 139 MMOL/L (136-145)
[2020-02-26 00:55] LABS: ALANINE AMINOTRANSFERASE 212 U/L (12-78); ALBUMIN 3.4 G/DL (3.4-5.0); ALBUMIN/GLOBULIN RATIO 0.7 (1.0-2.7); ALKALINE PHOSPHATASE 98 U/L (46-116); ASPARTATE AMINO TRANSFERASE 99 U/L (15-37); BILIRUBIN,TOTAL 0.7 MG/DL (0.2-1.0)
[2020-02-26] MEDS ORDERED: fentaNYL 100 mcg/2 mL IV ONE (01:30)
[2020-02-26] MEDS ORDERED: Metoclopramide 10mg/2ml Inj IVP ONE (02:45)
[2020-02-26] MEDS ORDERED: Metoclopramide 10mg/2ml Inj ONE (02:47)
[2020-02-26 02:59] LABS: APPEARANCE,URINE SLIGHTLY CLOUDY; BILIRUBIN, URINE NEGATIVE (NEGATIVE); COLOR,URINE YELLOW; GLUCOSE, URINE (UA) NEGATIVE (NEGATIVE); KETONES,URINE NEGATIVE (NEGATIVE); LEUKOCYTE ESTERASE ,URINE NEGATIVE (NEGATIVE); NITRITE,URINE NEGATIVE (NEGATIVE); PH,URINE 6.5 (4.5-8.0); PROTEIN,URINE 1+ (NEGATIVE); UROBILINOGEN,URINE 1 MG/DL (0.0-1.0)
--- NOTE | 2020-02-26 03:05 | Diagnostic Imaging Report ---
EXAM: CT Abdomen and Pelvis With Intravenous Contrast CLINICAL HISTORY: ABD PAIN TECHNIQUE: Axial computed tomography images of the abdomen and pelvis with intravenous contrast. CTDI is 13.60 mGy and DLP is 728.80 mGy-cm. One or more of the following dose reduction techniques were used: automated exposure control, adjustment of the mA and/or kV according to patient size, use of iterative reconstruction technique. COMPARISON: No relevant prior studies available. FINDINGS: Lung bases: Unremarkable. No mass. No consolidation. ABDOMEN: Liver: Unremarkable. No mass. Gallbladder and bile ducts: The gallbladder is distended and contains multiple large gallstones. Mild extrahepatic biliary ductal dilatation with the common duct measuring slightly greater than 6 mm. Pancreas: Unremarkable. No mass. No ductal dilation. Spleen: Unremarkable. No splenomegaly. Adrenals: Unremarkable. No mass. Kidneys and ureters: Multiple low-attenuation foci right kidney that are too small to accurately characterize. No hydronephrosis. Stomach and bowel: Diverticulosis of the colon. Negative for Pneumatosis. Mild wall thickening of the sigmoid colon with questionable mild adjacent inflammatory changes. Negative for extraluminal gas. No obstruction. PELVIS: Appendix: No findings to suggest acute appendicitis. Bladder: Unremarkable. No mass. Reproductive: Endometrial thickness of 11 mm normal if premenopausal but would be thickened in a postmenopausal patient. Consider nonemergent pelvic ultrasound if patient is postmenopausal. Multiple low-attenuation foci in the cervix indeterminate but likely nabothian cysts. ABDOMEN and PELVIS: Intraperitoneal space: Negative for free air or fluid collections. Bones/joints: No acute fracture. No dislocation. Soft tissues: Unremarkable. Vasculature: Unremarkable. No abdominal aortic aneurysm. Lymph nodes: Unremarkable. No enlarged lymph nodes. IMPRESSION: 1. Cholelithiasis and borderline to mild extrahepatic biliary ductal dilatation. 2. Findings compatible with mild uncomplicated sigmoid diverticulitis. Recommend follow-up after appropriate clinical therapy to ensure resolution. 3. Endometrial thickness as above, correlate for patient status regarding menopause.
[2020-02-26] MEDS ORDERED: Piperacillin/Tazobactam 3.375 GM in NS 110 ML IVPB ONE (03:15)
--- NOTE | 2020-02-26 04:30 | NUR ---
ED Nurse Note: REport given to ABILIO MATA
--- NOTE | 2020-02-26 04:45 | NUR ---
TRANSFER TO FLOOR: Patient transferred to [facility] at rm [id number] via gurney accompanied by RN as ordered. Belongings given and checked with RN. Patient transferred safely to bed and endorsed to RN
--- NOTE | 2020-02-26 06:52 | NUR ---
NURSE NOTES: Admitted patient awake, alert, verbal,ambulatory, with stable vital signs. Awaiting call from Dr Win for admitting orders.
--- NOTE | 2020-02-26 07:18 | NUR ---
HAND-OFF: Report given to Yifan Karimi RN.
--- NOTE | 2020-02-26 07:30 | NUR ---
NURSE NOTES: Handoff received from Candy MATA. Patient is awake and alert, no signs of acute distress noted, patient reporting 6/[address] Win, no pain medication for now. IV is intact and saline locked. Bed is low and locked, side rails up x2, call light is within reach.
[2020-02-26 08:00] VITALS: BP 108/61
[2020-02-26] MEDS: 1/2NS w/KCl 20mEq 1000ml 1,000 ML IV SCH ×2 (09:41→23:58)
[2020-02-26] MEDS ORDERED: Ketorolac 30mg Inj IV PRN (11:15)
[2020-02-26 12:00] VITALS: BP 121/66
--- NOTE | 2020-02-26 12:03 | Consultation ---
History of Present Illness General Date patient seen: Feb 26, 2020 Reason for Hospitalization: Back Injury Present Illness HPI 54-year-old female with a history of gallstone pancreatitis and recent infection with COVID-19 here with right-sided back pain and midline epigastric abdominal pain ongoing for 1 day. Of note the patient was recently discharged from the hospital 2 weeks ago after she was found to have gallstone pancreatitis and underwent an ERCP in which 4 large gallstones were removed. Patient says that she tolerated the procedure well and has been doing well since the procedure. She did test positive for COVID-19 during that hospitalization but has not had any symptoms from that. Says that her symptoms started earlier tonight. Says that there is a dull right-sided back pain and now she is feeling epigastric abdominal pain that is sharp and says "I have been belching a lot and feel the acid in my stomach." Denies headache, vision changes, neck pain, neck stiffness, fevers, chills, chest pain, palpitation or shortness of breath, cough, other abdominal pain, nausea, vomiting, diarrhea, dysuria, change in stool color or caliber. No trauma. No leg pain or leg swelling. surgery called to evaluate and assist with care. ct with diverticulitis Allergies: Coded Allergies: IBUPROFEN (Verified Allergy, Unknown, 02/25/20) MORPHINE (Verified Allergy, Unknown, 02/25/20) ROCURONIUM (Verified Allergy, Unknown, 02/26/20) COVID-19 Screening Contact w/high risk pt: Yes Experienced COVID-19 symptoms?: Yes Coronavirus symptoms experienc: Muscle or Body Aches, Nausea/Vomiting Medication History Scheduled Diphenhydramine HCl (Benadryl), 25 MG PO BID Prednisone* (Prednisone*), 40 MG ORAL DAILY Patient History History Provided By: Patient, Medical Record, PMD Healthcare decision maker Resuscitation status Advanced Directive on File Past Medical/Surgical History Past Medical/Surgical History: (1) Acute pancreatitis (2) Gall stone (3) Lab test positive for detection of COVID-19 virus (4) Electrolyte imbalance (5) Proteinuria (6) Allergic urticaria (7) COVID-19 virus infection (8) Cholelithiasis (9) 2019 novel coronavirus disease (COVID-19) (10) Diverticulitis Review of Systems Review of Symptoms General ROS: no weight loss or fever Psychological ROS: no depression or mood changes, no memory loss Ophthalmic ROS: no visual changes or eye irritation ENT ROS: no nasal congestion, hearing loss, dizziness Allergy and Immunology ROS: no allergic symptoms or urticaria Hematological and Lymphatic ROS: no swollen glands, unusual bleeding or bruising Endocrine ROS: no polyuria, polydipsia, weight changes, temperature intolerance Respiratory ROS: no cough, shortness of breath, or wheezing Cardiovascular ROS: no chest pain or dyspnea on exertion Gastrointestinal ROS: + abdominal pain, bright red blood in stool. Musculoskeletal ROS: no myalgias or arthralgias Neurological ROS: no TIA or stroke symptoms Dermatological ROS: no new or changing skin lesions, rashes or pruritis Physical Exam Physical Exam General appearance: alert, cooperative, no distress, appears stated age Head: Normocephalic, without obvious abnormality, atraumatic Eyes: conjunctivae/corneas clear. PERRL, EOM's intact. Fundi benign Throat: Lips, mucosa, and tongue normal. Teeth and gums normal Neck: supple, symmetrical, trachea midline, no adenopathy, thyroid: not enlarged, symmetric, no tenderness/mass/nodules, no carotid bruit and no JVD Lungs: clear to auscultation bilaterally Heart: regular rate and rhythm, S1, S2 normal, no murmur, click, rub or gallop Abdomen: soft, non-tender. Bowel sounds normal. No masses, no organomegaly Extremities: extremities normal, atraumatic, no cyanosis or edema Pulses: 2+ and symmetric Skin: Skin color, texture, turgor normal. No rashes or lesions Neurologic: Grossly normal Last 24 Hour Vital Signs Date Time Temp Pulse Resp B/P (MAP) Pulse Ox O2 Delivery O2 Flow Rate FiO2 02/26/20 08:00 Room Air 02/26/20 08:00 98.4 100 18 108/61 (77) 97 02/26/20 05:15 Room Air 02/26/20 05:08 98.7 85 20 137/84 98 Room Air 02/26/20 02:01 98.7 02/26/20 00:40 98.7 02/26/20 00:05 98.8 85 18 150/88 95 Room Air 02/25/20 23:31 98.8 99 16 150/88 (108) 95 Room Air Intake and Output 02/25/20 02/26/20 19:00 07:00 Intake Total 0 ml Balance 0 ml Intake Oral 0 ml # Voids 1 Laboratory Tests Test 02/26/20 00:05 White Blood Count 6.5 K/UL (4.8-10.8) Red Blood Count 4.63 M/UL (4.20-5.40) Hemoglobin 12.9 G/DL (12.0-16.0) Hematocrit 40.2 % (37.0-47.0) Mean Corpuscular Volume 87 FL (80-99) Mean Corpuscular Hemoglobin 27.8 PG (27.0-31.0) Mean Corpuscular Hemoglobin Concent 32.1 G/DL (32.0-36.0) Red Cell Distribution Width 13.9 % (11.6-14.8) Platelet Count 261 K/UL (150-450) Mean Platelet Volume 6.3 FL (6.5-10.1) L Neutrophils (%) (Auto) 65.5 % (45.0-75.0) Lymphocytes (%) (Auto) 21.7 % (20.0-45.0) Monocytes (%) (Auto) 7.4 % (1.0-10.0) Eosinophils (%) (Auto) 4.6 % (0.0-3.0) H Basophils (%) (Auto) 0.8 % (0.0-2.0) Sodium Level 139 MMOL/L (136-145) Potassium Level 3.4 MMOL/L (3.5-5.1) L Chloride Level 103 MMOL/L (98-107) Carbon Dioxide Level 27 MMOL/L (21-32) Anion Gap 9 mmol/L (5-15) Blood Urea Nitrogen 10 mg/dL (7-18) Creatinine 0.7 MG/DL (0.55-1.30) Estimat Glomerular Filtration Rate > 60 mL/min (>60) Glucose Level 159 MG/DL (74-106) H Calcium Level 9.5 MG/DL (8.5-10.1) Total Bilirubin 0.7 MG/DL (0.2-1.0) Aspartate Amino Transf (AST/SGOT) 99 U/L (15-37) H Alanine Aminotransferase (ALT/SGPT) 212 U/L (12-78) H Alkaline Phosphatase 98 U/L (46-116) Total Protein 8.4 G/DL (6.4-8.2) H Albumin 3.4 G/DL (3.4-5.0) Globulin 5.0 g/dL Albumin/Globulin Ratio 0.7 (1.0-2.7) L Lipase 366 U/L (73-393) Height (Feet): 5 Height (Inches): 2.00 Weight (Pounds): 210 Medications Current Medications Medications (Trade) Dose Ordered Sig/Dipti Route PRN Reason Start Time Stop Time Status Last Admin Dose Admin Iohexol (OMNIPAQUE-300 100ml) 100 ml NOW PRN INJ Radiology Procedure 02/25/20 23:45 02/27/20 23:44 Ketorolac Tromethamine (Toradol 30mg) 15 mg Q6H PRN IV Severe Pain (Pain Scale 7-10) 02/26/20 11:15 03/02/20 11:14 Sodium 1,000 ml @ 60 mls/hr [id number] IV 02/26/20 08:30 03/27/20 08:29 02/26/20 09:41 Assessment/Plan Problem List: (1) Cholelithiasis ICD Codes: K80.20 - Calculus of gallbladder without cholecystitis without obstruction SNOMED: 278334927 (2) 2019 novel coronavirus disease (COVID-19) ICD Codes: U07.1 - COVID-19 SNOMED: 891058341 (3) Allergic urticaria ICD Codes: L50.0 - Allergic urticaria SNOMED: 42468085 (4) Acute pancreatitis ICD Codes: K85.90 - Acute pancreatitis without necrosis or infection, unspecified SNOMED: 463015899 (5) Diverticulitis Assessment & Plan: This is a 54-year-old female recent gallstone pancreatitis status post ERCP improved Covid prior to discharge safely presents with abdominal pain CT identified acute uncomplicated diverticulitis afebrile hemodynamic stable labs okay no leukocytosis lipase normal LFTs okay. Abdominal exam fairly benign mild discomfort. No acute surgical invention planned. Okay for diet IV fluids antibiotics will follow with serial examinations and plan for discharge on oral antibiotics when stable and ready. Thank you for allowing me to participate in patient's care ABDOMEN: Liver: Unremarkable. No mass. Gallbladder and bile ducts: The gallbladder is distended and contains multiple large gallstones. Mild extrahepatic biliary ductal dilatation with the common duct measuring slightly greater than 6 mm. Pancreas: Unremarkable. No mass. No ductal dilation. Spleen: Unremarkable. No splenomegaly. Adrenals: Unremarkable. No mass. Kidneys and ureters: Multiple low-attenuation foci right kidney that are too small to accurately characterize. No hydronephrosis. Stomach and bowel: Diverticulosis of the colon. Negative for Pneumatosis. Mild wall thickening of the sigmoid colon with questionable mild adjacent inflammatory changes. Negative for extraluminal gas. No obstruction. PELVIS: Appendix: No findings to suggest acute appendicitis. Bladder: Unremarkable. No mass. Reproductive: Endometrial thickness of 11 mm normal if premenopausal but would be thickened in a postmenopausal patient. Consider nonemergent pelvic ultrasound if patient is postmenopausal. Multiple low-attenuation foci in the cervix indeterminate but likely nabothian cysts. ABDOMEN and PELVIS: Intraperitoneal space: Negative for free air or fluid collections. Bones/joints: No acute fracture. No dislocation. Soft tissues: Unremarkable. Vasculature: Unremarkable. No abdominal aortic aneurysm. Lymph nodes: Unremarkable. No enlarged lymph nodes. IMPRESSION: 1. Cholelithiasis and borderline to mild extrahepatic biliary ductal dilatation. 2. Findings compatible with mild uncomplicated sigmoid diverticulitis. Recommend follow-up after appropriate clinical therapy to ensure resolution. 3. Endometrial thickness as above, correlate for patient status regarding menopause. ICD Codes: K57.92 - Diverticulitis of intestine, part unspecified, without perforation or abscess without bleeding SNOMED: 942044772 (6) Proteinuria ICD Codes: R80.9 - Proteinuria, unspecified SNOMED: 78405848 (7) Electrolyte imbalance ICD Codes: E87.8 - Other disorders of electrolyte and fluid balance, not elsewhere classified SNOMED: 303858709 (8) Gall stone ICD Codes: K80.20 - Calculus of gallbladder without cholecystitis without obstruction SNOMED: 381551450 (9) COVID-19 virus infection ICD Codes: U07.1 - COVID-19 SNOMED: 001218947 (10) Lab test positive for detection of COVID-19 virus ICD Codes: U07.1 - COVID-19 SNOMED: 2608199963709116 PamelaJalil Feb 26, 2020 12:03
[2020-02-26 15:50] VITALS: BP 130/69
--- NOTE | 2020-02-26 16:15 | Consultation ---
DATE OF CONSULTATION: 02/26/2020 INFECTIOUS DISEASE CONSULT PRIMARY ATTENDING PHYSICIAN: Ronny Win M.D. REASON FOR CONSULT: Sigmoid diverticulitis and cholelithiasis. HISTORY OF PRESENT ILLNESS: This is a 54-year-old female admitted today complaining of abdominal pain, nausea, vomiting. The patient has a long history of hospitalization in January of 2020 and was seen on January 22, 2020. Had recent COVID-19 disease, had cholelithiasis and common bile duct stones. Had ERCP and removal of stones. PAST MEDICAL HISTORY: Cholelithiasis, COVID-19, acute pancreatitis, morbid obesity, common bile duct stone, status post removal. ALLERGIES: Morphine, ibuprofen. SOCIAL HISTORY: . Lives at home. Has children. Denies alcohol, drug abuse, smoking. MEDICATIONS: Getting IV fluid. Got a dose of Zosyn in the ER. Got a dose of fentanyl & Zofran. REVIEW OF SYSTEMS: The patient currently has no pain and no complaints. PHYSICAL EXAMINATION: VITAL SIGNS: Temperature is 99.3, pulse 109, blood pressure was 121/66. GENERAL APPEARANCE: No acute distress. Obese. HEAD AND NECK: [place] conjunctivae. HEART: Normal rate. LUNGS: Clear. ABDOMEN: Soft. EXTREMITIES: No edema. NEUROLOGIC: Awake, alert, oriented x3. LABORATORY AND DIAGNOSTIC DATA: WBC 6.5, hemoglobin 12.9, hematocrit 40.2, platelets 261. Sodium 139, potassium 3.4, chloride 27, BUN 10, creatinine 0.7, glucose 159. UA showed rbc's of 20-30. CT scan of the abdomen and pelvis showed mild complicated sigmoid diverticulitis, cholelithiasis, and borderline mild extrahepatic biliary ductal dilation, endometrial thickening. IMPRESSION: 1. Mild sigmoid diverticulitis. 2. Has cholelithiasis, likely with chronic cholecystitis. 3. History of COVID-19. 4. Morbid obesity. RECOMMENDATIONS: Continue Zosyn. We will follow up the culture. The patient likely needs elective cholecystectomy because of recurrence of symptoms. At the end of my exam, I thank Dr. Win for involving me in the care of this patient. Wesley Blandon M.D. DR: RAY JOB#: [id number] CC: MARICRUZ
--- NOTE | 2020-02-26 18:40 | NUR ---
NURSE HAND-OFF: Important Events on Shift:admission orders, adv to cl liquid] Patient Status: stable Diet: clear liquid Pending Orders: Pending Results/Labs: Pending MD notification: Latest Vital Signs: Temperature 98.5 , Pulse 99 , B/P 130 /69 , Respiratory Rate 18 , O2 SAT 98 , Room Air, O2 Flow Rate . Vital Sign Comment: stable Latest Xiong Fall Score: 35 Fall Risk: Medium Risk Safety Measures: Call light Within Reach, Bed Alarm Zone 2, Side Rails Side Rails x2, Bed position Low and Locked. Fall Precautions: Patient Fall Education Report given to Nicole MATA.
--- NOTE | 2020-02-26 19:15 | NUR ---
NURSE NOTES: Patient is awake and alert, no signs of acute distress noted, patient reporting 4/10 abdominal pain, nmot requesting pain medication at this time, will continue to monitor pain level. IV is intact and patent running IVF at 60 ml/h. Bed is in lowest and locked position, side rails up x2, call light is within reach.
[2020-02-26 20:00] VITALS: BP 99/58
[2020-02-26] MEDS: Piperacillin/Tazobactam 3.375 GM in NS 110 ML IVPB SCH (21:25)
[2020-02-27] VITALS (7 sets, daily range): BP systolic 101–126; BP diastolic 56–82
--- NOTE | 2020-02-27 00:59 | Consultation ---
DATE OF CONSULTATION: 02/26/2020 GASTROENTEROLOGY CONSULTATION CONSULTING PHYSICIAN: Prasanth Reveles MD CHIEF COMPLAINT: I was asked to see the patient for further evaluation of diverticulitis. HISTORY OF PRESENT ILLNESS: The patient is a 54-year-old woman, who had a recent history of gallstone pancreatitis. She has a recent COVID-19 infection also. She came into the hospital with abdominal pain and CT scan showed diverticulitis. She was on various antibiotics. She feels better now. PAST MEDICAL HISTORY: History of gallstone pancreatitis. FAMILY HISTORY: Noncontributory. SOCIAL HISTORY: The patient does not smoke or drink. REVIEW OF SYSTEMS: Otherwise negative. PHYSICAL EXAMINATION: GENERAL: Well-developed, well-nourished woman, seen in her room. HEENT: Normocephalic and atraumatic. Sclerae anicteric. Oropharynx clear. NECK: Supple. CHEST: Clear to auscultation. CARDIOVASCULAR: Regular rate. ABDOMEN: Soft, nontender. EXTREMITIES: Revealed no edema. LABORATORY DATA: Noted. CT scan was reviewed. ASSESSMENT: This patient presents with abdominal pain, which appears to be due to mild diverticulitis. She does have some abnormal liver tests, which may be multifactorial including hepatitis B and C virus infection. However, there is no elevation in bilirubin or alkaline phosphatase to suggest the biliary tract occlusion. The changes seen on the CT scan may be due to the passage of the stone and recent episode of pancreatitis. The patient's hepatitis B and C markers should be checked and should be followed as an outpatient for her history of cholecystectomy. RECOMMENDATIONS: Per above discussion and per orders written in the chart. Thank you for asking me to participate in the care of this patient. Prasanth Reveles M.D. DR: HANNAH JOB#: [id number] CC:
--- NOTE | 2020-02-27 01:44 | History and Physical Report ---
DATE OF ADMISSION: 02/26/2020 HISTORY OF PRESENT ILLNESS: The patient comes back at this time with diverticulitis and cholelithiasis. She has a history of gallstone pancreatitis, a recent one, got ERCP and gallstones were removed. She was going to follow up as an outpatient for a cholecystectomy. Had worsening abdominal pain for the last few days and CT showed uncomplicated sigmoid diverticulitis. LFTs were slightly elevated. The patient was also complaining of nausea, vomiting, abdominal pain for a couple of days and also has a recent history of COVID positivity. PAST MEDICAL HISTORY: Significant for COVID positive, GERD, history of gallstone pancreatitis, history of allergic reactions, history of gallstones. PAST SURGICAL HISTORY: None known. ALLERGIES: To morphine, and ibuprofen. SOCIAL HISTORY: Denies history of smoking. No history of alcohol or illicit drugs. REVIEW OF SYSTEMS: HEENT: Denies headaches. RESPIRATORY: Denies any shortness of breath. Denies any cough. CARDIOVASCULAR: . GASTROINTESTINAL: Reports abdominal pain, nausea, vomiting. Denies constipation. Denies hematemesis. EXTREMITIES: Denies pain. NEUROLOGIC: Denies change in speech pattern. Feels weak. PHYSICAL EXAMINATION: VITAL SIGNS: Temperature 98.7, pulse is 85, blood pressure 137/84. HEENT: Pupils equally round and reactive to light and accommodation. CHEST: Bibasilar rales. CARDIOVASCULAR: Regular rate and rhythm. No murmurs or extra sounds. GASTROINTESTINAL: Soft positive bowel sounds. Right upper quadrant tenderness. ABDOMEN: Soft. No acute rebound. Bowel sounds are present. EXTREMITIES: No edema, has generalized weakness. Reflexes on both sides. LABORATORY DATA: WBC of 6.5, hemoglobin 12.9, and platelets 261. Sodium 139, potassium 3.4, BUN of 10, creatinine 0.7. AST 99, ALT of 212, alkaline phosphatase of 98, total bilirubin of 0.7, lipase of 366. ASSESSMENT AND PLAN: Abdominal pain status post gallstone pancreatitis. Dr. Santiago, Dr. Kingsley, and Dr. Wesley Blandon have been consulted for this case and for this reason, particularly if she needs cholecystectomy or not. Ronny Win M.D. DR: LORIN JOB#: [id number] CC:
[2020-02-27] MEDS: Piperacillin/Tazobactam 3.375 GM in NS 110 ML IVPB SCH ×2 (06:29→14:40)
[2020-02-27 07:03] LABS: BASOPHILS % (AUTO) 0.1 % (0.0-2.0); EOSINOPHILS % (AUTO) 2.9 % (0.0-3.0); HEMOGLOBIN 12.1 G/DL (12.0-16.0); LYMPHOCYTES % (AUTO) 9.1 % (20.0-45.0); MEAN CORPUSCULAR VOLUME 88 FL (80-99); MONOCYTES % (AUTO) 3.2 % (1.0-10.0); NEUTROPHILS % (AUTO) 84.6 % (45.0-75.0); PLATELET COUNT 249 K/UL (150-450); RED BLOOD COUNT 4.31 M/UL (4.20-5.40); RED CELL DISTRIBUTION WIDTH 13.9 % (11.6-14.8); WHITE BLOOD COUNT 6.8 K/UL (4.8-10.8)
[2020-02-27 07:21] LABS: ALANINE AMINOTRANSFERASE 130 U/L (12-78); ALANINE AMINOTRANSFERASE 131 U/L (12-78); ALBUMIN 2.8 G/DL (3.4-5.0); ALBUMIN 2.9 G/DL (3.4-5.0); ALBUMIN/GLOBULIN RATIO 0.6 (1.0-2.7); ALKALINE PHOSPHATASE 71 U/L (46-116); ALKALINE PHOSPHATASE 72 U/L (46-116); ANION GAP 6 mmol/L (5-15); ASPARTATE AMINO TRANSFERASE 48 U/L (15-37); ASPARTATE AMINO TRANSFERASE 50 U/L (15-37); BILIRUBIN,DIRECT 0.4 MG/DL (0.0-0.3); BILIRUBIN,TOTAL 1.4 MG/DL (0.2-1.0); BLOOD UREA NITROGEN 9 mg/dL (7-18); CALCIUM 8.4 MG/DL (8.5-10.1); CARBON DIOXIDE 27 MMOL/L (21-32); CHLORIDE 105 MMOL/L (98-107); CREATININE 0.9 MG/DL (0.55-1.30); POTASSIUM 3.6 MMOL/L (3.5-5.1); SODIUM 138 MMOL/L (136-145)
--- NOTE | 2020-02-27 07:42 | NUR ---
NURSE HAND-OFF: Important Events on Shift:low fever overnight, now afebrile- last night given ice packs, given toradol for pain x1 dose Patient Status: stable Diet: clear liquid Pending Orders: Pending Results/Labs: Pending MD notification: Latest Vital Signs: Temperature 98.5 , Pulse 99 , B/P 130 /69 , Respiratory Rate 18 , O2 SAT 98 , Room Air, O2 Flow Rate . Vital Sign Comment: stable Latest Xiong Fall Score: 35 Fall Risk: Medium Risk Safety Measures: Call light Within Reach, Bed Alarm Zone 2, Side Rails Side Rails x2, Bed position Low and Locked. Fall Precautions: Patient Fall Education Report given to Ann-Marie MATA
--- NOTE | 2020-02-27 08:00 | NUR ---
NURSE NOTES: Received patient lying in bed, awake, alert, and oriented x4. Patient is in room air, no S/S of SOB/Distress, no c/o pain or discomfort. PIV on RAC PIV, receives IVF. Bed placed on lowest position possible, locked, call light placed within reach, side rails up x3. Will continue to monitor patient and follow up with the plan of care.
--- NOTE | 2020-02-27 13:53 | Surgery Progress Note ---
Surgery Progress Note Subjective Symptoms: improved, tolerating diet, voiding well, passing flatus, BM, pain decreased Objective Last 24 Hour Vital Signs Date Time Temp Pulse Resp B/P (MAP) Pulse Ox O2 Delivery O2 Flow Rate FiO2 02/27/20 12:00 99.3 117 19 121/73 (89) 98 02/27/20 09:00 Room Air 02/27/20 08:00 98.5 120 18 113/72 (86) 95 02/27/20 04:00 98.4 95 17 108/67 (81) 98 02/27/20 00:27 99.5 02/27/20 00:00 99.2 105 18 101/56 (71) 98 02/26/20 21:00 Room Air 02/26/20 20:00 99.5 110 16 99/58 (72) 98 02/26/20 15:50 98.5 99 18 130/69 (89) 98 I&O Intake and Output 02/26/20 02/27/20 19:00 07:00 Intake Total 600 ml Balance 600 ml Intake Oral 600 ml # Voids 2 2 Cardiovascular: RSR Respiratory: clear Abdomen: soft, non-tender, present bowel sounds, non-distended Extremities: no edema, no tenderness, no cyanosis Laboratory Tests Test 02/27/20 04:15 White Blood Count 6.8 K/UL (4.8-10.8) Red Blood Count 4.31 M/UL (4.20-5.40) Hemoglobin 12.1 G/DL (12.0-16.0) Hematocrit 38.0 % (37.0-47.0) Mean Corpuscular Volume 88 FL (80-99) Mean Corpuscular Hemoglobin 28.1 PG (27.0-31.0) Mean Corpuscular Hemoglobin Concent 31.9 G/DL (32.0-36.0) L Red Cell Distribution Width 13.9 % (11.6-14.8) Platelet Count 249 K/UL (150-450) Mean Platelet Volume 6.1 FL (6.5-10.1) L Neutrophils (%) (Auto) 84.6 % (45.0-75.0) H Lymphocytes (%) (Auto) 9.1 % (20.0-45.0) L Monocytes (%) (Auto) 3.2 % (1.0-10.0) Eosinophils (%) (Auto) 2.9 % (0.0-3.0) Basophils (%) (Auto) 0.1 % (0.0-2.0) Sodium Level 138 MMOL/L (136-145) Potassium Level 3.6 MMOL/L (3.5-5.1) Chloride Level 105 MMOL/L (98-107) Carbon Dioxide Level 27 MMOL/L (21-32) Anion Gap 6 mmol/L (5-15) Blood Urea Nitrogen 9 mg/dL (7-18) Creatinine 0.9 MG/DL (0.55-1.30) Estimat Glomerular Filtration Rate > 60 mL/min (>60) Glucose Level 117 MG/DL (74-106) H Calcium Level 8.4 MG/DL (8.5-10.1) L Total Bilirubin 1.4 MG/DL (0.2-1.0) H Direct Bilirubin 0.4 MG/DL (0.0-0.3) H Aspartate Amino Transf (AST/SGOT) 48 U/L (15-37) H Alanine Aminotransferase (ALT/SGPT) 131 U/L (12-78) H Alkaline Phosphatase 71 U/L (46-116) Total Protein 7.5 G/DL (6.4-8.2) Albumin 2.9 G/DL (3.4-5.0) L Globulin 4.6 g/dL Albumin/Globulin Ratio 0.6 (1.0-2.7) L Hepatitis A IgM Antibody Pending Hepatitis B Surface Antigen Pending Hepatitis B Core IgM Antibody Pending Hepatitis C Antibody Pending Plan Problems: (1) Cholelithiasis (2) 2019 novel coronavirus disease (COVID-19) (3) Allergic urticaria (4) Acute pancreatitis (5) Diverticulitis Assessment & Plan: This is a 54-year-old female recent gallstone pancreatitis status post ERCP improved Covid prior to discharge safely presents with abdominal pain CT identified acute uncomplicated diverticulitis afebrile hemodynamic stable labs okay no leukocytosis lipase normal LFTs okay. Abdominal exam fairly benign mild discomfort. No acute surgical invention planned. Okay for diet IV fluids antibiotics will follow with serial examinations and plan for discharge on oral antibiotics when stable and ready. Thank you for allowing me to participate in patient's care ABDOMEN: Liver: Unremarkable. No mass. Gallbladder and bile ducts: The gallbladder is distended and contains multiple large gallstones. Mild extrahepatic biliary ductal dilatation with the common duct measuring slightly greater than 6 mm. Pancreas: Unremarkable. No mass. No ductal dilation. Spleen: Unremarkable. No splenomegaly. Adrenals: Unremarkable. No mass. Kidneys and ureters: Multiple low-attenuation foci right kidney that are too small to accurately characterize. No hydronephrosis. Stomach and bowel: Diverticulosis of the colon. Negative for Pneumatosis. Mild wall thickening of the sigmoid colon with questionable mild adjacent inflammatory changes. Negative for extraluminal gas. No obstruction. PELVIS: Appendix: No findings to suggest acute appendicitis. Bladder: Unremarkable. No mass. Reproductive: Endometrial thickness of 11 mm normal if premenopausal but would be thickened in a postmenopausal patient. Consider nonemergent pelvic ultrasound if patient is postmenopausal. Multiple low-attenuation foci in the cervix indeterminate but likely nabothian cysts. ABDOMEN and PELVIS: Intraperitoneal space: Negative for free air or fluid collections. Bones/joints: No acute fracture. No dislocation. Soft tissues: Unremarkable. Vasculature: Unremarkable. No abdominal aortic aneurysm. Lymph nodes: Unremarkable. No enlarged lymph nodes. IMPRESSION: 1. Cholelithiasis and borderline to mild extrahepatic biliary ductal dilatation. 2. Findings compatible with mild uncomplicated sigmoid diverticulitis. Recommend follow-up after appropriate clinical therapy to ensure resolution. 3. Endometrial thickness as above, correlate for patient status regarding menopause. (6) Proteinuria (7) Electrolyte imbalance (8) Gall stone (9) COVID-19 virus infection (10) Lab test positive for detection of COVID-19 virus Jalil Santiago Feb 27, 2020 13:53
--- NOTE | 2020-02-27 17:00 | NUR ---
NURSE NOTES: patient has red spots/blotches at whole body getting to the face, stopped Zosyn IVPB. Notified dr. jarrell Blandon and dr Win.
[2020-02-27] MEDS: 1/2NS w/KCl 20mEq 1000ml 1,000 ML IV SCH (17:50)
--- NOTE | 2020-02-27 19:55 | NUR ---
NURSE HAND-OFF: Important Events on Shift:[] Patient Status: [] Diet: [] Pending Orders: [] Pending Results/Labs:[] Pending MD notification:[] Latest Vital Signs: Temperature 99.6 , Pulse 110 , B/P 126 /80 , Respiratory Rate 20 , O2 SAT 95 , Room Air, O2 Flow Rate . Vital Sign Comment: [] Latest Xiong Fall Score: 35 Fall Risk: Medium Risk Safety Measures: Call light Within Reach, Bed Alarm Zone 2, Side Rails Side Rails x2, Bed position Low and Locked. Fall Precautions: Patient Fall Education Report given to [ADOLFO Velasquez].
--- NOTE | 2020-02-27 20:16 | General Progress Note ---
Subjective Allergies: Coded Allergies: IBUPROFEN (Verified Allergy, Unknown, 02/25/20) MORPHINE (Verified Allergy, Unknown, 02/25/20) ROCURONIUM (Verified Allergy, Unknown, 02/26/20) Subjective above noted patient seen in her room denies abd pain or complaints Objective Last 24 Hour Vital Signs Date Time Temp Pulse Resp B/P (MAP) Pulse Ox O2 Delivery O2 Flow Rate FiO2 02/27/20 16:00 99.6 110 20 126/80 (95) 95 02/27/20 12:00 99.3 117 19 121/73 (89) 98 02/27/20 09:00 Room Air 02/27/20 08:00 98.5 120 18 113/72 (86) 95 02/27/20 04:00 98.4 95 17 108/67 (81) 98 02/27/20 00:27 99.5 02/27/20 00:00 99.2 105 18 101/56 (71) 98 02/26/20 21:00 Room Air Intake and Output 02/26/20 02/27/20 19:00 07:00 Intake Total 600 ml Balance 600 ml Intake Oral 600 ml # Voids 2 2 Laboratory Tests 02/27/20 04:15: White Blood Count 6.8, Red Blood Count 4.31, Hemoglobin 12.1, Hematocrit 38.0, Mean Corpuscular Volume 88, Mean Corpuscular Hemoglobin 28.1, Mean Corpuscular Hemoglobin Concent 31.9L, Red Cell Distribution Width 13.9, Platelet Count 249, Mean Platelet Volume 6.1L, Neutrophils (%) (Auto) 84.6H, Lymphocytes (%) (Auto) 9.1L, Monocytes (%) (Auto) 3.2, Eosinophils (%) (Auto) 2.9, Basophils (%) (Auto) 0.1, Sodium Level 138, Potassium Level 3.6, Chloride Level 105, Carbon Dioxide Level 27, Anion Gap 6, Blood Urea Nitrogen 9, Creatinine 0.9, Estimat Glomerular Filtration Rate > 60, Glucose Level 117H, Calcium Level 8.4L, Total Bilirubin 1.4H, Direct Bilirubin 0.4H, Aspartate Amino Transf (AST/SGOT) 48H, Alanine Aminotransferase (ALT/SGPT) 131H, Alkaline Phosphatase 71, Total Protein 7.5, Albumin 2.9L, Globulin 4.6, Albumin/Globulin Ratio 0.6L, Hepatitis A IgM Antibody [Pending], Hepatitis B Surface Antigen [Pending], Hepatitis B Core IgM Antibody [Pending], Hepatitis C Antibody [Pending] Height (Feet): 5 Height (Inches): 2.00 Weight (Pounds): 210 Objective WDWN [place] woman NAD ambulating around her room NCAT supple CTA RRR abd soft ND NT no edema Assessment/Plan Assessment/Plan: Assessment - COVID 19 infection - abnormal LFT, likely due to COVID - diverticulitis Recommendations - continue abx - f/u hepatitis serologies - follow symptoms and exams Prasanth Reveles MD Feb 27, 2020 20:16
[2020-02-27] MEDS: Triamcinolone 0.1% 15gm Cr TOPIC SCH (21:11)
[2020-02-27] MEDS: Levofloxacin 500mg tab ORAL SCH (21:11)
[2020-02-27] MEDS: metroNIDAZOLE 500mg tab ORAL SCH (21:11)
--- NOTE | 2020-02-27 21:56 | General Progress Note ---
Subjective ROS Limited/Unobtainable: Yes Allergies: Coded Allergies: IBUPROFEN (Verified Allergy, Unknown, 02/25/20) MORPHINE (Verified Allergy, Unknown, 02/25/20) ROCURONIUM (Verified Allergy, Unknown, 02/26/20) Objective Last 24 Hour Vital Signs Date Time Temp Pulse Resp B/P (MAP) Pulse Ox O2 Delivery O2 Flow Rate FiO2 02/27/20 21:00 Room Air 02/27/20 20:00 98.7 75 20 120/82 (95) 97 02/27/20 16:00 99.6 110 20 126/80 (95) 95 02/27/20 12:00 99.3 117 19 121/73 (89) 98 02/27/20 09:00 Room Air 02/27/20 08:00 98.5 120 18 113/72 (86) 95 02/27/20 04:00 98.4 95 17 108/67 (81) 98 02/27/20 00:27 99.5 02/27/20 00:00 99.2 105 18 101/56 (71) 98 Intake and Output 02/26/20 02/27/20 19:00 07:00 Intake Total 600 ml Balance 600 ml Intake Oral 600 ml # Voids 2 2 Laboratory Tests 02/27/20 04:15: White Blood Count 6.8, Red Blood Count 4.31, Hemoglobin 12.1, Hematocrit 38.0, Mean Corpuscular Volume 88, Mean Corpuscular Hemoglobin 28.1, Mean Corpuscular Hemoglobin Concent 31.9L, Red Cell Distribution Width 13.9, Platelet Count 249, Mean Platelet Volume 6.1L, Neutrophils (%) (Auto) 84.6H, Lymphocytes (%) (Auto) 9.1L, Monocytes (%) (Auto) 3.2, Eosinophils (%) (Auto) 2.9, Basophils (%) (Auto) 0.1, Sodium Level 138, Potassium Level 3.6, Chloride Level 105, Carbon Dioxide Level 27, Anion Gap 6, Blood Urea Nitrogen 9, Creatinine 0.9, Estimat Glomerular Filtration Rate > 60, Glucose Level 117H, Calcium Level 8.4L, Total Bilirubin 1.4H, Direct Bilirubin 0.4H, Aspartate Amino Transf (AST/SGOT) 48H, Alanine Aminotransferase (ALT/SGPT) 131H, Alkaline Phosphatase 71, Total Protein 7.5, Albumin 2.9L, Globulin 4.6, Albumin/Globulin Ratio 0.6L, Hepatitis A IgM Antibody [Pending], Hepatitis B Surface Antigen [Pending], Hepatitis B Core IgM Antibody [Pending], Hepatitis C Antibody [Pending] Height (Feet): 5 Height (Inches): 2.00 Weight (Pounds): 210 Assessment/Plan Problem List: (1) Cholelithiasis ICD Codes: K80.20 - Calculus of gallbladder without cholecystitis without obstruction SNOMED: 466802777 (2) Allergic urticaria ICD Codes: L50.0 - Allergic urticaria SNOMED: 88328001 (3) Acute pancreatitis ICD Codes: K85.90 - Acute pancreatitis without necrosis or infection, unspecified SNOMED: 495254315 (4) Diverticulitis ICD Codes: K57.92 - Diverticulitis of intestine, part unspecified, without perforation or abscess without bleeding SNOMED: 560074882 (5) Proteinuria ICD Codes: R80.9 - Proteinuria, unspecified SNOMED: 87505074 (6) Electrolyte imbalance ICD Codes: E87.8 - Other disorders of electrolyte and fluid balance, not elsewhere classified SNOMED: 086231132 (7) Gall stone ICD Codes: K80.20 - Calculus of gallbladder without cholecystitis without obstruction SNOMED: 989713119 (8) COVID-19 virus infection ICD Codes: U07.1 - COVID-19 SNOMED: 723400920 Status: progressing Assessment/Plan: cholycystectomy per dr lambert afebrile diverticulitis rx per dr lyons reviewed chart and labs Ronny Win MD Feb 27, 2020 21:56
[2020-02-28 04:00] VITALS: BP 91/61
[2020-02-28] MEDS: metroNIDAZOLE 500mg tab ORAL SCH ×2 (05:52→14:02)
[2020-02-28] MEDS: 1/2NS w/KCl 20mEq 1000ml 1,000 ML IV SCH (05:52)
--- NOTE | 2020-02-28 07:18 | NUR ---
HAND-OFF: Report given to Jeffry Das RN/Effie Cornell RN.
--- NOTE | 2020-02-28 07:20 | NUR ---
NURSE NOTES: Received handoff from Candy MATA. Patient is awake, A&O x4, does not seem to be in acute distress. No Sob, on room air. IV to right hand running IVF per order. Updated on care plan. Bed is in lowest position, call light in reach, side rails up.
[2020-02-28 08:00] VITALS: BP 134/83
[2020-02-28] MEDS: Triamcinolone 0.1% 15gm Cr TOPIC SCH ×2 (09:10→14:02)
[2020-02-28] MEDS: Levofloxacin 500mg tab ORAL SCH (09:16)
--- NOTE | 2020-02-28 09:37 | Consultation ---
Consult Note Consult Note DATE OF CONSULTATION: 02/28/2020 CONSULTING PHYSICIAN: Bubba Penny MD. ATTENDING PHYSICIAN: Dr. Montenegro REASON FOR CONSULTATION: Recent diagnosis of COVID-19 HISTORY OF PRESENT ILLNESS: This is a 54-year-old female with history of gallstone pancreatitis and recent infection with COVID-19 here with right-sided back pain and midline epigastric abdominal pain x1 day. Of note the patient was recently discharged from the hospital 2 weeks ago after she was found to have gallstone pancreatitis and underwent ERCP in which 4 large gallstones were removed. She did test positive for COVID-19 during that hospitalization but has not had any symptoms from that. CT of abdomen and pelvis showed cholelithiasis, and uncomplicated sigmoid diverticulitis. Patient received GI cocktail, and Zosyn in the ER and was admitted to the hospital for further management and observation. Her Zosyn was transitioned to Levaquin and Flagyl for reported mild skin rash without difficulty breathing. Patient denies headache, vision changes, neck pain, neck stiffness, fevers, chills, chest pain, palpitation or shortness of breath, cough. PAST MEDICAL HISTORY: Cholelithiasis, pancreatitis, recent COVID-19, GERD MEDICATIONS: Diphenhydramine, and prednisone ALLERGIES: Morphine, ibuprofen, rocuronium FAMILY HISTORY: Unknown PERSONAL/SOCIAL HISTORY: Lives at home with family REVIEW OF SYSTEMS: Negative except mentioned in HPI PHYSICAL EXAMINATION: VITAL SIGNS: Blood pressure 134/83, heart rate 99, respiratory rate 18, weight 95 kg, height 157 cm. General: Patient sitting on the edge of the bed, NAD, normal work of breathing on room air HEENT: Head exam reveals that the head is normocephalic, atraumatic without deformity or unusual swelling. Pupils are PERRLA. CHEST AND LUNGS: Reveals clear, normal, symmetrical breath sounds with no adventitious sounds. CARDIOVASCULAR: Reveals normal S1, S2 without murmurs, rubs, or clicks. ABDOMEN: Obese, soft with no tenderness or organomegaly. RECTAL: Deferred. MUSCULOSKELETAL: There is no tenderness to palpation. Range of motion is normal. NEUROLOGICAL: Alert and oriented x3 , nonfocal LABORATORY DATA: Laboratory testing shows WBC 6.8, hemoglobin 12.1, hematocrit 38.0. Chemistries show glucose 117, calcium 8.4, total bilirubin 1.4, AST 48, ALT 131, albumin 2.9 Urinalysis shows 1+ protein, 4+ blood, 1+ urobilinogen Hepatitis panel pending Assessment/Plan 1. Hx of COVID-19 -She initially tested positive for COVID-19 on 01/21/2020 at [facility] -She remained asymptomatic throughout her admission and until present -Given her normoxemia without symptoms, no specific therapy for COVID-19 is indicated at this time -Monitor for hypoxia and provide supplemental oxygen as needed -No need for repeat testing - Recommend COVID-X status per guideline 2. Cholelithiasis -Patient likely needs elective cholecystectomy given recurrence of symptoms - Management per surgery 3. Acute pancreatitis -ALT AST trending down 4. Diverticulitis -On antibiotics -ID following The care for this patient was discussed with my supervising physician. Time spent for this case was approximately 31 minutes. Steven Bergman Feb 28, 2020 09:37
--- NOTE | 2020-02-28 11:56 | General Progress Note ---
Subjective ROS Limited/Unobtainable: Yes Allergies: Coded Allergies: IBUPROFEN (Verified Allergy, Unknown, 02/25/20) MORPHINE (Verified Allergy, Unknown, 02/25/20) ROCURONIUM (Verified Allergy, Unknown, 02/26/20) Objective Last 24 Hour Vital Signs Date Time Temp Pulse Resp B/P (MAP) Pulse Ox O2 Delivery O2 Flow Rate FiO2 02/28/20 09:00 Room Air 02/28/20 08:00 97.7 99 18 134/83 (100) 98 02/28/20 04:00 98.5 90 17 91/61 (71) 97 02/27/20 23:55 98.9 78 18 124/75 (91) 98 02/27/20 21:00 Room Air 02/27/20 20:00 98.7 75 20 120/82 (95) 97 02/27/20 16:00 99.6 110 20 126/80 (95) 95 02/27/20 12:00 99.3 117 19 121/73 (89) 98 Intake and Output 02/27/20 02/28/20 19:00 07:00 Intake Total 600 ml 1080 ml Balance 600 ml 1080 ml Intake Oral 360 ml IV Total 720 ml Other 600 ml # Voids 2 Height (Feet): 5 Height (Inches): 2.00 Weight (Pounds): 210 General Appearance: no apparent distress EENT: normal ENT inspection Neck: supple Cardiovascular: normal rate Respiratory/Chest: lungs clear Abdomen: soft, hypoactive bowel sounds, tender Extremities: non-tender Assessment/Plan Status: progressing Assessment/Plan: Assessment/Plan Assessment/Plan: Assessment - COVID 19 infection - abnormal LFT, likely due to COVID - diverticulitis -gallstones Recommendations - continue abx - f/u hepatitis serologies - follow symptoms and exams -advance diet David Kingsley MD Feb 28, 2020 11:55
[2020-02-28 12:00] VITALS: BP 124/76
--- NOTE | 2020-02-28 12:12 | NUR ---
CASE MANAGEMENT:INITIAL REVIEW 02/27/20 54 YR OLD FEMALE FROM HOME CC;BACK INJURY SI;DIVERTICULITIS. CHOLELITHIASIS. COVID-19 INFECTION. 99.5 110 18 150/88 95% ON RA K- 3.4 GLU+ 159 AST+ 99 ALT+ 212 UA+ PROTEIN 1+, BLOOD 4+, UROBILINOGEN 1 H, RBC 20-30, MUCUS HEP PANEL ~ RESULTS PENDING ABD/PELVIS CT ~ 1. Cholelithiasis and borderline to mild extrahepatic biliary ductal dilatation. 2. Findings compatible with mild uncomplicated sigmoid diverticulitis. IS;PEPCID IV MYLANTA PO LIDOCAINE PO BENTYL PO TYLENOL PO ADMITTED TO MED SURG MED SURG STATUS DCP;PENDING HOSPITAL STAY CASE MANAGEMENT:REVIEW 02/28/20 SI;CHOLELITHIASIS. AC PANCREATITIS. DIVERTICULITIS. COVID-19 VIRAL INFECTION 98.9 99 20 91/61 97% ON RA IS;PROTONIX PO QD FLAGYL PO Q8 LEVAQUIN PO QD IVF Na @ 60 ML/HR MED SURG STATUS DCP;FROM HOME
--- NOTE | 2020-02-28 12:23 | Surgery Progress Note ---
Surgery Progress Note Subjective Symptoms: improved, pain absent, tolerating diet, voiding well, passing flatus, BM - loose Objective Last 24 Hour Vital Signs Date Time Temp Pulse Resp B/P (MAP) Pulse Ox O2 Delivery O2 Flow Rate FiO2 02/28/20 09:00 Room Air 02/28/20 08:00 97.7 99 18 134/83 (100) 98 02/28/20 04:00 98.5 90 17 91/61 (71) 97 02/27/20 23:55 98.9 78 18 124/75 (91) 98 02/27/20 21:00 Room Air 02/27/20 20:00 98.7 75 20 120/82 (95) 97 02/27/20 16:00 99.6 110 20 126/80 (95) 95 I&O Intake and Output 02/27/20 02/28/20 19:00 07:00 Intake Total 600 ml 1080 ml Balance 600 ml 1080 ml Intake Oral 360 ml IV Total 720 ml Other 600 ml # Voids 2 Cardiovascular: RSR Respiratory: clear Abdomen: soft, flat, non-tender, present bowel sounds, non-distended Extremities: no edema, no tenderness, no cyanosis Plan Problems: (1) Cholelithiasis (2) 2019 novel coronavirus disease (COVID-19) (3) Allergic urticaria (4) Acute pancreatitis (5) Diverticulitis Assessment & Plan: This is a 54-year-old female recent gallstone pancreatitis status post ERCP improved Covid prior to discharge safely presents with abdominal pain CT identified acute uncomplicated diverticulitis afebrile hemo dynamic stable labs okay no leukocytosis lipase normal LFTs okay. Abdominal exam fairly benign mild discomfort. No acute surgical invention planned. Okay for diet IV fluids antibiotics will follow with serial examinations and plan for discharge on oral antibiotics when stable and ready. Thank you for allowing me to participate in patient's care diet as tolerated low fat healthy d/c planning on oral abx outpatient pcp f/u outpatient surgery f/u ABDOMEN: Liver: Unremarkable. No mass. Gallbladder and bile ducts: The gallbladder is distended and contains multiple large gallstones. Mild extrahepatic biliary ductal dilatation with the common duct measuring slightly greater than 6 mm. Pancreas: Unremarkable. No mass. No ductal dilation. Spleen: Unremarkable. No splenomegaly. Adrenals: Unremarkable. No mass. Kidneys and ureters: Multiple low-attenuation foci right kidney that are too small to accurately characterize. No hydronephrosis. Stomach and bowel: Diverticulosis of the colon. Negative for Pneumatosis. Mild wall thickening of the sigmoid colon with questionable mild adjacent inflammatory changes. Negative for extraluminal gas. No obstruction. PELVIS: Appendix: No findings to suggest acute appendicitis. Bladder: Unremarkable. No mass. Reproductive: Endometrial thickness of 11 mm normal if premenopausal but would be thickened in a postmenopausal patient. Consider nonemergent pelvic ultrasound if patient is postmenopausal. Multiple low-attenuation foci in the cervix indeterminate but likely nabothian cysts. ABDOMEN and PELVIS: Intraperitoneal space: Negative for free air or fluid collections. Bones/joints: No acute fracture. No dislocation. Soft tissues: Unremarkable. Vasculature: Unremarkable. No abdominal aortic aneurysm. Lymph nodes: Unremarkable. No enlarged lymph nodes. IMPRESSION: 1. Cholelithiasis and borderline to mild extrahepatic biliary ductal dilatation. 2. Findings compatible with mild uncomplicated sigmoid diverticulitis. Recommend follow-up after appropriate clinical therapy to ensure resolution. 3. Endometrial thickness as above, correlate for patient status regarding menopause. (6) Proteinuria (7) Electrolyte imbalance (8) Gall stone (9) COVID-19 virus infection (10) Lab test positive for detection of COVID-19 virus Jalil Santiago Feb 28, 2020 12:23
--- NOTE | 2020-02-28 12:49 | Infectious Diseases Prog Note ---
Assessment/Plan Assessment/Plan IMPRESSION: 1. Mild sigmoid diverticulitis. 2. Has cholelithiasis, likely with chronic cholecystitis. 3. History of COVID-19. 4. Morbid obesity. 4. Allergic drug reaction to Zosyn RECOMMENDATIONS: Zosyn was changed to Levaquin & Flagyl Case was D/W pharmacy & RN Subjective ROS Limited/Unobtainable: No HEENT: Reports: no symptoms Respiratory: Reports: no symptoms Gastrointestinal/Abdominal: Reports: no symptoms Genitourinary: Reports: no symptoms Skin: Reports: rash, other - itching Allergies: Coded Allergies: IBUPROFEN (Verified Allergy, Unknown, 02/25/20) MORPHINE (Verified Allergy, Unknown, 02/25/20) ROCURONIUM (Verified Allergy, Unknown, 02/26/20) Objective Last 24 Hour Vital Signs Date Time Temp Pulse Resp B/P (MAP) Pulse Ox O2 Delivery O2 Flow Rate FiO2 02/28/20 12:00 98.0 90 18 124/76 (92) 97 02/28/20 09:00 Room Air 02/28/20 08:00 97.7 99 18 134/83 (100) 98 02/28/20 04:00 98.5 90 17 91/61 (71) 97 02/27/20 23:55 98.9 78 18 124/75 (91) 98 02/27/20 21:00 Room Air 02/27/20 20:00 98.7 75 20 120/82 (95) 97 02/27/20 16:00 99.6 110 20 126/80 (95) 95 Height (Feet): 5 Height (Inches): 2.00 Weight (Pounds): 210 General Appearance: no acute distress HEENT: mucous membranes moist Respiratory/Chest: no respiratory distress Cardiovascular: normal rate Abdomen: soft, non tender Extremities: no edema Skin: rash, other - knee, anlke, face Neurologic/Psychiatric: alert, oriented x 3, responsive Microbiology Date/Time Source Procedure Growth Status 02/26/20 03:30 Blood Blood Culture - Preliminary NO GROWTH AFTER 24 HOURS Resulted 02/26/20 03:15 Blood Blood Culture - Preliminary NO GROWTH AFTER 24 HOURS Resulted 02/26/20 03:00 Rectum - Final NO CARBAPENEM-RESISTANT ENTEROBACTERI... Complete 02/26/20 03:00 Rectum VRE Culture - Final NO VANCOMYCIN RESISTANT ENTEROCOCCUS ... Complete 02/26/20 03:00 Nasal Nares MRSA Culture - Final NO METHICILLIN RESISTANT STAPH AUREUS... Complete Current Medications Medications (Trade) Dose Ordered Sig/Dipti Route PRN Reason Start Time Stop Time Status Last Admin Dose Admin Diphenhydramine HCl (Benadryl) 25 mg Q4H PRN ORAL Itching 02/27/20 13:45 03/28/20 13:44 02/27/20 14:39 Docusate Sodium (Colace) 100 mg TWICE A DAY ORAL 02/28/20 18:00 03/29/20 17:59 Ketorolac Tromethamine (Toradol 30mg) 15 mg Q6H PRN IV Severe Pain (Pain Scale 7-10) 02/26/20 11:15 03/02/20 11:14 02/26/20 23:57 Levofloxacin (Levaquin) 500 mg DAILY ORAL 02/27/20 20:15 03/05/20 20:14 02/28/20 09:16 Metronidazole (Flagyl) 500 mg Q8HR ORAL 02/27/20 22:00 03/05/20 21:59 02/28/20 05:52 Pantoprazole (Protonix) 40 mg DAILY ORAL 02/28/20 11:30 03/29/20 11:29 02/28/20 11:46 Polyethylene Glycol (Miralax) 17 gm BEDTIME ORAL 02/28/20 21:00 03/29/20 20:59 Sodium 1,000 ml @ 60 mls/hr [id number] IV 02/26/20 08:30 03/27/20 08:29 02/28/20 05:52 Triamcinolone Acetonide (Kenalog) 1 applic THREE TIMES A DAY TOPIC 02/27/20 20:30 05/27/20 20:29 02/28/20 09:10 Wesley Blandon MD Feb 28, 2020 12:49
--- NOTE | 2020-02-28 14:12 | Cardiac Electrophysiology PN ---
Subjective Subjective [id number] Objective Last 24 Hour Vital Signs Date Time Temp Pulse Resp B/P (MAP) Pulse Ox O2 Delivery O2 Flow Rate FiO2 02/28/20 12:00 98.0 90 18 124/76 (92) 97 02/28/20 09:00 Room Air 02/28/20 08:00 97.7 99 18 134/83 (100) 98 02/28/20 04:00 98.5 90 17 91/61 (71) 97 02/27/20 23:55 98.9 78 18 124/75 (91) 98 02/27/20 21:00 Room Air 02/27/20 20:00 98.7 75 20 120/82 (95) 97 02/27/20 16:00 99.6 110 20 126/80 (95) 95 Intake and Output 02/27/20 02/28/20 19:00 07:00 Intake Total 600 ml 1080 ml Balance 600 ml 1080 ml Intake Oral 360 ml IV Total 720 ml Other 600 ml # Voids 2 Microbiology Date/Time Source Procedure Growth Status 02/26/20 03:30 Blood Blood Culture - Preliminary NO GROWTH AFTER 24 HOURS Resulted 02/26/20 03:15 Blood Blood Culture - Preliminary NO GROWTH AFTER 24 HOURS Resulted 02/26/20 03:00 Rectum - Final NO CARBAPENEM-RESISTANT ENTEROBACTERI... Complete 02/26/20 03:00 Rectum VRE Culture - Final NO VANCOMYCIN RESISTANT ENTEROCOCCUS ... Complete 02/26/20 03:00 Nasal Nares MRSA Culture - Final NO METHICILLIN RESISTANT STAPH AUREUS... Complete Bhavesh Avina MD Feb 28, 2020 14:12
[2020-02-28] MEDS ORDERED: LEVOFLOXACIN500 MG ORAL (15:32)
[2020-02-28] MEDS ORDERED: METRONIDAZOLE500 MG ORAL (15:34)
[2020-02-28 16:00] VITALS: BP 137/80
--- NOTE | 2020-02-28 17:05 | NUR ---
NURSE NOTES: Patient refused venous duplex, patient request for tomorrow.
--- NOTE | 2020-02-28 17:22 | NUR ---
NURSE NOTES: patient was discharged to home via family car with stable condition. no respiratory distress on room air. no pain at this time. provide dc packet. checked and counted belongings with patient. singed on papers. given new prescription for PO ATB. removed IV and ID band. took patient to the lobby and patient left safely.
[2020-02-28] MEDS ORDERED: Docusate 100mg cap ORAL SCH (18:00)
--- NOTE | 2020-02-28 20:29 | Consultation ---
DATE OF CONSULTATION: 02/28/2020 CARDIOLOGY CONSULTATION CONSULTING PHYSICIAN: Bhavesh Avina M.D. REFERRING PHYSICIAN: Rojelio Montenegro D.O. ADDITIONAL REFERRING PHYSICIAN: Ronny Win M.D. REASON FOR CONSULTATION: Management of hypertension. HISTORY OF PRESENT ILLNESS: The patient is a 54-year-old lady with history of hypertension, gallstone pancreatitis, as well as recent COVID-19 infection, who came to the hospital with abdominal pain and CT scan showed diverticulitis. The patient was on various kinds of antibiotics. The patient at the time of my evaluation is feeling better and denies any chest pain or shortness of breath. Her heart rate has been around 100. REVIEW OF SYSTEMS: Negative other than what was mentioned in history of present illness. PAST MEDICAL HISTORY: As mentioned above. FAMILY HISTORY: Noncontributory. SOCIAL HISTORY: She lives at home, does not smoke or drink alcohol. PHYSICAL EXAMINATION: VITAL SIGNS: Blood pressure of 124/76, pulse is 90, respirations 18. She is afebrile. HEAD AND NECK: No JVD. LUNGS: Clear. CARDIOVASCULAR: Regular S1 and S2 with no gallop or murmur. ABDOMEN: Soft. EXTREMITIES: No pitting edema. LABORATORY AND DIAGNOSTIC DATA: Her labs show white count of 6.8, hemoglobin of 12, hematocrit of 38, and platelet count is 249,000. Sodium 138, potassium 3.6, BUN of 9, creatinine 0.9, and glucose of 117. ASSESSMENT AND PLAN: 1. Mild hypertension. Blood pressure is currently stable. We will just add p.r.n. clonidine to her medical regimen. 2. Suspect recent COVID infection. 3. Pancreatitis, on Flagyl and Levaquin. Further evaluation by Dr. Kingsley. The patient was also evaluated by Dr. Santiago from surgical perspective and noted for surgery. Thank you very much for allowing me to participate in the care of this patient. Please do not hesitate to contact for any questions regarding my evaluation. Bhavesh Avina M.D. DR: RAO JOB#: [id number] CC:
[2020-02-28] MEDS ORDERED: Miralax 17gm pkt ORAL SCH (21:00)
--- NOTE | 2020-02-29 16:09 | Discharge Summary ---
Discharge Summary Discharge Summary _ Date of admission: 02/26/2020 Date of discharge: 02/28/[address] Montenegro History of Present Illness and Brief Hospital Course Ms. Rhett Simms is a 54-year-old female with history of GERD, obesity, gallstone pancreatitis and recent infection with COVID-19 who presented to the ED for a recurrent right-sided back pain and midline epigastric abdominal pain x1 day. Of note, the patient was recently discharged from the hospital 2 weeks ago after she was found to have gallstone pancreatitis and underwent ERCP in which 4 large gallstones were removed. She did test positive for COVID-19 during the hospitalization but has not had any symptoms from that. CT of abdomen and pelvis showed cholelithiasis, and uncomplicated sigmoid diverticulitis. Patient received GI cocktail, and Zosyn in the ER and was admitted to the hospital for further management and observation. Her Zosyn was transitioned to Levaquin and Flagyl for reported mild skin rash without difficulty breathing. She denied headache, vision changes, neck pain, neck stiffness, fevers, chills, chest pain, palpitations, or shortness of breath. She initially tested positive for COVID-19 on 01/21/2020 at [facility]. She re mained asymptomatic throughout her admission. Given her normoxemia without symptoms, no specific therapy code for COVID-19 was indicated. A repeat testing for COVID-19 was not indicated. She presented with elevated LFTs. Subsequent hepatitis panel was negative. Elevated LFTs improved over her admission. Given her recent history of gallstone pancreatitis status post ERCP, she returned to the hospital with abdominal pain. CT of abdomen/pelvis identified acute uncomplicated diverticulitis. However, she remained afebrile and hemodynamically stable with normal lab findings. As abdominal exam was fairly benign, no acute surgical intervention was planned. She was started on IV fluids and antibiotics. Her pain level rapidly improved and she was medically stable for discharge on admission day 3. Patient was discharged home in stable condition without respiratory distress on room air. Patient is to follow-up with her PCP and a surgeon as an outpatient. Consultants: Cardiology Dr. Avina Gastroenterology Dr. Reveles Infectious disease Dr. Blandon Surgery Dr. Santiago Pulmonology Dr. Penny Discharge Condition Improved and stable Final diagnoses Hypertension Pancreatitis Sigmoid diverticulitis Cholelithiasis History of COVID-19 Morbid obesity Proteinuria Electrolyte imbalance I have been assigned to dictate discharge summary for this account. Steven Bergman Feb 29, 2020 16:09
== END 2020-02-28 17:14 | disposition home or self-care (01) | DRG 244 ==
LOC: EMR 23:34 → EDBEDREQ 02-26 03:11 → 4E 02-26 03:22 → EDBEDREQ 02-26 04:18
DX: K57.32 Diverticulitis of large intestine without perforation or abscess without bleeding (principal); K85.90 Acute pancreatitis without necrosis or infection, unspecified; E87.8 Other disorders of electrolyte and fluid balance, not elsewhere classified; K80.20 Calculus of gallbladder without cholecystitis without obstruction; E66.01 Morbid (severe) obesity due to excess calories; Z68.38 Body mass index [BMI] 38.0-38.9, adult; Z88.6 Allergy status to analgesic agent; K21.9 Gastro-esophageal reflux disease without esophagitis; I10 Essential (primary) hypertension; Z86.16 Personal history of COVID-19; Z88.8 Allergy status to other drugs, medicaments and biological substances
CPT/HCPCS: 36415; 74177; 80053; 80076; 81003; 83690; 85025; 86705; 86709; 86803; 87040; 87081; 87340; 93005; 93306; 96374; 96375; 99285; J2405; J2765